=== PATIENT | male | born 1975 | race Caucasian/White ===

== ENCOUNTER 2024-08-28 09:33 | Emergency (ER) | payer MEDICAID, SELFPAY ==
[2024-08-28 09:34] VITALS: PULSE 92; O2SAT 96; BMI 28.7
--- NOTE | 2024-08-28 10:12 | PC.NURSE ---
called pt back, no answer at this time
--- NOTE | 2024-08-28 10:30 | PC.NURSE ---
PT HAS BEEN IN THE BATHROOM SINCE CHECKING IN AND SAYS OCCUPIED WHEN ANY ONE KNOCKS ON DOOR. CHECK NOW AND TOLD PT NURSE WAS COMING IN TO SEE IF HE NEEDED HELP AND PT OPENED THE DOOR AND SAID IM CLEANING UP AND CHANGING MY CLOTHES. INFORMED PT THAT NURSE HAVE BEEN CALLING HIM SINCE HE CHECKED IN.
[2024-08-28 10:47] VITALS: BP 129/69; PULSE 83; RESP 18; TEMP 36.9; O2SAT 98
--- NOTE | 2024-08-28 11:15 | EDNOTE_ITS ---
<Statement entered by Rosibel Parr MD - 09/08/24 19:24> As co-signing physician, I was present and available for consult prn. I concur with the plan and care as documented by the midlevel provider. ED Extremity Problem RME/HPI General Chief complaint: Extremity Problem,Nontraumatic Stated complaint: RIGHT HAND AND BILATERAL LEG PAIN x 2 DAYS Time Seen by Provider: 08/28/24 09:45 Arrival date/time: 08/28/24 09:33 This is a 49-year-old male that comes in with complaints of second digit erythema and mild swelling. Patient states it started yesterday. Patient also complains of pain. Patient denies any trauma. Patient also complains of bilateral leg pain for the last 2 days. Patient has some cellulitis to right lower extremity as well. Patient has not sore to the medial right ankle and abrasion to right dorsal lower leg. Related Data Home Medications ?Medication ?Instructions ?Recorded ?Confirmed albuterol sulfate 90 mcg/actuation 2 puff inhalation Q ID PRN 08/29/19 08/30/19 aerosol inhaler Shortness Of Breath Or Wheez ing buprenorphine 8 mg-naloxone 2 mg 2 film buccal BID 05/0808/30/19 sublingual film (Suboxone) carvedilol 3.125 mg tablet 3.125 mg PO BID 08/29/19 cetirizine 10 mg tablet 10 mg PO QDAY 08/29/1908/30 cholecalciferol (vitamin D3) 50 2,000 unit PO QDAY 05/0808/30/19 mcg (2,000 unit) tablet (Vitamin D3) famotidine 20 mg tablet 20 mg PO QDAY 08/29/1908/30 ferrous sulfate 325 mg (65 mg 325 mg PO TID 08/29/19 0 08/30/19 iron) tablet finasteride 5 mg tablet 5 mg PO QDAY 08/29/19 fluticasone furoate 200 1 puff inhalation QDAY 08/2908/30/19 mcg-vilanterol 25 mcg/dose inhalation powder (Breo Ellipta) fluvoxamine 50 mg tablet 50 mg PO BID 08/29/19 furosemide 80 mg tablet 80 mg PO QDAY 08/29/1908/30 gabapentin 600 mg tablet 600 mg PO TID 08/29/1908/30 hydroxychloroquine 200 mg tablet 200 mg PO BID 0 08/30/19 ibuprofen 800 mg tablet 800 mg PO TID 08/29/1908/30 levetiracetam 500 mg tablet 500 mg PO BID 08/29/1906/08 ondansetron 4 mg disintegrating 4 mg PO Q8H PRN Nausea And Vomiting 08/29/19 08/30/19 tablet pantoprazole 40 mg tablet,delayed 40 mg PO QDAY 08/30/19 release spironolactone 100 mg tablet 100 mg PO BID 08/29/19 tamsulosin 0.4 mg capsule 0.4 mg PO BID 08/29/1908/30 tiotropium bromide 18 mcg capsule 1 cap inhalation QDA Y 08/29/19 08/30/19 with inhalation device (Spiriva with HandiHaler) trazodone 100 mg tablet 100 mg PO BID PRN depression 08/29/19 08/30/19 Previous Rx's ?Medication ?Instructions ?Recorded ibuprofen 800 mg tablet 800 mg PO Q6H PRN pain #20 t abs 08/28/24 Allergies Allergy/AdvReac Type Severity Reaction Status Date / Time Cephalexin Monohydrate Allergy Severe Swelling Verified 08/28/24 09:37 of Lip/Tongue/Throat Review of Systems Review of Systems Systems Reviewed: All systems reviewed, normal except as documented Past Medical History Past Medical History NEUROLOGIC: Positive Neurological Disorders and Seizures (last 2 weeks ago) CARDIAC: Positive Cardiac Disorders, Edema (lymphedema bilateral lower extremities from hips down) and Hypertension; Negative Congestive Heart Failure or Deep Vein Thrombosis RESPIRATORY: Positive Chronic Obstructive Pulmonary Disease (COPD) and Sleep Apnea GASTROINTESTINAL: Positive Gastrointestinal Disorders, Hepatitis (hep C, treated), Cirrhosis, Gastrointestinal Bleed, Ulcer, Gastroesophageal Reflux Disease and Obesity GENITOURINARY: Positive Genitourinary Disorders and Renal Disease MUSCULOSKELETAL: Positive Musculoskeletal Disorders, Arthritis and Fractures (right hip x2, nasal, right wrist) ENDOCRINE: Positive Endocrine Disorders and Systemic Lupus Erythematosus; Negative Diabetes Mellitus Type 1 or Diabetes Mellitus Type 2 HEMATOLOGIC: Negative Blood Disorders PSYCHO/SOCIAL: Positive Depression and Anxiety OTHER HISTORY: Positive Falls, Blood Transfusions and Anesthesia Reactions (slow to wake); Negative Blood Transfusion Reaction or Cancer Family History FAMILY HISTORY: Positive Family Cardiac Disorders (father-CHF, CABG), Family Gastrointestinal Problems (father-ulcer) and Family Surgery (father, mother); Negative Family Respiratory Disorders (mother-asthma, father-copd and asthma) or Family Anesthesia Reaction Surgical History SURGICAL: Positive Tonsillectomy and Abdominal Surgery Social History SMOKING STATUS: Current every day smoker Travel History EBOLA RISK: No ED Exam General General appearance: Present alert and in no apparent distress Head Head exam: Present atraumatic Eye Eye exam: Present normal appearance, PERRL and EOMI ENT ENT exam: Present normal exam, normal oropharynx and mucous membranes moist Neck Neck exam: Present normal inspection, full ROM and trachea midline Chest Chest inspection: Present normal inspection and symmetric chest wall rise Respiratory Respiratory exam: Present normal lung sounds bilaterally Cardiovascular Cardiovascular exam: Present regular rate, normal rhythm and normal heart sounds Abdominal Exam Abdominal exam: Present soft Extremities Exam Extremities exam: Present normal inspection and full ROM Back Exam Back exam: Present normal inspection and full ROM Neurological Exam Neurological exam: Present alert, oriented X3 and CN II-XII intact Psychiatric Psychiatric exam: Present normal affect and normal mood Skin Skin exam: Present other (right second digit erythema and mild swelling, lower extremity edema mild bilateral. right lower extremity erythema. around dorsal ankle ) Course Quality Measures none Orders Category Date Time Status Consult Building Construction Supervisor NOW Care 08/28/24 11:37 Completed Acetaminophen Tab [Tylenol ES Tab] Med 08/28/24 11:15 Discontinued 1,000 mg PO X1 ONE Clindamycin Vial [Cleocin vial] Med 08/28/24 11:15 Discontinued 600 mg IM X1 ONE Ibuprofen Tab [Motrin Tab] Med 08/28/24 11:15 Discontinued 800 mg PO X1 ONE Vital Signs Vital signs: Vital Signs Temperature 98.4 F 08/28/24 10:47 Pulse Rate 83 08/28/24 10:47 Respiratory Rate 18 08/28/24 10:47 Blood Pressure 129/69 08/28/24 10:47 Pulse Oximetry (%) 98 08/28/24 10:47 Oxygen Delivery Method Room Air 08/28/24 10:47 Extremity Problem MDM Narrative MDM Narrative:: I spoke to patient at length. I spoke to him about the importance of keeping wound clean and dry. I spoke to patient about doing labs and x-rays. Patient does not want further testing at this time. Patient just wants antibiotics. He wants to see if the antibiotics help. Patient just requesting antibiotics. I explained to him at length that if he is not better with antibiotics to come back to the emergency room immediately. Patient verbalizes understanding. Patient told that he may need x-rays CT scans if not better and possibly be admitted if he fails antibiotic treatment outpatient. Patient verbalizes understanding. Patient told to follow-up with primary provider in 1 to 2 days. Come back to the emergency room if symptoms change or worsen. fiber worker came and brought patient clean pants, thermal, shirt. Patient given food. Patient data External records reviewed:: [facility] previous records Clinical information provided by:: patient Social determinants that could affect healthcare access:: none Patient has the following chronic illnesses:: see hpi How is presenting disease/condition affected by chronic disease/condition?: no chronic disease Evaluation data The following diagnostics were reviewed and interpreted by me:: other (specify) (none ) Lab and/or radiology exams considered but not ordered:: venous doppler of lower extremities, cbc, cmp, blood cultures Interpretation Summary: none Medications / Prescriptions Medications or Prescriptions considered but not ordered:: none Medication administrations:: Medication Administration History Discontinued Medications Acetaminophen (Acetaminophen 500 Mg Tablet) 1,000 mg PO X1 ONE Stop: 08/28/24 11:16 Last Admin: 08/28/24 11:25 Dose: 1,000 mg Documented By: Clindamycin Phosphate (Clindamycin Phos Inj 150 Mg/Ml Vial 6 Ml) 600 mg IM X1 ONE Stop: 08/28/24 11:16 Last Admin: 08/28/24 11:25 Dose: 600 mg Documented By: Ibuprofen (Ibuprofen Tab 400 Mg Tablet) 800 mg PO X1 ONE Stop: 08/28/24 11:16 Last Admin: 08/28/24 11:25 Dose: 800 mg Documented By: GM see hpi Consultations Consultation(s) initiated? (list below): No Diagnosis Most likely diagnosis given after review of the tests above:: cellulitis Admission Indicated Admission indicated?: not indicated Admission Request Was there a request for admission?: No Disposition Plan Disposition Plan: Discharge Discharge Attestation Discharge Attestation: The patient and all family members were given an opportunity to ask questions and understood the discharge instructions. Discharge instructions specifically effects, indications for sooner follow up or return to the emergency department, and the expected course of current diagnosis. Patient condition: Stable Discharge Plan Plan Patient Disposition: HOME (Self Care) Patient condition on transfer: Stable Prescriptions/Referrals Prescriptions/Med Rec: New ibuprofen 800 mg tablet 800 mg PO Q6H PRN (Reason: pain) Qty: 20 0RF No Action gabapentin 600 mg Tablet 600 mg PO TID cetirizine 10 mg Tablet 10 mg PO QDAY ibuprofen 800 mg Tablet 800 mg PO TID levetiracetam 500 mg Tablet 500 mg PO BID spironolactone 100 mg Tablet 100 mg PO BID carvedilol 3.125 mg Tablet 3.125 mg PO BID famotidine 20 mg Tablet 20 mg PO QDAY tamsulosin 0.4 mg Capsule 0.4 mg PO BID furosemide 80 mg Tablet 80 mg PO QDAY trazodone 100 mg Tablet 100 mg PO BID PRN (Reason: depression) pantoprazole 40 mg Tablet,Delayed Release (Dr/Ec) 40 mg PO QDAY ferrous sulfate 325 mg (65 mg iron) Tablet 325 mg PO TID fluvoxamine 50 mg Tablet 50 mg PO BID hydroxychloroquine 200 mg Tablet 200 mg PO BID albuterol sulfate 90 mcg/actuation Hfa Aerosol Inhaler 2 puff INHALATION QID PRN (Reason: Shortness Of Breath Or Wheezing) ondansetron 4 mg Tablet,Disintegrating 4 mg PO Q8H PRN (Reason: Nausea And Vomiting) finasteride 5 mg Tablet 5 mg PO QDAY Spiriva with HandiHaler 18 mcg Capsule, W/Inhalation Device 1 cap INHALATION QDAY cholecalciferol (vitamin D3) [Vitamin D3] 2,000 unit Tablet 2,000 unit PO QDAY buprenorphine-naloxone [Suboxone] 8-2 mg Film 2 film BUCCAL BID Breo Ellipta 200-25 mcg/dose Blister With Device 1 puff inhalation QDAY Problem List Clinical Impression: Cellulitis Patient/Caregiver Discharge Instructions Discharge Activity: activity as tolerated Education Materials: ED Cellulitis Additional Instructions: Please keep wounds clean and dry. Take antibiotics and pain medication as directed. Come back to the emergency room if symptoms change or worsen. Follow-up with primary provider in 1 to 2 days. Print Language: German Stand Alone Forms: Anjali Award Info., Patient Portal Info Letter PA/ECONOMIC DEVELOPER Supervising Physician PA/ECONOMIC DEVELOPER Supervising Physician: cal
[2024-08-28] MEDS: ACETAMINOPHEN 500 MG TABLET 1000 MG PO (11:25)
[2024-08-28] MEDS: IBUPROFEN TAB 400 MG TABLET 800 MG PO (11:25)
[2024-08-28] MEDS: CLINDAMYCIN PHOS INJ 150 MG/ML VIAL 6 ML 600 MG IM (11:25)
--- NOTE | 2024-08-28 12:03 | PC.CC ---
ASW was consulted regarding clothing for patient. ASW provided under clothing, sweats, and thermal shirt to the patient.
== END 2024-08-28 12:43 | disposition home or self-care (01) ==
LOC: SERX 11:34
PROVIDERS: Emergency Provider Emergency Medicine
DX: L03.115 Cellulitis of right lower limb (principal); M79.605 Pain in left leg
CPT/HCPCS: 99283; J0736; A9270

== ENCOUNTER 2024-12-05 18:34 | Inpatient (IN) | payer MEDICAID, SELFPAY ==
[2024-12-05] VITALS (8 sets, daily range): BP systolic 116–142; BP diastolic 49–77; PULSE 87–120; RESP 17–100; TEMP 37.1–39.3; O2SAT 97–99; BMI 28.7
--- NOTE | 2024-12-05 19:02 | EKG_ITS ---
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
--- NOTE | 2024-12-05 19:02 | PD.EDADULT ---
ED General RME/HPI General Chief complaint: Wound/Laceration Stated complaint: BILATERAL LEG SWOLLEN LEG PAIN Time Seen by Provider: 12/05/24 18:43 Arrival date/time: 12/05/24 18:34 CC: Bilateral lower leg pain and swelling, abdominal pain HPI lower leg pain ongoing for several years increasing chronicity, now painful. Abdominal pain for a couple of weeks . Patient is homeless EMS report tachycardia hypertensive admitted to smoking fentanyl the today. Patient is is ill kempt disheveled but does not appear in any acute distress. Related Data Home Medications ?Medication ?Instructions ?Recorded ?Confirmed albuterol sulfate 90 mcg/actuation 2 puff inhalation QID PRN 08/29/19 08/30/19 aerosol inhaler Shortness Of Breath Or Wheezing buprenorphine 8 mg-naloxone 2 mg 2 film buccal BID 08/29/19 08/30/19 sublingual film (Suboxone) carvedilol 3.125 mg tablet 3.125 mg PO BID 08/29/19 08/30/19 cetirizine 10 mg tablet 10 mg PO QDAY 08/29/19 08/30/19 cholecalciferol (vitamin D3) 50 2,000 unit PO QDAY 08/29/19 08/30/19 mcg (2,000 unit) tablet (Vitamin D3) famotidine 20 mg tablet 20 mg PO QDAY 08/29/19 08/30/19 ferrous sulfate 325 mg (65 mg 325 mg PO TID 08/29/19 08/30/19 iron) tablet finasteride 5 mg tablet 5 mg PO QDAY 08/29/19 08/30/19 fluticasone furoate 200 1 puff inhalation QDAY 08/29/19 08/30/19 mcg-vilanterol 25 mcg/dose inhalation powder (Breo Ellipta) fluvoxamine 50 mg tablet 50 mg PO BID 08/29/19 08/30/19 furosemide 80 mg tablet 80 mg PO QDAY 08/29/19 08/30/19 gabapentin 600 mg tablet 600 mg PO TID 08/29/19 08/30/19 hydroxychloroquine 200 mg tablet 200 mg PO BID 08/29/19 08/30/19 ibuprofen 800 mg tablet 800 mg PO TID 08/29/19 08/30/19 levetiracetam 500 mg tablet 500 mg PO BID 08/29/19 08/30/19 ondansetron 4 mg disintegrating 4 mg PO Q8H PRN Nausea And Vomiting 08/29/19 08/30/19 tablet pantoprazole 40 mg tablet,delayed 40 mg PO QDAY 08/29/19 08/30/19 release spironolactone 100 mg tablet 100 mg PO BID 08/29/19 08/30/19 tamsulosin 0.4 mg capsule 0.4 mg PO BID 08/29/19 08/30/19 tiotropium bromide 18 mcg capsule 1 cap inhalation QDAY 08/29/19 08/30/19 with inhalation device (Spiriva with HandiHaler) trazodone 100 mg tablet 100 mg PO BID PRN depression 08/29/19 08/30/19 Previous Rx's ?Medication ?Instructions ?Recorded ibuprofen 800 mg tablet 800 mg PO Q6H PRN pain #20 tabs 08/28/24 Allergies Allergy/AdvReac Type Severity Reaction Status Date / Time Cephalexin Monohydrate Allergy Severe Swelling Verified 12/05/24 19:01 of Lip/Tongue/Throat cephalexin (From Keflex) Allergy Verified 12/05/24 19:01 Review of Systems Review of Systems Narrative Review of Systems: GEN: No fever, no chills, no weight loss EYES: No discharge, no visual changes, no pain HEENT: No ear pain, no congestion, no sore throat PULM: No shortness of breath, no cough, no congestion CV: No chest pain, no dyspnea on exertion, no palpitations GI: No nausea, no vomiting, no diarrhea, no pain, no constipation : No frequency, no urgency, no dysuria MUSC/SKEL: No joint pain, no back pain SKIN: No rash PSYCH: No hallucinations, no depression HEME/LYMPH: No easy bleeding or bruising tendencies NEURO: No weakness, no headache Past Medical History Past Medical History NEUROLOGIC: Positive Neurological Disorders and Seizures (last 2 weeks ago) CARDIAC: Positive Cardiac Disorders, Edema (lymphedema bilateral lower extremities from hips down) and Hypertension; Negative Congestive Heart Failure or Deep Vein Thrombosis RESPIRATORY: Positive Chronic Obstructive Pulmonary Disease (COPD) and Sleep Apnea GASTROINTESTINAL: Positive Gastrointestinal Disorders, Hepatitis (hep C, treated), Cirrhosis, Gastrointestinal Bleed, Ulcer, Gastroesophageal Reflux Disease and Obesity GENITOURINARY: Positive Genitourinary Disorders and Renal Disease MUSCULOSKELETAL: Positive Musculoskeletal Disorders, Arthritis and Fractures (right hip x2, nasal, right wrist) ENDOCRINE: Positive Endocrine Disorders and Systemic Lupus Erythematosus; Negative Diabetes Mellitus Type 1 or Diabetes Mellitus Type 2 HEMATOLOGIC: Negative Blood Disorders PSYCHO/SOCIAL: Positive Depression and Anxiety OTHER HISTORY: Positive Falls, Blood Transfusions and Anesthesia Reactions (slow to wake); Negative Blood Transfusion Reaction or Cancer Family History FAMILY HISTORY: Positive Family Cardiac Disorders (father-CHF, CABG), Family Gastrointestinal Problems (father-ulcer) and Family Surgery (father, mother); Negative Family Respiratory Disorders (mother-asthma, father-copd and asthma) or Family Anesthesia Reaction Surgical History SURGICAL: Positive Tonsillectomy and Abdominal Surgery Social History SMOKING STATUS: Current every day smoker ED Exam Narrative Physical exam: [General: Ill kempt, disheveled, moaning. Appears not in any acute distress Head normocephalic HEENT: Within acceptable limits Neck is supple nontender Chest equal chest rise nontender to palpation Respiratory: Clear to auscultation no wheezes crackles or rubs CV: Rate rhythm is regular no murmurs rubs or clicks Abdomen is distended secondary to body habitus soft nontender no masses positive bowel sounds all 4 quadrants GI: The patient has good rectal tone stool in the vault is faintly guaiac positive. Back: No CVA tenderness no spinous process tenderness from cervical spine thoracic and lumbar spine Skin: Heavy crusting with black eschar to the both lower extremities from the knee below including the feet, edema, not warm to touch. No circumferential crusting above the knee. Otherwise skin is intact no petechiae rash induration ulceration or crepitus Extremities: Decreased range of motion of the lower extremity secondary to pain however moving all extremities against resistance cap refill less than 2 seconds neurosensory intact Neuro: Awake alert oriented x2, person and place, Glascow coma 15 no focal deficits] Course Course Course Narrative: Reviewed the labs clinical presentation of the chronic stasis ulcers are not an issue here the patient is febrile, with an early pneumonia I do not feel that this necessarily contributes to his condition. The patient is hyponatremic and guaiac positive with anemia of a crit of 7.9. Emigdio Marinelli who agrees to consult on the anemia portion, will need to address the hyponatremia as well as the fever and the pneumonia . Patient's case discussed with Dr. Monzon who agrees accept the patient for admission. Quality Measures none Orders Category Date Time Status Admit to Inpatient Status Routine Admission 12/05/24 22:24 Active Patient Condition Routine Admission 12/05/24 22:25 Ordered Bedside COVID-19 Antigen Test NOW Care 12/05/24 19:32 Active Bedside Influenza A&B Antigen Test NOW Care 12/05/24 19:[address] Screening NOW Care 12/05/24 22:21 Active Rubber Tile Floor Layer STAT Care 12/05/24 19:32 Active Continuous Pulse Oximetry STAT Care 12/05/24 19:32 Completed EKG (ED ONLY) *Do not use* NOW Care 12/05/24 19:02 Completed Arshad [Urinary Catheter] QS Care 12/05/24 22:24 Active In and Out Catheter X1PRN Care 12/05/24 19:32 Active Insert IV NOW Care 12/05/24 19:32 Active Intake and Output QSHIFT Care 12/05/24 22:30 Ordered Miscellaneous Nursing Order NOW Care 12/05/24 22:25 Active NPO STAT Care 12/05/24 19:32 Active NPO after Midnight ONCE Care 12/05/24 21:38 Active Notify provider NEEDED Care 12/05/24 22:25 Active Obtain weight NOW Care 12/05/24 22:25 Completed Strict Intake and Output Routine Care 12/05/24 19:32 Ordered Consult to Gastroenterology Stat Cons 12/05/24 21:38 Ordered Diet NPO after Midnight Diet 12/06/24 00:01 Active CA echo doppler complete Urgent Exams 12/05/24 22:[address] abdomen pelvis w con Stat Exams 12/05/24 22:[address] lower extremity BI w Stat Exams 12/05/24 22:21 Ordered EKG (ED Only) Stat Exams 12/05/24 19:02 Draft XR chest 1V Stat Exams 12/05/24 19:34 Completed B-Type Natriuretic Peptide Stat Lab 12/05/24 20:03 Completed Basic Metabolic Panel AM DRAW Lab 12/06/24 05:00 Ordered Basic Metabolic Panel AM DRAW Lab 12/07/24 05:00 Ordered Basic Metabolic Panel AM DRAW Lab 12/08/24 05:00 Ordered Blood Culture (Lab) Stat Lab 12/05/24 20:03 Received CBC AM DRAW Lab 12/06/24 05:00 Ordered CBC AM DRAW Lab 12/07/24 05:00 Ordered CBC AM DRAW Lab 12/08/24 05:00 Ordered CBC Stat Lab 12/05/24 20:03 Completed Comprehensive Metabolic Panel Stat Lab 12/05/24 20:03 Completed Drug Screen,Urine Stat Lab 12/05/24 21:14 Completed Folate, RBC* Routine Lab 12/05/24 Ordered Iron Panel Routine Lab 12/05/24 22:22 Ordered LDH (Lactate Dehydrogenase) Stat Lab 12/05/24 20:03 Completed Lactate (Lactic Acid) Stat Lab 12/05/24 20:03 Completed Lipase Stat Lab 12/05/24 20:03 Completed Lipid Panel AM DRAW Lab 12/06/24 05:00 Ordered Liver Panel AM DRAW Lab 12/06/24 05:00 Ordered MRSA Nasal Screen Routine Lab 12/05/24 22:25 Ordered Magnesium AM DRAW Lab 12/06/24 05:00 Ordered Magnesium Stat Lab 12/05/24 20:03 Completed Partial Thromboplastin Time Stat Lab 12/05/24 20:03 Completed Phosphorous AM DRAW Lab 12/06/24 05:00 Ordered Phosphorous Stat Lab 12/05/24 20:03 Completed Procalcitonin Stat Lab 12/05/24 20:03 Completed Prothrombin Time with INR AM DRAW Lab 12/06/24 05:00 Ordered Prothrombin Time with INR Stat Lab 12/05/24 20:03 Completed Thyroid Stimulating Hormone AM DRAW Lab 12/06/24 05:00 Ordered Troponin I Stat Lab 12/05/24 20:03 Completed Urinalysis Stat Lab 12/05/24 19:32 Ordered Urinalysis Stat Lab 12/05/24 21:14 Completed Urine Culture Stat Lab 12/05/24 21:14 Received Vitamin B12 Routine Lab 12/05/24 22:27 Ordered Acetaminophen Ivpb [Ofirmev Inj] Med 12/05/24 19:35 Active 1,000 mg in 100 ml IV Q6HR Acetaminophen Tab [Tylenol Tab] Med 12/05/24 22:24 Active 650 mg PO Q6H PRN CIPROFLOXACIN/D5w 400 MG IVPB [Cipro Ivpb] Med 12/05/24 22:31 Ordered 400 mg in 200 ml IV Q12HR Famotidine [Pepcid] Med 12/05/24 19:10 Discontinued 40 mg PO X1 ONE Furosemide Inj [Lasix Inj] Med 12/05/24 22:30 Active 40 mg IVP BIDD Ondansetron Inj [Zofran Inj] Med 12/05/24 22:24 Ordered 4 mg IV Q6H PRN Pantoprazole Inj [Protonix Inj] Med 12/05/24 21:38 Discontinued 40 mg IVP X1 ONE Pantoprazole/Ns 80Mg IV Premix [Protonix/NS 80mg IV Med 12/05/24 21:38 Active Premix] 80 mg in 100 ml IV Q10H Ringers Lactated 1000 ml [Lactated Ringers] 1,000 ml Med 12/05/24 19:32 Discontinued IV 999 mls/hr Ringers Lactated 1000 ml [Lactated Ringers] 1,000 ml Med 12/05/24 19:33 Discontinued IV 999 mls/hr Senna [Senokot] Med 12/05/24 22:24 Ordered 2 tab PO BID PRN Vancomycin Pharmacy to Dose Med 12/06/24 09:00 Ordered 1 each IV QDAY cefTRIAXone/D5w 1gm IV premix [Rocephin/D5w 1gm IV Med 12/05/24 21:34 Discontinued premix] 1 gm in 50 ml IV X1 metroNIDAZOLE/NS 500 MG IVPB [Flagyl 500 mg IV] Med 12/05/24 22:30 Ordered 500 mg in 100 ml IV Q8HR Code Status Routine Oth 12/05/24 22:24 Ordered EKG (RT) DAILY RT 12/06/24 09:00 Ordered Oxygen Delivery DAILY RT 12/05/24 22:25 Completed Oxygen Delivery NOW RT 12/05/24 19:32 Active Vital Signs Vital signs: Vital Signs Temperature 98.7 F 12/05/24 18:52 Pulse Rate 103 H 12/05/24 18:52 Respiratory Rate 17 12/05/24 18:52 Blood Pressure 142/63 H 12/05/24 18:52 Pulse Oximetry (%) 98 12/05/24 18:52 Oxygen Delivery Method Room Air 12/05/24 18:52 Discharge Plan Plan Patient Disposition: Other Care w/in Hosp ([facility]) Patient condition on transfer: Stable Prescriptions/Referrals Prescriptions/Med Rec: No Action gabapentin 600 mg Tablet 600 mg PO TID cetirizine 10 mg Tablet 10 mg PO QDAY ibuprofen 800 mg Tablet 800 mg PO TID levetiracetam 500 mg Tablet 500 mg PO BID spironolactone 100 mg Tablet 100 mg PO BID carvedilol 3.125 mg Tablet 3.125 mg PO BID famotidine 20 mg Tablet 20 mg PO QDAY tamsulosin 0.4 mg Capsule 0.4 mg PO BID furosemide 80 mg Tablet 80 mg PO QDAY trazodone 100 mg Tablet 100 mg PO BID PRN (Reason: depression) pantoprazole 40 mg Tablet,Delayed Release (Dr/Ec) 40 mg PO QDAY ferrous sulfate 325 mg (65 mg iron) Tablet 325 mg PO TID fluvoxamine 50 mg Tablet 50 mg PO BID hydroxychloroquine 200 mg Tablet 200 mg PO BID albuterol sulfate 90 mcg/actuation Hfa Aerosol Inhaler 2 puff INHALATION QID PRN (Reason: Shortness Of Breath Or Wheezing) ondansetron 4 mg Tablet,Disintegrating 4 mg PO Q8H PRN (Reason: Nausea And Vomiting) finasteride 5 mg Tablet 5 mg PO QDAY Spiriva with HandiHaler 18 mcg Capsule, W/Inhalation Device 1 cap INHALATION QDAY cholecalciferol (vitamin D3) [Vitamin D3] 2,000 unit Tablet 2,000 unit PO QDAY buprenorphine-naloxone [Suboxone] 8-2 mg Film 2 film BUCCAL BID Breo Ellipta 200-25 mcg/dose Blister With Device 1 puff inhalation QDAY ibuprofen 800 mg tablet 800 mg PO Q6H PRN (Reason: pain) Qty: 20 0RF Problem List Clinical Impression: Fever, Anemia, Pneumonia, Hyponatremia, Venous stasis ulcer of ankle limited to breakdown of skin, Homelessness Patient/Caregiver Discharge Instructions Print Language: Argentine Stand Alone Forms: Anjali Award Info., Patient Portal Info Letter PA/AERIAL LINEMAN Supervising Physician PA/AERIAL LINEMAN Supervising Physician: Ahmet Stephen ENP [facility] EKG Interpretation EKG #1: EKG Interpretation: EKG performed at 1934 shows a heart rate of 70 DC interval of approximately 125 QRS of approximately 100, DC interval approximately 300. This is atypical EKG. Labs Lab(s) Interpretation(s): CBC shows no leukocytosis there is an anemia hemoglobin of 7.9 hematocrit of 24, note last blood draw was 4 years ago which was normal. Platelets at 89. Coags show PT 15 INR of 1.4 PTT of 31.0 CMP shows sodium 129 no other electrolyte imbalances no renal impairment no transaminitis or T. bili elevation. Magnesium 1.4 Phosphorus of 2.0 Troponin is negative BNP is negative Pro-Gurmeet is 0.50. Lipase is 24 Lactic acid is 1.7. COVID influenza are negative Medication Administration(s) Medication Administration History Acetaminophen (Acetaminophen 325 Mg Tablet) 650 mg PO Q6H PRN PRN Reason: PAIN OR FEVER > 101 Stop: 01/04/25 22:23 Furosemide (Furosemide Inj 10 Mg/Ml 4ml Vial) 40 mg IVP BIDD ELIGIO Stop: 01/04/25 22:29 Acetaminophen (Ofirmev Inj) 1,000 mg in 100 mls @ 250 mls/hr IV Q6HR ELIGIO Stop: 12/06/24 12:23 Last Infusion: 12/05/24 20:20 Dose: Infused Documented By: Admin: 12/05/24 19:56 Dose: 250 mls/hr Documented By: EF Pantoprazole Sodium (Protonix/Ns 80mg Iv Premix) 80 mg in 100 mls @ 10 mls/hr IV Q10H ELIGIO Stop: 12/08/24 19:37 Last Admin: 12/05/24 22:18 Dose: 10 mls/hr Documented By: EF Metronidazole (Flagyl 500 Mg Iv) 500 mg in 100 mls @ 200 mls/hr IV Q8HR ELIGIO Stop: 12/12/24 22:29 Ciprofloxacin/Dextrose (Cipro Ivpb) 400 mg in 200 mls @ 200 mls/hr IV Q12HR ELIGIO Stop: 12/12/24 22:30 Ondansetron HCl (Ondansetron Inj 2 Mg/Ml Inj 2 Ml) 4 mg IV Q6H PRN; Protocol PRN Reason: NAUSEA OR VOMITING Stop: 01/04/25 22:23 Pharmacy Consult (Vancomycin Pharmacy To Dose 1 Each Each) 1 each IV QDAY ELIGIO Stop: 01/05/25 08:59 Sennosides (Senna Tablet) 2 tab PO BID PRN; Protocol PRN Reason: CONSTIPATION Stop: 01/04/25 22:23 Discontinued Medications Famotidine (Famotidine 20 Mg Tablet) 40 mg PO X1 ONE Stop: 12/05/24 19:11 Last Admin: 12/05/24 19:56 Dose: 40 mg Documented By: EF Lactated Ringer's (Lactated Ringers) 1,000 mls @ 999 mls/hr IV .Q1H1M ONE Stop: 12/05/24 20:32 Last Infusion: 12/05/24 20:58 Dose: Infused Documented By: Admin: 12/05/24 19:57 Dose: 999 mls/hr Documented By: EF Lactated Ringer's (Lactated Ringers) 1,000 mls @ 999 mls/hr IV .Q1H1M ONE Stop: 12/05/24 20:33 Last Admin: 12/05/24 19:57 Dose: 999 mls/hr Documented By: EF Ceftriaxone Sodium/Dextrose (Rocephin/D5w 1gm Iv Premix) 1 gm in 50 mls @ 100 mls/hr IV X1 ONE Stop: 12/05/24 22:03 Last Admin: 12/05/24 22:03 Dose: 100 mls/hr Documented By: GEORGE Pantoprazole Sodium (Pantoprazole Inj 40 Mg Vial) 40 mg IVP X1 ONE Stop: 12/05/24 21:39 Last Admin: 12/05/24 22:18 Dose: 40 mg Documented By: EF
--- NOTE | 2024-12-05 19:34 | XR_ITS ---
Examination: AP chest single view TECHNIQUE: AP portable semiupright chest single view Date and time: December 05, 2024 2008 hours Comparison August 30, 2019 INDICATIONS: Sepsis today with chest pain and shortness of breath FINDINGS: Suspicious for early left infrahilar pneumonia Normal heart size No pulmonary edema Prominent osteopenia IMPRESSION: Suspicious for early left basilar pneumonia
[2024-12-05] MEDS: ACETAMINOPHEN IVPB 1,000 MG/100 ML VIAL 250 MG IV (19:56)
[2024-12-05] MEDS: FAMOTIDINE 20 MG TABLET 40 MG PO (19:56)
[2024-12-05] MEDS: RINGERS LACTATED 1000 ML 1,000 ML 999 ML IV ×2 (19:57)
[2024-12-05 20:21] LABS: Lactate (Lactic Acid) 1.7 mMol/L (0.4-2.0)
[2024-12-05 20:23] LABS: Basophils % (Auto) 0 % (0-2.5); Eosinophils % (Auto) 1 % (0-10); Immature Granulocytes % (Auto) 1 % (0-0); Immature Granulocytes Auto 0.05 Thou/mm3 (0.00-0.00); Lymphocytes # (Auto) 0.4 Thou/mm3 (1.0-4.8); Lymphocytes % (Auto) 7 % (10-50); Mean Corpuscular HGB Conc 32.9 g/dl (31.0-37.0); Mean Corpuscular Hemoglobin 26.1 pg (25.0-35.0); Mean Corpuscular Volume 79 fL (80-100); Monocytes # (Auto) 0.2 Thou/mm3 (0.0-0.8); Monocytes % (Auto) 4 % (0-12); Neutrophils # (Auto) 4.9 Thou/mm3 (1.8-7.7); Neutrophils % (Auto) 87 % (37-80); Nucleated Red Blood Cell % 0 /100 WBC (0); Platelet Count 89 Thou/mm3 (140-440); RDW Standard Deviation 47.8 fL (35.1-43.9); Red Blood Count 3.03 Miln/mm3 (4.50-5.90); White Blood Count 5.7 Thou/mm3 (3.8-10.6)
[2024-12-05 20:31] LABS: Hemoglobin 7.9 g/dL (13.5-16.0)
[2024-12-05 20:36] LABS: INR 1.4 (0.9-1.3)
[2024-12-05 20:44] LABS: B-Type Natriuretic Peptide 33 pg/mL (0-100)
[2024-12-05 20:53] LABS: Alanine Aminotransferase < 7 U/L (10-49); Albumin, Serum 2.5 gm/dL (3.5-5.0); Albumin/Globulin Ratio 0.4 (1.2-2.2); Alkaline Phosphatase 64 U/L (46-116); Anion Gap 7 (7-16); Aspartate Amino Transferase 17 U/L (0-34); BUN/Creatinine Ratio 10 Ratio (12-20); Bilirubin,Total 0.9 mg/dL (0.3-1.2); Blood Urea Nitrogen 10 mg/dL (9-23); Calcium 7.7 mg/dL (8.3-10.6); Calcium (Corrected) 8.9 mg/dL (8.5-10.1); Carbon Dioxide 24.3 mMol/L (20.0-31.0); Chloride 98 mMol/L (98-107); Globulin 6.1 gm/dL (2.3-3.5); Glucose 99 mg/dL (74-106); LDH (Lactate Dehydrogenase) 172 U/L (120-246); Lipase 24 U/L (12-53); Magnesium 1.4 mg/dL (1.6-2.6); Osmolality,Calculated 257 (275-295); Potassium 3.7 mMol/L (3.4-5.1); Sodium 129 mMol/L (136-145); Total Protein 8.6 gm/dL (5.7-8.2); Troponin I < 0.020 ng/mL (0.0-0.045); eGFR > 60 See Note
[2024-12-05 21:40] LABS: Collection Type, Urine Clean Catch
[2024-12-05] MEDS: cefTRIAXone/D5w 1gm IV premix 1 GM/50 ML BAG IV (22:03)
[2024-12-05 22:17] LABS: Amphetamine/Methamp Scrn,U Positive (Negative); Barbiturate Screen,Urine Negative (Negative); Benzodiazepines Screen,Urine Negative (Negative); Benzoylecgonine Screen, Ur Negative (Negative); Fentanyl Screen,Urine Positive (Negative); Opiate Screen,Urine Negative (Negative); THC Screen,Urine Negative (Negative)
[2024-12-05] MEDS: PANTOPRAZOLE/NS 80MG IV PREMIX 80 MG/100 ML BAG 10 MG IV (22:18)
[2024-12-05] MEDS: PANTOPRAZOLE INJ 40 MG VIAL IVP (22:18)
--- NOTE | 2024-12-05 22:21 | ECHO_ITS ---
Transthoracic Echo Report Ht (in): 70 Wt (lb): 200 Exam Location: Echo Lab Status: Preadmit Complaint Coordinator: Adrienne Valencia Indications: Procedure Performed: BP: 101 / 58 HR: 66 Technical Quality: Technically difficult study MEASUREMENTS (Male / Female) Normal Values 2D ECHO LV Diastolic Diameter PLAX 5.0 cm 4.2 - 5.9 / 3.9 - 5.3 cm LV Systolic Diameter PLAX 3.3 cm IVS Diastolic Thickness 0.7 cm 0.6 - 1.0 / 0.6 - 0.9 cm LVPW Diastolic Thickness 1.2 cm 0.6 - 1.0 / 0.6 - 0.9 cm LV Relative Wall Thickness 0.4 LVOT Diameter 2.2 cm Aortic Root Diameter 3.1 cm LA Systolic Diameter LX 3.8 cm 3.0 - 4.0 / 2.7 - 3.8 cm LA Volume Index 26.4 cm?/m? 16 - 28 cm?/m? DOPPLER AV Peak Velocity 148.0 cm/s AV Peak Gradient 8.8 mmHg AV Mean Gradient 4.0 mmHg AV Velocity Time Integral 33.0 cm LVOT Peak Velocity 135.0 cm/s LVOT Peak Gradient 7.3 mmHg LVOT Velocity Time Integral 28.5 cm LVOT Cardiac Index 3346.8 cm?/min?m? AV Area Cont Eq vti 3.3 cm? AV Area Cont Eq pk 3.5 cm? MV Area PHT 2.6 cm? MR Peak Velocity 284.0 cm/s MR Peak Gradient 32.3 mmHg Mitral E Point Velocity 113.0 cm/s Mitral A Point Velocity 93.1 cm/s Mitral E to A Ratio 1.2 LV E' Lateral Velocity 12.3 cm/s Mitral E to LV E' Lateral Ratio 9.2 LV E' Septal Velocity 9.3 cm/s Mitral E to LV E' Septal Ratio 12.2 TR Peak Velocity 256.8 cm/s TR Peak Gradient 26.4 mmHg PV Peak Velocity 109.0 cm/s PV Peak Gradient 4.8 mmHg FINDINGS Left Ventricle Normal left ventricular size, wall thickness, systolic function with no obvious regional wall motion abnormalities. Normal left ventricular diastolic filling pattern for age. The ejection fraction is visually estimated at 55-60 %. Right Ventricle The right ventricle is mildly enlarge in size with normal systolic function. The estimated right ventricular systolic pressure, 45 mmHg. RAP 15. Left Atrium The left atrium is normal by two-dimensional, color flow and Doppler imaging with no structural abnormalities, no thrombus formation present. Right Atrium The right atrium is normal by two-dimensional imaging, color flow and Doppler imaging with no structural abnormalities, no thrombus formation present. Atrial Septum The interatrial septum appears normal with no evidence of a shunt. Aorta The aorta is normal by two-dimensional, color flow and Doppler interrogation. Mitral Valve The mitral valve is normal by two-dimensional, color flow and Doppler interrogation. Trace mitral regurgitation. Aortic Valve The aortic valve is trileaflet and normal by two-dimensional, color flow and Doppler interrogation. There is no significant aortic valve regurgitation. Tricuspid Valve The tricuspid valve is normal by two-dimensional, color flow and Doppler interrogation. There is mild tricuspid valve regurgitation. Pulmonic Valve The pulmonic valve is not well visualized. There is no significant pulmonic valve regurgitation. Vessels The pulmonary artery appears normal. The inferior vena cava pulmonary and hepatic veins appear normal. Pericardium The pericardium is normal by two-dimensional imaging. There is no significant pericardial effusion. CONCLUSIONS Indication: CHF Normal LV size and function. Estimated EF 55-60%. Normal left ventricular diastolic function. The RV is mildly enlarge in size with normal systolic function. The estimated RVSP, 45 mmHg. RAP 15. Trace MR. Mild TR. Dilated IVC. Justyn Coughlin (Electronically Signed) Final Date: 07 Dec 2024 07:05
--- NOTE | 2024-12-05 22:21 | XR_ITS ---
Examination: CT abdomen with intravenous contrast CT pelvis with intravenous contrast 2-D coronal reconstructions 2-D sagittal reconstructions Date and time of exam:December 06, 2024 0200 hours INDICATIONS: Abdominal pain and swelling this week. CTDI: vol (mGy) 15.8 DLP: (mGycm) 965 Technique: Multiple axial sections of the abdomen and pelvis have been obtained. 64 slice high-resolution scanner used. 3 mm axial sections have been obtained, post intravenous injection 60 cc Isovue-370 2-D sagittal, coronal reconstructions obtained. Low dose protocols were performed. One or more of the following dose reduction techniques were used; automated exposure control, adjustment of the mA and/or KV according to patient size, use of iterative reconstruction technique. Findings: Diffuse fatty infiltration throughout the liver, cirrhosis, liver nodular in contour Massive splenomegaly Distended gallbladder No definite pancreatic mass Portosystemic collateral vessels medial to the spleen Esophageal and perigastric varices No hydronephrosis Mild ascites No bowel obstruction No CT findings of appendicitis Marked thickening of the urinary bladder wall Extensive pericaval periaortic and common iliac lymphadenopathy Fusion T12-L1 IMPRESSION: Cirrhosis Massive splenomegaly Esophageal and perigastric varices Mild ascites Extensive abdominal and pelvic lymphadenopathy Marked thickening of the urinary bladder wall, consider cystitis
--- NOTE | 2024-12-05 22:21 | XR_ITS ---
Examination: CT bilateral lower extremities with intravenous contrast, 2-D sagittal reconstructions. 2-D coronal reconstructions. 3-D reconstructions. Date and time of exam:December 06, 2024 and 0200 hours INDICATIONS: Lower leg redness swelling and pain this week CTDI: vol (mGy):13.8 DLP: (mGycm):1487 Technique: Multiple 1.25 mm axial sections of the bilateral lower extremities post intravenous administration 60 cc Isovue 370 have been obtained. 2-D sagittal and coronal reconstructions have been obtained. 3-D reconstructions have been obtained. Low dose protocols were performed. One or more of the following dose reduction techniques were used; automated exposure control, adjustment of the mA and/or KV according to patient size, use of iterative reconstruction technique. Findings: Partial visualization prominent spleen No bowel obstruction Advanced right hip osteoarthritis Urinary bladder wall thickening bladder contracted around a Arshad catheter Edema in the subcutaneous tissues surrounding the thigh region, greater right leg These images do not include portions of the knees Similar edema surrounding the lower legs greater on the right side with bilateral skin thickening No dana cortical bone destruction IMPRESSION: Marked urinary bladder wall thickening, consider cystitis Recommend abdominal sonography to confirm significant splenomegaly Cellulitis pattern in the lower extremities more prominent on the right Negative for osteomyelitis
[2024-12-05 22:23] LABS: Bilirubin,Urine Negative (Negative); Blood,Urine Negative (Negative); Clarity,Urine Clear (Clear/Hazy); Color,Urine Yellow (Lt Yel-Yel); Glucose, Urine Negative (Negative); Ketones,Urine Negative (Negative); Leukocyte Esterase,Urine Negative (Negative); Nitrite,Urine Negative (Negative); Protein,Urine 1+ (Neg - Trace); RBC,Urine 6 /hpf (0-3); Specific Gravity,Urine 1.025 (1.001-1.035); Squamous Epithelial Cell,Urine 4 /hpf (0-5); WBC,Urine 6 /hpf (0-5)
--- NOTE | 2024-12-05 22:34 | ESHP_ITS ---
<Statement entered by Joe Butler MD - 12/06/24 13:30> I have discussed and was present for the essential components of the history, physical examination, diagnosis, and treatment plan with the resident. I agree with the patient's care as documented by the resident and amended herein by me. Joe Butler MD FACP. Documentation for date of: 12/05/24 HPI History of Present Illness History of present illness: Limited HPI due to mental status. Patient is a 49-year-old male with a past medical history of CHF, homelessness, drug abuse including methamphetamine and fentanyl, was brought into the ER due to bilateral leg pain, altered mental status following fentanyl and alcohol intake. The patient was somnolent, but arousable at the time of encounter, limited HPI was provided. Patient reported that he has friends called EMS after he had taken fentanyl for pain. Patient reported that he has a history of CHF, but has been noncompliant with medical appointments and medications for many years. Endorsed taking fentanyl and methamphetamine as well as alcohol. The patient has bilateral lower extremity swelling and edema, with chronic venous stasis changes, now has foul-smelling discharge from bilateral lower extremities. Patient was found to have fever, tachycardia and tachypnea on arrival, met sepsis criteria. Patient denied having chest pain or shortness of breath. He was found to be saturating well on room air, pupils 5 mm, respiratory rate 24/min. Blood pressure 124/80. Noted hyponatremia, normal potassium, normal renal function, lactic acid 1.7, CBC showed anemia, hemoglobin 7.9, stool occult was positive, ER spoke to window shade cutter Dr. Marinelli who agreed to consult, plan to keep the patient n.p.o. for possible EGD. Patient will be admitted to medical floor for management of sepsis secondary to cellulitis, and pneumonia, acute toxic encephalopathy secondary to sepsis and drugs, acute on chronic CHF and GI bleed. Past medical history: CHF, drug abuse including methamphetamine and fentanyl, alcohol abuse, history of seizure disorder. Past surgical history: Appendectomy Social history: Positive drug abuse and alcohol abuse. Allergies: Reported allergic to cephalexin including tongue swelling. Review of Systems Review of Systems Systems Reviewed: All systems reviewed, normal except as documented Past Medical History Past Medical History NEUROLOGIC: Positive Neurological Disorders and Seizures CARDIAC: Positive Cardiac Disorders, Edema and Hypertension; Negative Congestive Heart Failure or Deep Vein Thrombosis RESPIRATORY: Positive Chronic Obstructive Pulmonary Disease (COPD) and Sleep Apnea; Negative Asthma GASTROINTESTINAL: Positive Gastrointestinal Disorders, Hepatitis, Cirrhosis, Gastrointestinal Bleed, Ulcer, Gastroesophageal Reflux Disease and Obesity GENITOURINARY: Positive Genitourinary Disorders; Negative Renal Disease MUSCULOSKELETAL: Positive Musculoskeletal Disorders, Arthritis and Fractures ENDOCRINE: Positive Endocrine Disorders and Systemic Lupus Erythematosus; Negative Diabetes Mellitus Type 1 or Diabetes Mellitus Type 2 HEMATOLOGIC: Negative Blood Disorders or Sickle Cell Disease PSYCHO/SOCIAL: Positive Depression and Anxiety OTHER HISTORY: Positive Falls, Blood Transfusions and Anesthesia Reactions; Negative Down Syndrome, Developmental Delay, Blood Transfusion Reaction or Cancer Family History FAMILY HISTORY: Positive Family Cardiac Disorders, Family Gastrointestinal Problems and Family Surgery; Negative Family Respiratory Disorders or Family Anesthesia Reaction Surgical History SURGICAL: Positive Tonsillectomy and Abdominal Surgery Social History SMOKING STATUS: Current every day smoker Exam Vital Signs Temp Pulse Resp BP Pulse Ox O2 Del Method 98.9 F 98 18 137/69 H 97 Room Air 12/05/24 21:20 12/05/24 21:20 12/05/24 21:20 12/05/24 21:20 12/05/24 21:20 12/05/24 21:20 Narrative Exam General: AOx2, somnolent but arousable on verbal stimuli, disheveled appearance, foul-smelling discharge, Skin: Intact, no cyanosis or edema noted. Chronic venous stasis changes with edema and foul-smelling discharge from bilateral lower extremities., Noted erythema and cellulitis right lower extremity. Multiple tattoos all over the body, including swastika tattoo left knee. HEENT: Atraumatic/normocephalic, WAN, neck supple Heart: RRR, S1 and S2 without clicks or murmurs Lungs: Clear on auscultation bilaterally, no difficulty breathing Abdomen: Abdomen is soft, but tender and distended. Vascular: Peripheral pulses palpable Neuro: No focal neurological deficits noted. Drowsy secondary to sepsis and medications. Results: Labs 12/05/24 20:03 12/05/24 20:03 Labs: Short CBC 12/05/24 Range/Units 20:03 WBC 5.7 (3.8-10.6) Thou/mm3 Hgb 7.9 L (13.5-16.0) g/dL Hct 24.0 L (41.0-53.0) % Plt Count 89 L (140-440) Thou/mm3 BMP 12/05/24 20:03 Sodium 129 L Potassium 3.7 Chloride 98 Carbon Dioxide 24.3 BUN 10 Creatinine 1.0 Glucose 99 Calcium 7.7 L Cardiac Enzymes 12/05/24 Range/Units 20:03 Troponin I < 0.020 (0.0-0.045) ng/mL Liver Function 12/05/24 Range/Units 20:03 Total Bilirubin 0.9 (0.3-1.2) mg/dL AST 17 (0-34) U/L ALT < 7 L (10-49) U/L Alkaline Phosphatase 64 (46-116) U/L Albumin 2.5 L (3.5-5.0) gm/dL Urine 12/05/24 Range/Units 21:14 Urine Color Yellow (Lt Yel-Yel) Urine Clarity Clear (Clear/Hazy) Urine pH 7.0 (5.0-7.0) Ur Specific [place] 1.025 (1.001-1.035) Urine Protein 1+ A (Neg - Trace) Urine Glucose (UA) Negative (Negative) Quality Measures Quality Measures VTE prophylaxis Medications Home Medications and Allergies Home Medications ?Medication ?Instructions ?Recorded ?Confirmed ?Type albuterol sulfate 90 mcg/actuation 2 puff inhalation Q ID PRN 08/29/19 08/30/19 History aerosol inhaler Shortness Of Breath Or Wheez ing buprenorphine 8 mg-naloxone 2 mg 2 film buccal BID 05/0808/30/19 History sublingual film (Suboxone) carvedilol 3.125 mg tablet 3.125 mg PO BID 08/29/19 History cetirizine 10 mg tablet 10 mg PO QDAY 08/29/1908/30 History cholecalciferol (vitamin D3) 50 2,000 unit PO QDAY 05/0808/30/19 History mcg (2,000 unit) tablet (Vitamin D3) famotidine 20 mg tablet 20 mg PO QDAY 08/29/1908/30 History ferrous sulfate 325 mg (65 mg 325 mg PO TID 08/29/19 0 08/30/19 History iron) tablet finasteride 5 mg tablet 5 mg PO QDAY 08/29/19 History fluticasone furoate 200 1 puff inhalation QDAY 08/2908/30/19 History mcg-vilanterol 25 mcg/dose inhalation powder (Breo Ellipta) fluvoxamine 50 mg tablet 50 mg PO BID 08/29/19 History furosemide 80 mg tablet 80 mg PO QDAY 08/29/1908/30 History gabapentin 600 mg tablet 600 mg PO TID 08/29/1908/30 History hydroxychloroquine 200 mg tablet 200 mg PO BID 0 08/30/19 History ibuprofen 800 mg tablet 800 mg PO TID 08/29/1908/30 History levetiracetam 500 mg tablet 500 mg PO BID 08/29/1906/08 History ondansetron 4 mg disintegrating 4 mg PO Q8H PRN Nausea And Vomiting 08/29/19 08/30/19 History tablet pantoprazole 40 mg tablet,delayed 40 mg PO QDAY 08/30/19 History release spironolactone 100 mg tablet 100 mg PO BID 08/29/19 History tamsulosin 0.4 mg capsule 0.4 mg PO BID 08/29/1908/30 History tiotropium bromide 18 mcg capsule 1 cap inhalation QDA Y 08/29/19 08/30/19 History with inhalation device (Spiriva with HandiHaler) trazodone 100 mg tablet 100 mg PO BID PRN depression 08/29/19 08/30/19 History Allergies Allergy/AdvReac Type Severity Reaction Status Date / Time Cephalexin Monohydrate Allergy Severe Swelling Verified 12/05/24 19:01 of Lip/Tongue/Throat cephalexin (From Keflex) Allergy Verified 12/05/24 19:01 Visit Medications Acetaminophen (Acetaminophen 325 Mg Tablet) 650 mg PO Q6H PRN PRN Reason: PAIN OR FEVER > 101 Stop: 01/04/25 22:23 Furosemide (Furosemide Inj 10 Mg/Ml 4ml Vial) 40 mg IVP BIDD ELIGIO Stop: 01/04/25 22:29 Acetaminophen (Ofirmev Inj) 1,000 mg in 100 mls @ 250 mls/hr IV Q6HR ELIGIO Stop: 12/06/24 12:23 Last Infusion: 12/05/24 20:20 Dose: Infused Pantoprazole Sodium (Protonix/Ns 80mg Iv Premix) 80 mg in 100 mls @ 10 mls/hr IV Q10H ELIGIO Stop: 12/08/24 19:37 Last Admin: 12/05/24 22:18 Dose: 10 mls/hr Metronidazole (Flagyl 500 Mg Iv) 500 mg in 100 mls @ 200 mls/hr IV Q8HR ELIGIO Stop: 12/12/24 22:29 Ciprofloxacin/Dextrose (Cipro Ivpb) 400 mg in 200 mls @ 200 mls/hr IV Q12HR ELIGIO Stop: 12/12/24 22:30 Ondansetron HCl (Ondansetron Inj 2 Mg/Ml Inj 2 Ml) 4 mg IV Q6H PRN; Protocol PRN Reason: NAUSEA OR VOMITING Stop: 01/04/25 22:23 Pharmacy Consult (Vancomycin Pharmacy To Dose 1 Each Each) 1 each IV QDAY [facility] Stop: 01/05/25 08:59 Sennosides (Senna Tablet) 2 tab PO BID PRN; Protocol PRN Reason: CONSTIPATION Stop: 01/04/25 22:23 Discontinued Medications Famotidine (Famotidine 20 Mg Tablet) 40 mg PO X1 ONE Stop: 12/05/24 19:11 Last Admin: 12/05/24 19:56 Dose: 40 mg Lactated Ringer's (Lactated Ringers) 1,000 mls @ 999 mls/hr IV .Q1H1M ONE Stop: 12/05/24 20:32 Last Infusion: 12/05/24 20:58 Dose: Infused Lactated Ringer's (Lactated Ringers) 1,000 mls @ 999 mls/hr IV .Q1H1M ONE Stop: 12/05/24 20:33 Last Admin: 12/05/24 19:57 Dose: 999 mls/hr Ceftriaxone Sodium/Dextrose (Rocephin/D5w 1gm Iv Premix) 1 gm in 50 mls @ 100 mls/hr IV X1 ONE Stop: 12/05/24 22:03 Last Admin: 12/05/24 22:03 Dose: 100 mls/hr Pantoprazole Sodium (Pantoprazole Inj 40 Mg Vial) 40 mg IVP X1 ONE Stop: 12/05/24 21:39 Last Admin: 12/05/24 22:18 Dose: 40 mg Assessment & Plan Plan Limited HPI due to mental status. Patient is a 49-year-old male with a past medical history of CHF, homelessness, drug abuse including methamphetamine and fentanyl, was brought into the ER due to bilateral leg pain, altered mental status following fentanyl and alcohol intake. The patient was somnolent, but arousable at the time of encounter, limited HPI was provided. Patient reported that he has friends called EMS after he had taken fentanyl for pain. Patient reported that he has a history of CHF, but has been noncompliant with medical appointments and medications for many years. Endorsed taking fentanyl and methamphetamine as well as alcohol. The patient has bilateral lower extremity swelling and edema, with chronic venous stasis changes, now has foul-smelling discharge from bilateral lower extremities. Patient was found to have fever, tachycardia and tachypnea on arrival, met sepsis criteria. Patient denied having chest pain or shortness of breath. He was found to be saturating well on room air, pupils 5 mm, respiratory rate 24/min. Blood pressure 124/80. Noted hyponatremia, normal potassium, normal renal function, lactic acid 1.7, CBC showed anemia, hemoglobin 7.9, stool occult was positive, ER spoke to window shade cutter Dr. Marinelli who agreed to consult, plan to keep the patient n.p.o. for possible EGD. Patient will be admitted to medical floor for management of sepsis secondary to cellulitis, and pneumonia, acute toxic encephalopathy secondary to sepsis and drugs, acute on chronic CHF and GI bleed. #Sepsis #Cellulitis #Rule out osteomyelitis #Pneumonia Patient has possible anaphylaxis/allergy including tongue swelling. Cephalexin, will hold off on beta-lactam antibiotics, risk for Pseudomonas include dirty wound, homelessness status, drug use. Start patient on vancomycin, ciprofloxacin and metronidazole to include anaerobic coverage acute given extremely foul-smelling discharge, likely polymicrobial infection, will get CT lower extremities to rule out osteomyelitis and CT abdomen pelvis to rule out intra-abdominal infection, as patient has extremely tender abdomen on physical exam. ? Follow blood and urine cultures ? IV vancomycin, pharmacy to dose ? IV ciprofloxacin 400 mg twice daily ? IV metronidazole 500 mg every 8 hours ? Follow CT abdomen pelvis ? Follow CT bilateral lower extremities ? Consider ID consult #Acute toxic encephalopathy Multifactorial in the setting of sepsis as well as drug abuse, U tox positive for fentanyl and methamphetamine, patient was drowsy and somnolent but arousable, Narcan was considered, but as soon as patient had of Narcan he started pleading not to get Narcan as he has severe pain all over his body, patient's respiratory rate was in the 20s, maintaining O2 sats 95% on room air, pupils 5 mm, will continue to observe for worsening mental status or respiratory depression. ? Continue antibiotics for sepsis ? Consider Narcan if respiratory depression or hypoxia #Anemia #Occult GI bleed Stool occult positive, noted anemia hemoglobin 7.9, no recent CBC to compare, past hemoglobin 5 years ago was 14. ? GI consult to Yves Cifuentes appreciate recommendations ? Continue Protonix drip ? Patient n.p.o. pending GI recs ? Follow iron panel, vitamin B12 and folic acid ? Consider transfusion if hemoglobin less than 7 #Acute on chronic CHF Reported history of CHF, med rec shows the patient was prescribed medications for CHF, but patient reported noncompliance with medications and medical appointments for the past few years. Lost to follow-up. No cardiomegaly or pulmonary edema noted on chest x-ray. Unknown EF, pending echocardiogram. ? IV Lasix 40 mg twice daily ? Echocardiogram ordered ? Consider cardiac consult, restarting GDMT once echocardiogram report available. Plan of care discussed with attending Dr. Carrie Wadsworth Pgy2
[2024-12-05] MEDS: FUROSEMIDE INJ 10 MG/ML 4ML VIAL 40 MG IVP (22:53)
[2024-12-05] MEDS: metroNIDAZOLE/NS 500 MG IVPB 500 MG/100 ML BAG 200 MG IV (22:54)
[2024-12-05] MEDS: CIPROFLOXACIN/D5w 400 MG IVPB 400 MG/200 ML BAG 200 MG IV (23:18)
[2024-12-06] VITALS (18 sets, daily range): BP systolic 85–120; BP diastolic 50–65; PULSE 66–85; RESP 14–93; TEMP 36–37.2; O2SAT 92–99; BMI 33.6; BMI 33.5
[2024-12-06] MEDS: ACETAMINOPHEN IVPB 1,000 MG/100 ML VIAL 250 MG IV ×3 (01:03→12:49)
[2024-12-06 04:15] LABS: Collection Type, Urine Clean Catch; Squamous Epithelial Cell,Urine 0 /hpf (0-5)
[2024-12-06 04:20] LABS: Bilirubin,Urine Negative (Negative); Blood,Urine Negative (Negative); Clarity,Urine Clear (Clear/Hazy); Color,Urine Colorless (Lt Yel-Yel); Glucose, Urine Negative (Negative); Ketones,Urine Negative (Negative); Leukocyte Esterase,Urine Negative (Negative); Nitrite,Urine Negative (Negative); Protein,Urine Negative (Neg - Trace); RBC,Urine < 1 /hpf (0-3); Specific Gravity,Urine 1.011 (1.001-1.035); Urobilinogen,Urine Negative mg/dL (0.0-1.0); WBC,Urine < 1 /hpf (0-5)
--- NOTE | 2024-12-06 04:58 | PRELIM_ITS ---
CT scan of both lower extremities with intravenous contrast (axial sections with sagittal and coronal reformats) December 06, 2024 at 0200 hours Clinical History: Rule out osteomyelitis. Comparison: No prior study is available for comparison. Findings: The visualized bones are unremarkable. No fracture or dislocation is noted. No joint effusion is noted. The visualized muscles are unremarkable with maintained intermuscular fat planes. Bilateral skin thickening, worse to the right, associated with bilateral subcutaneous fat edema. No collections. No CT evidence of osteomyelitis. Impression: No CT evidence of osteomyelitis; if the clinical suspicion for osteomyelitis is still high, consider correlation with nuclear medicine radiolabeled white blood cell study. Findings are compatible with cellulitis. Report Electronically Signed By: Delvis Bah 12/06/2024 4:57:27 AM [EST]
--- NOTE | 2024-12-06 05:11 | PRELIM_ITS ---
CT scan of the abdomen and pelvis with intravenous contrast (axial sections with sagittal and coronal reformats) December 06, 2024 at 0200 hours Clinical History: Tense tender abdomen. Comparison: No prior study is available for comparison. Findings: The lung bases are clear. The gallbladder, pancreas, kidneys and adrenals are unremarkable. Splenomegaly with anteroposterior diameter of 25.2 cm. Irregular liver margins. No evidence of bowel obstruction. No evidence of appendicitis. Prominent mesenteric lymph nodes and enlarged retroperitoneal lymph nodes. Arshad catheter in place, the urinary bladder is not distended, limited evaluation, air within the urinary bladder. Urinary bladder wall thickening. There is no free air. Trace of ascites. The osseous structures are unremarkable. Lymphadenopathy at the bilateral groins, the largest lymph node to the right measures 5.5 x 3.1 cm. Impression: Possible cystitis. Please, correlate clinically. Splenomegaly of uncertain etiology, consider lymphoma in the differential diagnosis. Lymphadenopathy suspicious for lymphoma. Cirrhosis associated with splenomegaly and trace of ascites. Report Electronically Signed By: Delvis Bah 12/06/2024 5:10:58 AM [EST]
[2024-12-06 05:33] LABS: Alcohol, Urine Negative (Negative)
[2024-12-06] MEDS: metroNIDAZOLE/NS 500 MG IVPB 500 MG/100 ML BAG 200 MG IV ×3 (05:50→21:09)
[2024-12-06] MEDS: PANTOPRAZOLE/NS 80MG IV PREMIX 80 MG/100 ML BAG 10 MG IV ×2 (06:03→18:15)
[2024-12-06] MEDS: Magnesium Sulfate 4 GM Ivpb 4 GM/50 ML BAG IV (09:00)
[2024-12-06] MEDS: NAPH,KPH MBDB 1 PACKET (1.5 GM) PO (09:00)
--- NOTE | 2024-12-06 09:00 | EKG_ITS ---
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
[2024-12-06] MEDS: ALBUMIN HUMAN 25% IVPB 12.5 GM/50 ML BTL IV (09:22)
[2024-12-06] MEDS: Vancomycin Inj 2,000 MG in SODIUM CHLORIDE 0.9% 500 ML 500 ML 150 MG IV (09:23)
[2024-12-06] MEDS: MIDODRINE 5 MG TABLET 10 MG PO ×3 (09:52→21:09)
[2024-12-06] MEDS: LEVOFLOXACIN/D5W 750MG IVPB 750 MG/150 ML BAG 100 MG IV (11:06)
[2024-12-06 11:57] LABS: Lactate (Lactic Acid) 1.2 mMol/L (0.4-2.0)
[2024-12-06 12:03] LABS: Basophils % (Auto) 1 % (0-2.5); Eosinophils # (Auto) 0.2 Thou/mm3 (0.0-0.5); Eosinophils % (Auto) 5 % (0-10); Hematocrit 23.5 % (41.0-53.0); Immature Granulocytes % (Auto) 0 % (0-0); Immature Granulocytes Auto 0.01 Thou/mm3 (0.00-0.00); Lymphocytes # (Auto) 0.4 Thou/mm3 (1.0-4.8); Lymphocytes % (Auto) 12 % (10-50); Mean Corpuscular HGB Conc 32.8 g/dl (31.0-37.0); Mean Corpuscular Volume 79 fL (80-100); Monocytes # (Auto) 0.2 Thou/mm3 (0.0-0.8); Monocytes % (Auto) 7 % (0-12); Neutrophils # (Auto) 2.6 Thou/mm3 (1.8-7.7); Neutrophils % (Auto) 75 % (37-80); Nucleated Red Blood Cell % 0 /100 WBC (0); Platelet Count 80 Thou/mm3 (140-440); RDW Standard Deviation 48.6 fL (35.1-43.9); Red Blood Count 2.96 Miln/mm3 (4.50-5.90); White Blood Count 3.4 Thou/mm3 (3.8-10.6)
[2024-12-06 12:11] LABS: Hemoglobin 7.7 g/dL (13.5-16.0)
[2024-12-06 12:13] LABS: INR 1.6 (0.9-1.3); Prothrombin Time 16.9 Seconds (9.0-12.2)
[2024-12-06 12:21] LABS: Vitamin B12 635 pg/mL (211-911)
[2024-12-06 12:31] LABS: Iron 21 mcg/dL (65-175); Percent Iron Saturation 12 % (20-55); Total Iron Binding Capacity 175 mcg/dL (250-425); Unsaturated Iron Binding 154 (225-295)
[2024-12-06 12:49] LABS: Alanine Aminotransferase < 7 U/L (10-49); Albumin, Serum 2.2 gm/dL (3.5-5.0); Alkaline Phosphatase 57 U/L (46-116); Anion Gap 6 (7-16); Aspartate Amino Transferase 14 U/L (0-34); BUN/Creatinine Ratio 13 Ratio (12-20); Bilirubin,Direct 0.5 mg/dL (0.0-0.3); Blood Urea Nitrogen 12 mg/dL (9-23); Calcium 7.2 mg/dL (8.3-10.6); Carbon Dioxide 28.5 mMol/L (20.0-31.0); Cardiac Risk Estimate 3.1 RATIO (4.0-6.7); Chloride 101 mMol/L (98-107); Cholesterol 66 mg/dL (132-200); Creatinine (Component) 0.9 mg/dL (0.6-1.3); Estimated Creatinine Clearance 118.6 mL/min (>60); Glucose 99 mg/dL (74-106); HDL Cholesterol 21 mg/dL (40-60); LDL Cholesterol,Calculated 35 mg/dL (0-130); Magnesium 1.7 mg/dL (1.6-2.6); Osmolality,Calculated 269 (275-295); Phosphorous 3.4 mg/dL (2.4-5.1); Potassium 3.2 mMol/L (3.4-5.1); Sodium 135 mMol/L (136-145); Thyroid Stimulating Hormone 4.01 uIU/mL (0.55-4.78); Total Protein 7.6 gm/dL (5.7-8.2); Triglycerides 51 mg/dL (30-150); eGFR > 60 See Note
--- NOTE | 2024-12-06 13:14 | ESPR_ITS ---
Documentation for date of: 12/06/24 Subjective Subjective Interval history: 12/06/2024: Overnight admission for 49-year-old male presenting with sepsis secondary to cellulitis along with likely upper GI bleed from esophageal varices secondary to cirrhosis. Patient is not actively bleeding at this time; however, hemoglobin continues to downtrend will transfuse 1 unit PRBC and continue monitoring hemoglobin. Patient does awaken but is somnolent and blood pressures have been on the lower side MAP of 65. IV fluid resuscitation with 2 L of LR has been completed; moreover, additionally added IV albumin and midodrine 10 mg 3 times daily for blood pressure support. Will continue IV antibiotics for cellulitis and GI recommends continuing IV Protonix and also starting IV octreotide for the patient's esophageal varices seen on CT. Exam Vital Signs Temp Pulse Resp BP Pulse Ox O2 Del Method 96.8 F 73 18 98/60 99 Room Air 12/06/24 12:00 12/06/24 12:00 12/06/24 12:00 12/06/24 12:00 12/06/24 12:00 12/06/24 12:00 Narrative Exam Physical Exam: GENERAL: Somnolent but awakens and opens eyes to verbal command, appears disheveled and malodorous HEENT: NC/AT. Dry mucosa. PERRLA/EOMI. CARDIO: Heart RRR, no obvious murmurs, no JVD. PULM: No coughing or visible SOB. Lungs CTA B/L. GI: Abdomen soft, obese, no fluid wave noted, hepatosplenomegaly noted, no guarding/rebound tenderness. Borborygmi apparent SKIN/MSK/EXT: Bilateral lower extremities with chronic venous changes. Hyperkeratotic lesions noted with malodorous oozing. Lower extremities wrapped. No amputations noted. NEURO: Oriented x3, Moves extremities x4, no focal neurologic deficits noted Objective Labs 12/08/24 04:34 12/08/24 04:34 Labs: Laboratory Results - last 24 hr 12/05/24 12/05/24 12/06/24 20:03 21:14 03:50 WBC 5.7 RBC 3.03 L Hgb 7.9 L Hct 24.0 L MCV 79 L MCH 26.1 MCHC 32.9 RDW Std Deviation 47.8 H Plt Count 89 L Neut % (Auto) 87 H Lymph % (Auto) 7 L [place] % (Auto) 4 Eos % (Auto) 1 Baso % (Auto) 0 Neut # (Auto) 4.9 Lymph # (Auto) 0.4 L [place] # (Auto) 0.2 Eos # (Auto) 0.0 Baso # (Auto) 0.0 Immature Gran # (Auto) 0.05 H Absolute Nucleated RBC 0.00 Immature Gran % 1 H Nucleated RBC % 0 PT 15.0 H INR 1.4 H APTT 31.0 Sodium 129 L Potassium 3.7 Chloride 98 Carbon Dioxide 24.3 Anion Gap 7 BUN 10 Creatinine 1.0 Estim Creat Clear Calc 99.0 eGFR > 60 BUN/Creatinine Ratio 10 L Glucose 99 Calculated Osmolality 257 L Lactic Acid 1.7 Calcium 7.7 L Corrected Calcium 8.9 Phosphorus 2.0 L Magnesium 1.4 L Iron TIBC Iron Saturation Unsat Iron Binding Total Bilirubin 0.9 Direct Bilirubin AST 17 ALT < 7 L Alkaline Phosphatase 64 Lactate Dehydrogenase 172 Troponin I < 0.020 B-Natriuretic Peptide 33 Total Protein 8.6 H Albumin 2.5 L Globulin 6.1 H Albumin/Globulin Ratio 0.4 L Triglycerides Cholesterol LDL Cholesterol, Calc HDL Cholesterol Cholesterol/HDL Ratio Lipase 24 Vitamin B12 Procalcitonin 0.50 H TSH Ur Collection Type Clean Catch Clean Catch Urine Color Yellow Colorless A Urine Clarity Clear Clear Urine pH 7.0 7.0 Ur Specific [place] 1.025 1.011 Urine Protein 1+ A Negative Urine Glucose (UA) Negative Negative Urine Ketones Negative Negative Urine Blood Negative Negative Urine Nitrite Negative Negative Urine Bilirubin Negative Negative Urine Urobilinogen (Auto) 2.0 Negative Ur Leukocyte Esterase Negative Negative Urine RBC 6 H < 1 Urine WBC 6 H < 1 Ur Squamous Epith Cells 4 0 Urine Bacteria None None Urine Opiates Screen Negative Urine Fentanyl Screen Positive A Ur Barbiturates Screen Negative U Amphetamin/Meth Scrn Positive A U Benzodiazepines Scrn Negative U Cocaine Metab Screen Negative U Marijuana (THC) Screen Negative Urine Alcohol Negative Blood Type Antibody Screen Crossmatch Blood Bank Wristband ID 12/06/24 11:35 WBC 3.4 L D RBC 2.96 L Hgb 7.7 L Hct 23.5 L MCV 79 L MCH 26.0 MCHC 32.8 RDW Std Deviation 48.6 H Plt Count 80 L Neut % (Auto) 75 Lymph % (Auto) 12 [place] % (Auto) 7 Eos % (Auto) 5 Baso % (Auto) 1 Neut # (Auto) 2.6 Lymph # (Auto) 0.4 L [place] # (Auto) 0.2 Eos # (Auto) 0.2 Baso # (Auto) 0.0 Immature Gran # (Auto) 0.01 H Absolute Nucleated RBC 0.00 Immature Gran % 0 Nucleated RBC % 0 PT 16.9 H INR 1.6 H APTT Sodium 135 L Potassium 3.2 L D Chloride 101 Carbon Dioxide 28.5 Anion Gap 6 L BUN 12 Creatinine 0.9 Estim Creat Clear Calc 118.6 eGFR > 60 BUN/Creatinine Ratio 13 Glucose 99 Calculated Osmolality 269 L Lactic Acid 1.2 Calcium 7.2 L Corrected Calcium Phosphorus 3.4 Magnesium 1.7 Iron 21 L TIBC 175 L Iron Saturation 12 L Unsat Iron Binding 154 L Total Bilirubin 1.0 Direct Bilirubin 0.5 H AST 14 ALT < 7 L Alkaline Phosphatase 57 Lactate Dehydrogenase Troponin I B-Natriuretic Peptide Total Protein 7.6 Albumin 2.2 L Globulin Albumin/Globulin Ratio Triglycerides 51 Cholesterol 66 L LDL Cholesterol, Calc 35 HDL Cholesterol 21 L Cholesterol/HDL Ratio 3.1 L Lipase Vitamin B12 635 Procalcitonin TSH 4.01 Ur Collection Type Urine Color Urine Clarity Urine pH Ur Specific [place] Urine Protein Urine Glucose (UA) Urine Ketones Urine Blood Urine Nitrite Urine Bilirubin Urine Urobilinogen (Auto) Ur Leukocyte Esterase Urine RBC Urine WBC Ur Squamous Epith Cells Urine Bacteria Urine Opiates Screen Urine Fentanyl Screen Ur Barbiturates Screen U Amphetamin/Meth Scrn U Benzodiazepines Scrn U Cocaine Metab Screen U Marijuana (THC) Screen Urine Alcohol Blood Type B Positive Antibody Screen NEGATIVE Crossmatch See Detail Blood Bank Wristband ID Yes Quality Measures Quality Measures VTE prophylaxis Assessment & Plan Assessment Current Active Medications: Generic Name Dose Route Start Last Admin Trade Name Freq PRN Reason Stop Dose Admin Acetaminophen 1,000 mg 12/06/24 12:00 Acetaminophen 325 Mg Tablet PO 01/04/25 11:59 Q6H PRN Pain Or Fever > 99 Furosemide 40 mg 12/05/24 22:30 12/06/24 05:48 Furosemide Inj 10 Mg/Ml 4ml Vial IVP 01/04/25 22:29 Not Given BIDD ELIGIO Pantoprazole Sodium 80 mg in 100 mls @ 10 mls/hr 12/05/24 21:38 12/06/24 06:03 Protonix/Ns 80mg Iv Premix IV 12/08/24 19:37 10 mls/hr Q10H ELIGIO Administration Metronidazole 500 mg in 100 mls @ 200 mls/hr 12/06/24 06:00 12/06/24 05:50 Flagyl 500 Mg Iv IV 12/13/24 05:59 200 mls/hr Q8HR ELIGIO Administration Vancomycin/Sodium Chloride 200 mls @ 120 mls/hr 12/06/24 22:00 Vancomycin/Ns 1 Gm Ivpb IV 12/13/24 21:59 Q12H ELIGIO Protocol Levofloxacin/Dextrose 750 mg in 150 mls @ 100 mls/hr 12/06/24 09:00 12/06/24 11:06 Levaquin Ivpb IV 12/13/24 08:59 100 mls/hr QDAY ELIGIO Administration Midodrine 10 mg 12/06/24 09:00 12/06/24 09:52 Midodrine 5 Mg Tablet PO 01/05/25 08:59 10 mg TID ELIGIO Administration Ondansetron HCl 4 mg 12/05/24 22:24 Ondansetron Inj 2 Mg/Ml Inj 2 Ml IV 01/04/25 22:23 Q6H PRN NAUSEA OR VOMITING Protocol Pharmacy Consult 1 each 12/06/24 09:00 12/06/24 10:25 Vancomycin Pharmacy To Dose 1 Each Each IV 01/05/25 08:59 Not Given QDAY ELIGIO Sennosides 2 tab 12/05/24 22:24 Senna Tablet PO 01/04/25 22:23 BID PRN CONSTIPATION Protocol Plan 49-year-old male with a past medical history of CHF, homelessness, substance-use disorder methamphetamine and fentanyl was brought into the ER due to bilateral leg pain, altered mental status following fentanyl and alcohol intake; admitted to the hospital for management of sepsis secondary to cellulitis and pneumonia, acute toxic encephalopathy secondary to sepsis and toxic metabolite ingestion, acute on chronic CHF and GI bleed. #Sepsis 2/2 to Cellulitis #Pneumonia #Leukopenia #Thrombocytopenia Sepsis as patient has MAP of 65 with extensive IVF resusitation, patient also presented tachycardic with a temperature of 102.7 ?F and thrombocytopenia As per HPI, patient is homeless presented with lower extremity lesions outlined in the physical exam Risk for Pseudomonas include dirty wound, homelessness status, drug use Patient has possible anaphylaxis/allergy including tongue swelling to beta- lactam antibiotics CXR is positive for early left basilar pneumonia Lower extremity CT shows urinary bladder wall thickening, splenomegaly, cellulitis pattern lower extremities more prominent on the right but negative for osteomyelitis Plan: Follow blood and urine cultures Midodrine 10 mg 3 times daily added IV vancomycin, pharmacy to dose IV metronidazole 500 mg every 8 hours Discontinued IV Cipro instead we will start IV Levaquin 750 mg daily Will Consider ID consult #Microcytic anemia #Occult GI bleed #Esophageal varices in the setting of cirrhosis #Splenomegaly #Iron deficiency anemia 9?points Child Class B Indication for transplant evaluation Abdominal surgery dionicio-operative mortality: 30% Stool occult positive, noted anemia hemoglobin 7.9, no recent CBC to compare, past hemoglobin 5 years ago was 14. Hbg trending down from 7.9 => 7.7 No overt signs of active bleeding; no melena/hematochezia/hematemesis CT abdomen pelvis confirms massive splenomegaly, esophageal and perigastric varices, mild ascites, extensive abdominal and pelvic lymphadenopathy and marked thickening of urinary bladder Iron panel shows: iron of 21, TIBC 175, iron saturation 12% Plan: Transfusing 1u pRBC; post transfusion H-h ordered Q6H H-h Started IV octreotide gtt GI consult to Dr. Marinelli appreciate recommendations Continue Protonix drip IV albumin 12.5g Patient n.p.o. after midnight pending EGD on 12/07 Transfusion if hemoglobin less than 7 #Acute toxic encephalopathy Multifactorial in the setting of sepsis as well as drug abuse U tox positive for fentanyl and methamphetamine Patient continues to be drowsy and somnolent but arousable Patient able to protect airway and saturating well on room air Plan: Continue antibiotics for sepsis as above Consider Narcan if respiratory depression or hypoxia #Acute on chronic CHF Reported history of CHF, med rec shows the patient was prescribed medications for CHF, but patient reported noncompliance with medications and medical appointments for the past few years. No cardiomegaly or pulmonary edema noted on chest x-ray. Plan: Holding IV Lasix 40 mg twice daily as patient has soft BPs Echocardiogram ordered Will consider cardiology consult, restarting GDMT once echocardiogram report available. Hospital Management: Lines: PIV Diet: N.p.o. after midnight Bowel: Not needed GI prophylaxis: On Protonix drip DVT prophylaxis: Not indicated as patient has cellulitis and potential GI bleed Dispo: IV antibiotics and IV fluid resuscitation for sepsis secondary to cellulitis, pending EGD on 12/07 and IV octreotide gtt for 5 days Code: Full Patient seen and examined with attending Dr. Mcgregor and senior resident Dr. Bo Amador, PGY-1 LPatient examined and case discussed with the team including attending physician. Note reviewed, I agree with the care plan as documented. Admitted for sepsis secondary to cellulitis, sepsis now resolved. Continue IV antibiotics. Wound care ordered, will give referral to for OP wound care for continuation of care. donor services technician on board. Please refer to the note above for further details. - Jens Soriano MD, PGY 2 Disclaimer: The document may contain phonetic/typographic errors due to voice recognition software. These errors are purely due to imperfections in the software program and should not be misconstrued in any way to compromise the substance of the patient's medical care during this visit. L Attending Provider Attestation/Addendum 49-year-old male with multiple comorbidities including end-stage liver disease, polysubstance abuse (methamphetamine and fentanyl) who presented to the ER with altered mental status following fentanyl and alcohol use. On initial presentation, patient states that he was using fentanyl, methamphetamine and alcohol and in the ER noted to be alert and oriented. However, patient noted to have significant bilateral lower extremity cellulitis with sepsis and acute anemia with positive occult blood testing concerning for upper GI bleed secondary to esophageal varices and thus started on Protonix and octreotide. Plan to continue monitoring the patient closely and n.p.o. past midnight for EGD.I reviewed above note and agree with findings and plans. I have also personally examined the patient with medicine team and went over assessment and plan with medical team including internet specialist and resident physician.
--- NOTE | 2024-12-06 14:38 | PC.SS ---
SS attempted to meet with pt to complete initial assessment, t is currently altered. SS therefore attempted to contact contacts via abel Pappas -pt Mother [phone] phone out of service. Rylee Garcia - pt life partner [phone] phone also out of service.
--- NOTE | 2024-12-06 15:30 | PC.NURSE ---
Dr. Amador at bedside, received patient consent for blood transfusion. Witnesses by Jean Paul DOOLEY
--- NOTE | 2024-12-06 17:13 | PD.IMCONS ---
HPI Data of Consult Requesting Physician: Carolyn Mcgregor MD Primary Care Provider: Physician No Primary/Family Consult Narrative Reason for consult: H/H 7.3/23.5 History of present illness: 49 years old male evaluated the request of the internal medicine team for drop in hemoglobin hematocrit to 7.7 and 23.5 and Hemoccult positive stool with a low platelet count of 80,000 Patient has been found in the ER to be Hemoccult positive He presented to the emergency room with bilateral lower extremity pain discomfort foul-smelling discharge and altered mental status Patient does have a history of congestive heart failure using methamphetamine fentanyl as well as alcohol cc:: cc: Carolyn Mcgregor MD Review of Systems Review of Systems Systems Reviewed: All systems reviewed, normal except as documented Past Medical History Surgical History OTHER SURGICAL HX: As in the history of present illness Meds Home Medications and Allergies Home Medications ?Medication ?Instructions ?Recorded ?Confirmed ?Type ibuprofen 800 mg tablet 800 mg PO TID 08/29/19 12/06/24 History Allergies Allergy/AdvReac Type Severity Reaction Status Date / Time Cephalexin Monohydrate Allergy Severe Swelling Verified 12/05/24 19:01 of Lip/Tongue/Throat cephalexin (From Keflex) Allergy Verified 12/05/24 19:01 Exam Vital Signs Temp Pulse Resp BP Pulse Ox O2 Del Method 97.1 F 68 18 110/65 94 L Room Air 12/06/24 16:37 12/06/24 16:37 12/06/24 16:37 12/06/24 16:37 12/06/24 16:37 12/06/24 15:56 Constitutional Comments: Chronically ill-appearing Routine Respiratory Exam Comments: Normal to auscultation Routine Abdominal Exam Comments: Soft nontender Results Labs 12/06/24 11:35 12/06/24 11:35 Labs: Short CBC 12/05/24 12/06/24 Range/Units 20:03 11:35 WBC 5.7 3.4 L D (3.8-10.6) Thou/mm3 Hgb 7.9 L 7.7 L (13.5-16.0) g/dL Hct 24.0 L 23.5 L (41.0-53.0) % Plt Count 89 L 80 L (140-440) Thou/mm3 BMP 12/05/24 12/06/24 20:03 11:35 Sodium 129 L 135 L Potassium 3.7 3.2 L D Chloride 98 101 Carbon Dioxide 24.3 28.5 BUN 10 12 Creatinine 1.0 0.9 Glucose 99 99 Calcium 7.7 L 7.2 L Cardiac Enzymes 12/05/24 Range/Units 20:03 Troponin I < 0.020 (0.0-0.045) ng/mL Liver Function 12/05/24 12/06/24 Range/Units 20:03 11:35 Total Bilirubin 0.9 1.0 (0.3-1.2) mg/dL Direct Bilirubin 0.5 H (0.0-0.3) mg/dL AST 17 14 (0-34) U/L ALT < 7 L < 7 L (10-49) U/L Alkaline Phosphatase 64 57 (46-116) U/L Albumin 2.5 L 2.2 L (3.5-5.0) gm/dL Urine 12/05/24 12/06/24 Range/Units 21:14 03:50 Urine Color Yellow Colorless A (Lt Yel-Yel) Urine Clarity Clear Clear (Clear/Hazy) Urine pH 7.0 7.0 (5.0-7.0) Ur Specific [place] 1.025 1.011 (1.001-1.035) Urine Protein 1+ A Negative (Neg - Trace) Urine Glucose (UA) Negative Negative (Negative) Assessment and Plan Additional Assessment & Plan Additional Plan: # Anemia blood loss # Occult GI bleeding with FOBT positive Plan Clear liquid diet n.p.o. tomorrow at 10 AM for a procedure in the afternoon Consent obtained for fiberoptic esophagogastroduodenoscopy with possible biopsy possible therapeutic intervention under intravenous moderate sedation IV Protonix Advised complete abstinence from alcohol and drugs # Extensive abdominal and pelvic lymphadenopathy on CT scan imaging Tumor markers ordered once patient is more stable recommend CT-guided biopsy of one of the lymph nodes Other medical problems include Thrombocytopenia secondary to underlying liver disease secondary to alcohol Bilateral lower extremity cellulitis with foul smell Cirrhosis with portal hypertension and splenomegaly thrombocytopenia Congestive heart failure Actively using drugs methamphetamine fentanyl and alcohol Thank you very much for the opportunity to participate in the care of this patient
[2024-12-06] MEDS: OCTREOTIDE ACET INJ 1,000 MCG in SODIUM CHLORIDE 0.9% 100 ML 5.1 MCG IV (18:14)
--- NOTE | 2024-12-06 20:00 | PD.RESEVENT ---
Documentation for date of: 12/06/24 Event Note Event Note: Pt complaining of severe agitation and anxiety, states he has been using fentanyl in the past, concern for opiate withdrawal, unfortunately we are unable to prescribe Suboxone or initiate methadone prescription in the hospital. Spoke to pharmacy, recommended starting patient on partial u receptor agonist, Nalbuphine 10mg, starting dose based on response can administer frequent doses. #Opiate withdrawal - Nalbuphine 10mg iv q 4hr - monitor vitals Quresh pgy 2
[2024-12-06] MEDS: NALBUPHINE 20 MG/ML 10 MG IVP (21:40)
[2024-12-06] MEDS: ONDANSETRON INJ 2 MG/ML INJ 2 ML 4 MG IV (21:55)
[2024-12-06] MEDS: VANCOMYCIN/NS 1 GM IVPB 200 ML IV (21:56)
[2024-12-06] MEDS: METOCLOPRAMIDE INJ 5 MG/ML VIAL 2 ML 10 MG IVP (22:20)
[2024-12-06 23:05] LABS: Hematocrit 28.5 % (41.0-53.0); Hemoglobin 9.3 g/dL (13.5-16.0)
[2024-12-07] VITALS (22 sets, daily range): BP systolic 101–153; BP diastolic 59–91; PULSE 70–86; RESP 13–97; TEMP 36.1–36.7; O2SAT 90–100
[2024-12-07] MEDS: PANTOPRAZOLE/NS 80MG IV PREMIX 80 MG/100 ML BAG 10 MG IV ×2 (04:53→13:37)
[2024-12-07 05:54] LABS: Basophils % (Auto) 1 % (0-2.5); Eosinophils # (Auto) 0.2 Thou/mm3 (0.0-0.5); Eosinophils % (Auto) 4 % (0-10); Hematocrit 30.2 % (41.0-53.0); Hemoglobin 9.5 g/dL (13.5-16.0); Immature Granulocytes % (Auto) 0 % (0-0); Immature Granulocytes Auto 0.01 Thou/mm3 (0.00-0.00); Lymphocytes # (Auto) 0.7 Thou/mm3 (1.0-4.8); Lymphocytes % (Auto) 13 % (10-50); Mean Corpuscular HGB Conc 31.5 g/dl (31.0-37.0); Mean Corpuscular Hemoglobin 25.9 pg (25.0-35.0); Mean Corpuscular Volume 82 fL (80-100); Monocytes # (Auto) 0.3 Thou/mm3 (0.0-0.8); Monocytes % (Auto) 6 % (0-12); Neutrophils # (Auto) 3.9 Thou/mm3 (1.8-7.7); Neutrophils % (Auto) 77 % (37-80); Nucleated Red Blood Cell % 0 /100 WBC (0); Platelet Count 109 Thou/mm3 (140-440); RDW Standard Deviation 49.4 fL (35.1-43.9); Red Blood Count 3.67 Miln/mm3 (4.50-5.90); White Blood Count 5.1 Thou/mm3 (3.8-10.6)
[2024-12-07] MEDS: metroNIDAZOLE/NS 500 MG IVPB 500 MG/100 ML BAG 200 MG IV ×3 (05:56→21:05)
[2024-12-07] MEDS: MIDODRINE 5 MG TABLET 10 MG PO (05:57)
[2024-12-07 06:12] LABS: Anion Gap 7 (7-16); BUN/Creatinine Ratio 16 Ratio (12-20); Blood Urea Nitrogen 16 mg/dL (9-23); Calcium 7.2 mg/dL (8.3-10.6); Carbon Dioxide 27.2 mMol/L (20.0-31.0); Chloride 104 mMol/L (98-107); Estimated Creatinine Clearance 106.7 mL/min (>60); Glucose 94 mg/dL (74-106); Osmolality,Calculated 276 (275-295); Potassium 3.8 mMol/L (3.4-5.1); Sodium 138 mMol/L (136-145); eGFR > 60 See Note
[2024-12-07] MEDS: LEVOFLOXACIN/D5W 750MG IVPB 750 MG/150 ML BAG 100 MG IV (08:34)
[2024-12-07 08:41] LABS: Ammonia < 10 uMol/L (11-32)
[2024-12-07] MEDS: VANCOMYCIN/NS 1 GM IVPB 200 ML IV ×2 (10:30→23:54)
[2024-12-07 10:55] LABS: AFP Non-Pregnant < 1.30 ng/mL (<8.10); Carcinoembryonic Antigen 2.5 ng/mL (0.0-5.0)
--- NOTE | 2024-12-07 11:00 | CHAP ---
Patient was sleeping. Prayed silently in room for upcoming procedure.
--- NOTE | 2024-12-07 11:19 | PC.SS ---
Update: Patient is alert/oriented. Patient is homeless and states he was living on the streets. He was not at a [facility]. Patient has swollen legs and was admitted for sepsis. Patient states he has no family/friends. He hasn't spoken to his mother in a few years. His other contact Rylee, is . Patient states he was not ambulatory and uses a wheelchair. However, when patient was picked up he states they did not take his wheelchair. Patient has a history of drug use. He states prior to hospitalization he was using fentanyl. Patient verbalized he has a hx: depression. No PCP. SS will need to follow up on further d/c planning needs. SS will need to look at a [facility]. Patient not receiving any income. No PCP No Alt medical decision maker [facility]: [facility]: [facility]
[2024-12-07] MEDS: OCTREOTIDE ACET INJ 1,000 MCG in SODIUM CHLORIDE 0.9% 100 ML 5.1 MCG IV (12:05)
--- NOTE | 2024-12-07 13:29 | ESPR_ITS ---
Documentation for date of: 12/07/24 Subjective Subjective Interval history: 12/07/2024 overnight the patient had opioid withdrawal noted by the night team. Nalbuphine was initiated at the recommendation of pharmacy for the withdrawal symptoms which did improve the patient's presentation. Patient also had an EKG completed after medications were given which showed sinus rhythm. Patient seen and assessed in hospital bed still somnolent but does answer questions when woken up. Patient's urine cultures are positive for GPC, pending speciation but blood cultures show no growth within 24 hours. Patient has a EGD scheduled tentatively on 12/07 for esophageal varices. Will continue to monitor for any acute changes. Exam Vital Signs Temp Pulse Resp BP Pulse Ox O2 Del Method 97.4 F 74 16 117/77 92 L Room Air 12/07/24 12:00 12/07/24 12:00 12/07/24 12:00 12/07/24 12:00 12/07/24 12:00 12/07/24 12:00 Narrative Exam Physical Exam: GENERAL: Somnolent but awakens and opens eyes to verbal command, appears disheveled and malodorous HEENT: NC/AT. Dry mucosa. PERRLA/EOMI. CARDIO: Heart RRR, no obvious murmurs, no JVD. PULM: No coughing or visible SOB. Lungs CTA B/L. GI: Abdomen soft, obese, no fluid wave noted, hepatosplenomegaly noted, no guarding/rebound tenderness. Borborygmi apparent SKIN/MSK/EXT: Bilateral lower extremities with chronic venous changes. Hyperkeratotic lesions noted with malodorous oozing. Lower extremities wrapped. No amputations noted. NEURO: Oriented x3, Moves extremities x4, no focal neurologic deficits noted Objective Labs 12/08/24 04:34 12/08/24 04:34 Labs: Laboratory Results - last 24 hr 12/06/24 12/06/24 12/07/24 11:35 22:44 05:30 WBC 5.1 D RBC 3.67 L Hgb 9.3 L D 9.5 L Hct 28.5 L 30.2 L MCV 82 MCH 25.9 MCHC 31.5 RDW Std Deviation 49.4 H Plt Count 109 L D Neut % (Auto) 77 Lymph % (Auto) 13 [place] % (Auto) 6 Eos % (Auto) 4 Baso % (Auto) 1 Neut # (Auto) 3.9 Lymph # (Auto) 0.7 L [place] # (Auto) 0.3 Eos # (Auto) 0.2 Baso # (Auto) 0.0 Immature Gran # (Auto) 0.01 H Absolute Nucleated RBC 0.00 Immature Gran % 0 Nucleated RBC % 0 Sodium 138 Potassium 3.8 D Chloride 104 Carbon Dioxide 27.2 Anion Gap 7 BUN 16 Creatinine 1.0 Estim Creat Clear Calc 106.7 eGFR > 60 BUN/Creatinine Ratio 16 Glucose 94 Calculated Osmolality 276 Calcium 7.2 L Ammonia Tumor Marker AFP Carcinoembryonic Ag Blood Type B Positive Antibody Screen NEGATIVE Crossmatch See Detail Blood Bank Wristband ID Yes 12/07/24 07:55 WBC RBC Hgb Hct MCV MCH MCHC RDW Std Deviation Plt Count Neut % (Auto) Lymph % (Auto) [place] % (Auto) Eos % (Auto) Baso % (Auto) Neut # (Auto) Lymph # (Auto) [place] # (Auto) Eos # (Auto) Baso # (Auto) Immature Gran # (Auto) Absolute Nucleated RBC Immature Gran % Nucleated RBC % Sodium Potassium Chloride Carbon Dioxide Anion Gap BUN Creatinine Estim Creat Clear Calc eGFR BUN/Creatinine Ratio Glucose Calculated Osmolality Calcium Ammonia < 10 L Tumor Marker AFP < 1.30 Carcinoembryonic Ag 2.5 Blood Type Antibody Screen Crossmatch Blood Bank Wristband ID Quality Measures Quality Measures VTE prophylaxis Assessment & Plan Assessment Current Active Medications: Generic Name Dose Route Start Last Admin Trade Name Freq PRN Reason Stop Dose Admin Acetaminophen 1,000 mg 12/06/24 12:00 Acetaminophen 325 Mg Tablet PO 01/04/25 11:59 Q6H PRN Pain Or Fever > 99 Furosemide 40 mg 12/05/24 22:30 12/06/24 05:48 Furosemide Inj 10 Mg/Ml 4ml Vial IVP 01/04/25 22:29 Not Given BIDD ELIGIO Pantoprazole Sodium 80 mg in 100 mls @ 10 mls/hr 12/05/24 21:38 12/07/24 04:53 Protonix/Ns 80mg Iv Premix IV 12/08/24 19:37 10 mls/hr Q10H ELIGIO Administration Metronidazole 500 mg in 100 mls @ 200 mls/hr 12/06/24 06:00 12/07/24 05:56 Flagyl 500 Mg Iv IV 12/13/24 05:59 200 mls/hr Q8HR ELIGIO Administration Vancomycin/Sodium Chloride 200 mls @ 120 mls/hr 12/06/24 22:00 12/07/24 10:30 Vancomycin/Ns 1 Gm Ivpb IV 12/13/24 21:59 120 mls/hr Q12H ELIGIO Administration Protocol Levofloxacin/Dextrose 750 mg in 150 mls @ 100 mls/hr 12/06/24 09:00 12/07/24 08:34 Levaquin Ivpb IV 12/13/24 08:59 100 mls/hr QDAY ELIGIO Administration Octreotide Acetate 1,000 mcg/ 102 mls @ 5.1 mls/hr 12/06/24 14:57 12/07/24 12:05 Sodium Chloride IV 12/11/24 14:57 50 mcg/hr .Q20H ELIGIO 5.1 mls/hr Administration Protocol 50 MCG/HR Midodrine 10 mg 12/06/24 09:00 12/07/24 05:57 Midodrine 5 Mg Tablet PO 01/05/25 08:59 10 mg TID ELIGIO Administration Nalbuphine HCl 10 mg 12/06/24 22:38 Nalbuphine Inj 20 Mg/Ml 10 Ml Vial IVP 12/11/24 19:56 Q3HR PRN OPIATE WITHDRAWAL Ondansetron HCl 4 mg 12/05/24 22:24 12/06/24 21:55 Ondansetron Inj 2 Mg/Ml Inj 2 Ml IV 01/04/25 22:23 4 mg Q6H PRN Administration NAUSEA OR VOMITING Protocol Pharmacy Consult 1 each 12/06/24 09:00 12/07/24 09:00 Vancomycin Pharmacy To Dose 1 Each Each IV 01/05/25 08:59 Not Given QDAY ELIGIO Sennosides 2 tab 12/05/24 22:24 Senna Tablet PO 01/04/25 22:23 BID PRN CONSTIPATION Protocol Plan 49-year-old male with a past medical history of CHF, homelessness, substance-use disorder methamphetamine and fentanyl was brought into the ER due to bilateral leg pain, altered mental status following fentanyl and alcohol intake; admitted to the hospital for management of sepsis secondary to cellulitis and pneumonia, acute toxic encephalopathy secondary to sepsis and toxic metabolite ingestion, acute on chronic CHF and GI bleed. #Acute decompensated liver cirrhosis #Esophageal varices in the setting of cirrhosis #Splenomegaly #Iron deficiency anemia 9?points Child Class B Indication for transplant evaluation Abdominal surgery dionicio-operative mortality: 30% Stool occult positive, noted anemia hemoglobin 7.9, no recent CBC to compare, past hemoglobin 5 years ago was 14. Hbg trending down from 7.9 => 7.7 No overt signs of active bleeding; no melena/hematochezia/hematemesis CT abdomen pelvis confirms massive splenomegaly, esophageal and perigastric varices, mild ascites, extensive abdominal and pelvic lymphadenopathy and marked thickening of urinary bladder Iron panel shows: iron of 21, TIBC 175, iron saturation 12% Patient received 1 unit of PRBC and hemoglobin have been stable since and IV albumin 12.5g Plan: EGD today with Dr. Mrainelli Continue IV octreotide gtt GI consult to Dr. Marinelli appreciate recommendations Continue Protonix drip Transfusion if hemoglobin less than 7 #Sepsis 2/2 to Cellulitis #Pneumonia #Leukopenia #Thrombocytopenia Sepsis as patient has MAP of 65 with extensive IVF resusitation, patient also presented tachycardic with a temperature of 102.7 ?F and thrombocytopenia As per HPI, patient is homeless presented with lower extremity lesions outlined in the physical exam Risk for Pseudomonas include dirty wound, homelessness status, drug use Patient has possible anaphylaxis/allergy including tongue swelling to beta- lactam antibiotics CXR is positive for early left basilar pneumonia Lower extremity CT shows urinary bladder wall thickening, splenomegaly, cellulitis pattern lower extremities more prominent on the right but negative for osteomyelitis Blood cultures show no growth within 24 hours Urine cultures show GPC, pending speciation Plan: Follow-up on urine culture speciation Midodrine 10 mg 3 times daily added Continue IV vancomycin, pharmacy to dose Continue IV metronidazole 500 mg every 8 hours Continue IV Levaquin 750 mg daily Will Consider ID consult #Acute toxic encephalopathy #Opioid withdrawal Multifactorial in the setting of sepsis as well as drug abuse U tox positive for fentanyl and methamphetamine Patient continues to be drowsy and somnolent but arousable Patient able to protect airway and saturating well on room air Patient has opioid withdrawal noted and given nalbuphine x 2 by the night team Plan: Continue antibiotics for sepsis as above Nalbuphine 10 mg every 3 hours as needed for opioid withdrawal Consider Narcan if respiratory depression or hypoxia #Acute on chronic CHF Reported history of CHF, med rec shows the patient was prescribed medications for CHF, but patient reported noncompliance with medications and medical appointments for the past few years. No cardiomegaly or pulmonary edema noted on chest x-ray. Echo shows Normal LV size and function. Estimated EF 55-60%. Normal left ventricular diastolic function. The RV is mildly enlarge in size with normal systolic function. The estimated RVSP, 45 mmHg. RAP 15. Trace MR. Mild TR. Dilated IVC. Plan: Holding IV Lasix 40 mg twice daily as patient has soft BPs Will consider cardiology consult, restarting GDMT once echocardiogram report available. Hospital Management: Lines: PIV Diet: Will restart diet after EGD Bowel: Not needed GI prophylaxis: On Protonix drip DVT prophylaxis: Not indicated as patient has cellulitis and potential GI bleed Dispo: IV antibiotics and IV fluid resuscitation for sepsis secondary to cellulitis, pending EGD on 12/07 and IV octreotide gtt for 5 days Code: Full Patient seen and examined with attending Dr. Meche Amador, PGY-1 Attending Provider Attestation/Addendum 49-year-old male with multiple comorbidities including end-stage liver disease, polysubstance abuse (methamphetamine and fentanyl) who presented to the ER with altered mental status following fentanyl and alcohol use. On initial presentation, patient states that he was using fentanyl, methamphetamine and alcohol and in the ER noted to be alert and oriented. However, patient noted to have significant bilateral lower extremity cellulitis with sepsis and acute anemia with positive occult blood testing concerning for upper GI bleed secondary to esophageal varices and thus started on Protonix and octreotide pending EGD. Overnight, patient was noted to be in opiate withdrawal given nalbuphine improvement in symptoms. Continue IV antibiotic therapy for bilateral lower extremity cellulitis..I reviewed above note and agree with findings and plans. I have also personally examined the patient with medicine team and went over assessment and plan with medical team including international logistics coordinator and resident physician.
--- NOTE | 2024-12-07 14:46 | PC.DIETICIAN ---
Nutrition recommendations: When indicated, consider: 1. Clear Liquids. Advance as tolerated to: Low Sodium, PUD/GERD/[place]af[place], 1500 ml/day FR. 2. ProStat 30ml TID with meals. 3. Vitamin C 500 mg BID, zinc sulfate 220 mg once daily for 14 days, multivit/minerals.
--- NOTE | 2024-12-07 19:55 | SUR.PHASEI ---
1956 patient arrived to recovery, drowsy and able to arouse with verbal prompting, breathing unlabored, vital signs stable, denies pain and nausea, report received from Eufemia RN
--- NOTE | 2024-12-07 20:29 | SUR.PHASEI ---
2022 Report given to Lizabeth DOOLEY, patient meets discharge criteria from recovery, resting comfortably in [facility], on oxygen 4L via oxy mask, breathing unlabored, vital sign stable, denies pain and nausea 2028 Patient transported via rney to room 262 without incident
[2024-12-07] MEDS: NALBUPHINE 20 MG/ML 10 MG IVP (21:32)
[2024-12-07] MEDS: ONDANSETRON INJ 2 MG/ML INJ 2 ML 4 MG IV (21:32)
[2024-12-07 22:57] LABS: Vancomycin,Trough 14.5 mcg/mL (5.0-10.0)
[2024-12-07] MEDS: HYDROmorphone INJ 2 MG/ML VIAL 1 MG IVP (23:53)
[2024-12-08] VITALS (8 sets, daily range): BP systolic 117–148; BP diastolic 70–93; PULSE 69–90; RESP 14–24; TEMP 36.1–37.1; O2SAT 91–95
--- NOTE | 2024-12-08 00:42 | PC.NURSE ---
notified of patient screaming out in pain of withdrawals, crying and begging for relief, one time order for dilaudid given and patient is resting comfortably. I ddi dressing change on right leg, it was saturated and a smell, when i removed dressing, there was copious amounts of maggots in dressing and on leg. I rinsed off what i could see and redressed leg with telfa and kerlix. I notifed Dr. Crawford.
[2024-12-08] MEDS: PANTOPRAZOLE/NS 80MG IV PREMIX 80 MG/100 ML BAG 10 MG IV (01:47)
[2024-12-08] MEDS: NALBUPHINE 20 MG/ML 10 MG IVP ×2 (05:06→08:35)
[2024-12-08] MEDS: metroNIDAZOLE/NS 500 MG IVPB 500 MG/100 ML BAG 200 MG IV ×3 (05:07→21:14)
[2024-12-08] MEDS: ONDANSETRON INJ 2 MG/ML INJ 2 ML 4 MG IV (05:07)
[2024-12-08 05:48] LABS: Basophils % (Auto) 1 % (0-2.5); Eosinophils # (Auto) 0.1 Thou/mm3 (0.0-0.5); Eosinophils % (Auto) 3 % (0-10); Hematocrit 28.4 % (41.0-53.0); Hemoglobin 9.1 g/dL (13.5-16.0); Immature Granulocytes % (Auto) 0 % (0-0); Immature Granulocytes Auto 0.01 Thou/mm3 (0.00-0.00); Lymphocytes # (Auto) 0.7 Thou/mm3 (1.0-4.8); Lymphocytes % (Auto) 18 % (10-50); Mean Corpuscular Hemoglobin 25.9 pg (25.0-35.0); Mean Corpuscular Volume 81 fL (80-100); Monocytes # (Auto) 0.2 Thou/mm3 (0.0-0.8); Monocytes % (Auto) 6 % (0-12); Neutrophils # (Auto) 2.8 Thou/mm3 (1.8-7.7); Neutrophils % (Auto) 73 % (37-80); Nucleated Red Blood Cell % 0 /100 WBC (0); Platelet Count 92 Thou/mm3 (140-440); RDW Standard Deviation 49.4 fL (35.1-43.9); Red Blood Count 3.51 Miln/mm3 (4.50-5.90); White Blood Count 3.8 Thou/mm3 (3.8-10.6)
[2024-12-08] MEDS: HYDROmorphone INJ 2 MG/ML VIAL 1 MG IVP (06:00)
[2024-12-08] MEDS: NA SU/NAHCO3/KC/PEG (Golytely) 4,000 ML BTL 4000 ML PO (06:00)
[2024-12-08 06:10] LABS: Anion Gap 9 (7-16); BUN/Creatinine Ratio 16 Ratio (12-20); Blood Urea Nitrogen 18 mg/dL (9-23); Calcium 7.7 mg/dL (8.3-10.6); Carbon Dioxide 24.9 mMol/L (20.0-31.0); Chloride 102 mMol/L (98-107); Creatinine (Component) 1.1 mg/dL (0.6-1.3); Glucose 104 mg/dL (74-106); Osmolality,Calculated 273 (275-295); Sodium 136 mMol/L (136-145); eGFR > 60 See Note
--- NOTE | 2024-12-08 06:33 | PC.NURSE ---
Dr. Mario came to bedside to assess patient, he is screaming out and shaking stating his withdrawals are killing him. I gave him nubain and dilaudid. he is resting now.
[2024-12-08] MEDS: PANTOPRAZOLE INJ 40 MG VIAL IVP ×2 (08:36→21:14)
[2024-12-08] MEDS: LEVOFLOXACIN/D5W 750MG IVPB 750 MG/150 ML BAG 100 MG IV (08:36)
[2024-12-08] MEDS: LORazepam 2 MG/ML VIAL IVP ×3 (10:49→20:04)
[2024-12-08] MEDS: VANCOMYCIN/NS 1 GM IVPB 200 ML IV ×2 (10:55→22:58)
--- NOTE | 2024-12-08 11:25 | ESPR_ITS ---
<Statement entered by Carolyn Mcgregor MD - 12/16/24 15:00> I reviewed above note and agree with findings and plans. I have also personally examined the patient with medicine team and went over assessment and plan with medical team including international marketing coordinator and resident physician. Documentation for date of: 12/08/24 Subjective Subjective Interval history: 12/08/2024: Overnight patient experiencing opioid withdrawal symptoms which were not resolved with the use of IV nalbuphine, as such night team initiated IV Dilaudid which was helpful initially. Rapid response was called earlier this morning for acute agitation and patient wanting to leave AMA for fentanyl. Patient was able to be reasoned with and was given IV Ativan 2 mg with IV Dilaudid added to multimodal pain management. Patient completed endoscopy which showed grade 3 esophageal varices which were banded but gastroenterology states that they did not have any stigmata of recent bleeding. As such, gastroenterology was planning on doing colonoscopy; however, patient is not willing and does not want it done even after explanation of the following. Will continue to monitor the patient for withdrawal symptoms and expect discharge within the next 24 to 48 hours with chronic medications for liver cirrhosis. Exam Vital Signs Temp Pulse Resp BP Pulse Ox O2 Del Method O2 Flow Rate 98.1 F 71 20 147/90 H 91 L Room Air 4 12/08/24 07:56 12/08/24 07:56 12/08/24 07:56 12/08/24 07:56 12/08/24 07:56 12/08/24 07:56 12/07/24 20:25 Narrative Exam Physical Exam: GENERAL: Somnolent but awakens and opens eyes to verbal command, appears disheveled and malodorous HEENT: NC/AT. Dry mucosa. PERRLA/EOMI. CARDIO: Heart RRR, no obvious murmurs, no JVD. PULM: No coughing or visible SOB. Lungs CTA B/L. GI: Abdomen soft, obese, no fluid wave noted, hepatosplenomegaly noted, no guarding/rebound tenderness. Borborygmi apparent SKIN/MSK/EXT: Bilateral lower extremities with chronic venous changes. Hyperkeratotic lesions noted with malodorous oozing. Lower extremities wrapped. No amputations noted. NEURO: Oriented x3, Moves extremities x4, no focal neurologic deficits noted Objective Labs 12/08/24 04:34 12/08/24 04:34 Labs: Laboratory Results - last 24 hr 12/07/24 12/08/24 20:57 04:34 WBC 3.8 RBC 3.51 L Hgb 9.1 L Hct 28.4 L MCV 81 MCH 25.9 MCHC 32.0 RDW Std Deviation 49.4 H Plt Count 92 L Neut % (Auto) 73 Lymph % (Auto) 18 [place] % (Auto) 6 Eos % (Auto) 3 Baso % (Auto) 1 Neut # (Auto) 2.8 Lymph # (Auto) 0.7 L [place] # (Auto) 0.2 Eos # (Auto) 0.1 Baso # (Auto) 0.0 Immature Gran # (Auto) 0.01 H Absolute Nucleated RBC 0.00 Immature Gran % 0 Nucleated RBC % 0 Sodium 136 Potassium 4.0 Chloride 102 Carbon Dioxide 24.9 Anion Gap 9 BUN 18 Creatinine 1.1 Estim Creat Clear Calc 97.0 eGFR > 60 BUN/Creatinine Ratio 16 Glucose 104 Calculated Osmolality 273 L Calcium 7.7 L Vancomycin Trough 14.5 H Quality Measures Quality Measures VTE prophylaxis Assessment & Plan Assessment Current Active Medications: Generic Name Dose Route Start Last Admin Trade Name Freq PRN Reason Stop Dose Admin Acetaminophen 1,000 mg 12/06/24 12:00 Acetaminophen 325 Mg Tablet PO 01/04/25 11:59 Q6H PRN Pain Or Fever > 99 Furosemide 40 mg 12/08/24 09:00 Furosemide Inj 10 Mg/Ml 4ml Vial IVP 01/07/25 08:59 QDAY ELIGIO Hydromorphone HCl 0.5 mg 12/08/24 10:55 Hydromorphone Inj 2 Mg/Ml Vial IVP 12/13/24 10:54 Q4HR PRN SEVERE PAIN 7-10 Metronidazole 500 mg in 100 mls @ 200 mls/hr 12/06/24 06:00 12/08/24 06:26 Flagyl 500 Mg Iv IV 12/13/24 05:59 Infused Q8HR ELIGIO Infusion Vancomycin/Sodium Chloride 200 mls @ 120 mls/hr 12/06/24 22:00 12/08/24 10:55 Vancomycin/Ns 1 Gm Ivpb IV 12/13/24 21:59 120 mls/hr Q12H ELIGIO Administration Protocol Levofloxacin/Dextrose 750 mg in 150 mls @ 100 mls/hr 12/06/24 09:00 12/08/24 10:06 Levaquin Ivpb IV 12/13/24 08:59 Infused QDAY ELIGIO Infusion Octreotide Acetate 1,000 mcg/ 102 mls @ 5.1 mls/hr 12/06/24 14:57 12/07/24 12:05 Sodium Chloride IV 12/11/24 14:57 50 mcg/hr .Q20H ELIGIO 5.1 mls/hr Administration Protocol 50 MCG/HR Lorazepam 2 mg 12/08/24 11:24 Lorazepam 2 Mg/Ml Vial IVP 12/13/24 11:23 Q4HR PRN AGITATION Nalbuphine HCl 10 mg 12/06/24 22:38 12/08/24 08:35 Nalbuphine Inj 20 Mg/Ml 10 Ml Vial IVP 12/11/24 19:56 10 mg Q3HR PRN Administration OPIATE WITHDRAWAL Ondansetron HCl 4 mg 12/05/24 22:24 12/08/24 05:07 Ondansetron Inj 2 Mg/Ml Inj 2 Ml IV 01/04/25 22:23 4 mg Q6H PRN Administration NAUSEA OR VOMITING Protocol Pantoprazole Sodium 40 mg 12/08/24 09:00 12/08/24 08:36 Pantoprazole Inj 40 Mg Vial IVP 01/07/25 08:59 40 mg BID ELIGIO Administration Pharmacy Consult 1 each 12/06/24 09:00 12/08/24 10:33 Vancomycin Pharmacy To Dose 1 Each Each IV 01/05/25 08:59 Not Given QDAY ELIGIO Sennosides 2 tab 12/05/24 22:24 Senna Tablet PO 01/04/25 22:23 BID PRN CONSTIPATION Protocol Plan 49-year-old male with a past medical history of CHF, homelessness, substance-use disorder methamphetamine and fentanyl was brought into the ER due to bilateral leg pain, altered mental status following fentanyl and alcohol intake; admitted to the hospital for management of sepsis secondary to cellulitis and pneumonia, acute toxic encephalopathy secondary to sepsis and toxic metabolite ingestion, acute on chronic CHF and GI bleed. #Acute decompensated liver cirrhosis #Esophageal varices in the setting of cirrhosis #Splenomegaly #Iron deficiency anemia 9?points Child Class B Indication for transplant evaluation Abdominal surgery dionicio-operative mortality: 30% Stool occult positive, noted anemia hemoglobin 7.9, no recent CBC to compare, past hemoglobin 5 years ago was 14. Hbg trending down from 7.9 => 7.7 No overt signs of active bleeding; no melena/hematochezia/hematemesis CT abdomen pelvis confirms massive splenomegaly, esophageal and perigastric varices, mild ascites, extensive abdominal and pelvic lymphadenopathy and marked thickening of urinary bladder Iron panel shows: iron of 21, TIBC 175, iron saturation 12% Patient received 1 unit of PRBC and hemoglobin have been stable since and IV albumin 12.5g EGD showed grade 3 varices in the lower third of the esophagus which were banded with 2 bands but did not show recent stigmata of bleeding, patient also has gastritis noted Due to the above findings, GI planning on doing colonoscopy; however, as stated above patient does not want the procedure even after thorough explanation. Plan: Will initiate propranolol and diuretics prior to discharging patient for cirrhosis Patient will need close follow-up with PCP for monitoring of liver cirrhosis Continue IV octreotide gtt GI consult to Dr. Marinelli appreciate recommendations Continue Protonix IV 40 mg twice daily Clear liquid diet Transfusion if hemoglobin less than 7 #Sepsis 2/2 to Cellulitis #Pneumonia #Leukopenia #Thrombocytopenia Sepsis as patient has MAP of 65 with extensive IVF resusitation, patient also presented tachycardic with a temperature of 102.7 ?F and thrombocytopenia As per HPI, patient is homeless presented with lower extremity lesions outlined in the physical exam Risk for Pseudomonas include dirty wound, homelessness status, drug use Patient has possible anaphylaxis/allergy including tongue swelling to beta- lactam antibiotics CXR is positive for early left basilar pneumonia Lower extremity CT shows urinary bladder wall thickening, splenomegaly, cellulitis pattern lower extremities more prominent on the right but negative for osteomyelitis Blood cultures show no growth within 24 hours Urine cultures show GPC, pending speciation Plan: Follow-up on urine culture speciation Midodrine 10 mg 3 times daily added Continue IV vancomycin, pharmacy to dose Continue IV metronidazole 500 mg every 8 hours Continue IV Levaquin 750 mg daily Will Consider ID consult #Acute toxic encephalopathy #Opioid withdrawal Multifactorial in the setting of sepsis as well as drug abuse U tox positive for fentanyl and methamphetamine Patient continues to be drowsy and somnolent but arousable Patient able to protect airway and saturating well on room air Patient has opioid withdrawal noted and given nalbuphine x 2 by the night team Plan: Continue antibiotics for sepsis as above Nalbuphine 10 mg every 3 hours as needed for opioid withdrawal Consider Narcan if respiratory depression or hypoxia #CHF ruled out #Mild Pulmonary Hypertension Reported history of CHF, med rec shows the patient was prescribed medications for CHF, but patient reported noncompliance with medications and medical appointments for the past few years. No cardiomegaly or pulmonary edema noted on chest x-ray. Echo shows Normal LV size and function. Estimated EF 55-60%. Normal left ventricular diastolic function. The RV is mildly enlarge in size with normal systolic function. The estimated RVSP, 45 mmHg. RAP 15. Trace MR. Mild TR. Dilated IVC. Plan: Will restart IV Lasix 40mg q day for PAH and elevated BP Hospital Management: Lines: PIV Diet: Will restart diet after EGD Bowel: Not needed GI prophylaxis: On Protonix drip DVT prophylaxis: Not indicated as patient has cellulitis and potential GI bleed Dispo: IV antibiotics and IV fluid resuscitation for sepsis secondary to cellulitis, pending EGD on 12/07 and IV octreotide gtt for 5 days Code: Full Patient seen and examined with attending Dr. Meche Amador, PGY-1 Attending Provider Attestation/Addendum 49-year-old male with multiple comorbidities including end-stage liver disease, polysubstance abuse (methamphetamine and fentanyl) who presented to the ER with altered mental status following fentanyl and alcohol use. On initial presentation, patient states that he was using fentanyl, methamphetamine and alcohol and in the ER noted to be alert and oriented. However, patient noted to have significant bilateral lower extremity cellulitis with sepsis and acute anemia with positive occult blood testing concerning for upper GI bleed secondary to esophageal varices and thus started on Protonix and octreotide and underwent EGD with findings of esophageal varices status post banding. This morning, patient had a rapid response for severe agitation requesting for IV fentanyl for which counseled the patient regarding need to discontinue and not prescribe fentanyl which can contribute to his opiate addiction. I have also prescribed benzodiazepine for his severe agitation. Continue IV antibiotic therapy for bilateral lower extremity cellulitis continue to monitor hemoglobin. Anticipate discharge in the next 24-48 hours. I reviewed above note and agree with findings and plans. I have also personally examined the patient with medicine team and went over assessment and plan with medical team including international marketing coordinator and resident physician.
--- NOTE | 2024-12-08 11:25 | PD.RESEVENT ---
Documentation for date of: 12/08/24 Event Note Event Note: 12/08/2024: Rapid response called sometime around 10:30 AM for 49-year-old male in room 262 for acute agitation and requesting to leave AGAINST MEDICAL ADVICE. Patient seen and assessed with my attending; airway, breathing and circulation intact and vitals within normal limits. Patient continuously stated that he would like to leave as he is in pain and is requesting fentanyl. Patient likely undergoing opioid withdrawal and repeatedly stating the same things; however, was able to calm him down and explained that medication can be given to treat his pain and make him more comfortable. Patient given 2 mg of IV Ativan and starting the patient on multimodal pain management with IV Dilaudid as needed for severe pain. Will continue to monitor patient for any acute changes. Dusty Amador, PGY-1
[2024-12-08] MEDS: OCTREOTIDE ACET INJ 1,000 MCG in SODIUM CHLORIDE 0.9% 100 ML 5.1 MCG IV (15:36)
--- NOTE | 2024-12-08 21:25 | ESPR_ITS ---
Documentation for date of: 12/08/24 Subjective Subjective Interval history: Patient evaluated He is uncooperative He does not want to drink GoLytely Canceled the procedure DC GoLytely Advance diet Exam Vital Signs Temp Pulse Resp BP Pulse Ox O2 Del Method O2 Flow Rate 98.8 F 90 24 H 147/91 H 93 L Room Air 4 12/08/24 20:00 12/08/24 20:00 12/08/24 20:00 12/08/24 20:00 12/08/24 20:00 12/08/24 20:00 12/07/24 20:25 Objective Labs 12/08/24 04:34 12/08/24 04:34 Labs: Laboratory Results - last 24 hr 12/07/24 12/08/24 20:57 04:34 WBC 3.8 RBC 3.51 L Hgb 9.1 L Hct 28.4 L MCV 81 MCH 25.9 MCHC 32.0 RDW Std Deviation 49.4 H Plt Count 92 L Neut % (Auto) 73 Lymph % (Auto) 18 [place] % (Auto) 6 Eos % (Auto) 3 Baso % (Auto) 1 Neut # (Auto) 2.8 Lymph # (Auto) 0.7 L [place] # (Auto) 0.2 Eos # (Auto) 0.1 Baso # (Auto) 0.0 Immature Gran # (Auto) 0.01 H Absolute Nucleated RBC 0.00 Immature Gran % 0 Nucleated RBC % 0 Sodium 136 Potassium 4.0 Chloride 102 Carbon Dioxide 24.9 Anion Gap 9 BUN 18 Creatinine 1.1 Estim Creat Clear Calc 97.0 eGFR > 60 BUN/Creatinine Ratio 16 Glucose 104 Calculated Osmolality 273 L Calcium 7.7 L Vancomycin Trough 14.5 H Impressions Impression: Esophageal variceal banding Hypertensive portal gastropathy Cancel colonoscopy Advance diet Assessment & Plan A&P Narrative # Anemia blood loss # Occult GI bleeding with FOBT positive Plan Clear liquid diet n.p.o. 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
[2024-12-09] VITALS: BP 146/78; PULSE 86; RESP 12; TEMP 37.3; O2SAT 95
[2024-12-09] MEDS: LORazepam 2 MG/ML VIAL IVP ×2 (01:13→05:21)
[2024-12-09 04:00] VITALS: BP 154/87; PULSE 79; RESP 17; TEMP 36.8; O2SAT 95
[2024-12-09] MEDS: metroNIDAZOLE/NS 500 MG IVPB 500 MG/100 ML BAG 200 MG IV (05:18)
[2024-12-09 06:19] LABS: Basophils % (Auto) 0 % (0-2.5); Eosinophils # (Auto) 0.1 Thou/mm3 (0.0-0.5); Eosinophils % (Auto) 6 % (0-10); Hematocrit 27.2 % (41.0-53.0); Immature Granulocytes % (Auto) 1 % (0-0); Immature Granulocytes Auto 0.02 Thou/mm3 (0.00-0.00); Lymphocytes # (Auto) 0.7 Thou/mm3 (1.0-4.8); Lymphocytes % (Auto) 30 % (10-50); Mean Corpuscular HGB Conc 31.3 g/dl (31.0-37.0); Mean Corpuscular Hemoglobin 25.9 pg (25.0-35.0); Mean Corpuscular Volume 83 fL (80-100); Monocytes # (Auto) 0.2 Thou/mm3 (0.0-0.8); Monocytes % (Auto) 7 % (0-12); Neutrophils # (Auto) 1.3 Thou/mm3 (1.8-7.7); Neutrophils % (Auto) 56 % (37-80); Nucleated Red Blood Cell % 0 /100 WBC (0); RDW Standard Deviation 50.6 fL (35.1-43.9); Red Blood Count 3.28 Miln/mm3 (4.50-5.90)
[2024-12-09 06:30] LABS: Hemoglobin 8.5 g/dL (13.5-16.0); Platelet Count 79 Thou/mm3 (140-440); White Blood Count 2.3 Thou/mm3 (3.8-10.6)
[2024-12-09 06:46] LABS: Slide Review Platelets confirmed
[2024-12-09 06:55] LABS: Alanine Aminotransferase < 7 U/L (10-49); Albumin, Serum 2.5 gm/dL (3.5-5.0); Albumin/Globulin Ratio 0.4 (1.2-2.2); Alkaline Phosphatase 54 U/L (46-116); Anion Gap 6 (7-16); Aspartate Amino Transferase 17 U/L (0-34); BUN/Creatinine Ratio 14 Ratio (12-20); Bilirubin,Total 0.5 mg/dL (0.3-1.2); Blood Urea Nitrogen 17 mg/dL (9-23); Calcium 7.3 mg/dL (8.3-10.6); Calcium (Corrected) 8.5 mg/dL (8.5-10.1); Carbon Dioxide 25.8 mMol/L (20.0-31.0); Chloride 108 mMol/L (98-107); Creatinine (Component) 1.2 mg/dL (0.6-1.3); Estimated Creatinine Clearance 88.9 mL/min (>60); Globulin 5.9 gm/dL (2.3-3.5); Glucose 102 mg/dL (74-106); Magnesium 1.6 mg/dL (1.6-2.6); Osmolality,Calculated 280 (275-295); Potassium 3.5 mMol/L (3.4-5.1); Sodium 140 mMol/L (136-145); Total Protein 8.4 gm/dL (5.7-8.2); eGFR > 60 See Note
[2024-12-09 07:46] VITALS: BP 159/98; PULSE 75; RESP 18; TEMP 36.5; O2SAT 90
--- NOTE | 2024-12-09 09:22 | PC.NURSE ---
called md soni regarding pt stating wanting to go home and leave ama. md at bedside addsessing pt. pt a/o x3 and lethargic. pt refusing medication and wanting to go home. repeats that he wants his wheel chair to go home. Soccial services consulted and pedning recommendations.
--- NOTE | 2024-12-09 09:35 | PD.RESEVENT ---
Documentation for date of: 12/09/24 Event Note Event Note: Nurse for patient Rickie Caruso in room 262 called regarding patient wanting to leave AMA. Patient's competency assessed; patient is awake, alert and oriented x3 to person, place and purpose. Patient was able to verbalize his diagnosis by stating he came in with fever, leg infection and knows he has liver cirrhosis with bleeding internally. Patient encouraged to stay for monitoring of his GI bleeding and management of his acutely decompensated liver cirrhosis but patient keeps saying he needs to leave to take care of his dog. AMA paperwork signed with nurse. Dusty Amador, PGY-1
--- NOTE | 2024-12-09 10:43 | PC.SS ---
Patient needs a manual standard wheelchair for home. The patient and her family are requesting a wheel chair. Patients diagnosis creates mobility limitations that significantly impairs ability to participate in the patient?s activities of daily living either in their entirety or in a reasonable timeframe in the home and the patient?s mobility limitations cannot be sufficiently resolved with an appropriately fitted cane or walker. Also, the use of a manual wheelchair will sufficiently improve patients ability to participate in the activities of daily living in the home and the patient is willing to use the wheelchair that is provided in the home. The patient has some one in the home that is available, willing and able to provide assistance with the wheelchair.
--- NOTE | 2024-12-09 11:46 | PD.RESPRO ---
Documentation for date of: 12/09/24 Exam Vital Signs Temp Pulse Resp BP Pulse Ox O2 Del Method O2 Flow Rate 97.7 F 75 18 159/98 H 90 L Room Air 4 12/09/24 07:46 12/09/24 07:46 12/09/24 07:46 12/09/24 07:46 12/09/24 07:46 12/09/24 07:46 12/07/24 20:25 Objective Labs 12/09/24 05:33 12/09/24 05:33 Labs: Laboratory Results - last 24 hr 12/09/24 05:33 WBC 2.3 L RBC 3.28 L Hgb 8.5 L Hct 27.2 L MCV 83 MCH 25.9 MCHC 31.3 RDW Std Deviation 50.6 H Plt Count 79 L Neut % (Auto) 56 Lymph % (Auto) 30 [place] % (Auto) 7 Eos % (Auto) 6 Baso % (Auto) 0 Neut # (Auto) 1.3 L Lymph # (Auto) 0.7 L [place] # (Auto) 0.2 Eos # (Auto) 0.1 Baso # (Auto) 0.0 Immature Gran # (Auto) 0.02 H Absolute Nucleated RBC 0.00 Immature Gran % 1 H Nucleated RBC % 0 Sodium 140 Potassium 3.5 D Chloride 108 H Carbon Dioxide 25.8 Anion Gap 6 L BUN 17 Creatinine 1.2 Estim Creat Clear Calc 88.9 eGFR > 60 BUN/Creatinine Ratio 14 Glucose 102 Calculated Osmolality 280 Calcium 7.3 L Corrected Calcium 8.5 Phosphorus 3.0 Magnesium 1.6 Total Bilirubin 0.5 D AST 17 ALT < 7 L Alkaline Phosphatase 54 Total Protein 8.4 H Albumin 2.5 L Globulin 5.9 H Albumin/Globulin Ratio 0.4 L Misc Test Result Platelets confirmed Quality Measures Quality Measures VTE prophylaxis Assessment & Plan Assessment Current Active Medications: Generic Name Dose Route Start Last Admin Trade Name Freq PRN Reason Stop Dose Admin Acetaminophen 1,000 mg 12/09/24 09:27 Acetaminophen 325 Mg Tablet PO 01/04/25 11:59 Q6H PRN Pain 1-3 Or Fever > 99 Furosemide 40 mg 12/08/24 09:00 Furosemide Inj 10 Mg/Ml 4ml Vial IVP 01/07/25 08:59 QDAY ELIGIO Hydromorphone HCl 0.5 mg 12/08/24 10:55 Hydromorphone Inj 2 Mg/Ml Vial IVP 12/13/24 10:54 Q4HR PRN SEVERE PAIN 7-10 Metronidazole 500 mg in 100 mls @ 200 mls/hr 12/06/24 06:00 12/09/24 05:59 Flagyl 500 Mg Iv IV 12/13/24 05:59 Infused Q8HR ELIGIO Infusion Vancomycin/Sodium Chloride 200 mls @ 120 mls/hr 12/06/24 22:00 12/09/24 00:48 Vancomycin/Ns 1 Gm Ivpb IV 12/13/24 21:59 Infused Q12H ELIGIO Infusion Protocol Levofloxacin/Dextrose 750 mg in 150 mls @ 100 mls/hr 12/06/24 09:00 12/08/24 10:06 Levaquin Ivpb IV 12/13/24 08:59 Infused QDAY ELIGIO Infusion Octreotide Acetate 1,000 mcg/ 102 mls @ 5.1 mls/hr 12/08/24 15:00 12/08/24 15:36 Sodium Chloride IV 12/11/24 14:57 50 mcg/hr .Q20H ELIGIO 5.1 mls/hr Administration Protocol 50 MCG/HR Magnesium Sulfate 4 gm in 50 mls @ 12.5 mls/hr 12/09/24 07:51 Magnesium Sulfate Ivpb IV 12/09/24 11:50 X1 ONE Lorazepam 2 mg 12/08/24 11:24 12/09/24 05:21 Lorazepam 2 Mg/Ml Vial IVP 12/13/24 11:23 2 mg Q4HR PRN Administration AGITATION Ondansetron HCl 4 mg 12/05/24 22:24 12/08/24 05:07 Ondansetron Inj 2 Mg/Ml Inj 2 Ml IV 01/04/25 22:23 4 mg Q6H PRN Administration NAUSEA OR VOMITING Protocol Pantoprazole Sodium 40 mg 12/08/24 09:00 12/08/24 21:14 Pantoprazole Inj 40 Mg Vial IVP 01/07/25 08:59 40 mg BID ELIGIO Administration Pharmacy Consult 1 each 12/06/24 09:00 12/08/24 10:33 Vancomycin Pharmacy To Dose 1 Each Each IV 01/05/25 08:59 Not Given QDAY ELIGIO Sennosides 2 tab 12/05/24 22:24 Senna Tablet PO 01/04/25 22:23 BID PRN CONSTIPATION Protocol
--- NOTE | 2024-12-09 12:12 | PC.SS ---
Addendum entered by Niki Palmer 12/09/24 12:21: An extra bus ramirez provided with patient resource list. Original Note: Follow up note: SS received update that patient is wanting to leave AMA. He is refusing colonscopy. He is more alert today. SS spoke to patient and he states he receives Social Security income and receives about 1200$ and 39$ in food stamps. Patient is wheelchair bound. He states he was staying around [facility] in [facility] [place]. He left his dog and his personal belongings including his wheelchair. He does not have any family or friends. Patient states his mother has no contact wth him. SS attempted to contact number but no response. SS had already requested order for a wheelchair prior to patient wanting to leave [place]. Wheelchair delivered from [facility]. SS provided clothing and shoes for patient. SS provided local community resources to patient showing local homeless shelters. SS asked patient if he was going to stay at a nursing home. Patient states he wants to return to [facility] to get his belongings then go to the [facility] nursing home where he has been previously. Patient is aware we cannot provide transportation since he is leaving [place].
--- NOTE | 2024-12-09 12:20 | PC.NURSE ---
PT GETTING OUT OF BED AND WANTING TO LEAVE AMA. WHEELCHAIR AT BEDSIDE AND PT HELPED TO WHEELCHAIR. MD DYE ASSESSED PATIENT AND ASSESSED PT COMPETENCY AND EXPLAINED RISKS AND CONSEQUENCES OF LEAVING AMA. UNABLE TO REACH FAMILY OR FRIENDS. RESOURCES GIVEN AND INFORMED PT TO COME TO ED IF SYMPTOMS WORSEN.
--- NOTE | 2024-12-09 20:37 | ESPR_ITS ---
Documentation for date of: 12/09/24 Subjective Subjective Interval history: Hemoglobin hematocrit 8.5 and 27.2 patient wants to leave AMA Exam Vital Signs Temp Pulse Resp BP Pulse Ox O2 Del Method O2 Flow Rate 97.7 F 75 18 159/98 H 90 L Room Air 4 12/09/24 07:46 12/09/24 07:46 12/09/24 07:46 12/09/24 07:46 12/09/24 07:46 12/09/24 07:46 12/07/24 20:25 Objective Labs 12/09/24 05:33 12/09/24 05:33 Labs: Laboratory Results - last 24 hr 12/09/24 05:33 WBC 2.3 L RBC 3.28 L Hgb 8.5 L Hct 27.2 L MCV 83 MCH 25.9 MCHC 31.3 RDW Std Deviation 50.6 H Plt Count 79 L Neut % (Auto) 56 Lymph % (Auto) 30 [place] % (Auto) 7 Eos % (Auto) 6 Baso % (Auto) 0 Neut # (Auto) 1.3 L Lymph # (Auto) 0.7 L [place] # (Auto) 0.2 Eos # (Auto) 0.1 Baso # (Auto) 0.0 Immature Gran # (Auto) 0.02 H Absolute Nucleated RBC 0.00 Immature Gran % 1 H Nucleated RBC % 0 Sodium 140 Potassium 3.5 D Chloride 108 H Carbon Dioxide 25.8 Anion Gap 6 L BUN 17 Creatinine 1.2 Estim Creat Clear Calc 88.9 eGFR > 60 BUN/Creatinine Ratio 14 Glucose 102 Calculated Osmolality 280 Calcium 7.3 L Corrected Calcium 8.5 Phosphorus 3.0 Magnesium 1.6 Total Bilirubin 0.5 D AST 17 ALT < 7 L Alkaline Phosphatase 54 Total Protein 8.4 H Albumin 2.5 L Globulin 5.9 H Albumin/Globulin Ratio 0.4 L Misc Test Result Platelets confirmed Impressions Impression: Gastritis Anemia blood loss Uncooperative patient refused colonoscopy Continue supportive care Assessment & Plan A&P Narrative # Anemia blood loss # Occult GI bleeding with FOBT positive Plan Clear liquid diet n.p.o. 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
[2024-12-13 06:58] LABS: Folate, RBC* 845 ng/mL RBC (>280)
[2024-12-13 07:07] LABS: CA 19-9 Antigen* 5 U/mL (<34)
== END 2024-12-09 12:20 | disposition left against medical advice (07) | DRG 720 ==
LOC: SERX 23:20 → SERHOLD 23:22 → S3NX 12-06 00:40 → S2NX 12-06 21:35
PROVIDERS: Registered Nurse General Practice; Specialist; Student in an Organized Health Care Education/Training Program; Admitting Provider Internal Medicine; Emergency Provider Emergency Medicine; Visit Provider Internal Medicine
PROC: 06L38CZ Occlusion of Esophageal Vein with Extraluminal Device, Via Natural or Artificial Opening Endoscopic (ICD-10-PCS; CPT 43239; principal; 2024-12-07 21:00)
DX: A41.9 Sepsis, unspecified organism (principal); F15.10 Other stimulant abuse, uncomplicated; G92.8 Other toxic encephalopathy; Z59.00 Homelessness unspecified; I50.9 Heart failure, unspecified; M79.89 Other specified soft tissue disorders; E87.1 Hypo-osmolality and hyponatremia; F10.10 Alcohol abuse, uncomplicated; Z88.1 Allergy status to other antibiotic agents; F17.200 Nicotine dependence, unspecified, uncomplicated; L03.115 Cellulitis of right lower limb; F11.23 Opioid dependence with withdrawal; F41.9 Anxiety disorder, unspecified; I27.20 Pulmonary hypertension, unspecified; I85.11 Secondary esophageal varices with bleeding; J18.9 Pneumonia, unspecified organism; K70.9 Alcoholic liver disease, unspecified; K72.10 Chronic hepatic failure without coma; K76.6 Portal hypertension; D50.0 Iron deficiency anemia secondary to blood loss (chronic); L03.116 Cellulitis of left lower limb; R65.20 Severe sepsis without septic shock; Z53.20 Procedure and treatment not carried out because of patient's decision for unspecified reasons; Z79.899 Other long term (current) drug therapy; D69.59 Other secondary thrombocytopenia
CPT/HCPCS: 36415; 71045; 73701; 74177; 80048; 80053; 80061; 80076; 80202; 80307; 80320; 81001; 82105; 82140; 82270; 82378; 82607; 82747; 83540; 83550; 83605; 83615; 83690; 83735; 83880; 84100; 84145; 84443; 84484; 85014; 85018; 85025; 85610; 85730; 86301; 86850; 86900; 86901; 86923; 87040; 87077; 87081; 87086; 87186; 87400; 87811; 93005; 93306; 94762; 96361; 96365; 96366; 96375; 99285; A4649; J0131; J0696; J0744; J1171; J1200; J1938; J1956; J2060; J2250; J2300; J2354; J2405; J2470; J2765; J3010; J3370; J3475; J3490; J7040; J7050; J7120; P9016; P9047; Q9967; A9270; G0480; J1836

== ENCOUNTER 2025-01-03 15:27 | Emergency (ER) | payer MEDICAID, SELFPAY ==
--- NOTE | 2025-01-03 15:37 | XR_ITS ---
Examination: AP chest single view Technique one AP portable upright chest single view Date and time: January 03, 2025 1638 hours Comparison December 05, 2024 INDICATIONS: Coughing this week FINDINGS: Mild bibasilar pneumonia Normal heart size No pulmonary edema Intact osseous structures IMPRESSION: Mild bibasilar pneumonia
--- NOTE | 2025-01-03 15:37 | EKG_ITS ---
[facility] Test Date: 2025-01-03 Pat Name: JUVENAL LOMELI Department: Room: - Gender: Male Entry Level Sales Representative: : 1975 Requested By: Joseph Birch Order Number: [id number] Reading MD: Joseph Birch Measurements Intervals [place] Rate: 76 P: 54 ME: 140 QRS: 20 QRSD: 110 T: 32 QT: 429 QTc: 483 Interpretive Statements SINUS RHYTHM POSSIBLE LATERAL MYOCARDIAL INFARCTION , PROBABLY OLD [30 ms Q WAVE IN I/aVL/V5/V6] Compared to ECG 12/06/2024 22:34:22 No significant changes /store/S0/[id number]/[id number].pdf
--- NOTE | 2025-01-03 15:41 | PD.EDMEDCL ---
ED Medical Clearance RME/HPI General Chief complaint: Medical Clearance Stated complaint: MEDICAL CLEARANCE Time Seen by Provider: 01/03/25 15:31 Arrival date/time: 01/03/25 15:27 Limitations: no limitations RME / HPI RME / HPI Narrative: 49 year old male with history of homelessness, CHF, polysubstance abuse presents to the ED brought in by [employer] for medical clearance for incarceration today. Per officer, patient had wounds on leg that need to be evaluated prior to booking. While in the ED patient has no complaints. States he is wheelchair bound from a young age after my bones got infected from spinal surgery. Related Information Previous Rx's ?Medication ?Instructions ?Recorded furosemide 40 mg tablet 40 mg PO Q OTHER DAY 1 month #15 12/08/24 tabs propranolol 10 mg tablet 10 mg PO BID 1 month #60 tabs 12/08/24 lactulose 10 gram/15 mL oral 10 g (15 mL) PO TID 1 month #1,500 12/09/24 solution mL Allergies Allergy/AdvReac Type Severity Reaction Status Date / Time Cephalexin Monohydrate Allergy Severe Swelling Verified 12/05/24 19:01 of Lip/Tongue/Throat cephalexin (From Keflex) Allergy Verified 12/05/24 19:01 Review of Systems Review of Systems Systems Reviewed: All systems reviewed, normal except as documented Past Medical History Past Medical History NEUROLOGIC: Positive Neurological Disorders and Seizures (LAST SEIZURE 7-8 MONTHS) CARDIAC: Positive Cardiac Disorders, Congestive Heart Failure, Edema and Hypertension RESPIRATORY: Positive Chronic Obstructive Pulmonary Disease (COPD) (smoker) and Sleep Apnea GASTROINTESTINAL: Positive Gastrointestinal Disorders, Hepatitis (hep c treated), Cirrhosis, Gastrointestinal Bleed, Esophageal Varices, Ulcer, Gastroesophageal Reflux Disease and Obesity GENITOURINARY: Positive Genitourinary Disorders (uti's) and Benign Prostatic Hyperplasia MUSCULOSKELETAL: Positive Musculoskeletal Disorders, Arthritis and Fractures ENDOCRINE: Positive Endocrine Disorders and Systemic Lupus Erythematosus PSYCHO/SOCIAL: Positive Recreational Drug Use (fentanyl, meth), Depression and Anxiety OTHER HISTORY: Positive Falls, Blood Transfusions and Anesthesia Reactions (hard to wake) Family History FAMILY HISTORY: Positive Family Cardiac Disorders, Family Gastrointestinal Problems and Family Surgery Surgical History SURGICAL: Positive Tonsillectomy and Abdominal Surgery Social History SMOKING STATUS: Current every day smoker ED Exam General Limitations: Present no limitations General appearance: Present alert and other (disheveled ) Head Head exam: Present atraumatic and normocephalic Eye Eye exam: Present normal appearance, PERRL and EOMI ENT ENT exam: Present normal exam, normal oropharynx and mucous membranes moist Neck Neck exam: Present normal inspection, full ROM and trachea midline Chest Chest inspection: Present normal inspection and symmetric chest wall rise Respiratory Respiratory exam: Present normal lung sounds bilaterally Cardiovascular Cardiovascular exam: Present regular rate, normal rhythm and normal heart sounds Abdominal Exam Abdominal exam: Present soft and normal bowel sounds Extremities Exam Extremities exam: Present other (Thickened skin on lower extremities, there is a crack on the left side that is bleeding, no infected wound or ulcer, patient has chronic edema of feet ) Back Exam Back exam: Present normal inspection and full ROM Neurological Exam Neurological exam: Present alert, oriented X3 and CN II-XII intact Psychiatric Psychiatric exam: Present normal affect and normal mood Skin Skin exam: Present warm, dry, intact and normal color Course Quality Measures none Orders Category Date Time Status Data Warehousing Architect NOW Care 01/03/25 15:37 Active Continuous Pulse Oximetry NOW Care 01/03/25 15:37 Completed EKG (ED ONLY) *Do not use* NOW Care 01/03/25 15:37 Completed Wound Care NOW Care 01/03/25 15:37 Active EKG (ED Only) Stat Exams 01/03/25 15:37 Draft XR chest 1V portable Stat Exams 01/03/25 15:37 Completed CBC Stat Lab 01/03/25 16:24 Results Comprehensive Metabolic Panel Stat Lab 01/03/25 16:24 Completed Path Review Blood Smear Stat Lab 01/03/25 16:24 Results Prothrombin Time with INR Stat Lab 01/03/25 16:24 Completed Vital Signs Vital signs: Vital Signs Temperature 98.9 F 01/03/25 16:11 Pulse Rate 70 01/03/25 16:11 Respiratory Rate 18 01/03/25 16:11 Blood Pressure 131/75 H 01/03/25 16:11 Pulse Oximetry (%) 97 01/03/25 16:11 Oxygen Delivery Method Room Air 01/03/25 16:11 Pulse ox is 97% on room air which is adequate. Medical Clearance MDM Narrative MDM Narrative:: China Anguiano, kayode scribing for and in the presence of Dr. Stark. The patient WBC is 1.6 but he is not neutropenic. Therefore, stable for discharge and is medically cleared for incarceration. Patient data External records reviewed:: [facility] previous records (I reviewed admission from 12/05/2024 through 12/09/2024) Clinical information provided by:: patient and law enforcement Social determinants that could affect healthcare access:: substance use Patient has the following chronic illnesses:: homelessness, CHF, polysubstance abuse How is presenting disease/condition affected by chronic disease/condition?: exacerbated by Evaluation data The following diagnostics were reviewed and interpreted by me:: lab results, radiology exam(s) and EKG tracing(s) (01/03/2025 @ 16:14. Sinus rhythm, rate 76, no STEMI, SC 140ms, QRS 110ms, QT/QTc 429/459 ms. ) Lab and/or radiology exams considered but not ordered:: None Interpretation Summary: Chest xray my evaluation is atelectasis in the right upper lobe. Medications / Prescriptions Medications or Prescriptions considered but not ordered:: None Medication administrations:: None Consultations Consultation(s) initiated? (list below): No Diagnosis Medical Clearance Differential Diagnosis: other (chronic venous stasis changes, cellulitis, leg edema) Most likely diagnosis given after review of the tests above:: Medical clearance for incarceration Admission Indicated Admission indicated?: not indicated Admission Request Was there a request for admission?: No Disposition Plan Disposition Plan: Discharge Discharge Attestation Discharge Attestation: The patient and all family members were given an opportunity to ask questions and understood the discharge instructions. Discharge instructions specifically effects, indications for sooner follow up or return to the emergency department, and the expected course of current diagnosis. Patient condition: Stable Discharge Plan Plan Patient Disposition: [facility]/Court/Law Prescriptions/Referrals Prescriptions/Med Rec: No Action propranolol 10 mg tablet 10 mg PO BID 30 Days Qty: 60 0RF furosemide 40 mg tablet 40 mg PO Q OTHER DAY 30 Days Qty: 15 0RF lactulose 10 gram/15 mL solution 10 g PO TID 30 Days Qty: 1500 0RF Referrals: No Primary/Family,Physician [Primary Care Provider] - In 1 week Problem List Clinical Impression: Medical clearance for incarceration Patient/Caregiver Discharge Instructions Print Language: Indonesian
[2025-01-03 16:02] VITALS: BMI 29.5
[2025-01-03 16:11] VITALS: BP 131/75; PULSE 70; RESP 18; TEMP 37.2; O2SAT 97
[2025-01-03 16:16] VITALS: PULSE 70
--- NOTE | 2025-01-03 16:23 | PC.NURSE ---
Patient brought into ED by [place] [employer] for medical clearance. Patient vitals stable. Patient is homeless.
[2025-01-03 16:41] LABS: Basophils % (Auto) 1 % (0-2.5); Eosinophils # (Auto) 0.1 Thou/mm3 (0.0-0.5); Eosinophils % (Auto) 8 % (0-10); Hematocrit 27.8 % (41.0-53.0); Hemoglobin 8.9 g/dL (13.5-16.0); Immature Granulocytes % (Auto) 1 % (0-0); Immature Granulocytes Auto 0.01 Thou/mm3 (0.00-0.00); Lymphocytes # (Auto) 0.6 Thou/mm3 (1.0-4.8); Lymphocytes % (Auto) 35 % (10-50); Mean Corpuscular Hemoglobin 26.1 pg (25.0-35.0); Mean Corpuscular Volume 82 fL (80-100); Monocytes # (Auto) 0.2 Thou/mm3 (0.0-0.8); Monocytes % (Auto) 11 % (0-12); Neutrophils # (Auto) 0.7 Thou/mm3 (1.8-7.7); Neutrophils % (Auto) 45 % (37-80); Nucleated Red Blood Cell % 0 /100 WBC (0); RDW Standard Deviation 51.2 fL (35.1-43.9); Red Blood Count 3.41 Miln/mm3 (4.50-5.90)
[2025-01-03 16:53] LABS: INR 1.4 (0.9-1.3); Prothrombin Time 14.7 Seconds (9.0-12.2)
[2025-01-03 16:57] LABS: Platelet Count 47 Thou/mm3 (140-440); White Blood Count 1.6 Thou/mm3 (3.8-10.6)
[2025-01-03 17:02] LABS: Alanine Aminotransferase 10 U/L (10-49); Albumin, Serum 3.1 gm/dL (3.5-5.0); Albumin/Globulin Ratio 0.6 (1.2-2.2); Alkaline Phosphatase 78 U/L (46-116); Anion Gap 2 (7-16); Aspartate Amino Transferase 30 U/L (0-34); BUN/Creatinine Ratio 16 Ratio (12-20); Bilirubin,Total 0.5 mg/dL (0.3-1.2); Blood Urea Nitrogen 14 mg/dL (9-23); Calcium 8.3 mg/dL (8.3-10.6); Carbon Dioxide 29.2 mMol/L (20.0-31.0); Chloride 106 mMol/L (98-107); Creatinine (Component) 0.9 mg/dL (0.6-1.3); Estimated Creatinine Clearance 108.1 mL/min (>60); Globulin 5.5 gm/dL (2.3-3.5); Glucose 120 mg/dL (74-106); Osmolality,Calculated 275 (275-295); Potassium 4.1 mMol/L (3.4-5.1); Sodium 137 mMol/L (136-145); Total Protein 8.6 gm/dL (5.7-8.2); eGFR > 60 See Note
[2025-01-03 17:07] LABS: Slide Review Platelets confirmed
[2025-01-03 17:56] LABS: Path Review Blood Smear Sent to Pathologist
[2025-01-03 18:07] VITALS: BP 131/90; PULSE 66; RESP 16; O2SAT 100
== END 2025-01-03 18:17 ==
PROVIDERS: Emergency Provider Family Medicine
DX: Z02.89 Encounter for other administrative examinations (principal); I50.9 Heart failure, unspecified; Z99.3 Dependence on wheelchair; J18.9 Pneumonia, unspecified organism
CPT/HCPCS: 36415; 71045; 80053; 85025; 85610; 93005; 99283

== ENCOUNTER 2025-02-08 15:04 | Inpatient (IN) | payer MEDICAID, SELFPAY ==
[2025-02-08] VITALS (30 sets, daily range): BP systolic 54–144; BP diastolic 34–91; PULSE 94–120; RESP 5–26; TEMP 37.7–39.1; O2SAT 96–100; BMI 40.6
--- NOTE | 2025-02-08 15:13 | XR_ITS ---
Examination: AP chest single view One AP portable semiupright chest single view Date and time: February 08, 2025 1615 hours INDICATIONS: Post central line placement. FINDINGS: Left internal jugular central line tip SVC satisfactory position, no pneumothorax. Normal heart size The osseous structures are intact IMPRESSION: Left internal jugular central line tip satisfactory position
--- NOTE | 2025-02-08 15:20 | PD.EDGIBLD ---
ED GI Bleed RME/HPI General Chief complaint: GI Bleed Stated complaint: VOMITING BLOOD Time Seen by Provider: 02/08/25 15:13 Source: patient and EMS Arrival date/time: 02/08/25 15:04 Mode of arrival: EMS Limitations: no limitations and other (He is unkempt, there is a smell of urine. There is dried blood on his herron.) RME / HPI RME / HPI Narrative: 50-year-old male with a history of methamphetamine and fentanyl abuse in addition to hepatitis C, cirrhosis, esophageal varices, peptic ulcer disease, CHF and homelessness who is brought in by EMS. EMS reports when they arrived on scene, patient had active hematemesis with blood in addition to clots. Patient was tachycardic with heart rate running between 120-140. Upon arrival patient was found to be febrile with a temp of 100.6, this in addition to his tachycardia triggered our sepsis alert. Related Data Allergies Allergy/AdvReac Type Severity Reaction Status Date / Time Cephalexin Monohydrate Allergy Severe Swelling Verified 12/05/24 19:01 of Lip/Tongue/Throat cephalexin (From Keflex) Allergy Verified 12/05/24 19:01 Review of Systems Review of Systems Systems Reviewed: All systems reviewed, normal except as documented ED Exam General Limitations: Present no limitations and other (He is unkempt, there is a smell of urine. There is dried blood on his herron.) General appearance: Present alert, anxious and in distress Head Head exam: Present atraumatic Eye Eye exam: Present normal appearance, PERRL and EOMI ENT ENT exam: Present other (Numerous dental cavities present, poor dentition) Neck Neck exam: Present normal inspection and trachea midline Chest Chest inspection: Present normal inspection and symmetric chest wall rise Respiratory Respiratory exam: Present normal lung sounds bilaterally Cardiovascular Cardiovascular exam: Present regular rate, normal rhythm and normal heart sounds Abdominal Exam Abdominal exam: Present soft and normal bowel sounds Extremities Exam Extremities exam: Present full ROM and pedal edema Back Exam Back exam: Present normal inspection and full ROM Neurological Exam Neurological exam: Present alert and oriented X3 Psychiatric Psychiatric exam: Present agitated and anxious Skin Skin exam: Present warm, dry, intact and normal color (There is bilateral leg edema that is +5, right leg is erythematous. There is a wood, bark-like, texture to the bilateral lower legs.) Course Quality Measures Current suspected stage: sepsis (Patient arrived with tachycardia and fever) Possible source: pulmonary, GI tract/intra-abdominal, unknown and skin/soft tissue Blood cultures ordered: yes Antibiotic ordered: Yes Pertinent labs: 02/08/25 02/08/25 15:26 19:22 Lactic Acid 3.0 H mMol/L 2.8 H mMol/L (0.4-2.0) (0.4-2.0) Procalcitonin 1.15 H ng/ml (0.0-0.49) sepsis Orders Category Date Time Status Bedside Blood Glucose NOW Care 02/08/25 15:13 Active COVID-19 Screening Questionnaire NOW Care 02/08/25 23:[address] Screening NOW Care 02/08/25 15:[address] Screening NOW Care 02/08/25 18:26 Completed Brake Shoe Rebuilder Q4H START 00 Care 02/08/25 15:13 Active Central Line Insertion PRN Care 02/08/25 15:57 Active Central Line Insertion Set Up NOW Care 02/08/25 15:57 Active Decision to Admit X1 Care 02/08/25 23:31 Active Insert IV NOW Care 02/08/25 15:13 Active Strict Intake and Output Routine Care 02/08/25 15:13 Ordered Urinary Catheter NOW Care 02/08/25 15:14 Active Consult to Gastroenterology Stat Cons 02/08/25 23:31 Ordered Consult to General Surgery Stat Cons 02/08/25 23:[address] chest abdomen pelvis w con SEPSIS PROTOCOL Stat Exams 02/08/25 16:[address] lower extremity BI w Stat Exams 02/08/25 18:25 Completed US abdomen limited Stat Exams 02/08/25 21:28 Completed XR chest 1V post procedure Stat Exams 02/08/25 15:13 Completed BNP [B-Type Natriuretic Peptide] Stat Lab 02/08/25 15:26 Completed Blood Culture (Lab) Stat Lab 02/08/25 16:54 Received CBC Stat Lab 02/08/25 15:26 Completed Comprehensive Metabolic Panel Stat Lab 02/08/25 15:26 Completed Drug Screen,Urine Stat Lab 02/08/25 18:49 Completed Lactate (Lactic Acid) Stat Lab 02/08/25 15:26 Completed Lactic Acid, 3 HR Stat Lab 02/08/25 19:22 Completed Lipase Stat Lab 02/08/25 15:26 Completed Partial Thromboplastin Time Stat Lab 02/08/25 15:26 Completed Procalcitonin Stat Lab 02/08/25 15:26 Completed Prothrombin Time with INR Stat Lab 02/08/25 15:26 Completed Type and Screen Stat Lab 02/08/25 15:26 Completed Urinalysis Stat Lab 02/08/25 18:49 Completed Urine Culture Stat Lab 02/08/25 18:49 Received Acetaminophen Ivpb [Ofirmev Inj] Med 02/08/25 16:40 Active 1,000 mg in 100 ml IV Q6H Meropenem Inj [Merrem Inj] 1,000 mg Med 02/08/25 15:57 Discontinued SODIUM CHLORIDE 0.9% (Popper) [Ns 0.9% (P)] 50 ml IV X1 Morphine Inj Med 02/08/25 16:07 Discontinued 4 mg IVP X1 ONE Octreotide Acet Inj [SandoSTATIN Inj] Med 02/08/25 15:15 Discontinued 50 mcg IV X1 ONE Ondansetron Inj [Zofran Inj] Med 02/08/25 15:13 Discontinued 4 mg IVP X1 ONE Ondansetron Odt [Zofran Odt] Med 02/08/25 15:54 Discontinued 4 mg PO X1 ONE Pantoprazole Inj [Protonix Inj] Med 02/08/25 15:15 Discontinued 80 mg IVP X1 ONE Sodium Chloride 0.9% 1000 ml [Ns] 2,328 ml Med 02/08/25 16:04 Discontinued IV 2,328 mls/hr Sodium Chloride 0.9% [Ns] 100 ml Med 02/08/25 15:30 Active Octreotide Acet Inj [SandoSTATIN Inj] 1,000 mcg IV 50 mcg/hr Sodium Chloride 0.9% [Ns] 100 ml Med 02/09/25 11:30 Pending Octreotide Acet Inj [SandoSTATIN Inj] 1,000 mcg IV 50 mcg/hr Vancomycin Inj 2,000 mg Med 02/08/25 15:58 Discontinued Sodium Chloride 0.9% 500 ml [Ns] 500 ml IV X1 Vital Signs Vital signs: Vital Signs Temperature 100.6 F H 02/08/25 15:13 Pulse Rate 114 H 02/08/25 15:13 Respiratory Rate 15 02/08/25 15:13 Blood Pressure 143/76 H 02/08/25 15:13 Pulse Oximetry (%) 97 02/08/25 15:13 GI Bleed MDM Narrative MDM Narrative:: 50-year-old male with a history of methamphetamine and fentanyl abuse in addition to hepatitis C, cirrhosis, esophageal varices, peptic ulcer disease, CHF and homelessness who is brought in by EMS. EMS reports when they arrived on scene, patient had active hematemesis with blood in addition to clots. Patient was tachycardic with heart rate running between 120-140. Upon arrival patient was found to be febrile with a temp of 100.6, this in addition to his tachycardia triggered our sepsis alert. Upon arrival, patient was ill-appearing, he was unkempt, and had urinated on the exam bed. He was hypertensive with a blood pressure 143/76, heart rate is 114, respirations 15, his temp was 100.6. Oxygen is 97% on nasal cannula. He states he smoked fentanyl this morning, last smoked methamphetamine yesterday. Denies any recent alcohol abuse. Patient had white and dried blood on his herron. Nursing staff were unable to obtain IV access after multiple attempts so Dr. Live placed a central line. Patient has no leukocytosis, he has anemia with a hemoglobin of 10.3 and hematocrit of 31.6. His platelet count is 93. INR is 1.4. Sodium is 134, potassium 3.3 glucose is 108, T. bili is 3.4. AST and ALT are unremarkable. BNP is 23. Lactic acid is 2.8. Procalcitonin is 1.15. UA is unremarkable. Urine drug screen confirms fentanyl and methamphetamine abuse. Patient received IV acetaminophen, octreotide, and Protonix. He received 2.3 L of NS in addition to vancomycin and meropenem. He received morphine and Zofran for his symptoms. Patient had no emesis throughout the ER course. His tachycardia did improve. CT of the chest, abdomen, pelvis was obtained. CT reveals cirrhosis with hepatosplenomegaly. There is possible gallbladder wall thickening and a question of tiny gallstones. There is ascites and anasarca. There is abdominal and pelvic lymphadenopathy. An ultrasound was ordered to better assess the gallbladder. Case was discussed with Dr. Sotelo as he was in the emergency room. He was informed of the CT findings and patient's presentation. He is informed that a ultrasound-ordered to better assess the gallbladder. It was my understanding that the patient would not be a surgical candidate secondary to his liver disease and that he should be managed medically. Ultrasound of the right upper quadrant was obtained and the official reads as follows. Negative for cholelithiasis Gallbladder wall borderline thickened Common bile duct 0.6 cm mildly prominent, clinical correlation advised Dr. Sotelo with general surgery was again contacted and the ultrasound read was discussed in detail. Confirms that no surgical intervention or transfer is warranted regarding his gallbladder findings at this time. Case discussed with [email or web address] hospitalist, admission was requested, they will evaluate the patient further. Patient data External records reviewed:: None Clinical information provided by:: patient and EMS Social determinants that could affect healthcare access:: none (Homelessness, substance abuse) Patient has the following chronic illnesses:: Hepatitis C, cirrhosis, CHF, peptic ulcer disease, esophageal varices How is presenting disease/condition affected by chronic disease/condition?: exacerbated by Evaluation data The following diagnostics were reviewed and interpreted by me:: lab results (CBC reveals no leukocytosis. There is anemia hemoglobin 10.3 and hematocrit 31.6. Platelet count is 93. Patient's INR is 1.4 potassium is 3.3, sodium is 134. Creatinine 1.0 glucose 108. Lactic acid was 2.8. T. bili was 3.4. AST 21, ALT 9, alk phos 103, lipase 24. BNP is 23. Urinalysis is un) and radiology exam(s) (Cirrhosis with hepatosplenomegaly. There is possible gallbladder wall thickening and a question of tiny gallstones. There is ascites and anasarca. There is abdominal and pelvic lymphadenopathy. An ultrasound was ordered to better assess the gallbladder.) Lab and/or radiology exams considered but not ordered:: n/a Interpretation Summary: Cirrhosis, polysubstance abuse, anemia Medications / Prescriptions Medications or Prescriptions considered but not ordered:: n/a Medication administrations:: Medication Administration History Octreotide Acetate 1,000 mcg/ (Sodium Chloride) 102 mls @ 5.1 mls/hr IV .Q20H ELIGIO; Protocol Stop: 02/13/25 11:29 Octreotide Acetate 1,000 mcg/ (Sodium Chloride) 102 mls @ 5.1 mls/hr IV .Q20H ONE; Protocol Stop: 02/09/25 11:29 Last Admin: 02/08/25 17:33 Dose: 50 mcg/hr, 5.1 mls/hr Documented By: EF Acetaminophen (Ofirmev Inj) 1,000 mg in 100 mls @ 250 mls/hr IV Q6H ELIGIO Stop: 02/09/25 11:03 Last Infusion: 02/08/25 17:23 Dose: Infused Documented By: Admin: 02/08/25 16:59 Dose: 250 mls/hr Documented By: EF Discontinued Medications Vancomycin HCl 2,000 mg/ (Sodium Chloride) 500 mls @ 150 mls/hr IV X1 ONE Stop: 02/08/25 19:17 Last Infusion: 02/08/25 21:18 Dose: Infused Documented By: Admin: 02/08/25 17:18 Dose: 150 mls/hr Documented By: EF Meropenem 1,000 mg/ Sodium (Chloride) 50 mls @ 100 mls/hr IV X1 ONE Stop: 02/08/25 15:58 Last Infusion: 02/08/25 17:30 Dose: Infused Documented By: Admin: 02/08/25 17:00 Dose: 100 mls/hr Documented By: EF Sodium Chloride (Ns) 2,328 mls @ 2,328 mls/hr 30 ml/kg infuse over 60 min (2328 ml) IV .Q1H ONE Stop: 02/08/25 17:03 Last Infusion: 02/08/25 18:07 Dose: Infused Documented By: Admin: 02/08/25 17:07 Dose: 2,328 mls/hr Documented By: EF Morphine Sulfate (Morphine Sulf Inj 10 Mg/Ml Vial) 4 mg IVP X1 ONE Stop: 02/08/25 16:08 Last Admin: 02/08/25 17:50 Dose: Not Given Documented By: EF Non-Admin Reason: Change of Condition Octreotide Acetate (Octreotide Acet Inj 50 Mcg/Ml Vial) 50 mcg IV X1 ONE Stop: 02/08/25 15:16 Last Admin: 02/08/25 17:33 Dose: 50 mcg Documented By: EF Ondansetron HCl (Ondansetron Inj 2 Mg/Ml Inj 2 Ml) 4 mg IVP X1 ONE; Protocol Stop: 02/08/25 15:14 Last Admin: 02/08/25 17:25 Dose: 4 mg Documented By: EF Ondansetron HCl (Ondansetron Odt 4 Mg Tabrap) 4 mg PO X1 ONE; Protocol Stop: 02/08/25 15:55 Last Admin: 02/08/25 17:07 Dose: Not Given Documented By: EF Non-Admin Reason: Cancelled by Provider Pantoprazole Sodium (Pantoprazole Inj 40 Mg Vial) 80 mg IVP X1 ONE Stop: 02/08/25 15:16 Last Admin: 02/08/25 16:59 Dose: 80 mg Documented By: EF See above Consultations Consultation(s) initiated? (list below): Yes Diagnosis GI bleed differential diagnosis: esophageal varices, gastritis, Susan-Marks syndrome, Upper gastrointestinal hemorrhage, Lower gastrointestinal hemorrhage and hematochezia Most likely diagnosis given after review of the tests above:: Hematemesis, anemia, lactic acidosis, sepsis, cellulitis lower legs Admission Indicated Admission indicated?: indicated Admission Request Was there a request for admission?: Yes Admission Attestation Admission request attestation: Discussed case with [] from Hospitalist service regarding admission. Discussed patients ED course, exam findings, labs, and radiology results. The Hospitalist [agrees,declines] to accept the patient for admission. Disposition Plan Disposition Plan: Admit Critical Care Time Critical Care Time Total Critical Care Time (min.): 50 Attestation: The high probability of sudden, clinically significant deterioration in the patient's condition required the highest level of my preparedness to intervene urgently. The services I provided to this patient were to treat and/or prevent clinically significant deterioration. Services included the following: chart data review, reviewing nursing notes and/or old charts, documentation time, mental hygiene consultant collaboration regarding findings and treatment options, medication orders and management, direct patient care, vital sign assessments and ordering, interpreting and reviewing diagnostic studies and lab tests. Aggregate critical care time includes only time during which I was engaged in work directly related to the patient's care, as described above, whether at bedside or elsewhere in the Emergency Department. It did not include time spent performing other reported procedures or the services of residents, students, nurses or physician assistants. Discharge Plan Plan Patient Disposition: Admit Acute Care w/in Hospital Patient condition on transfer: Stable Prescriptions/Referrals Referrals: No Primary/Family,Physician [Primary Care Provider] - In 1 week Problem List Clinical Impression: Homelessness, Cirrhosis of liver, Fever, Sepsis, Cellulitis of lower extremity, Polysubstance abuse Patient/Caregiver Discharge Instructions Print Language: [place] Stand Alone Forms: Anjali Award Info., Patient Portal Info Letter
[2025-02-08 15:46] LABS: Lactate (Lactic Acid) 3.0 mMol/L (0.4-2.0)
[2025-02-08 15:56] LABS: Basophils # (Auto) 0.0 Thou/mm3 (0.0-0.2); Basophils % (Auto) 1 % (0-2.5); Eosinophils # (Auto) 0.0 Thou/mm3 (0.0-0.5); Eosinophils % (Auto) 1 % (0-10); Hematocrit 31.6 % (41.0-53.0); Hemoglobin 10.3 g/dL (13.5-16.0); Immature Granulocytes Auto 0.07 Thou/mm3 (0.00-0.00); Lymphocytes # (Auto) 0.3 Thou/mm3 (1.0-4.8); Lymphocytes % (Auto) 7 % (10-50); Mean Corpuscular HGB Conc 32.6 g/dl (31.0-37.0); Mean Corpuscular Hemoglobin 26.8 pg (25.0-35.0); Mean Corpuscular Volume 82 fL (80-100); Monocytes # (Auto) 0.2 Thou/mm3 (0.0-0.8); Monocytes % (Auto) 5 % (0-12); Neutrophils # (Auto) 3.9 Thou/mm3 (1.8-7.7); Neutrophils % (Auto) 86 % (37-80); Nucleated Red Blood Cell # 0.00 Thou/mm3 (0.00-0.00); Nucleated Red Blood Cell % 0 /100 WBC (0); Platelet Count 93 Thou/mm3 (140-440); RDW Standard Deviation 49.9 fL (35.1-43.9); Red Blood Count 3.85 Miln/mm3 (4.50-5.90); White Blood Count 4.6 Thou/mm3 (3.8-10.6)
[2025-02-08 16:03] LABS: INR 1.4 (0.9-1.3); Partial Thromboplastin Time 25.4 Seconds (22.0-36.0); Prothrombin Time 14.5 Seconds (9.0-12.2)
--- NOTE | 2025-02-08 16:05 | XR_ITS ---
Examination: CT chest with intravenous contrast CT abdomen with intravenous contrast CT pelvis with intravenous contrast 2-D coronal and sagittal reconstructions Time of exam: February 08, 20252052 hours INDICATIONS: Sepsis alert, hematemesis and shortness of breath vomiting blood today CTDI: vol (mGy) : 11.4 DLP: (mGycm): 881 Technique: Multiple axial images of the chest, abdomen and pelvis with intravenous contrast, 3.0 mm slice thickness. Images obtained post intravenous injection Isovue 370 60 cc. 2-D sagittal and coronal reconstructions. Low dose protocols were performed. One or more of the following dose reduction techniques were used; automated exposure control, adjustment of the mA and/or KV according to patient size, use of iterative reconstruction technique. Findings: No thoracic aortic aneurysm dilatation Pulmonary artery segments are not enlarged No paratracheal tracheobronchial or bronchopulmonary adenopathy No pneumonia or pulmonary edema or pleural disease Cirrhosis, liver irregular contour with prominent hepatosplenomegaly Gallbladder wall appears thickened with possible tiny gallstones No pancreatic mass No hydronephrosis Trace ascites Anasarca. No bowel obstruction Normal appendix Diffuse thickening of the colonic wall No diverticulitis Urinary Arshad catheter in contracted urinary bladder Abdominal and pelvic lymphadenopathy, significant Prominent osteopenia with fusion T12-L1 IMPRESSION: No pneumonia or pulmonary edema or pleural disease Cirrhosis Significant hepatosplenomegaly Recommend hepatobiliary sonography to exclude calculus cholecystitis Trace ascites Anasarca. Normal appendix Hepatic colopathy. Significant abdominal pelvic lymphadenopathy, clinical correlation advised, consider PET CT scan follow-up
[2025-02-08 16:19] LABS: Alanine Aminotransferase 9 U/L (10-49); Albumin, Serum 3.2 gm/dL (3.5-5.0); Albumin/Globulin Ratio 0.6 (1.2-2.2); Alkaline Phosphatase 103 U/L (46-116); Anion Gap 10 (7-16); Aspartate Amino Transferase 21 U/L (0-34); BUN/Creatinine Ratio 13 Ratio (12-20); Bilirubin,Total 3.4 mg/dL (0.3-1.2); Blood Urea Nitrogen 13 mg/dL (9-23); Calcium 8.3 mg/dL (8.3-10.6); Calcium (Corrected) 8.9 mg/dL (8.5-10.1); Carbon Dioxide 24.1 mMol/L (20.0-31.0); Chloride 100 mMol/L (98-107); Creatinine (Component) 1.0 mg/dL (0.6-1.3); Estimated Creatinine Clearance 123.4 mL/min (>60); Globulin 5.1 gm/dL (2.3-3.5); Glucose 108 mg/dL (74-106); Lipase 24 U/L (12-53); Osmolality,Calculated 269 (275-295); Potassium 3.3 mMol/L (3.4-5.1); Procalcitonin 1.15 ng/ml (0.0-0.49); Sodium 134 mMol/L (136-145); Total Protein 8.3 gm/dL (5.7-8.2); eGFR > 60 See Note
[2025-02-08] MEDS: ACETAMINOPHEN IVPB 1,000 MG/100 ML VIAL 250 MG IV (16:59)
[2025-02-08] MEDS: MEROPENEM INJ 1,000 MG in SODIUM CHLORIDE 0.9% (Popper) 50 ML 100 MG IV (17:00)
--- NOTE | 2025-02-08 17:00 | EDNOTE_ITS ---
Emergency Room Addendum <Chinabarbie Luna - Last Filed: 02/08/25 17:02> Addendum Narrative: I was asked by CARON Long to perform a central line for poor vascular access. ED Procedures <Chinabarbie Luna - Last Filed: 02/08/25 17:02> Central Line Placement Left IJ: Time Out Performed: Yes Patient Placed on Monitor/Pulse Ox: Yes Prep: mask, gown and gloves Central Line Prep: Chlorhexidine scrub and sterile drapes applied Local Anesthetic: lidocaine 1% Amount of anesthesia used (mL): 3 Ultrasound Used for Placement: Yes Central Line Lumen Inserted: triple Post Procedure: sutured in place, good blood return, all ports aspirated, flushed, capped and sterile dressing applied Patient Tolerated Procedure: well and no complications Complications: none <Elaina Henry MD - Last Filed: 02/09/25 09:13> Central Line Placement Left IJ: Post Procedure X-Ray: tip of catheter in good position and no pneumothorax seen
[2025-02-08] MEDS: SODIUM CHLORIDE 0.9% 1000 ML 2,328 ML 2328 ML IV (17:07)
[2025-02-08] MEDS: Vancomycin Inj 2,000 MG in SODIUM CHLORIDE 0.9% 500 ML 500 ML 150 MG IV (17:18)
[2025-02-08] MEDS: ONDANSETRON INJ 2 MG/ML INJ 2 ML 4 MG IVP (17:25)
[2025-02-08] MEDS: OCTREOTIDE ACET INJ 50 mCg/ML VIAL IV (17:33)
[2025-02-08] MEDS: OCTREOTIDE ACET INJ 1,000 MCG in SODIUM CHLORIDE 0.9% 100 ML 5.1 MCG IV (17:33)
[2025-02-08 18:05] LABS: B-Type Natriuretic Peptide 23 pg/mL (0-100)
--- NOTE | 2025-02-08 18:25 | XR_ITS ---
Examination: CT bilateral lower extremity with intravenous contrast, without contrast. 2-D sagittal reconstructions. 2-D coronal reconstructions. 3-D reconstructions. Date and time of exam:February 08, 2025 0856 hours INDICATIONS: Sepsis bilateral leg pain today, sepsis today CTDI: vol (mGy):14.1 DLP: (mGycm):1611 Technique: Multiple 1.25 mm axial sections of the bilateral lower extremities postintravenous administration 60 cc Isovue 370 have been obtained. 2-D sagittal and coronal reconstructions have been obtained. 3-D reconstructions have been obtained. Low dose protocols were performed. One or more of the following dose reduction techniques were used; automated exposure control, adjustment of the mA and/or KV according to patient size, use of iterative reconstruction technique. Findings: Advanced right hip osteoarthritis Moderate left hip osteoarthritis Edema in the subcutaneous tissues surrounding both eyes This is not a CTA study to assess the arterial vasculature The edema in the subcutaneous tissue with skin thickening is more prominent in the lower legs No soft tissue abscess No dana cortical bone destruction No foreign bodies IMPRESSION: Advanced right hip osteoarthritis Moderate left hip osteoarthritis Severe cellulitis pattern in the lower legs No soft tissue abscess No cortical bone destruction Consider both venous and arterial Doppler lower extremities follow-up
[2025-02-08 18:45] LABS: Reflex Lactate? Y
[2025-02-08 18:54] LABS: Collection Type, Urine Voided
[2025-02-08 19:16] LABS: Amorphous Crystals,Urine Present (Absent); Bacteria,Urine Rare; Bilirubin,Urine 2+ (Negative); Blood,Urine Trace (Negative); Clarity,Urine Clear (Clear/Hazy); Color,Urine Drk-Yellow (Lt Yel-Yel); Glucose, Urine Negative (Negative); Ketones,Urine Negative (Negative); Leukocyte Esterase,Urine Negative (Negative); Nitrite,Urine Negative (Negative); PH,Urine 6.5 (5.0-7.0); Protein,Urine 1+ (Neg - Trace); RBC,Urine 3 /hpf (0-3); Specific Gravity,Urine 1.031 (1.001-1.035); Squamous Epithelial Cell,Urine 2 /hpf (0-5); Urobilinogen,Urine OVER mg/dL (0.0-1.0); WBC,Urine 3 /hpf (0-5)
[2025-02-08 19:28] LABS: Barbiturate Screen,Urine Negative (Negative); Benzodiazepines Screen,Urine Negative (Negative); Benzoylecgonine Screen, Ur Negative (Negative); Opiate Screen,Urine Negative (Negative); THC Screen,Urine Negative (Negative)
[2025-02-08 19:29] LABS: Amphetamine/Methamp Scrn,U Positive (Negative); Fentanyl Screen,Urine Positive (Negative)
[2025-02-08 19:31] LABS: Lactic Acid, 3 HR 2.8 mMol/L (0.4-2.0)
--- NOTE | 2025-02-08 21:28 | XR_ITS ---
Examination: Abdomen sonogram, Limited Date and time of exam: February 08, 2025 10:20 PM INDICATIONS: Nausea vomiting beginning today Technique: Real-time rojas scale transabdominal sonographic images of the upper abdomen obtained. Findings: Negative for gallstones Gallbladder wall 0.43 cm no edema Common bile duct 0.6 cm no stones Pancreatic head 3.5 cm Liver 16.2 cm fatty infiltration Normal hepatopedal portal venous flow Patent IVC IMPRESSION: Negative for cholelithiasis Gallbladder wall borderline thickened Common bile duct 0.6 cm mildly prominent, clinical correlation advised If biliary colic is a clinical consideration, recommend MRCP follow-up
--- NOTE | 2025-02-08 23:39 | ESCONSULT_ITS ---
HPI Data of Consult Primary Care Provider: Physician No Primary/Family Consult Narrative Reason for consult: GI Bleed History of present illness: Assessment was limited due to the patient?s altered mental status. Most historical information was obtained through chart review. 49-year-old male with past medical history of congestive heart failure, polysubstance use disorder (methamphetamine and fentanyl), hepatitis C, cirrhosis, esophageal varices, and peptic ulcer disease was brought to the ED by EMS on 02/08/2025 after experiencing active hematemesis with clots at the scene. The patient was tachycardic and febrile on arrival. The ED note documents that the patient reported smoking fentanyl the morning of 02/08 and using methamphetamine on 02/07. No emesis was observed during the ED course. ED Course: - Vital: BP 143/76, HR 114, RR 15, Temp 100.6?F, O2 Sat 97% on nasal cannula (O2 flow rate of 6) - Labs: Hematology: CBC: WBC 4.6, Hgb 10.3, Hct 31.6%, Plt 93 Coagulation: PT 14.5, INR 1.4, PTT 25.4, fibrinogen 486 Chemistries: Na 134, K 3.3, Glucose 108, Lactic acid 3.0, Total bilirubin 3.4, AST 21, ALT 9, ALP 103, BNP 23, Procalcitonin 1.15 UA: Unremarkable - Imaging: CT chest/abdomen/pelvis: cirrhosis, hepatosplenomegaly, trace ascites, anasarca, abdominal and pelvic lymphadenopathy. Possible gallbladder wall thickening with questionable gallstones. Lower extremities CT: severe cellulitis pattern in the lower legs RUQ ultrasound: No cholelithiasis, Gallbladder wall thickening, common bile duct 0.6 cm - Treatment: Octreotide 50 mcg x1 and then drip, Ondansetron 4 mg x1, Vancomycin, Meropenem, Pantoprazole 80 mg IVP x1, IV Tylenol 3 bags, IV fluids (NS) In the ED, a central line was placed due to poor peripheral venous access. Nurse also reported bright red rectal blood. General surgery was consulted regarding the CT scan of the chest, abdomen, and pelvis, which led to the recommendation to perform a right upper quadrant ultrasound to evaluate for cholelithiasis. The hospitalist team subsequently recommended an MRCP to further assess for possible biliary obstruction or ascending cholangitis. Gastroenterology was consulted, and Dr. Marinelli advised admission for further evaluation and management of an active gastrointestinal bleed. Prior EGD performed by Dr. Marinelli on 12/07/24 for a drop in hemoglobin/hematocrit, positive fecal occult blood test and thrombocytopenia. The EGD revealed grade III esophageal varices, which were banded. Given that these findings did not fully account for the degree of anemia and GI blood loss, a colonoscopy was recommended. However, the patient left the hospital against medical advice before the procedure could be completed. cc:: cc: Review of Systems Review of Systems ROS Unobtainable: unobtainable due to mental status Past Medical History Past Medical History Comments PMH COMMENT: All obtained per chart review Past Medical History: as above Family History: noncontributory Surgical History: appendectomy Social History: current smoker, history of alcohol use, urine toxicology positive for fentanyl and methamphetamine, homeless Allergies: cephalexin (lips, tongue, throat swelling) Meds Home Medications and Allergies Allergies Allergy/AdvReac Type Severity Reaction Status Date / Time Cephalexin Monohydrate Allergy Severe Swelling Verified 12/05/24 19:01 of Lip/Tongue/Throat cephalexin (From Keflex) Allergy Verified 12/05/24 19:01 Exam Vital Signs Temp Pulse Resp BP Pulse Ox O2 Del Method O2 Flow Rate 100.8 F H 95 20 119/59 L 100 Nasal Cannula 2 02/08/25 21:20 02/08/25 21:20 02/08/25 21:20 02/08/25 21:20 02/08/25 21:20 02/08/25 21:20 02/08/25 21:20 Narrative Exam Physical Exam General: somnolent, difficult to arouse, unable to provide history HEENT: normocephalic, atraumatic Heart: regular rate and rhythm, no murmurs Lungs: no accessory muscle use Abdomen: soft, minimal diffuse tenderness, no rebound or guarding Neurologic: no gross neurological deficit, can move all 4 extremities Extremities: bilateral lower extremities with marked skin thickening and erythema and pitting edema Skin: thickened skin in lower extremities, tattoos Results Labs 02/09/25 05:36 02/09/25 05:36 Labs: Short CBC 02/08/25 Range/Units 15:26 WBC 4.6 (3.8-10.6) Thou/mm3 Hgb 10.3 L (13.5-16.0) g/dL Hct 31.6 L (41.0-53.0) % Plt Count 93 L D (140-440) Thou/mm3 BMP 02/08/25 15:26 Sodium 134 L Potassium 3.3 L Chloride 100 Carbon Dioxide 24.1 BUN 13 Creatinine 1.0 Glucose 108 H Calcium 8.3 Liver Function 02/08/25 Range/Units 15:26 Total Bilirubin 3.4 H (0.3-1.2) mg/dL AST 21 (0-34) U/L ALT 9 L (10-49) U/L Alkaline Phosphatase 103 (46-116) U/L Albumin 3.2 L (3.5-5.0) gm/dL Urine 02/08/25 Range/Units 18:49 Urine Color Drk-Yellow A (Lt Yel-Yel) Urine Clarity Clear (Clear/Hazy) Urine pH 6.5 (5.0-7.0) Ur Specific [place] 1.031 (1.001-1.035) Urine Protein 1+ A (Neg - Trace) Urine Glucose (UA) Negative (Negative) Assessment and Plan Additional Assessment & Plan Additional Plan: 49-year-old male with past medical history of congestive heart failure, polysubstance use disorder (methamphetamine and fentanyl), hepatitis C, cirrhosis, esophageal varices, and peptic ulcer disease was brought to the ED on 02/08/2025 for active hematemesis with clots at the scene. Patient was admitted to ICU for active GI bleed and shock. #GI Bleed (upper vs lower GI bleed vs unknown source) #Grade 3 esophageal varices #Liver cirrhosis #Hepatitis C #Choledocholithiasis Per EMS, patient presented with hematemesis at the scene concerning for upper GI bleed. History and exam notable for EGD on 12/07/24 showing grade 3 esophageal varices, which were treated with banding, liver cirrhosis on CT, and positive hepatitis C antibody. Most likely due to active upper GI bleed. FOBT positive - Pertinent labs: Hgb 10.3 ? 8.7, Hct 31.6 ? 26.3, Plt 93 ? 84 PT 14.5, INR 1.4, PTT 25.4, Fibrinogen 486 BUN 13 ? 18, Cr 1.0 ? 0.9, BUN:Cr ratio 13 ? 20 Lactic acid: 3.0 ? 2.8 ? 4.5 ? 2.4 T.bilirubin 3.4 ? 3.9, Direct bilirubin 2.2, ALP 103 ? 71 Ammonia 75 Albumin 3.2 ? 2.5 Procalcitonin 1.15 ? 12.55 AST 9 ? <7, ALT 21 ? 17 - MRCP on 02/09/25 showed mild ascites, massive splenomegaly, suspicious for 2 mm stone in the distal common bile duct Plan: - Scheduled for EGD today (02/09) - Keep NPO - IVF resuscitation and Levophed to maintain MAP > 65 - IV Pantoprazole 40 mg twice daily - Continue Octreotide for esophageal varices - Continue Meropenem for SBP phrophlaxis - 2 units FFP, 2 units pRBC given - Monitor H&H Attending physician attestation Patient evaluated with the internal medicine team with my resident physician Laboratory data reviewed Imaging studies reviewed Decision made after discussion and examination for fiberoptic esophagogastroduodenoscopy with possible biopsy possible therapeutic intervention under intravenous moderate sedation Thank you very much for the opportunity to participate in care of this patient
[2025-02-09] VITALS (130 sets, daily range): BP systolic 69–157; BP diastolic 34–110; PULSE 69–112; RESP 6–33; TEMP 36.3–39.1; O2SAT 87–100
--- NOTE | 2025-02-09 | XR_ITS ---
MRI abdomen, without contrast. MRCP Date and time of exam: February 09, 2025, 1656 hours INDICATIONS: Mid abdominal pain beginning 2 days ago, borderline thickening gallbladder wall, common bile duct enlargement 0.6 cm on abdomen sonogram today Technique: Multiple axial and coronal images of the abdomen have been obtained with the Siemens 1.5T MRI scanner. Images obtained included T1 weighted transverse images, T2-weighted transverse images, T2-weighted transverse images fat-suppressed, T2 weighted haste fat suppressed transverse images, T1 weighted images, in and out of phase images, T2-weighted coronal images, breath hold, T2 weighted haze coronal images as well as T2 weighted coronal thick slab images, MRCP. Findings: Cirrhosis, liver lobular and nodular in contour, no focal liver lesions No gallstones The gallbladder wall is thickened but the patient has edema Massive splenomegaly, 22 cm Coronal image 22 suspicious for a 2 mm stone in distal common bile duct No hydronephrosis IMPRESSION: Cirrhosis Mild ascites. Massive splenomegaly. Gallbladder wall is thickened but again the patient has ascites Suspicious for 2 mm stone in the distal common bile duct
--- NOTE | 2025-02-09 | PD.EDADDENDU ---
Emergency Room Addendum Addendum Narrative: 2346: I was approached by the hospitalist, Dr. Bermudez, who is concerned about possible biliary obstruction versus ascending cholangitis. Requests MRCP in the morning. 0120: Patient's blood pressure began dropping from the 110s systolically to 85. Patient also complains of worsening abdominal pain. 1L NS IVF, Fentanyl 100mcg, and Zofran 4mg ordered. 0448: Patient is in the 90's systolically. 1L LR ordered. Potassium ordered due to the patient's level being 3.3. 0540: Patient's blood pressure has improved to 119/90. 0600: Care signed out to Dr. Henry (emergency physician). Past medical, surgical, social and family history reviewed. Vitals and home medications reviewed. Results and treatment plan discussed. They will assume the care of the patient at this time and will follow the patient, pending MRCP.
--- NOTE | 2025-02-09 00:01 | EVENTNT_ITS ---
Documentation for date of: 02/09/25 Event Note Event Note: 02/09/2025: Received a call from emergency department provider regarding patient in room 5, 50-year-old male with past medical history of CHF, polysubstance use disorder, cirrhosis secondary to hepatitis C infection, esophageal varices, PUD, homeless presented to the ED with hematemesis, fever with a Tmax of 102.4 ?F. Patient seen and examined in hospital bed is currently altered and unresponsive to questioning but groaning and pain secondary to tenderness in the right upper quadrant. Of note, patient also has extensive bilateral lower extremity hyperkeratosis with clear signs of cellulitis. Upon reviewing patient's la boratory findings of elevated total bilirubin along with imaging findings including CT chest/abdomen/pelvis, abdominal ultrasound; there is some concern for possible gallbladder dysfunction versus obstruction and some concern for developing cholangitis. Discussed case with ED provider; agreement is to obtain HIDA scan before considering a safe admission. Dusty Amador, PGY-2 Internal Medicine - [facility]
[2025-02-09] MEDS: SODIUM CHLORIDE 0.9% 1000 ML 1,000 ML 999 ML IV (01:24)
[2025-02-09] MEDS: ACETAMINOPHEN IVPB 1,000 MG/100 ML VIAL 400 MG IV ×2 (01:55)
[2025-02-09] MEDS: ONDANSETRON INJ 2 MG/ML INJ 2 ML 4 MG IVP (01:55)
[2025-02-09] MEDS: fentaNYL CIT INJ 50 mCg/ML AMP 2ML 100 MCG IVP (01:55)
[2025-02-09] MEDS: POTASSIUM CHL 20 mEq IVPB 20 MEQ/100 ML BAG 100 MEQ IV ×2 (05:06→06:16)
[2025-02-09] MEDS: RINGERS LACTATED 1000 ML 1,000 ML 999 ML IV (05:08)
[2025-02-09 05:44] LABS: Lactate (Lactic Acid) 4.5 mMol/L (0.4-2.0)
[2025-02-09 05:57] LABS: Basophils # (Auto) 0.0 Thou/mm3 (0.0-0.2); Basophils % (Auto) 1 % (0-2.5); Eosinophils # (Auto) 0.0 Thou/mm3 (0.0-0.5); Eosinophils % (Auto) 0 % (0-10); Mean Corpuscular Volume 83 fL (80-100); Monocytes % (Auto) 3 % (0-12); Nucleated Red Blood Cell # 0.00 Thou/mm3 (0.00-0.00); Nucleated Red Blood Cell % 0 /100 WBC (0)
[2025-02-09 05:58] LABS: Hematocrit 26.3 % (41.0-53.0); Immature Granulocytes Auto 0.05 Thou/mm3 (0.00-0.00); Lymphocytes # (Auto) 0.4 Thou/mm3 (1.0-4.8); Lymphocytes % (Auto) 6 % (10-50); Mean Corpuscular HGB Conc 33.1 g/dl (31.0-37.0); Mean Corpuscular Hemoglobin 27.4 pg (25.0-35.0); Monocytes # (Auto) 0.2 Thou/mm3 (0.0-0.8); Neutrophils # (Auto) 6.3 Thou/mm3 (1.8-7.7); Neutrophils % (Auto) 89 % (37-80); Platelet Count 84 Thou/mm3 (140-440); RDW Standard Deviation 49.5 fL (35.1-43.9); Red Blood Count 3.18 Miln/mm3 (4.50-5.90); White Blood Count 7.1 Thou/mm3 (3.8-10.6)
[2025-02-09 06:01] LABS: Hemoglobin 8.7 g/dL (13.5-16.0)
[2025-02-09 06:08] LABS: Alanine Aminotransferase < 7 U/L (10-49); Albumin, Serum 2.5 gm/dL (3.5-5.0); Albumin/Globulin Ratio 0.7 (1.2-2.2); Alkaline Phosphatase 71 U/L (46-116); Anion Gap 9 (7-16); Aspartate Amino Transferase 17 U/L (0-34); BUN/Creatinine Ratio 20 Ratio (12-20); Bilirubin,Total 3.9 mg/dL (0.3-1.2); Blood Urea Nitrogen 18 mg/dL (9-23); Calcium 7.8 mg/dL (8.3-10.6); Calcium (Corrected) 9.0 mg/dL (8.5-10.1); Carbon Dioxide 21.2 mMol/L (20.0-31.0); Chloride 108 mMol/L (98-107); Creatinine (Component) 0.9 mg/dL (0.6-1.3); Estimated Creatinine Clearance 137.1 mL/min (>60); Globulin 3.7 gm/dL (2.3-3.5); Glucose 86 mg/dL (74-106); Osmolality,Calculated 276 (275-295); Potassium 4.0 mMol/L (3.4-5.1); Sodium 138 mMol/L (136-145); Total Protein 6.2 gm/dL (5.7-8.2); eGFR > 60 See Note
--- NOTE | 2025-02-09 06:26 | PD.EDADDENDU ---
Emergency Room Addendum <Chiquis Núñez - Last Filed: 02/09/25 08:30> Addendum Narrative: 0600: Care assumed from Dr. Parr, the previous shift emergency physician. Past medical, surgical, social and family history reviewed. Vitals and home medications reviewed. I will assume the care of the patient at this time, pending MRCP and final disposition. Please refer to the emergency department record for history and examination from initial visit.? Physical exam by me at 0628 hours shows patient under no acute distress at this time. Sleeping at this time. 0743: Nurse reported bright red rectal blood noted. Also, blood pressure dropped. 7:[address] Marinelli discussed the case again, given patient's new bright red blood per rectum, and persistent episodes of hypotension, as well as worsening lactic acid despite 5 L of fluid resuscitate. Dr. Marinelli does not believe the patient has choledocholithiasis, cholangitis or cholecystitis. Believe that the patient's life-threatening issue at this time is his GI bleed. Believe that patient is safe to be admitted here and that he would like to scope the patient this morning. Patient is pending a unit of blood, Levophed ordered if patient becomes hypotensive again. 7:57a discussed case with resident in the ICU, will discuss with his attending. <Elaina Henry MD - Last Filed: 02/09/25 08:56> Addendum Narrative: 0600: Care assumed from Dr. Parr, the previous shift emergency physician. Past medical, surgical, social and family history reviewed. Vitals and home medications reviewed. I will assume the care of the patient at this time, pending MRCP and final disposition. Please refer to the emergency department record for history and examination from initial visit.? Physical exam by me at 0628 hours shows patient under no acute distress at this time. Sleeping at this time. 0743: Nurse reported bright red rectal blood noted. Also, blood pressure dropped. 7:[address] Marinelli discussed the case again, given patient's new bright red blood per rectum, and persistent episodes of hypotension, as well as worsening lactic acid despite 5 L of fluid resuscitate. Dr. Marinelli does not believe the patient has choledocholithiasis, cholangitis or cholecystitis. Believe that the patient's life-threatening issue at this time is his GI bleed. Believe that patient is safe to be admitted here and that he would like to scope the patient this morning. Patient is pending a unit of blood, Levophed ordered if patient becomes hypotensive again. 7:57a discussed case with resident in the ICU, will discuss with his attending....accepted for admission Critical Care Time <Chiquis Núñez - Last Filed: 02/09/25 08:30> Critical Care Time Critical Care Time: Yes Total Critical Care Time (min.): 120 Attestation: The high probability of sudden, clinically significant deterioration in the patient?s condition required the highest level of my preparedness to intervene urgently. The services I provided to this patient were to treat and/or prevent clinically significant deterioration. Services included the following: chart data review, reviewing nursing notes and/or old charts, documentation time, universal branch consultant collaboration regarding findings and treatment options, medication orders and management, direct patient care, vital sign assessments and ordering, interpreting and reviewing diagnostic studies and lab tests. Aggregate critical care time includes only time during which I was engaged in work directly related to the patient?s care, as described above, whether at bedside or elsewhere in the Emergency Department. It did not include time spent performing other reported procedures or the services of residents, students, nurses or physician assistants. Results <Chiquis Núñez - Last Filed: 02/09/25 08:30> Objective Laboratory: Laboratory Last Values WBC 7.1 Thou/mm3 (3.8-10.6) D 02/09/25 05:36 RBC 3.18 Miln/mm3 (4.50-5.90) L 02/09/25 05:36 Hgb 8.7 g/dL (13.5-16.0) L 02/09/25 05:36 Hct 26.3 % (41.0-53.0) L 02/09/25 05:36 MCV 83 fL (80-100) 02/09/25 05:36 MCH 27.4 pg (25.0-35.0) 02/09/25 05:36 MCHC 33.1 g/dl (31.0-37.0) 02/09/25 05:36 RDW Std Deviation 49.5 fL (35.1-43.9) H 02/09/25 05:36 Plt Count 84 Thou/mm3 (140-440) L 02/09/25 05:36 Neut % (Auto) 89 % (37-80) H 02/09/25 05:36 Lymph % (Auto) 6 % (10-50) L 02/09/25 05:36 [place] % (Auto) 3 % (0-12) 02/09/25 05:36 Eos % (Auto) 0 % (0-10) 02/09/25 05:36 Baso % (Auto) 1 % (0-2.5) 02/09/25 05:36 Neut # (Auto) 6.3 Thou/mm3 (1.8-7.7) 02/09/25 05:36 Lymph # (Auto) 0.4 Thou/mm3 (1.0-4.8) L 02/09/25 05:36 [place] # (Auto) 0.2 Thou/mm3 (0.0-0.8) 02/09/25 05:36 Eos # (Auto) 0.0 Thou/mm3 (0.0-0.5) 02/09/25 05:36 Baso # (Auto) 0.0 Thou/mm3 (0.0-0.2) 02/09/25 05:36 Immature Gran # (Auto) 0.05 Thou/mm3 (0.00-0.00) H 02/09/25 05:36 Absolute Nucleated RBC 0.00 Thou/mm3 (0.00-0.00) 02/09/25 05:36 Immature Gran % 1 % (0-0) H 02/09/25 05:36 Nucleated RBC % 0 /100 WBC (0) 02/09/25 05:36 PT 14.5 Seconds (9.0-12.2) H 02/08/25 15:26 INR 1.4 (0.9-1.3) H 02/08/25 15:26 APTT 25.4 Seconds (22.0-36.0) 02/08/25 15:26 Sodium 138 mMol/L (136-145) 02/09/25 05:36 Potassium 4.0 mMol/L (3.4-5.1) D 02/09/25 05:36 Chloride 108 mMol/L (98-107) H 02/09/25 05:36 Carbon Dioxide 21.2 mMol/L (20.0-31.0) 02/09/25 05:36 Anion Gap 9 (7-16) 02/09/25 05:36 BUN 18 mg/dL (9-23) 02/09/25 05:36 Creatinine 0.9 mg/dL (0.6-1.3) 02/09/25 05:36 Estim Creat Clear Calc 137.1 mL/min (>60) 02/09/25 05:36 eGFR > 60 See Note (60-) 02/09/25 05:36 BUN/Creatinine Ratio 20 Ratio (12-20) 02/09/25 05:36 Glucose 86 mg/dL (74-106) 02/09/25 05:36 Calculated Osmolality 276 (275-295) 02/09/25 05:36 Lactic Acid 4.5 mMol/L (0.4-2.0) H* 02/09/25 05:36 Calcium 7.8 mg/dL (8.3-10.6) L 02/09/25 05:36 Corrected Calcium 9.0 mg/dL (8.5-10.1) 02/09/25 05:36 Total Bilirubin 3.9 mg/dL (0.3-1.2) H D 02/09/25 05:36 AST 17 U/L (0-34) 02/09/25 05:36 ALT < 7 U/L (10-49) L 02/09/25 05:36 Alkaline Phosphatase 71 U/L (46-116) D 02/09/25 05:36 B-Natriuretic Peptide 23 pg/mL (0-100) 02/08/25 15:26 Total Protein 6.2 gm/dL (5.7-8.2) 02/09/25 05:36 Albumin 2.5 gm/dL (3.5-5.0) L D 02/09/25 05:36 Globulin 3.7 gm/dL (2.3-3.5) H 02/09/25 05:36 Albumin/Globulin Ratio 0.7 (1.2-2.2) L 02/09/25 05:36 Lipase 24 U/L (12-53) 02/08/25 15:26 Procalcitonin 1.15 ng/ml (0.0-0.49) H 02/08/25 15:26 Ur Collection Type Voided 02/08/25 18:49 Urine Color Drk-Yellow (Lt Yel-Yel) A 02/08/25 18:49 Urine Clarity Clear (Clear/Hazy) 02/08/25 18:49 Urine pH 6.5 (5.0-7.0) 02/08/25 18:49 Ur Specific [place] 1.031 (1.001-1.035) 02/08/25 18:49 Urine Protein 1+ (Neg - Trace) A 02/08/25 18:49 Urine Glucose (UA) Negative (Negative) 02/08/25 18:49 Urine Ketones Negative (Negative) 02/08/25 18:49 Urine Blood Trace (Negative) 02/08/25 18:49 Urine Nitrite Negative (Negative) 02/08/25 18:49 Urine Bilirubin 2+ (Negative) A 02/08/25 18:49 Urine Urobilinogen (Auto) OVER mg/dL (0.0-1.0) 02/08/25 18:49 Ur Leukocyte Esterase Negative (Negative) 02/08/25 18:49 Urine RBC 3 /hpf (0-3) 02/08/25 18:49 Urine WBC 3 /hpf (0-5) 02/08/25 18:49 Ur Squamous Epith Cells 2 /hpf (0-5) 02/08/25 18:49 Amorphous Crystals Present (Absent) A 02/08/25 18:49 Urine Bacteria Rare (None) 02/08/25 18:49 Ur Culture Indicated? Cancelled 02/08/25 18:49 Urine Opiates Screen Negative (Negative) 02/08/25 18:49 Urine Fentanyl Screen Positive (Negative) A 02/08/25 18:49 Ur Barbiturates Screen Negative (Negative) 02/08/25 18:49 U Amphetamin/Meth Scrn Positive (Negative) A 02/08/25 18:49 U Benzodiazepines Scrn Negative (Negative) 02/08/25 18:49 U Cocaine Metab Screen Negative (Negative) 02/08/25 18:49 U Marijuana (THC) Screen Negative (Negative) 02/08/25 18:49 Blood Type B Positive 02/08/25 15:26 Antibody Screen NEGATIVE 02/08/25 15:26 Blood Bank Wristband ID Yes 02/08/25 15:26 <Elaina Henry MD - Last Filed: 02/09/25 08:56> Objective Laboratory: Laboratory Last Values WBC 7.1 Thou/mm3 (3.8-10.6) D 02/09/25 05:36 RBC 3.18 Miln/mm3 (4.50-5.90) L 02/09/25 05:36 Hgb 8.7 g/dL (13.5-16.0) L 02/09/25 05:36 Hct 26.3 % (41.0-53.0) L 02/09/25 05:36 MCV 83 fL (80-100) 02/09/25 05:36 MCH 27.4 pg (25.0-35.0) 02/09/25 05:36 MCHC 33.1 g/dl (31.0-37.0) 02/09/25 05:36 RDW Std Deviation 49.5 fL (35.1-43.9) H 02/09/25 05:36 Plt Count 84 Thou/mm3 (140-440) L 02/09/25 05:36 Neut % (Auto) 89 % (37-80) H 02/09/25 05:36 Lymph % (Auto) 6 % (10-50) L 02/09/25 05:36 [place] % (Auto) 3 % (0-12) 02/09/25 05:36 Eos % (Auto) 0 % (0-10) 02/09/25 05:36 Baso % (Auto) 1 % (0-2.5) 02/09/25 05:36 Neut # (Auto) 6.3 Thou/mm3 (1.8-7.7) 02/09/25 05:36 Lymph # (Auto) 0.4 Thou/mm3 (1.0-4.8) L 02/09/25 05:36 [place] # (Auto) 0.2 Thou/mm3 (0.0-0.8) 02/09/25 05:36 Eos # (Auto) 0.0 Thou/mm3 (0.0-0.5) 02/09/25 05:36 Baso # (Auto) 0.0 Thou/mm3 (0.0-0.2) 02/09/25 05:36 Immature Gran # (Auto) 0.05 Thou/mm3 (0.00-0.00) H 02/09/25 05:36 Absolute Nucleated RBC 0.00 Thou/mm3 (0.00-0.00) 02/09/25 05:36 Immature Gran % 1 % (0-0) H 02/09/25 05:36 Nucleated RBC % 0 /100 WBC (0) 02/09/25 05:36 PT 14.5 Seconds (9.0-12.2) H 02/08/25 15:26 INR 1.4 (0.9-1.3) H 02/08/25 15:26 APTT 25.4 Seconds (22.0-36.0) 02/08/25 15:26 Sodium 138 mMol/L (136-145) 02/09/25 05:36 Potassium 4.0 mMol/L (3.4-5.1) D 02/09/25 05:36 Chloride 108 mMol/L (98-107) H 02/09/25 05:36 Carbon Dioxide 21.2 mMol/L (20.0-31.0) 02/09/25 05:36 Anion Gap 9 (7-16) 02/09/25 05:36 BUN 18 mg/dL (9-23) 02/09/25 05:36 Creatinine 0.9 mg/dL (0.6-1.3) 02/09/25 05:36 Estim Creat Clear Calc 137.1 mL/min (>60) 02/09/25 05:36 eGFR > 60 See Note (60-) 02/09/25 05:36 BUN/Creatinine Ratio 20 Ratio (12-20) 02/09/25 05:36 Glucose 86 mg/dL (74-106) 02/09/25 05:36 Calculated Osmolality 276 (275-295) 02/09/25 05:36 Lactic Acid 4.5 mMol/L (0.4-2.0) H* 02/09/25 05:36 Calcium 7.8 mg/dL (8.3-10.6) L 02/09/25 05:36 Corrected Calcium 9.0 mg/dL (8.5-10.1) 02/09/25 05:36 Total Bilirubin 3.9 mg/dL (0.3-1.2) H D 02/09/25 05:36 AST 17 U/L (0-34) 02/09/25 05:36 ALT < 7 U/L (10-49) L 02/09/25 05:36 Alkaline Phosphatase 71 U/L (46-116) D 02/09/25 05:36 B-Natriuretic Peptide 23 pg/mL (0-100) 02/08/25 15:26 Total Protein 6.2 gm/dL (5.7-8.2) 02/09/25 05:36 Albumin 2.5 gm/dL (3.5-5.0) L D 02/09/25 05:36 Globulin 3.7 gm/dL (2.3-3.5) H 02/09/25 05:36 Albumin/Globulin Ratio 0.7 (1.2-2.2) L 02/09/25 05:36 Lipase 24 U/L (12-53) 02/08/25 15:26 Procalcitonin 1.15 ng/ml (0.0-0.49) H 02/08/25 15:26 Ur Collection Type Voided 02/08/25 18:49 Urine Color Drk-Yellow (Lt Yel-Yel) A 02/08/25 18:49 Urine Clarity Clear (Clear/Hazy) 02/08/25 18:49 Urine pH 6.5 (5.0-7.0) 02/08/25 18:49 Ur Specific [place] 1.031 (1.001-1.035) 02/08/25 18:49 Urine Protein 1+ (Neg - Trace) A 02/08/25 18:49 Urine Glucose (UA) Negative (Negative) 02/08/25 18:49 Urine Ketones Negative (Negative) 02/08/25 18:49 Urine Blood Trace (Negative) 02/08/25 18:49 Urine Nitrite Negative (Negative) 02/08/25 18:49 Urine Bilirubin 2+ (Negative) A 02/08/25 18:49 Urine Urobilinogen (Auto) OVER mg/dL (0.0-1.0) 02/08/25 18:49 Ur Leukocyte Esterase Negative (Negative) 02/08/25 18:49 Urine RBC 3 /hpf (0-3) 02/08/25 18:49 Urine WBC 3 /hpf (0-5) 02/08/25 18:49 Ur Squamous Epith Cells 2 /hpf (0-5) 02/08/25 18:49 Amorphous Crystals Present (Absent) A 02/08/25 18:49 Urine Bacteria Rare (None) 02/08/25 18:49 Ur Culture Indicated? Cancelled 02/08/25 18:49 Urine Opiates Screen Negative (Negative) 02/08/25 18:49 Urine Fentanyl Screen Positive (Negative) A 02/08/25 18:49 Ur Barbiturates Screen Negative (Negative) 02/08/25 18:49 U Amphetamin/Meth Scrn Positive (Negative) A 02/08/25 18:49 U Benzodiazepines Scrn Negative (Negative) 02/08/25 18:49 U Cocaine Metab Screen Negative (Negative) 02/08/25 18:49 U Marijuana (THC) Screen Negative (Negative) 02/08/25 18:49 Blood Type B Positive 02/08/25 15:26 Antibody Screen NEGATIVE 02/08/25 15:26 Blood Bank Wristband ID Yes 02/08/25 15:26
[2025-02-09] MEDS: Norepinephrine/D5W 8mg/250ml 8 MG/250 ML BAG 12.757 MG IV ×3 (08:30→19:38)
[2025-02-09 08:42] LABS: Reflex Lactate? Y
--- NOTE | 2025-02-09 08:56 | XR_ITS ---
Examination: Venous duplex lower extremity sonogram, bilateral. Date and time of exam: February 09, 2025 1148 hours INDICATIONS: Bilateral leg swelling this week Technique: Multiple sonographic images of the deep venous system have been obtained. B-mode/2-D grayscale imaging of vascular structures and Doppler spectral analysis (waveforms) and color performed Both legs are examined. Findings: Patient uncooperative, no diagnostic visualization right superficial femoral popliteal perineal posterior tibial veins, no diagnostic visualization left superficial femoral popliteal perineal posterior tibial veins No DVT demonstrated IMPRESSION: This is essentially a nondiagnostic study
--- NOTE | 2025-02-09 09:17 | EKG_ITS ---
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
[2025-02-09 09:18] LABS: Eosinophils (Manual) 1 % (0-4); Lymphocytes (Manual) 8 % (20-44); Monocytes (Manual) 3 % (2-9); Neutrophils (Manual) 88 % (50-70)
[2025-02-09 09:21] LABS: OBS Card Lot # 0124; OBS Developer Lot # 0424; OBS Performed By BOTED; OBS QC OK? Yes; Occult Blood, Stool Positive (Negative)
[2025-02-09] MEDS: MEROPENEM INJ 1,000 MG in SODIUM CHLORIDE 0.9% (Popper) 50 ML 100 MG IV ×3 (09:40→21:24)
[2025-02-09 09:43] LABS: Lactic Acid, 3 HR 2.4 mMol/L (0.4-2.0)
[2025-02-09 10:01] LABS: Ammonia 75 uMol/L (11-32)
[2025-02-09 10:02] LABS: Fibrinogen 486 mg/dL (175-375)
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
[2025-02-09] MEDS: ALBUMIN HUMAN 25% IVPB 25 GM/100 ML BTL IV (10:20)
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
[2025-02-09 10:30] LABS: Bilirubin,Direct 2.2 mg/dL (0.0-0.3); Phosphorous 3.1 mg/dL (2.4-5.1); Procalcitonin 12.55 ng/ml (0.0-0.49)
[2025-02-09 10:36] LABS: Magnesium 0.8 mg/dL (1.6-2.6)
[2025-02-09 10:42] LABS: Hepatitis A Antibody IgM Non Reactive (Non React); Hepatitis B Core Antibody IgM Non Reactive (Non React); Hepatitis B Surface Antigen Non Reactive (Non React); Hepatitis C Antibody Reactive (Non React)
[2025-02-09 11:18] LABS: Path Review Blood Smear Sent to Pathologist
[2025-02-09] MEDS: VANCOMYCIN/WATER 1250 MG IVPB 250 ML 120 MG IV ×2 (11:42→21:24)
[2025-02-09] MEDS: OCTREOTIDE ACET INJ 1,000 MCG in SODIUM CHLORIDE 0.9% 100 ML 5.1 MCG IV (11:45)
[2025-02-09] MEDS: Magnesium Sulfate 4 GM Ivpb 4 GM/50 ML BAG IV (11:46)
[2025-02-09] MEDS: THIAMINE INJ 100 MG/ML VIAL 2 ML IVP ×2 (11:46→20:17)
[2025-02-09] MEDS: PHYTONADIONE INJ 10 MG/ML AMP SC (11:49)
[2025-02-09] MEDS: FOLIC ACID INJ 1 MG/0.2 ML IVP (13:07)
[2025-02-09 13:50] LABS: Base Excess, Venous -1 (-3-3); O2 Saturation, Venous 80 % (96-97); PCO2, Venous 41 mmHg (36-56); PO2, Venous 45 mmHg (15-58); pH, Venous 7.37 (7.33-7.66)
--- NOTE | 2025-02-09 15:31 | PD.RESCONSUL ---
HPI Data of Consult Requesting Physician: Kingston Mendoza MD Admitting Provider: Kingston Mendoza MD Attending Provider: Kingston Mendoza MD Primary Care Provider: Physician No Primary/Family Consult Narrative cc:: cc: Kingston Mendoza MD Exam Vital Signs Temp Pulse Resp BP Pulse Ox O2 Del Method O2 Flow Rate 97.8 F 92 24 H 102/43 L 100 Nasal Cannula 3 02/09/25 12:32 02/09/25 14:55 02/09/25 14:00 02/09/25 14:55 02/09/25 14:00 02/09/25 12:01 02/09/25 12:32 Results Labs 02/09/25 05:36 02/09/25 05:36 Labs: Short CBC 02/08/25 02/09/25 Range/Units 15:26 05:36 WBC 4.6 7.1 D (3.8-10.6) Thou/mm3 Hgb 10.3 L 8.7 L (13.5-16.0) g/dL Hct 31.6 L 26.3 L (41.0-53.0) % Plt Count 93 L D 84 L (140-440) Thou/mm3 BMP 02/08/25 02/09/25 15:26 05:36 Sodium 134 L 138 Potassium 3.3 L 4.0 D Chloride 100 108 H Carbon Dioxide 24.1 21.2 BUN 13 18 Creatinine 1.0 0.9 Glucose 108 H 86 Calcium 8.3 7.8 L Liver Function 02/08/25 02/09/25 02/09/25 Range/Units 15:26 05:36 09:30 Total Bilirubin 3.4 H 3.9 H D (0.3-1.2) mg/dL Direct Bilirubin 2.2 H (0.0-0.3) mg/dL AST 21 17 (0-34) U/L ALT 9 L < 7 L (10-49) U/L Alkaline Phosphatase 103 71 D (46-116) U/L Albumin 3.2 L 2.5 L D (3.5-5.0) gm/dL Urine 02/08/25 Range/Units 18:49 Urine Color Drk-Yellow A (Lt Yel-Yel) Urine Clarity Clear (Clear/Hazy) Urine pH 6.5 (5.0-7.0) Ur Specific [place] 1.031 (1.001-1.035) Urine Protein 1+ A (Neg - Trace) Urine Glucose (UA) Negative (Negative) ABG Interpretation ABG results: 02/09/25 13:47 VBG pH 7.37 VBG pCO2 41 VBG pO2 45 VBG Base Excess -1 Quality Measures Quality Measures sepsis Possible source: pulmonary, GI tract/intra-abdominal, unknown and skin/soft tissue Blood cultures ordered: yes Medications Home Medications and Allergies Allergies Allergy/AdvReac Type Severity Reaction Status Date / Time Cephalexin Monohydrate Allergy Severe Swelling Verified 12/05/24 19:01 of Lip/Tongue/Throat cephalexin (From Keflex) Allergy Verified 12/05/24 19:01 Visit Medications Acetaminophen (Acetaminophen 325 Mg Tablet) 650 mg PO Q6HR PRN PRN Reason: Fever >101 OR MILD PAIN 1-3 Stop: 03/11/25 10:06 Folic Acid (Folic Acid Inj 1 Mg/0.2 Ml) 1 mg IVP QDAY [facility] Stop: 03/11/25 10:14 Last Admin: 02/09/25 13:07 Dose: 1 mg Octreotide Acetate 1,000 mcg/ (Sodium Chloride) 102 mls @ 5.1 mls/hr IV .Q20H ELIGIO; Protocol Stop: 02/13/25 11:59 Last Admin: 02/09/25 11:45 Dose: 50 mcg/hr, 5.1 mls/hr Norepinephrine/Dextrose (Levophed In D5w 8mg/250ml) 8 mg in 250 mls @ 12.757 mls/hr IV .[id number] PRN; Protocol PRN Reason: PER PROTOCOL Stop: 03/11/25 06:25 Last Admin: 02/09/25 14:55 Dose: 0.05 mcg/kg/min, 12.757 mls/hr Meropenem 1,000 mg/ Sodium (Chloride) 50 mls @ 100 mls/hr IV Q8HR [facility] Stop: 02/16/25 09:14 Last Admin: 02/09/25 13:09 Dose: 100 mls/hr Vancomycin HCl (Vancomycin/Water 1250 Mg Ivpb) 250 mls @ 120 mls/hr IV BID@1000,2200 [facility] Stop: 02/16/25 09:59 Last Admin: 02/09/25 11:42 Dose: 120 mls/hr Albumin Human (Albuminar-25 Ivpb) 25 gm in 100 mls @ 100 mls/hr IV QDAY ELIGIO Stop: 02/11/25 09:58 Last Admin: 02/09/25 10:20 Dose: 100 mls/hr Pantoprazole Sodium (Pantoprazole Inj 40 Mg Vial) 40 mg IVP Q12HR ELIGIO Stop: 03/11/25 08:59 Last Admin: 02/09/25 09:03 Dose: 40 mg Pharmacy Consult (Vancomycin Pharmacy To Dose 1 Each Each) 1 each IV QDAY PRN PRN Reason: CONSULT Stop: 03/11/25 09:14 Pharmacy Consult (Pharmacy Renal Dose Adjustment 1 Ea) 1 each XX PRN PRN PRN Reason: CONSULT Stop: 03/11/25 09:04 Thiamine HCl (Thiamine Inj 100 Mg/Ml Vial 2 Ml) 100 mg IVP BID ELIGIO Stop: 03/11/25 10:14 Last Admin: 02/09/25 11:46 Dose: 100 mg Discontinued Medications Fentanyl Citrate (Fentanyl Cit Inj 50 Mcg/Ml Amp 2ml) 100 mcg IVP X1 ONE Stop: 02/09/25 01:22 Last Admin: 02/09/25 01:55 Dose: 100 mcg Octreotide Acetate 1,000 mcg/ (Sodium Chloride) 102 mls @ 5.1 mls/hr IV .Q20H ONE; Protocol Stop: 02/09/25 11:29 Last Admin: 02/08/25 17:33 Dose: 50 mcg/hr, 5.1 mls/hr Vancomycin HCl 2,000 mg/ (Sodium Chloride) 500 mls @ 150 mls/hr IV X1 ONE Stop: 02/08/25 19:17 Last Infusion: 02/08/25 21:18 Dose: Infused Meropenem 1,000 mg/ Sodium (Chloride) 50 mls @ 100 mls/hr IV X1 ONE Stop: 02/08/25 15:58 Last Infusion: 02/08/25 17:30 Dose: Infused Sodium Chloride (Ns) 2,328 mls @ 2,328 mls/hr 30 ml/kg infuse over 60 min (2328 ml) IV .Q1H ONE Stop: 02/08/25 17:03 Last Infusion: 02/08/25 18:07 Dose: Infused Acetaminophen (Ofirmev Inj) 1,000 mg in 100 mls @ 250 mls/hr IV Q6H ELIGIO Stop: 02/09/25 11:03 Last Infusion: 02/09/25 02:31 Dose: Infused Sodium Chloride (Ns) 1,000 mls @ 999 mls/hr IV .Q1H1M ONE Stop: 02/09/25 02:20 Last Infusion: 02/09/25 03:20 Dose: Infused Lactated Ringer's (Lactated Ringers) 1,000 mls @ 999 mls/hr IV .Q1H1M ONE Stop: 02/09/25 05:47 Last Infusion: 02/09/25 06:09 Dose: Infused Potassium Chloride (Kcl Ivpb) 20 meq in 100 mls @ 50 mls/hr IV Q2H ELIGIO Stop: 02/09/25 08:47 Last Infusion: 02/09/25 07:43 Dose: Infused Magnesium Sulfate (Magnesium Sulfate Ivpb) 4 gm in 50 mls @ 12.5 mls/hr IV X1 ONE Stop: 02/09/25 14:42 Last Admin: 02/09/25 11:46 Dose: 12.5 mls/hr Morphine Sulfate (Morphine Sulf Inj 10 Mg/Ml Vial) 4 mg IVP X1 ONE Stop: 02/08/25 16:08 Last Admin: 02/08/25 17:50 Dose: Not Given Octreotide Acetate (Octreotide Acet Inj 50 Mcg/Ml Vial) 50 mcg IV X1 ONE Stop: 02/08/25 15:16 Last Admin: 02/08/25 17:33 Dose: 50 mcg Ondansetron HCl (Ondansetron Inj 2 Mg/Ml Inj 2 Ml) 4 mg IVP X1 ONE; Protocol Stop: 02/08/25 15:14 Last Admin: 02/08/25 17:25 Dose: 4 mg Ondansetron HCl (Ondansetron Odt 4 Mg Tabrap) 4 mg PO X1 ONE; Protocol Stop: 02/08/25 15:55 Last Admin: 02/08/25 17:07 Dose: Not Given Ondansetron HCl (Ondansetron Inj 2 Mg/Ml Inj 2 Ml) 4 mg IVP X1 ONE; Protocol Stop: 02/09/25 01:22 Last Admin: 02/09/25 01:55 Dose: 4 mg Pantoprazole Sodium (Pantoprazole Inj 40 Mg Vial) 80 mg IVP X1 ONE Stop: 02/08/25 15:16 Last Admin: 02/08/25 16:59 Dose: 80 mg Phytonadione (Phytonadione Inj 10 Mg/Ml Amp) 10 mg SC X1 ONE Stop: 02/09/25 10:47 Last Admin: 02/09/25 11:49 Dose: 10 mg
--- NOTE | 2025-02-09 21:49 | PC.NURSE ---
Dr. nguyen notified of rectal temp at 101.8, tylenol 1 gram IV ordered
[2025-02-09] MEDS: ACETAMINOPHEN IVPB 1,000 MG/100 ML VIAL 250 MG IV (22:08)
--- NOTE | 2025-02-09 22:45 | PC.NURSE ---
at 1800, consent obtained for EGD with pt, pt aox4, Dr. Brown at bedside confirmed patient alert and oriented for consent
[2025-02-09] MEDS: LACTULOSE SYRUP 20 GM/30 ML UDC PO (23:32)
[2025-02-10] VITALS (57 sets, daily range): BP systolic 92–133; BP diastolic 53–87; PULSE 71–94; RESP 12–30; TEMP 36.2–37.9; O2SAT 92–98; BMI 34.9
[2025-02-10 00:45] LABS: Hematocrit 22.2 % (41.0-53.0)
[2025-02-10 00:48] LABS: Hemoglobin 7.4 g/dL (13.5-16.0)
[2025-02-10 01:37] LABS: Basophils # (Auto) 0.0 Thou/mm3 (0.0-0.2); Basophils % (Auto) 1 % (0-2.5); Eosinophils # (Auto) 0.1 Thou/mm3 (0.0-0.5); Eosinophils % (Auto) 1 % (0-10); Hematocrit 22.9 % (41.0-53.0); Immature Granulocytes Auto 0.04 Thou/mm3 (0.00-0.00); Lymphocytes # (Auto) 0.5 Thou/mm3 (1.0-4.8); Lymphocytes % (Auto) 10 % (10-50); Mean Corpuscular HGB Conc 32.8 g/dl (31.0-37.0); Mean Corpuscular Hemoglobin 27.4 pg (25.0-35.0); Mean Corpuscular Volume 84 fL (80-100); Monocytes # (Auto) 0.3 Thou/mm3 (0.0-0.8); Monocytes % (Auto) 5 % (0-12); Neutrophils # (Auto) 4.4 Thou/mm3 (1.8-7.7); Neutrophils % (Auto) 83 % (37-80); Nucleated Red Blood Cell # 0.00 Thou/mm3 (0.00-0.00); Nucleated Red Blood Cell % 0 /100 WBC (0); RDW Standard Deviation 50.6 fL (35.1-43.9); Red Blood Count 2.74 Miln/mm3 (4.50-5.90); White Blood Count 5.3 Thou/mm3 (3.8-10.6)
[2025-02-10 01:55] LABS: Hemoglobin 7.5 g/dL (13.5-16.0); Platelet Count 67 Thou/mm3 (140-440)
[2025-02-10 03:06] LABS: Slide Review Platelets confirmed
[2025-02-10] MEDS: MEROPENEM INJ 1,000 MG in SODIUM CHLORIDE 0.9% (Popper) 50 ML 100 MG IV (06:07)
[2025-02-10 09:21] LABS: Basophils # (Auto) 0.0 Thou/mm3 (0.0-0.2); Basophils % (Auto) 1 % (0-2.5); Eosinophils # (Auto) 0.1 Thou/mm3 (0.0-0.5); Eosinophils % (Auto) 1 % (0-10); Hematocrit 27.2 % (41.0-53.0); Hemoglobin 9.1 g/dL (13.5-16.0); Immature Granulocytes Auto 0.06 Thou/mm3 (0.00-0.00); Lymphocytes # (Auto) 0.5 Thou/mm3 (1.0-4.8); Lymphocytes % (Auto) 9 % (10-50); Mean Corpuscular HGB Conc 33.5 g/dl (31.0-37.0); Mean Corpuscular Hemoglobin 28.2 pg (25.0-35.0); Mean Corpuscular Volume 84 fL (80-100); Monocytes # (Auto) 0.3 Thou/mm3 (0.0-0.8); Monocytes % (Auto) 5 % (0-12); Neutrophils # (Auto) 4.4 Thou/mm3 (1.8-7.7); Neutrophils % (Auto) 83 % (37-80); Nucleated Red Blood Cell # 0.00 Thou/mm3 (0.00-0.00); Nucleated Red Blood Cell % 0 /100 WBC (0); RDW Standard Deviation 51.2 fL (35.1-43.9); Red Blood Count 3.23 Miln/mm3 (4.50-5.90); White Blood Count 5.4 Thou/mm3 (3.8-10.6)
[2025-02-10 09:23] LABS: Platelet Count 66 Thou/mm3 (140-440)
[2025-02-10 09:34] LABS: INR 1.5 (0.9-1.3); Partial Thromboplastin Time 34.0 Seconds (22.0-36.0); Prothrombin Time 15.6 Seconds (9.0-12.2)
[2025-02-10] MEDS: THIAMINE INJ 100 MG/ML VIAL 2 ML IVP (09:45)
[2025-02-10] MEDS: METHADONE HCL 10 MG TABLET PO (09:45)
[2025-02-10] MEDS: ALBUMIN HUMAN 25% IVPB 25 GM/100 ML BTL IV (09:45)
[2025-02-10] MEDS: FOLIC ACID INJ 1 MG/0.2 ML IVP (09:52)
[2025-02-10 09:54] LABS: Slide Review Platelets confirmed
[2025-02-10 10:09] LABS: Glucose Estimated Average 103 mg/dL (80-131); Hemoglobin A1C 5.2 % Hgb (4.8-6.0)
[2025-02-10 10:13] LABS: Alanine Aminotransferase < 7 U/L (10-49); Albumin, Serum 2.5 gm/dL (3.5-5.0); Albumin/Globulin Ratio 0.7 (1.2-2.2); Alkaline Phosphatase 65 U/L (46-116); Anion Gap 9 (7-16); Aspartate Amino Transferase 23 U/L (0-34); BUN/Creatinine Ratio 24 Ratio (12-20); Bilirubin,Total 1.8 mg/dL (0.3-1.2); Blood Urea Nitrogen 19 mg/dL (9-23); Calcium 7.7 mg/dL (8.3-10.6); Calcium (Corrected) 8.9 mg/dL (8.5-10.1); Carbon Dioxide 24.6 mMol/L (20.0-31.0); Chloride 109 mMol/L (98-107); Creatinine (Component) 0.8 mg/dL (0.6-1.3); Estimated Creatinine Clearance 128.0 mL/min (>60); Free T4 (Free Thyroxine) 0.61 ng/dL (0.89-1.76); Globulin 3.8 gm/dL (2.3-3.5); Glucose 103 mg/dL (74-106); Magnesium 1.3 mg/dL (1.6-2.6); Osmolality,Calculated 287 (275-295); Phosphorous 2.4 mg/dL (2.4-5.1); Potassium 3.6 mMol/L (3.4-5.1); Sodium 143 mMol/L (136-145); Thyroid Stimulating Hormone 0.33 uIU/mL (0.55-4.78); Total Protein 6.3 gm/dL (5.7-8.2); Vancomycin,Trough 12.6 mcg/mL (5.0-10.0); eGFR > 60 See Note
[2025-02-10] MEDS: OCTREOTIDE ACET INJ 1,000 MCG in SODIUM CHLORIDE 0.9% 100 ML 5.1 MCG IV (11:06)
[2025-02-10] MEDS: Magnesium Sulfate 4 GM Ivpb 4 GM/50 ML BAG IV ×2 (11:12→14:54)
[2025-02-10] MEDS: Vancomycin Inj 1,500 MG in SODIUM CHLORIDE 0.9% 500 ML 500 ML 200 MG IV (11:23)
--- NOTE | 2025-02-10 11:31 | PD.RESPRO ---
Documentation for date of: 02/10/25 Subjective Subjective Interval history: Mr. Caruso is a 50-year-old male with past medical history of fentanyl and methamphetamine use disorder, homelessness, decompensated liver cirrhosis with history of esophageal varices grade 3 secondary to hepatitis C, splenomegaly and chronic venous stasis bilateral lower extremity with skin thickening who presented to [facility] emergency department on February 08, 2025 with a chief complaint of active hematemesis with blood in addition to clots. Patient seen and examined at bedside today in the emergency department, patient is lethargic and tired, is alert and oriented x 3, is uncooperative, unable to provide most history complains of significant pain in his shoulder and neck. Most of the history obtained from patient's chart and ED physician. Per EMS patient was found to have active hematemesis with blood in addition to clots, was tachycardic with heart rate between 120-140 patient was also found to be febrile with a temp of 100.6 on presentation along with tachycardia. Patient had a triple-lumen central line placed in the ED by ED physician, CT scan of chest abdomen pelvis revealed cirrhosis with hepatosplenomegaly, gallbladder wall thickening with question of tiny gallstones, ascites and anasarca along with pelvic and abdominal lymphadenopathy, general surgeon was consulted in ED, general surgeon recommended ultrasound which showed no cholelithiasis, CBD 0.6 cm, general surgery recommended no surgical intervention for now. Overnight patient was presented to the hospitalist team, hospitalist team recommended to obtain MRCP to rule out biliary obstruction versus ascending cholangitis as advanced endoscopic intervention is only intermittently available at the facility, patient received significant fluid resuscitation, overall patient received 5.4 L of fluid total throughout the ED course, is net +3.7 L, patient was started on low-dose Levophed in the emergency department eventually, case was discussed with decontamination worker Dr. Marinelli. Per Dr. Marinelli patient's primary issue is underlying active GI bleed which is life-threatening and recommended admission for further management, patient is pending MRCP. No significant abdominal tenderness noted on physical exam in ED today, per review of labs patient does have elevated bilirubin however alk phos is normal, currently there is low clinical suspicion of ascending cholangitis, patient will be admitted to intensive care unit for further management. ED Course: ED Vitals: On presentation in ED-02/08/2025 blood pressure 143/76, heart rate 114, respiratory rate 15, temp 100.6, O2 sat 97 on 6 L nasal cannula ED Labs: On presentation in ED on 02/08 hemoglobin 10.3, RBC 3.85, hematocrit 31.6, platelet count 93, INR 1.4, PT 14.5., Sodium 134, potassium 3.3, close 108, osmolality 369, lactate 3.0, total bilirubin 3.4, ALT 9, total protein 8.3, albumin 3.2, globulin 5.8 Pro-Gurmeet 1.15. Urine analysis shows dark yellow urine, urine protein 1+, trace blood, bilirubin 2+, urobilinogen over, amorphous crystals present, rare bacteria. Urine drug screen in the ED showed positive ED for fentanyl and methamphetamine, labs this morning showed hemoglobin 8.7, platelet count 84, lactate 4.5 total bilirubin uptrending to 3.9. ED Imaging: Chest x-ray obtained in ED showed left IJ central line tip satisfactory position, CT chest abdomen pelvis showed cirrhosis, liver irregular contour with prominent hepatosplenomegaly, thickened gallbladder with suspected tiny gallstones, anasarca, trace ascites, significant abdominal/pelvic lymphadenopathy, hepatic colopathy, follow-up abdominal ultrasound showed no gallstones, gallbladder wall borderline thickened, CBD 0.[address] scan shows advanced right hip osteoarthritis, moderate left hip osteoarthritis, severe cellulitis in the lower legs ED Treatment: Patient in ED received pantoprazole 80 mg IVP x 1, IV Tylenol 3 bags, meropenem, Zofran 4 mg IV, NS 2.3 to 8 L, octreotide 50 mcg IV x 1 followed by octreotide drip, another liter bolus of NS, fentanyl 100 mcg x 1, Zofran 4 mg x 1, 40 mEq of potassium, 1 L LR bolus and was started on Levophed drip 02/10/2025: Patient seen examined at bedside, overnight patient received EGD, had 2 bands placed, grade 2 esophageal varices, patient was given lactulose post EGD, had 1 bloody bowel movement, the second bowel movement overnight was dark and bowel movement this morning was noted to be green, no dana blood noted this morning. MRCP did show 2 mm stone suspicion in distal CBD, low clinical suspicion bilirubin downtrending, alk phos within normal limits and lipase was normal yesterday. Patient is asymptomatic denies any right upper quadrant tenderness. Patient's hemoglobin this morning 9.1, patient received total 4 unit PRBC, will repeat H&H later today at 1700 and will consider transfusing as needed, will hold 1 unit platelet in case platelets are less than 50,000. Patient noted to be in active opiate withdrawal COWS around 14, was given methadone 10 mg x 1, repeat COWS later in the day 9 will be given 5 mg methadone. We will continue methadone and titrate for patient's opiate withdrawal symptoms, down titrate methadone daily to improve symptoms of opiate withdrawal. Patient's QTc yesterday was noted to be 477, patient's antibiotic therapy de-escalated to Levaquin and vancomycin was discontinued. 07/21 blood culture shows group C/group B strep high suspicion of contamination, meropenem was discontinued, ID on board. GI recommends continuing Sandostatin for 5 days, patient pressure has improved, did require low-dose Levophed overnight post EGD. Still to be downgraded to telemetry, signed out to hospitalist team. Exam Vital Signs Temp Pulse Resp BP Pulse Ox O2 Del Method O2 Flow Rate 98.5 F 87 27 H 113/58 L 93 L Nasal Cannula 1 02/10/25 08:00 02/10/25 11:00 02/10/25 11:00 02/10/25 11:02/10/25 11:00 02/10/25 08:00 02/10/25 08:00 Narrative Exam Physical Exam General: Tired, somnolent, irritable, engages in conversation?limited answers. HEENT: Normocephalic, atraumatic, mucous membranes moist. Heart: Regular rate and rhythm, no murmurs. Lungs: Clear to auscultation with no wheezing or crackles. Abdomen: Soft, obese, minimal generalized tenderness, positive bowel sounds. ?No guarding or rebound tenderness. Neurologic: Alert and oriented x3, no gross neurological deficit, and patient able to move all 4 extremities. Extremities: Bilateral lower extremity venous stasis dermatitis vs lymphadenopathy with significant skin thickening, redness and tenderness noted on right leg, right leg more swollen than left. Skin: Thickening of skin noted on lower extremities, multiple tattoos. Objective Labs 02/11/25 05:34 02/11/25 05:34 Labs: Laboratory Results - last 24 hr 02/09/25 02/09/25 02/10/25 09:30 13:47 00:30 WBC RBC Hgb 7.4 L Hct 22.2 L MCV MCH MCHC RDW Std Deviation Plt Count Neut % (Auto) Lymph % (Auto) Angelina % (Auto) Eos % (Auto) Baso % (Auto) Neut # (Auto) Lymph # (Auto) Angelina # (Auto) Eos # (Auto) Baso # (Auto) Immature Gran # (Auto) Absolute Nucleated RBC Immature Gran % Nucleated RBC % PT INR APTT VBG pH 7.37 VBG pCO2 41 VBG pO2 45 VBG O2 Sat (Wally) 80 L VBG Base Excess -1 Sodium Potassium Chloride Carbon Dioxide Anion Gap BUN Creatinine Estim Creat Clear Calc eGFR BUN/Creatinine Ratio Glucose Estimated Ave Glu mg/dL Hemoglobin A1c Calculated Osmolality Calcium Corrected Calcium Phosphorus Magnesium Total Bilirubin AST ALT Alkaline Phosphatase Total Protein Albumin Globulin Albumin/Globulin Ratio TSH Free T4 Vancomycin Trough Misc Test Result Blood Type B Positive Antibody Screen NEGATIVE Crossmatch See Detail Blood Bank Wristband ID Yes Blood Bank Comment FFP Ready 02/10/25 02/10/25 01:24 08:55 WBC 5.3 5.4 RBC 2.74 L 3.23 L Hgb 7.5 L 9.1 L D Hct 22.9 L 27.2 L MCV 84 84 MCH 27.4 28.2 MCHC 32.8 33.5 RDW Std Deviation 50.6 H 51.2 H Plt Count 67 L D 66 L Neut % (Auto) 83 H 83 H Lymph % (Auto) 10 9 L Angelina % (Auto) 5 5 Eos % (Auto) 1 1 Baso % (Auto) 1 1 Neut # (Auto) 4.4 4.4 Lymph # (Auto) 0.5 L 0.5 L Angelina # (Auto) 0.3 0.3 Eos # (Auto) 0.1 0.1 Baso # (Auto) 0.0 0.0 Immature Gran # (Auto) 0.04 H 0.06 H Absolute Nucleated RBC 0.00 0.00 Immature Gran % 1 H 1 H Nucleated RBC % 0 0 PT 15.6 H INR 1.5 H APTT 34.0 VBG pH VBG pCO2 VBG pO2 VBG O2 Sat (Wally) VBG Base Excess Sodium 143 Potassium 3.6 Chloride 109 H Carbon Dioxide 24.6 Anion Gap 9 BUN 19 Creatinine 0.8 Estim Creat Clear Calc 128.0 eGFR > 60 BUN/Creatinine Ratio [address] Gl[address] Glu mg/dL 103 Hemoglobin A1c 5.2 Calculated Osmolality 287 Calcium 7.7 L Corrected Calcium 8.9 Phosphorus 2.4 Magnesium 1.3 L Total Bilirubin 1.8 H D AST 23 ALT < 7 L Alkaline Phosphatase 65 Total Protein 6.3 Albumin 2.5 L Globulin 3.8 H Albumin/Globulin Ratio 0.7 L TSH 0.33 L Free T4 0.61 L Vancomycin Trough 12.6 H Misc Test Result Platelets confirmed Platelets confirmed Blood Type Antibody Screen Crossmatch Blood Bank Wristband ID Blood Bank Comment ABG Interpretation ABG results: 02/09/25 13:47 VBG pH 7.37 VBG pCO2 41 VBG pO2 45 VBG Base Excess -1 Quality Measures Quality Measures sepsis Current suspected stage: sepsis Possible source: pulmonary, GI tract/intra-abdominal, unknown and skin/soft tissue Blood cultures ordered: yes Antibiotic ordered: Yes Assessment & Plan Assessment Current Active Medications: Generic Name Dose Route Start Last Admin Trade Name Freq PRN Reason Stop Dose Admin Acetaminophen 650 mg 02/09/25 10:07 Acetaminophen 325 Mg Tablet PO 03/11/25 10:06 Q6HR PRN Fever >101 OR MILD PAIN 1-3 Folic Acid 1 mg 02/11/25 09:00 Folic Acid 1 Mg Tablet PO 03/13/25 08:59 QDAY ELIGIO Octreotide Acetate 1,000 mcg/ 102 mls @ 5.1 mls/hr 02/09/25 12:00 02/10/25 11:06 Sodium Chloride IV 02/13/25 11:59 50 mcg/hr .Q20H ELIGIO 5.1 mls/hr Administration Protocol 50 MCG/HR Norepinephrine/Dextrose 8 mg in 250 mls @ 12.757 mls/hr 02/09/25 06:26 02/10/25 07:45 Levophed In D5w 8mg/250ml IV 03/11/25 06:25 0 mcg/kg/min .[id number] PRN 0 mls/hr PER PROTOCOL Titration Protocol 0.05 MCG/KG/MIN Albumin Human 25 gm in 100 mls @ 100 mls/hr 02/09/25 09:59 02/10/25 09:45 Albuminar-25 Ivpb IV 02/11/25 09:58 100 mls/hr QDAY ELIGIO Administration Vancomycin HCl 1,500 mg/ 500 mls @ 200 mls/hr 02/10/25 11:00 02/10/25 11:23 Sodium Chloride IV 02/17/25 10:59 200 mls/hr BID@1000,2200 ELIGIO Administration Protocol Magnesium Sulfate 4 gm in 50 mls @ 12.5 mls/hr 02/10/25 11:04 02/10/25 11:12 Magnesium Sulfate Ivpb IV 02/10/25 15:03 12.5 mls/hr X1 ONE Administration Levofloxacin/Dextrose 750 mg in 150 mls @ 100 mls/hr 02/10/25 11:30 Levaquin Ivpb IV 02/17/25 11:29 QDAY ELIGIO Methadone HCl 5 mg 02/10/25 12:00 Methadone Hcl 10 Mg Tablet PO 02/10/25 12:01 X1 ONE Multivitamins 1 tab 02/11/25 09:00 Multivitamins Tablet PO 03/13/25 08:59 QDAY ELIGIO Pantoprazole Sodium 40 mg 02/09/25 09:00 02/10/25 09:45 Pantoprazole Inj 40 Mg Vial IVP 03/11/25 08:59 40 mg Q12HR ELIGIO Administration Pharmacy Consult 1 each 02/09/25 09:15 Vancomycin Pharmacy To Dose 1 Each Each IV 03/11/25 09:14 QDAY PRN CONSULT Pharmacy Consult 1 each 02/09/25 09:05 Pharmacy Renal Dose Adjustment 1 Ea XX 03/11/25 09:04 PRN PRN CONSULT Thiamine HCl 100 mg 02/10/25 21:00 Thiamine 100 Mg Tablet PO 02/13/25 20:59 BID [facility] Plan Assessment and plan: Summary: Mr. Caruso is a 50-year-old male with past medical history of fentanyl and methamphetamine use disorder, homelessness, decompensated liver cirrhosis with history of esophageal varices grade 3 secondary to hepatitis C, splenomegaly and chronic venous stasis bilateral lower extremity with skin thickening who presented to [facility] emergency department on February 08, 2025 with a chief complaint of active hematemesis with blood in addition to clots. Patient admitted to the intensive care unit due to active GI bleed and shock. Neurological #Acute Encephalopathy Multifactorial etiology: Hepatic encephalopathy, received IV fentanyl, in setting of shock, infection, withdrawal - Patient's ammonia elevated 75, patient is lethargic, alert and oriented x 3 otherwise. Decompensated cirrhosis. - Did receive IV fentanyl in the ED, currently has bilateral lower extremity cellulitis, low suspicion of cholangitis. - Urine drug screen was positive for fentanyl and methamphetamine, has history of opiate withdrawal during previous admission, was given nalbuphine Plan: - Patient was given lactulose 20 x 1, had 2 bowel movements today, will hold lactulose for today, consider starting patient on lactulose in a.m. - Opiate withdrawal management with methadone for today, received 15 mg of methadone today, consider low-dose methadone in a.m. - Continue Levaquin for underlying infection #Opiate dependence with withdrawal #Methamphetamine dependence #Nicotine dependence, active chronic smoker Urine drug screen in the ED showed positive ED for fentanyl and methamphetamine Patient is an active chronic smoker per history, unknown pack years will obtain history once patient is more awake. Plan: - Received methadone for opiate withdrawal, titrate per COWS assessment at bedside - Smoking cessation counseling - Referral to school social worker - Patient advised to refrain from fentanyl and methamphetamine use Cardiology #Shock, resolved Multifactorial: - Component of hemorrhagic/hypovolemic shock, patient has active acute GI bleed, was found down with hematemesis and black notes by EMS on 02/08 received around 4.4 L IV fluid resuscitation, now requiring pressor support. Hemoglobin did downtrend from 10.3-8.7 - Also suspected component of distributive shock in setting of liver cirrhosis versus competent of sepsis, patient has decompensated liver cirrhosis with acute GI bleed, lower extremity cellulitis. - Bedside echo done in the emergency department shows good contractility of the heart, no tamponade, chest x-ray ruled out any pneumothorax, low suspicion of pulmonary embolism. - Patient received 4 units PRBC and 2 unit FFP Plan: - Follow H&H later in afternoon today, transfuse 1 unit PRBC as needed, status post EGD as source of bleeding controlled. - Continue Levaquin (02/11- - Weaned off of Levophed, received IV albumin for 2 days #Personal history of congestive heart failure Patient has personal history of heart failure per chart review. SEVERINO Chronic venous stasis vs lymphadenopathy ECHO 11/2024: Normal LV size and function. Estimated EF 55-60%. Normal left ventricular diastolic function. The RV is mildly enlarge in size with normal systolic function. The estimated RVSP, 45 mmHg. RAP 15. Trace MR. Mild TR. Dilated IVC. - Currently seems euvolemic, no indication for diuresis for now - Strict intake and output - Daily weight Pulmonary #Acute hypoxic respiratory failure in setting of shock, improving Requiring supplemental oxygen, currently on 3 L nasal cannula, patient does have underlying septic shock. Chest x-ray 02/08 shows no evidence of any pneumonia. - Supplemental oxygen as needed Gastrointestinal #Active GI bleed, likely upper #Grade 2 esophageal varices status post banding 02/09 #Gastritis #Decompensated liver cirrhosis #Hepatitis C antibody positive, alcohol related liver disease #Significant hepatosplenomegaly #Hypoalbuminemia #Elevated INR, coagulopathy Presented with hematemesis, EMS found patient down with hematemesis and blood clots. Patient has documented history of decompensated liver cirrhosis, underwent EGD in December 11 and was found to have grade 3 esophageal varices. Hep C body reactive, does have documented history of alcohol use in the past. CT chest abdomen pelvis showed cirrhosis, liver irregular contour with prominent hepatosplenomegaly, thickened gallbladder with suspected tiny gallstones, anasarca, trace ascites, significant abdominal/pelvic lymphadenopathy, hepatic colopathy MELD Na 02/09- 17 points less than 2% estimated 90-day mortality, Child Khoury score 10 points, child class C life expectancy 1 to 3 years, abdominal surgery perioperative mortality 82% Fibrinogen elevated 486, ammonia 75, patient did receive vitamin K 10 x 1 Patient received 4 unit PRBC, 2 unit FFP Received IV meropenem and vancomycin (02/09-02/10) EGD 02/10: shows grade 2 esophageal varices, status post banding; Gastritis Plan: - Continue octreotide drip (02/08-for 5 days - Protonix 40 twice daily - Hold 1 unit PRBC, follow H&H at 1700 - Follow-up with infectious disease outpatient for underlying hep C infection - Patient should be referred to hepatology outpatient, refrain form drug use/alcohol use - Follow INR/liver panel daily - IV Levaquin, SBP prophylaxis (02/11- #Mild thickening of gallbladder wall #Hyperbilirubinemia, improving #Suspicion of 2 mm stone in distal CBD Elevated bilirubin 3.9, direct bilirubin 2.2 CT chest abdomen pelvis showed cirrhosis, liver irregular contour with prominent hepatosplenomegaly, thickened gallbladder with suspected tiny gallstones, anasarca, trace ascites, significant abdominal/pelvic lymphadenopathy, hepatic colopathy Abdominal ultrasound showed no gallstones, gallbladder wall borderline thickened, CBD 0.6 cm MRCP shows cirrhosis, mild ascites, massive splenomegaly, gallbladder wall is thickened, suspicion for 2 millimeter stone in distal CBD Plan: - Low clinical suspicion of choledocholithiasis, bilirubin is downtrending, alk phos was never elevated, lipase normal. - General Surgery consulted, appreciate recommendations - Continue IV Levaquin (02/11- Renal/Genitourinary #Hyperchloremia Elevated chloride levels, chloride 108 on presentation Patient received IV NS about 3.2 L. -Prefer LR if needed for IV fluid resuscitation #Lactic acidosis, resolved Lactic acidosis noted at 4.5 this morning, was given 1 L LR bolus #Hypomagnesemia - Correct and replace electrolytes as needed - Keep magnesium more than 2, QTc 447, patient on methadone and Levaquin Endocrine A1c 5.2 #Euthyroid sick syndrome TSH 0.33, free T4 0.61 - Repeat thyroid panel outpatient Hematology #Thrombocytopenia In the setting of cirrhosis, shock and underlying infection - Follow platelet count in a.m. #Normocytic normochromic anemia In setting of GI bleed, acute blood loss anemia - Will transfuse 2 unit PRBC - Transfuse as needed, hemoglobin goal greater than 7 - Control source of bleeding, GI consulted for EGD Infectious Disease #Cellulitis Bilateral lower extremity edema noted, patient does have chronic changes with chronic venous stasis dermatitis vs lymphadenopathy Lower extremity CT scan shows advanced right hip osteoarthritis, moderate left hip osteoarthritis, severe cellulitis in the lower legs - Received IV meropenem and vancomycin (02/09-02/10), started on IV Levaquin (02/11- - Wound care consulted - General Surgery consulted, appreciate recommendations - Obtain lower extremity venous Doppler - Follow Blood Cultures #1/2 GPC, group C/group D strep Preliminary blood cultures show 1/2 GPC, pending speciation - Continue Levaquin - Infectious disease consulted, appreciate recommendations Integumentary #Bilateral lower extremity edema Ddx: Chronic venous stasis with stasis dermatitis and skin thickening vs lymphadenopathy Patient has known venous stasis with stasis dermatitis and skin thickening -Referral to wound care DVT prophylaxis: Not indicated, recent GI bleed GI prophylaxis: Protonix IV twice daily Diet: Clear liquid diet Lines: Peripheral IV, left IJ triple-lumen central line Code status: Full code Disposition: Stable to be downgraded to telemetry. Case discussed with Attending Practice Office Associate Dr. Kingston Mendoza MD. Oscar Sosa MD Internal Medicine PGY-2 Attending Provider Attestation/Addendum Patient seen and examined with above resident, Oscar Sosa MD. I agree with the findings, assessment, and plan of care as document except for any differences below. Patient admitted undifferentiated shock potentially related to hemorrhagic/GI blood loss or septic with multiple lower extremity wounds versus possible cholangitis but this seems less likely. MRCP was done which excluded presence of significant dilation likely limiting etiology of presentation related to biliary obstruction/infection. Patient responded well to blood product and resuscitation. Will continue on octreotide and Protonix given EGD findings last night. Significant cirrhosis patient also placed on empiric antibiotics including for prevention of spontaneous bacterial peritonitis. Transition from meropenem/vancomycin to just Levaquin. Wound care consulted for management of lower extremity wounds and will exclude presence of DVT by ultrasound. Patient with blood cultures that show 1 of 2 with gram-positive cocci. Suspect skin is the most likely source. Hypoxia also significantly improved in the setting of resolution of shock. Patient is stable for transfer to medicine lott for ongoing management. Total critical care time: I personally spent 35 minutes for review of physiologic parameters, direct the plan of care throughout today, coordination of care with other subspecialists, and counseling patient at bedside. Patient remains at significant risk for further morbidity and mortality warranting close monitoring and care only available in the ICU. Patient required critical care services for hypovolemic/septic shock, gastrointestinal hemorrhage, gastritis, gram-positive bacteremia, and lower extremity cellulitis/wounds.
--- NOTE | 2025-02-10 11:40 | PC.NURSE ---
[facility]esterJessica Message taken on behalf of patient due to pt's current condition. Transition of care services available with [facility] Care Coordination Direct phone number for Jessica
[2025-02-10] MEDS: METHADONE HCL 10 MG TABLET 5 MG PO (12:23)
--- NOTE | 2025-02-10 13:02 | PD.IDPROG ---
Subjective Subjective Interval history: cirrhosis. hep c. allergy to keflex. bacteremia with strep species fever on admit Exam Vital Signs Temp Pulse Resp BP Pulse Ox O2 Del Method O2 Flow Rate 98.1 F 90 14 105/54 L 96 Humidified Nasal Cannula 1 02/10/25 12:00 02/10/25 12:00 02/10/25 12:00 02/10/25 12:00 02/10/25 12:00 02/10/25 12:00 02/10/25 12:00 Narrative Exam groggy, heavily tatooed Objective - Internal Medicine Labs 02/10/25 08:55 02/10/25 08:55 Labs: Laboratory Results - last 24 hr 02/09/25 02/09/25 02/10/25 09:30 13:47 00:30 WBC RBC Hgb 7.4 L Hct 22.2 L MCV MCH MCHC RDW Std Deviation Plt Count Neut % (Auto) Lymph % (Auto) [place] % (Auto) Eos % (Auto) Baso % (Auto) Neut # (Auto) Lymph # (Auto) [place] # (Auto) Eos # (Auto) Baso # (Auto) Immature Gran # (Auto) Absolute Nucleated RBC Immature Gran % Nucleated RBC % PT INR APTT VBG pH 7.37 VBG pCO2 41 VBG pO2 45 VBG O2 Sat (Wally) 80 L VBG Base Excess -1 Sodium Potassium Chloride Carbon Dioxide Anion Gap BUN Creatinine Estim Creat Clear Calc eGFR BUN/Creatinine Ratio Glucose Estimated Ave Glu mg/dL Hemoglobin A1c Calculated Osmolality Calcium Corrected Calcium Phosphorus Magnesium Total Bilirubin AST ALT Alkaline Phosphatase Total Protein Albumin Globulin Albumin/Globulin Ratio TSH Free T4 Vancomycin Trough Misc Test Result Blood Type B Positive Antibody Screen NEGATIVE Crossmatch See Detail Blood Bank Wristband ID Yes Blood Bank Comment PLATP Ready 02/10/25 02/10/25 01:24 08:55 WBC 5.3 5.4 RBC 2.74 L 3.23 L Hgb 7.5 L 9.1 L D Hct 22.9 L 27.2 L MCV 84 84 MCH 27.4 28.2 MCHC 32.8 33.5 RDW Std Deviation 50.6 H 51.2 H Plt Count 67 L D 66 L Neut % (Auto) 83 H 83 H Lymph % (Auto) 10 9 L [place] % (Auto) 5 5 Eos % (Auto) 1 1 Baso % (Auto) 1 1 Neut # (Auto) 4.4 4.4 Lymph # (Auto) 0.5 L 0.5 L [place] # (Auto) 0.3 0.3 Eos # (Auto) 0.1 0.1 Baso # (Auto) 0.0 0.0 Immature Gran # (Auto) 0.04 H 0.06 H Absolute Nucleated RBC 0.00 0.00 Immature Gran % 1 H 1 H Nucleated RBC % 0 0 PT 15.6 H INR 1.5 H APTT 34.0 VBG pH VBG pCO2 VBG pO2 VBG O2 Sat (Wally) VBG Base Excess Sodium 143 Potassium 3.6 Chloride 109 H Carbon Dioxide 24.6 Anion Gap 9 BUN 19 Creatinine 0.8 Estim Creat Clear Calc 128.0 eGFR > 60 BUN/Creatinine Ratio 24 H Glucose [address] Glu mg/dL 103 Hemoglobin A1c 5.2 Calculated Osmolality 287 Calcium 7.7 L Corrected Calcium 8.9 Phosphorus 2.4 Magnesium 1.3 L Total Bilirubin 1.8 H D AST 23 ALT < 7 L Alkaline Phosphatase 65 Total Protein 6.3 Albumin 2.5 L Globulin 3.8 H Albumin/Globulin Ratio 0.7 L TSH 0.33 L Free T4 0.61 L Vancomycin Trough 12.6 H Misc Test Result Platelets confirmed Platelets confirmed Blood Type Antibody Screen Crossmatch Blood Bank Wristband ID Blood Bank Comment ABG Interpretation ABG results: 02/09/25 13:47 VBG pH 7.37 VBG pCO2 41 VBG pO2 45 VBG Base Excess -1 Assessment & Plan A&P Narrative hep c, reportedly treated before per pt. will recheck here as a precaution cirhosis may be hep c related but ay be other issues too substance use hx but unverified etoh hx. await more tests and course. asked micro to do S to quinolones as streps not usually tested for s, but if he grew group c strp, that can be associated with colon CA colonoscopy can wait a short while if strep is a group g, then no association with colon CA noted. Time Spent With Patient Time: Total time spent is greater than 50% in coordination of care (as documented) at patient's floor/unit and/or counseling patient:
--- NOTE | 2025-02-10 13:23 | PC.SS ---
Shirt Hemmer attempted to connect with patient at bedside to discuss discharge plan. Patient mumbling words and unable to keep eyes open. SS informed patient SS to return at a later time.
--- NOTE | 2025-02-10 14:18 | ESPR_ITS ---
Documentation for date of: 02/10/25 Patient is a 50 year old male with past medical history of substance use disorder, including fentanyl and methamphetamine, Decompensated Cirrhosis w/ esophageal varices grade II s/p band ligation X 2 (12/07/2024 & 02/09/2025) secondary to Hepatitis C, Splenomegaly, venous statis, and currently unhoused who was admitted on 02/09/2025 directly into the ICU secondary to shock, multifactorial from hemorrhagic shock with concern for sepsis given risk of bacterial translocation from varices. IV meropenem and vancomycin (02/09--02/10) Concern for acute liver failure given coagulpathy and altered mental status. Patient was places on levophed drip and 2 units of PRBCs transfused. Gastroenterology consulted, Dr. Marinelli. Placed patient on octreotide drip (02/08/2025) and Protonix 40 mg IV BID. Patient is now esophageal s/p band ligation on 02/09/2025. ID consulted, Dr. Kathleen, appreciate recommendations. Patient will be downgraded on 02/10/2025 from ICU to IM floor teams and off pressors. Continue Octreotide drip to complete 5 day (02/08-02/13) and protonix BID. Continue to monitor for signs of active bleeding. Transition IV antibiotics to Levaquin on 02/10. Given chronic venous statis, concern for cellulitis. Concern for choledcocholithiais, currently not a surgical candidate and labs continue to improve. Dr. Nazario consulted. Katelyn Rodriguez PGY-2 Subjective Subjective Interval history: ICU downgrade to tele today. Patient seen and examined at bedside this AM. Weaned off levophed, blood pressure stable. Admitted for acute GI bleed, s/p 5 units RBCs, 2 units FFP, s/p variceal banding 02/[address] Marinelli. Will continue octreotide drip for 5 days, continue Protonix. Repeat 5PM CBC shows hemoglobin stable at 9.1. MRCP showed gallstone, non obstructive, no surgery per surgery consult. Patient is positive for hep C, consulted ID Dr. Kathleen, pending tests before starting treatment. He is showing signs of meth withdrawal, started on methadone 15 today, will give 10 tomorrow and taper accordingly. Plan to treat cellulitis of right leg with levoflaxacin tomorrow, will monitor QTc with EKG tomorrow. Review of systems otherwise negative except what is mentioned above. Exam Vital Signs Temp Pulse Resp BP Pulse Ox O2 Del Method O2 Flow Rate 98.1 F 89 25 H 114/63 95 Humidified Nasal Cannula 1 02/10/25 12:00 02/10/25 13:00 02/10/25 13:00 02/10/25 13:00 02/10/25 13:00 02/10/25 12:00 02/10/25 12:00 Narrative Exam Physical Exam General: Drowsy. Able to answer questions but mumbles. HEENT: Normocephalic, atraumatic, mucous membranes moist. Heart: Regular rate and rhythm, normal S1 and S2, no murmurs. Lungs: Clear to auscultation with no wheezing or crackles. Abdomen: Soft, nondistended, positive bowel sounds. Diffuse abdominal tenderness. No guarding or rebound tenderness. Neurologic: Alert and oriented x3, no gross neurological deficit, and patient able to move all 4 extremities. Extremities: Chronic lymphedema on lower extremities bilaterally. Erythema and tenderness on right leg, more swollen compared to left. Skin: Thickened skin on both calves, multiple tattoos on body. Objective Labs 02/11/25 05:34 02/11/25 05:34 Labs: Laboratory Results - last 24 hr 02/09/25 02/10/25 02/10/25 09:30 00:30 01:24 WBC 5.3 RBC 2.74 L Hgb 7.4 L 7.5 L Hct 22.2 L 22.9 L MCV 84 MCH 27.4 MCHC 32.8 RDW Std Deviation 50.6 H Plt Count 67 L D Neut % (Auto) 83 H Lymph % (Auto) 10 [place] % (Auto) 5 Eos % (Auto) 1 Baso % (Auto) 1 Neut # (Auto) 4.4 Lymph # (Auto) 0.5 L [place] # (Auto) 0.3 Eos # (Auto) 0.1 Baso # (Auto) 0.0 Immature Gran # (Auto) 0.04 H Absolute Nucleated RBC 0.00 Immature Gran % 1 H Nucleated RBC % 0 PT INR APTT Sodium Potassium Chloride Carbon Dioxide Anion Gap BUN Creatinine Estim Creat Clear Calc eGFR BUN/Creatinine Ratio Glucose Estimated Ave Glu mg/dL Hemoglobin A1c Calculated Osmolality Calcium Corrected Calcium Phosphorus Magnesium Total Bilirubin AST ALT Alkaline Phosphatase Total Protein Albumin Globulin Albumin/Globulin Ratio TSH Free T4 Vancomycin Trough Misc Test Result Platelets confirmed Blood Type B Positive Antibody Screen NEGATIVE Crossmatch See Detail Blood Bank Wristband ID Yes Blood Bank Comment PLATP Ready 02/10/25 08:55 WBC 5.4 RBC 3.23 L Hgb 9.1 L D Hct 27.2 L MCV 84 MCH 28.2 MCHC 33.5 RDW Std Deviation 51.2 H Plt Count 66 L Neut % (Auto) 83 H Lymph % (Auto) 9 L [place] % (Auto) 5 Eos % (Auto) 1 Baso % (Auto) 1 Neut # (Auto) 4.4 Lymph # (Auto) 0.5 L [place] # (Auto) 0.3 Eos # (Auto) 0.1 Baso # (Auto) 0.0 Immature Gran # (Auto) 0.06 H Absolute Nucleated RBC 0.00 Immature Gran % 1 H Nucleated RBC % 0 PT 15.6 H INR 1.5 H APTT 34.0 Sodium 143 Potassium 3.6 Chloride 109 H Carbon Dioxide 24.6 Anion Gap 9 BUN 19 Creatinine 0.8 Estim Creat Clear Calc 128.0 eGFR > 60 BUN/Creatinine Ratio 24 H Glucose [address] Glu mg/dL 103 Hemoglobin A1c 5.2 Calculated Osmolality 287 Calcium 7.7 L Corrected Calcium 8.9 Phosphorus 2.4 Magnesium 1.3 L Total Bilirubin 1.8 H D AST 23 ALT < 7 L Alkaline Phosphatase 65 Total Protein 6.3 Albumin 2.5 L Globulin 3.8 H Albumin/Globulin Ratio 0.7 L TSH 0.33 L Free T4 0.61 L Vancomycin Trough 12.6 H Misc Test Result Platelets confirmed Blood Type Antibody Screen Crossmatch Blood Bank Wristband ID Blood Bank Comment ABG Interpretation ABG results: 02/09/25 13:47 VBG pH 7.37 VBG pCO2 41 VBG pO2 45 VBG Base Excess -1 Quality Measures Quality Measures sepsis Current suspected stage: sepsis Possible source: pulmonary, GI tract/intra-abdominal, unknown and skin/soft tissue Blood cultures ordered: yes Antibiotic ordered: Yes Assessment & Plan Assessment Current Active Medications: Generic Name Dose Route Start Last Admin Trade Name Freq PRN Reason Stop Dose Admin Acetaminophen 650 mg 02/09/25 10:07 Acetaminophen 325 Mg Tablet PO 03/11/25 10:06 Q6HR PRN Fever >101 OR MILD PAIN 1-3 Folic Acid 1 mg 02/11/25 09:00 Folic Acid 1 Mg Tablet PO 03/13/25 08:59 QDAY ELIGIO Octreotide Acetate 1,000 mcg/ 102 mls @ 5.1 mls/hr 02/09/25 12:00 02/10/25 11:06 Sodium Chloride IV 02/13/25 11:59 50 mcg/hr .Q20H ELIGIO 5.1 mls/hr Administration Protocol 50 MCG/HR Norepinephrine/Dextrose 8 mg in 250 mls @ 12.757 mls/hr 02/09/25 06:26 02/10/25 07:45 Levophed In D5w 8mg/250ml IV 03/11/25 06:25 0 mcg/kg/min .[id number] PRN 0 mls/hr PER PROTOCOL Titration Protocol 0.05 MCG/KG/MIN Albumin Human 25 gm in 100 mls @ 100 mls/hr 02/09/25 09:59 02/10/25 09:45 Albuminar-25 Ivpb IV 02/11/25 09:58 100 mls/hr QDAY ELIGIO Administration Magnesium Sulfate 4 gm in 50 mls @ 12.5 mls/hr 02/10/25 11:04 02/10/25 11:12 Magnesium Sulfate Ivpb IV 02/10/25 15:03 12.5 mls/hr X1 ONE Administration Levofloxacin/Dextrose 750 mg in 150 mls @ 100 mls/hr 02/11/25 09:00 Levaquin Ivpb IV 02/18/25 08:59 QDAY ELIGIO Multivitamins 1 tab 02/11/25 09:00 Multivitamins Tablet PO 03/13/25 08:59 QDAY ELIGIO Pantoprazole Sodium 40 mg 02/09/25 09:00 02/10/25 09:45 Pantoprazole Inj 40 Mg Vial IVP 03/11/25 08:59 40 mg Q12HR ELIGIO Administration Pharmacy Consult 1 each 02/09/25 09:05 Pharmacy Renal Dose Adjustment 1 Ea XX 03/11/25 09:04 PRN PRN CONSULT Thiamine HCl 100 mg 02/10/25 21:00 Thiamine 100 Mg Tablet PO 02/13/25 20:59 BID ELIGIO Plan Patient is a 50-year-old male with past medical history of fentanyl and meth use, homelessness, decompensated liver cirrhosis with history of esophageal varices grade 3 secondary to hepatitis C, splenomegaly and chronic venous stasis who presented on 02/08/2025 with active hematemesis, admitted to ICU for acute bleed and shock requiring Levophed. Now weaned off Levophed, downgraded to telemetry. #Active upper GI bleed?resolved #Grade 2 esophageal varices status post banding 02/09 #Hx of previous banding (11/2024) #Normocytic normochromic anemia - improving #Gastritis #Decompensated liver cirrhosis, 2/2 alcohol hx #Hepatitis C antibody positive #Significant hepatosplenomegaly #Hypoalbuminemia #Elevated INR, coagulopathy #Thrombocytopenia Presented with hematemesis. S/p 4 unit PRBC, 2 unit FFP. Has history of decompensated liver cirrhosis likely due to alcohol abuse s/p 2 variceal bands for grade 3 esophageal varices on 12/07/2024. Hep C body reactive, reports has been previously treated, pending repeat tests. CT chest abdomen pelvis showed cirrhosis, liver irregular contour with prominent hepatosplenomegaly, thickened gallbladder with suspected tiny gallstones, anasarca, trace ascites, significant abdominal/pelvic lymphadenopathy, hepatic colopathy 02/09: EGD shows grade 2 esophageal varices, s/p another 2 variceal bands, also gastritis. MELD Na 02/09- 17 points less than 2% estimated 90-day mortality, Child Khoury score 10 points, child class C life expectancy 1 to 3 years, abdominal surgery perioperative mortality 82% Plan: - S/p IV meropenem and vancomycin (02/09-02/10). 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 Kathleen, appreciate recommendations #Opiate dependence with withdrawal #Methamphetamine dependence #Nicotine dependence, active chronic smoker Urine drug screen in the ED showed positive ED for fentanyl and methamphetamine Patient is an active chronic smoker per history, unknown pack years will obtain history once patient is more awake. Plan: - Received methadone for opiate withdrawal, titrate per COWS assessment at bedside - Smoking cessation counseling - Referral to social work msw - Patient advised to refrain from fentanyl and methamphetamine use #Cellulitis #Chronic Venous Statis Evidence of chronic lymphedema on bilateral lower extremities, with thick dry skin. Lower extremity CT 02/08 shows advanced right hip osteoarthritis, moderate left hip osteoarthritis, severe cellulitis in the lower legs. Attempted to obtain venous Doppler on 02/09, unsuccessful. - S/p IV meropenem and vancomycin (02/09-02/10) - Will start on IV Levaquin tomorrow - Attempt venous Doppler of lower extremities - Wound care consulted - General Surgery Dr. Nazario consulted, appreciate recommendations #GPC bacteremia? Prelim blood culture showed GPC growth in both bottles, final results showed Strep equ ssp equ(grp c)/grp g and anaerobic bottle, likely contamination. - Will repeat blood cultures to rule out GPC bacteremia #AHRF 2/ to shock -improving #Shock, multifactorial, hypovolemic and distributive?resolved #Lactic acidosis -resolved Shock multifactorial, likely hemorrhagic/hypovolemic from acute upper GI bleed (hemoglobin dropped as low as 7.5). Also suspected component of distributive shock in setting of liver cirrhosis. S/p 4.4 L IV fluid resuscitation and Levophed. Bedside echo 02/08 was unremarkable, no tamponade. CXR 02/08 negative for pneumothorax and PE. S/p 4 units PRBC and 2 unit FFP. - Supplemental oxygen via nasal cannula, wean as tolerated - Continue to monitor CBC #History of HFpEF Echo on 11/2024 showed EF 55-60%. Normal left ventricular diastolic function. The RV is mildly enlarge in size with normal systolic function. The estimated RVSP, 45 mmHg. RAP 15. Trace MR. Mild TR. Dilated IVC. - No diuresis, patient appears euvolemic - Strict intake and output - Daily weight #Mild thickening of gallbladder wall #Hyperbilirubinemia, improving #Suspicion of 2 mm stone in distal CBD On admission, elevated bilirubin 3.9, direct bilirubin 2.2. CT chest abdomen pelvis showed thickened gallbladder with suspected tiny gallstones. Abdominal ultrasound showed gallbladder wall borderline thickened, CBD 0.6 cm, no stones. MRCP 02/09 shows cirrhosis, mild ascites, massive splenomegaly, thickened gallbladder wall, suspicion for 2 mm nonobstructing stone in distal CBD. Plan: - Not candidate for surgery at this time as stone is nonobstructing - Continue to monitor bilirubin - General Surgery Dr. Nazario consulted, appreciate recommendations #Hypomagnesemia #Hyperchloremia - Replace electrolytes as needed - Mg >2 #Euthyroid sick syndrome TSH 0.33, free T4 0.61 - Repeat thyroid panel outpatient Health Maintenance Disposition: Management upper GI bleed s/p banding, meth withdrawal on methadone, ABX treatment for cellulitis DVT prophylaxis: none, given increased risk of bleeding GI prophylaxis: Protonix Diet: Clear liquid CODE STATUS: FULL Patient plan of care was discussed with the resident, Dr. Rodriguez, and attending physician, Dr. Salmeron. Daysi De Jesus, PGY-1 - The patient's plan was discussed with attending DR. Faviola Rodriguez MD PGY2 Internal Medicine Attending Provider Attestation/Addendum I have examined the patient, reviewed labs and imaging findings, discussed the case with the resident(s), and reviewed entered orders. I agree with the plan of care as outlined in this note. Dr. Faviola MD
--- NOTE | 2025-02-10 14:52 | ESCONSULT_ITS ---
RE: JUVENAL SIMPSON : 1975 DATE OF CONSULTATION: 02/10/2025 REFERRING PHYSICIAN: Dr. Mendoza. REASON FOR CONSULTATION: Strep germ and anaerobic bottle only of blood culture. HISTORY OF PRESENT ILLNESS: It might be a contaminant. It could be also group G or group C strep. It is too hard to tell. Finding an anaerobic bottle only raises concern for contamination. The patient did have blood sugars reportedly done at different times, but that would be unusual as he was not admitted primarily for infection. He has altered mentation, but that is well known and longstanding. Unfortunately, he is not a good historian PAST MEDICAL HISTORY: Include cirrhosis. He has hepatitis C, which he reports has been treated in the past. PAST SURGICAL HISTORY: Not noted. It is unchanged from that in the record. ALLERGIES: PER RECORD CEPHALOSPORIN ALLERGY NOTED. MEDICATIONS: He is on quinolone, which is fine on a short-term basis. I am going to stop his meropenem and his vancomycin because those are probably superfluous at this point. and ask lab to check the strep sensitivity on the quinolones. He is unclear if he has had those in the past. FAMILY HISTORY: Unremarkable. SOCIAL HISTORY: Unknown. He apparently is homeless according to his own history, but his history is unreliable at this time. PHYSICAL EXAMINATION: On exam, the patient is heavily tattooed. His substance use history and is positive on admission for methamphetamine and one other agent. He has a known history of alcohol use as well. His ongoing alcohol use is not confirmed. His liver disease may be a player. Ammonia levels are not done. I will get one tomorrow. test tomorrow to verify his hepatitis C status, but the strep is probably adequately treated with quinolone alone. His abdomen seems benign. His heavily tattooed nature is noted. He is mildly encephalopathic. A: encephalopathy bacteremia vs contamination hep c pos possibly treated before other problems as noted P as above DT: 13:31:42 TT: 13:58:00 Ref: [id number] - TID: [id number] [facility]
--- NOTE | 2025-02-10 14:54 | PC.SS ---
SS update: SS to follow up on d/c plan when stable. ID consulting. APS f/up required on disposition plan.
[2025-02-10 17:23] LABS: Hematocrit 27.3 % (41.0-53.0); Hemoglobin 9.1 g/dL (13.5-16.0)
--- NOTE | 2025-02-10 18:35 | PD.IMPROG ---
Documentation for date of: 02/10/25 Subjective Subjective Interval history: Hemoglobin hematocrit 9.1 and 27.3 green stools Patient status post band ligation of the esophageal varices Exam Vital Signs Temp Pulse Resp BP Pulse Ox O2 Del Method O2 Flow Rate 97.6 F 94 17 120/61 94 L Humidified Nasal Cannula 1 02/10/25 16:00 02/10/25 16:00 02/10/25 16:00 02/10/25 16:00 02/10/25 16:00 02/10/25 16:00 02/10/25 16:00 Objective Labs 02/10/25 17:09 02/10/25 08:55 Labs: Laboratory Results - last 24 hr 02/09/25 02/10/25 02/10/25 09:30 00:30 01:24 WBC 5.3 RBC 2.74 L Hgb 7.4 L 7.5 L Hct 22.2 L 22.9 L MCV 84 MCH 27.4 MCHC 32.8 RDW Std Deviation 50.6 H Plt Count 67 L D Neut % (Auto) 83 H Lymph % (Auto) 10 [place] % (Auto) 5 Eos % (Auto) 1 Baso % (Auto) 1 Neut # (Auto) 4.4 Lymph # (Auto) 0.5 L [place] # (Auto) 0.3 Eos # (Auto) 0.1 Baso # (Auto) 0.0 Immature Gran # (Auto) 0.04 H Absolute Nucleated RBC 0.00 Immature Gran % 1 H Nucleated RBC % 0 PT INR APTT Sodium Potassium Chloride Carbon Dioxide Anion Gap BUN Creatinine Estim Creat Clear Calc eGFR BUN/Creatinine Ratio Glucose Estimated Ave Glu mg/dL Hemoglobin A1c Calculated Osmolality Calcium Corrected Calcium Phosphorus Magnesium Total Bilirubin AST ALT Alkaline Phosphatase Total Protein Albumin Globulin Albumin/Globulin Ratio TSH Free T4 Vancomycin Trough Misc Test Result Platelets confirmed Blood Type B Positive Antibody Screen NEGATIVE Crossmatch See Detail Blood Bank Wristband ID Yes Blood Bank Comment PLATP Ready 02/10/25 02/10/25 08:55 17:09 WBC 5.4 RBC 3.23 L Hgb 9.1 L D 9.1 L Hct 27.2 L 27.3 L MCV 84 MCH 28.2 MCHC 33.5 RDW Std Deviation 51.2 H Plt Count 66 L Neut % (Auto) 83 H Lymph % (Auto) 9 L [place] % (Auto) 5 Eos % (Auto) 1 Baso % (Auto) 1 Neut # (Auto) 4.4 Lymph # (Auto) 0.5 L [place] # (Auto) 0.3 Eos # (Auto) 0.1 Baso # (Auto) 0.0 Immature Gran # (Auto) 0.06 H Absolute Nucleated RBC 0.00 Immature Gran % 1 H Nucleated RBC % 0 PT 15.6 H INR 1.5 H APTT 34.0 Sodium 143 Potassium 3.6 Chloride 109 H Carbon Dioxide 24.6 Anion Gap 9 BUN 19 Creatinine 0.8 Estim Creat Clear Calc 128.0 eGFR > 60 BUN/Creatinine Ratio 24 H Glucose [address] Glu mg/dL 103 Hemoglobin A1c 5.2 Calculated Osmolality 287 Calcium 7.7 L Corrected Calcium 8.9 Phosphorus 2.4 Magnesium 1.3 L Total Bilirubin 1.8 H D AST 23 ALT < 7 L Alkaline Phosphatase 65 Total Protein 6.3 Albumin 2.5 L Globulin 3.8 H Albumin/Globulin Ratio 0.7 L TSH 0.33 L Free T4 0.61 L Vancomycin Trough 12.6 H Misc Test Result Platelets confirmed Blood Type Antibody Screen Crossmatch Blood Bank Wristband ID Blood Bank Comment Impressions Impression: Upper GI bleed secondary to hypertensive portal gastropathy and esophageal variceal bleed requiring band ligation Continue current management ABG Interpretation ABG results: 02/09/25 13:47 VBG pH 7.37 VBG pCO2 41 VBG pO2 45 VBG Base Excess -1 Assessment & Plan A&P Narrative hep c, reportedly treated before per pt. will recheck here as a precaution cirhosis may be hep c related but ay be other issues too substance use hx but unverified etoh hx. await more tests and course. asked micro to do S to quinolones as streps not usually tested for s, but if he grew group c strp, that can be associated with colon CA colonoscopy can wait a short while if strep is a group g, then no association with colon CA noted. Time Spent With Patient Time: Total time spent is greater than 50% in coordination of care (as documented) at patient's floor/unit and/or counseling patient:
[2025-02-10] MEDS: THIAMINE 100 MG TABLET PO (20:24)
[2025-02-10] MEDS: HALOPERIDOL LACT INJ 5 MG/ML VIAL 2.5 MG IV (22:49)
[2025-02-10] MEDS: ONDANSETRON INJ 2 MG/ML INJ 2 ML 4 MG IVP (22:50)
[2025-02-11] VITALS: PULSE 85
[2025-02-11 04:00] VITALS: BP 132/64; PULSE 68; PULSE 85; RESP 19; TEMP 36.5; O2SAT 97
[2025-02-11 06:00] VITALS: BMI 34.7
[2025-02-11 06:03] LABS: Misc Send Out* See Sep Rpt
[2025-02-11 06:19] LABS: Basophils # (Auto) 0.0 Thou/mm3 (0.0-0.2); Basophils % (Auto) 0 % (0-2.5); Eosinophils # (Auto) 0.1 Thou/mm3 (0.0-0.5); Eosinophils % (Auto) 2 % (0-10); Hematocrit 26.7 % (41.0-53.0); Immature Granulocytes Auto 0.06 Thou/mm3 (0.00-0.00); Lymphocytes # (Auto) 0.7 Thou/mm3 (1.0-4.8); Lymphocytes % (Auto) 14 % (10-50); Mean Corpuscular HGB Conc 33.0 g/dl (31.0-37.0); Mean Corpuscular Hemoglobin 27.9 pg (25.0-35.0); Mean Corpuscular Volume 85 fL (80-100); Monocytes # (Auto) 0.3 Thou/mm3 (0.0-0.8); Monocytes % (Auto) 6 % (0-12); Neutrophils # (Auto) 3.5 Thou/mm3 (1.8-7.7); Neutrophils % (Auto) 77 % (37-80); Nucleated Red Blood Cell # 0.00 Thou/mm3 (0.00-0.00); Nucleated Red Blood Cell % 0 /100 WBC (0); RDW Standard Deviation 51.4 fL (35.1-43.9); Red Blood Count 3.15 Miln/mm3 (4.50-5.90); White Blood Count 4.5 Thou/mm3 (3.8-10.6)
[2025-02-11 06:23] LABS: Hemoglobin 8.8 g/dL (13.5-16.0); Platelet Count 65 Thou/mm3 (140-440)
[2025-02-11 06:25] LABS: INR 1.2 (0.9-1.3); Partial Thromboplastin Time 31.3 Seconds (22.0-36.0); Prothrombin Time 13.3 Seconds (9.0-12.2)
[2025-02-11 06:29] LABS: Ammonia 22 uMol/L (11-32)
[2025-02-11 06:47] LABS: Alanine Aminotransferase 8 U/L (10-49); Albumin, Serum 2.7 gm/dL (3.5-5.0); Albumin/Globulin Ratio 0.7 (1.2-2.2); Alkaline Phosphatase 66 U/L (46-116); Anion Gap 9 (7-16); Aspartate Amino Transferase 24 U/L (0-34); BUN/Creatinine Ratio 20 Ratio (12-20); Bilirubin,Total 1.4 mg/dL (0.3-1.2); Blood Urea Nitrogen 16 mg/dL (9-23); Calcium 7.9 mg/dL (8.3-10.6); Calcium (Corrected) 8.9 mg/dL (8.5-10.1); Carbon Dioxide 24.6 mMol/L (20.0-31.0); Chloride 108 mMol/L (98-107); Creatinine (Component) 0.8 mg/dL (0.6-1.3); Estimated Creatinine Clearance 129.9 mL/min (>60); Globulin 3.9 gm/dL (2.3-3.5); Glucose 98 mg/dL (74-106); Magnesium 1.9 mg/dL (1.6-2.6); Osmolality,Calculated 284 (275-295); Phosphorous 2.2 mg/dL (2.4-5.1); Potassium 3.4 mMol/L (3.4-5.1); Sodium 142 mMol/L (136-145); Total Protein 6.6 gm/dL (5.7-8.2); eGFR > 60 See Note
--- NOTE | 2025-02-11 07:00 | EKG_ITS ---
[facility] Test Date: 2025-02-11 Pat Name: JUVENAL [place] [facility] [place] Hand: ELVIS : 1975 Requested By: Oscar Sosa Order Number: [id number] Reading MD: Oscar Sosa Measurements Intervals [place] Rate: 85 P: 63 UT: 142 QRS: 27 QRSD: 113 T: 60 QT: 375 QTc: 447 Interpretive Statements SINUS RHYTHM POSSIBLE LATERAL MYOCARDIAL INFARCTION , PROBABLY OLD Compared to ECG 02/09/2025 14:08:58 No significant changes /store/S0/[id number]
[2025-02-11 07:33] VITALS: PULSE 68; RESP 20; O2SAT 97
[2025-02-11 08:00] VITALS: BP 127/73; PULSE 84; RESP 18; TEMP 36.6; O2SAT 95
[2025-02-11 08:29] LABS: Slide Review Platelets confirmed
--- NOTE | 2025-02-11 10:00 | PC.NURSE ---
Per Dr. Wadsworth, ok to remove central line and newsome d/t pt going AMA.
--- NOTE | 2025-02-11 10:09 | PC.SS ---
Assigned RN called at 9:50am stating the pt is leaving AMA and is needing clothes. ASW provided a t-shirt, underwear, shorts and shoes to the pt.
--- NOTE | 2025-02-11 10:17 | PD.RESEVENT ---
Documentation for date of: 02/11/25 Event Note Event Note: Patient was evaluated at bedside, comfortably laying in bed, bed sheets soiled as patient just had incontinent accident, patient was seen trying to get out of bed, reported he wants to leave AGAINST MEDICAL ADVICE, stating that he was done with staying in the hospital . Reported that he wants to go engage with his friends, I offered to call patient's family or friends to ask them to be with him in the hospital, patient declined the offer stated he absolutely has to go. The patient was asked orientation questions, he was alert and oriented x 4, patient demonstrated mental capacity, when asked why he was here in the hospital he reported I started bleeding out of my stomach , patient was told that he just had bands placed With EGD and would require IV medications to stop him from bleeding. Also reported he has bacteria growing in his blood and would require IV antibiotics for treatment. Patient was told about risk of sepsis, life-threatening bleed, organ failure and . The whole conversation was witnessed by patient's RN Tiera, despite repeated counseling the patient refused to continue treatment in the hospital and wanted to go. As patient was alert and oriented and manage close discharge including the hospital, he signed AMA papers. I asked the patient if he would like medications to be sent to pharmacy, he agreed, sent Levaquin to [facility] at [place] for treatment of bacteremia. The patient was urged to return to emergency room if he has any symptoms, fever or chills, weakness, bleeding, black stools. Patient had a central line in place, which was discontinued. Patient had a Arshad's catheter which was discontinued. The patient left AGAINST MEDICAL ADVICE. Despite our efforts, patient Bertrand hidalgo, has decided to leave AGAINST MEDICAL ADVICE. She has a normal mental status and full decisional capacity. The patient understands his/her condition of COPD exacerbation and the risks of leaving AMA, including but not limited to permanent disability, , etc. Patient has had the opportunity to ask questions about his medical condition. The patient has been informed that she can return for care at any time and has been advised to follow-up with her PCP or any medical physician immediately following leave. Patient was informed about their current medical condition and the reasons requiring hospitalization and administration of medication. The patient was also informed regarding the risks of leaving AGAINST MEDICAL ADVICE, which include deterioration of current condition which could result in worsening symptoms and ultimately could even result in . The patient was able to clearly communicate an understanding of their medical condition back to me. I asked the patient if they are able to explain to me what might happen if they leave the hospital right now and they were able to clearly communicate the risks attributed to their medical condition that could result in further deterioration / bodily harm. The patient was able to explain the reasons that led to their decision for them to leave AGAINST MEDICAL ADVICE in a clear logical manner. I did ask the patient if there is anything that I, or other staff members could do to help improve their experience in the hospital that would allow them to reconsider remaining in the hospital receiving medical care. I also asked the patient if there were any family or friends that we could contact to help the patient reconsider their decision to leave the hospital. The patient denied severe depression influencing their decision making capacity. The patient denied suicidal ideation. The patient denied any extreme extenuating circumstances outside of the hospital that we could help with, this did not change their mind about leaving the hospital. The patient reports having access to their home medications and was willing to allow us to prescribe additional medications to their pharmacy. The patient has been informed that they can return for care at any time and has been advised to follow-up with their PCP or any medical physician immediately following leave. Plan of care discussed with attending Dr. Faviola Wadsworth PGY3
--- NOTE | 2025-02-11 11:47 | PC.SS ---
Addendum entered by Summer Galvan 02/11/25 12:33: PT Poncho was contacted, he informed SS no extra wheelchairs are available to gift to patient. Original Note: SS contacted Engineering to inquire about wheelchairs, Engineering to check. Engineering stated they'd notify SS at [phone] if a wheelchair is found. SS informed by Rafael patient is needing a wheelchair and [facility] may cover cost if wheelchair is found. SS contacted [facility], she stated they do not have wheelchairs on hand. DME order will not be reviewed until 02/13/25 during business hours.
--- NOTE | 2025-02-11 11:47 | PC.SS ---
Addendum entered by Carmen Diaz 02/11/25 12:02: ASW contacted [place] [employer] and asked about a wheelchair which they reported they do not have any. Addendum entered by Carmen Diaz 02/11/25 11:54: ASW contacted [facility] and they are closed today.. Original Note: ASW spoke with Professor Of Environmental Studies Rafael who reported the pt is still in his room, upset and wanting to leave, as he is discharged and is leaving AMA. RN reported that the pt cannot walk and when he was BIB[place] they left his wheelchair on the side of the road. Pt has choosen to leave AMA and is now without a wheel chair. ASW submitted a DME request via [employer] and so far, no DME companies have responded. ASW called the [facility], [employer] [facility] and the [facility] asking for a wheel chair, but they all stated they did not have any on hand. [facility] will contact [facility] to ask if there is a lost and found wheelchair available. [facility] also suggested that if a DME company will allow the hospital to pay for one out of pocket or bill the hosptial (if approved) could SS make it happen. ASW stated SS can try. [facility] does not have a wheelchair available today.
[2025-02-11 12:00] VITALS: BP 149/88; PULSE 79; RESP 18; TEMP 36.7; O2SAT 92
--- NOTE | 2025-02-11 12:31 | PC.NURSE ---
Contacted social worker delinquency prevention, waiting for wheelchair/ transportation mode for patient. Patient is adament on leaving AMA. MD, Biology Department Chair, and Charge Nurse made aware.
--- NOTE | 2025-02-11 14:04 | PD.RESPRO ---
Documentation for date of: 02/11/25 Subjective Subjective Interval history: Patient was evaluated at bedside, comfortably laying in bed, bed sheets soiled as patient just had incontinent accident, patient was seen trying to get out of bed, reported he wants to leave AGAINST MEDICAL ADVICE, stating that he was done with staying in the hospital . Reported that he wants to go engage with his friends, I offered to call patient's family or friends to ask them to be with him in the hospital, patient declined the offer stated he absolutely has to go. The patient was asked orientation questions, he was alert and oriented x 4, patient demonstrated mental capacity, when asked why he was here in the hospital he reported I started bleeding out of my stomach , patient was told that he just had bands placed With EGD and would require IV medications to stop him from bleeding. Also reported he has bacteria growing in his blood and would require IV antibiotics for treatment. Patient was told about risk of sepsis, life-threatening bleed, organ failure and . The whole conversation was witnessed by patient's RN Tiera, despite repeated counseling the patient refused to continue treatment in the hospital and wanted to go. As patient was alert and oriented and manage close discharge including the hospital, he signed AMA papers. I asked the patient if he would like medications to be sent to pharmacy, he agreed, sent Levaquin to [facility] at [place] for treatment of bacteremia. The patient was urged to return to emergency room if he has any symptoms, fever or chills, weakness, bleeding, black stools. Patient had a central line in place, which was discontinued. Patient had a Arshad's catheter which was discontinued. The patient left AGAINST MEDICAL ADVICE. Exam Vital Signs Temp Pulse Resp BP Pulse Ox O2 Del Method O2 Flow Rate 98.1 F 79 18 149/88 H 92 L Room Air 3 02/11/25 12:02/11/25 12:00 02/11/25 12:00 02/11/25 12:02/11/25 12:02/11/25 12:02/11/25 08:00 Narrative Exam Physical Exam General: alert oriented x4. HEENT: Normocephalic, atraumatic, mucous membranes moist. Heart: Regular rate and rhythm, normal S1 and S2, no murmurs. Lungs: Clear to auscultation with no wheezing or crackles. Abdomen: Soft, nondistended, positive bowel sounds. Diffuse abdominal tenderness. No guarding or rebound tenderness. Neurologic: Alert and oriented x3, no gross neurological deficit, and patient able to move all 4 extremities. Extremities: Chronic lymphedema on lower extremities bilaterally. Erythema and tenderness on right leg, more swollen compared to left. Skin: Thickened skin on both calves, multiple tattoos on body. Objective Labs 02/11/25 05:34 02/11/25 05:34 Labs: Laboratory Results - last 24 hr 02/09/25 02/10/25 02/11/25 09:30 17:09 05:34 WBC 4.5 RBC 3.15 L Hgb 9.1 L 8.8 L Hct 27.3 L 26.7 L MCV 85 MCH 27.9 MCHC 33.0 RDW Std Deviation 51.4 H Plt Count 65 L Neut % (Auto) 77 Lymph % (Auto) 14 [place] % (Auto) 6 Eos % (Auto) 2 Baso % (Auto) 0 Neut # (Auto) 3.5 Lymph # (Auto) 0.7 L [place] # (Auto) 0.3 Eos # (Auto) 0.1 Baso # (Auto) 0.0 Immature Gran # (Auto) 0.06 H Absolute Nucleated RBC 0.00 Immature Gran % 1 H Nucleated RBC % 0 PT 13.3 H INR 1.2 APTT 31.3 Sodium 142 Potassium 3.4 Chloride 108 H Carbon Dioxide 24.6 Anion Gap 9 BUN 16 Creatinine 0.8 Estim Creat Clear Calc 129.9 eGFR > 60 BUN/Creatinine Ratio 20 Glucose 98 Calculated Osmolality 284 Calcium 7.9 L Corrected Calcium 8.9 Phosphorus 2.2 L Magnesium 1.9 Total Bilirubin 1.4 H AST 24 ALT 8 L Alkaline Phosphatase 66 Ammonia 22 Total Protein 6.6 Albumin 2.7 L Globulin 3.9 H Albumin/Globulin Ratio 0.7 L Misc Test Result Platelets confirmed Blood Type B Positive Antibody Screen NEGATIVE Crossmatch See Detail Blood Bank Wristband ID Yes Blood Bank Comment PLATP Ready ABG Interpretation ABG results: 02/09/25 13:47 VBG pH 7.37 VBG pCO2 41 VBG pO2 45 VBG Base Excess -1 Quality Measures Quality Measures sepsis Current suspected stage: sepsis Possible source: pulmonary, GI tract/intra-abdominal, unknown and skin/soft tissue Blood cultures ordered: yes Antibiotic ordered: Yes Assessment & Plan Assessment Current Active Medications: Generic Name Dose Route Start Last Admin Trade Name Freq PRN Reason Stop Dose Admin Acetaminophen 650 mg 02/09/25 10:07 Acetaminophen 325 Mg Tablet PO 03/11/25 10:06 Q6HR PRN Fever >101 OR MILD PAIN 1-3 Folic Acid 1 mg 02/11/25 09:00 Folic Acid 1 Mg Tablet PO 03/13/25 08:59 QDAY ELIGIO Levofloxacin/Dextrose 750 mg in 150 mls @ 100 mls/hr 02/11/25 09:00 Levaquin Ivpb IV 02/18/25 08:59 QDAY ELIGIO Potassium Phosphate 22.5 mmol/ 507.5 mls @ 82.778 mls/hr 02/11/25 08:00 Sodium Chloride IV 02/11/25 14:07 X1 ONE Octreotide Acetate 1,000 mcg/ 102 mls @ 5.1 mls/hr 02/11/25 09:15 Sodium Chloride IV 02/13/25 11:59 .Q20H ELIGIO Protocol 50 MCG/HR Multivitamins 1 tab 02/11/25 09:00 Multivitamins Tablet PO 03/13/25 08:59 QDAY ELIGIO Ondansetron HCl 4 mg 02/10/25 22:35 02/10/25 22:50 Ondansetron Inj 2 Mg/Ml Inj 2 Ml IVP 03/12/25 22:34 4 mg Q6HR PRN Administration NAUSEA OR VOMITING Protocol Pantoprazole Sodium 40 mg 02/11/25 09:00 Pantoprazole Inj 40 Mg Vial IVP 03/13/25 08:59 Q12HR [facility] Thiamine HCl 100 mg 02/10/25 21:00 02/10/25 20:24 Thiamine 100 Mg Tablet PO 02/13/25 20:59 100 mg BID ELIGIO Administration Plan Patient is a 50-year-old male with past medical history of fentanyl and meth use, homelessness, decompensated liver cirrhosis with history of esophageal varices grade 3 secondary to hepatitis C, splenomegaly and chronic venous stasis who presented on 02/08/2025 with active hematemesis, admitted to ICU for acute bleed and shock requiring Levophed. Now weaned off Levophed, downgraded to telemetry. #Active upper GI bleed?resolved #Grade 2 esophageal varices status post banding 02/09 #Hx of previous banding (11/2024) #Normocytic normochromic anemia - improving #Gastritis #Decompensated liver cirrhosis, 2/2 alcohol hx #Hepatitis C antibody positive #Significant hepatosplenomegaly #Hypoalbuminemia #Elevated INR, coagulopathy #Thrombocytopenia Presented with hematemesis. S/p 4 unit PRBC, 2 unit FFP. Has history of decompensated liver cirrhosis likely due to alcohol abuse s/p 2 variceal bands for grade 3 esophageal varices on 12/07/2024. Hep C body reactive, reports has been previously treated, pending repeat tests. CT chest abdomen pelvis showed cirrhosis, liver irregular contour with prominent hepatosplenomegaly, thickened gallbladder with suspected tiny gallstones, anasarca, trace ascites, significant abdominal/pelvic lymphadenopathy, hepatic colopathy 02/09: EGD shows grade 2 esophageal varices, s/p another 2 variceal bands, also gastritis. MELD Na 02/09- 17 points less than 2% estimated 90-day mortality, Child Khoury score 10 points, child class C life expectancy 1 to 3 years, abdominal surgery perioperative mortality 82% Plan: - S/p IV meropenem and vancomycin (02/09-02/10). - Continue octreotide drip for 5 days (02/08-02/13) - Continue Protonix 40 twice daily - Follow INR/liver panel daily - Consider outpatient hepatology outpatient - Process Design Engineer on alcohol and drug use, recommend cessation - Consulted ID Dr. Kathleen, appreciate recommendations #Opiate dependence with withdrawal #Methamphetamine dependence #Nicotine dependence, active chronic smoker Urine drug screen in the ED showed positive ED for fentanyl and methamphetamine Patient is an active chronic smoker per history, unknown pack years will obtain history once patient is more awake. Plan: - Received methadone for opiate withdrawal, titrate per COWS assessment at bedside - Smoking cessation counseling - Referral to manager social media - Patient advised to refrain from fentanyl and methamphetamine use #Cellulitis #Chronic Venous Statis Evidence of chronic lymphedema on bilateral lower extremities, with thick dry skin. Lower extremity CT 02/08 shows advanced right hip osteoarthritis, moderate left hip osteoarthritis, severe cellulitis in the lower legs. Attempted to obtain venous Doppler on 02/09, unsuccessful. - S/p IV meropenem and vancomycin (02/09-02/10) - on IV Levaquin 750mg qday - Attempt venous Doppler of lower extremities - Wound care consulted - General Surgery Dr. Nazario consulted, appreciate recommendations #GPC bacteremia? Prelim blood culture showed GPC growth in both bottles, final results showed Strep equ ssp equ(grp c)/grp g and anaerobic bottle, likely contamination. - Will repeat blood cultures to rule out GPC bacteremia #AHRF 2/ to shock -improving #Shock, multifactorial, hypovolemic and distributive?resolved #Lactic acidosis -resolved Shock multifactorial, likely hemorrhagic/hypovolemic from acute upper GI bleed (hemoglobin dropped as low as 7.5). Also suspected component of distributive shock in setting of liver cirrhosis. S/p 4.4 L IV fluid resuscitation and Levophed. Bedside echo 02/08 was unremarkable, no tamponade. CXR 02/08 negative for pneumothorax and PE. S/p 4 units PRBC and 2 unit FFP. - Supplemental oxygen via nasal cannula, wean as tolerated - Continue to monitor CBC #History of HFpEF Echo on 11/2024 showed EF 55-60%. Normal left ventricular diastolic function. The RV is mildly enlarge in size with normal systolic function. The estimated RVSP, 45 mmHg. RAP 15. Trace MR. Mild TR. Dilated IVC. - No diuresis, patient appears euvolemic - Strict intake and output - Daily weight #Mild thickening of gallbladder wall #Hyperbilirubinemia, improving #Suspicion of 2 mm stone in distal CBD On admission, elevated bilirubin 3.9, direct bilirubin 2.2. CT chest abdomen pelvis showed thickened gallbladder with suspected tiny gallstones. Abdominal ultrasound showed gallbladder wall borderline thickened, CBD 0.6 cm, no stones. MRCP 02/09 shows cirrhosis, mild ascites, massive splenomegaly, thickened gallbladder wall, suspicion for 2 mm nonobstructing stone in distal CBD. Plan: - Not candidate for surgery at this time as stone is nonobstructing - Continue to monitor bilirubin - General Surgery Dr. Nazario consulted, appreciate recommendations #Hypomagnesemia #Hyperchloremia - Replace electrolytes as needed - Mg >2 #Euthyroid sick syndrome TSH 0.33, free T4 0.61 - Repeat thyroid panel outpatient Health Maintenance Disposition: Management upper GI bleed s/p banding, meth withdrawal on methadone, ABX treatment for cellulitis DVT prophylaxis: none, given increased risk of bleeding GI prophylaxis: Protonix Diet: Clear liquid CODE STATUS: FULL The patient's plan was discussed with attending DR. Faviola Wadsworth pgy3 Attending Provider Attestation/Addendum I have examined the patient, reviewed labs and imaging findings, discussed the case with the resident(s), and reviewed entered orders. I agree with the plan of care as outlined in this note. The patient has decided to leave AGAINST MEDICAL ADVICE because he does not want to stay in the hospital anymore. He has normal mental status and adequate capacity to make medical decisions. The patient refuses to stay in the hospital. The risks have been explained to the patient including progression of infection, cirrhosis, worsening illness, chronic pain, permanent disability and . The benefits of staying in the hospital have also been explained including the availability and proximity of nurses, physicians, monitoring, diagnostic testing, treatment, and specialist evaluation. The patient was able to understand and state the risks and benefits of hospital admission. Patient had opportunity to ask questions about his medical conditions. The patient was treated to the extent that he would allow and knows that he may return for care at any time. We attempted to arrange follow-up for patient with his PCP and we have sent medications to his pharmacy for pickup. The patient is encouraged to continue his medications and close outpatient follow-up with PCP. The patient has decided to leave AGAINST MEDICAL ADVICE on 02/11/2025. Please see residents note for additional details and management. Dr. Faviola MD
--- NOTE | 2025-02-11 20:44 | ESPR_ITS ---
Documentation for date of: 02/11/25 Subjective Subjective Interval history: Hemoglobin hematocrit 8.8 and 28.7 Patient's status post medication of esophageal varices Exam Vital Signs Temp Pulse Resp BP Pulse Ox O2 Del Method O2 Flow Rate 98.1 F 79 18 149/88 H 92 L Room Air 3 02/11/25 12:00 02/11/25 12:00 02/11/25 12:00 02/11/25 12:00 02/11/25 12:00 02/11/25 12:00 02/11/25 08:00 Objective Labs 02/11/25 05:34 02/11/25 05:34 Labs: Laboratory Results - last 24 hr 02/09/25 02/11/25 09:30 05:34 WBC 4.5 RBC 3.15 L Hgb 8.8 L Hct 26.7 L MCV 85 MCH 27.9 MCHC 33.0 RDW Std Deviation 51.4 H Plt Count 65 L Neut % (Auto) 77 Lymph % (Auto) 14 [place] % (Auto) 6 Eos % (Auto) 2 Baso % (Auto) 0 Neut # (Auto) 3.5 Lymph # (Auto) 0.7 L [place] # (Auto) 0.3 Eos # (Auto) 0.1 Baso # (Auto) 0.0 Immature Gran # (Auto) 0.06 H Absolute Nucleated RBC 0.00 Immature Gran % 1 H Nucleated RBC % 0 PT 13.3 H INR 1.2 APTT 31.3 Sodium 142 Potassium 3.4 Chloride 108 H Carbon Dioxide 24.6 Anion Gap 9 BUN 16 Creatinine 0.8 Estim Creat Clear Calc 129.9 eGFR > 60 BUN/Creatinine Ratio 20 Glucose 98 Calculated Osmolality 284 Calcium 7.9 L Corrected Calcium 8.9 Phosphorus 2.2 L Magnesium 1.9 Total Bilirubin 1.4 H AST 24 ALT 8 L Alkaline Phosphatase 66 Ammonia 22 Total Protein 6.6 Albumin 2.7 L Globulin 3.9 H Albumin/Globulin Ratio 0.7 L Misc Test Result Platelets confirmed Crossmatch See Detail Impressions Impression: Upper GI bleed secondary to esophageal variceal bleeding requiring band ligation continue current management ABG Interpretation ABG results: 02/09/25 13:47 VBG pH 7.37 VBG pCO2 41 VBG pO2 45 VBG Base Excess -1 Assessment & Plan A&P Narrative hep c, reportedly treated before per pt. will recheck here as a precaution cirhosis may be hep c related but ay be other issues too substance use hx but unverified etoh hx. await more tests and course. asked micro to do S to quinolones as streps not usually tested for s, but if he grew group c strp, that can be associated with colon CA colonoscopy can wait a short while if strep is a group g, then no association with colon CA noted. Time Spent With Patient Time: Total time spent is greater than 50% in coordination of care (as documented) at patient's floor/unit and/or counseling patient:
[2025-02-15 22:06] LABS: HCV RNA, PCR <15 NOT DETECTED IU/mL
[2025-02-16 06:32] LABS: HCV RNA, PCR Log IU <1.18 NOT DETECTED Log IU/mL
[2025-02-17 06:20] LABS: HCV Genotype, LiPA(R)* NOT DETECTED
== END 2025-02-11 11:37 | disposition left against medical advice (07) | DRG 720 ==
LOC: SERX 02-09 06:41 → SERHOLD 02-09 08:50 → S2SX 02-09 10:45 → S2NX 02-11 10:10 → S2SX 02-13 09:03
PROVIDERS: Emergency Medicine; Internal Medicine Infectious Disease; Physician Assistant Medical; Specialist; Student in an Organized Health Care Education/Training Program; Admitting Provider Internal Medicine Critical Care Medicine; Emergency Provider Emergency Medicine; Visit Provider Internal Medicine Critical Care Medicine
PROC: 0D758ZZ Dilation of Esophagus, Via Natural or Artificial Opening Endoscopic (ICD-10-PCS; CPT 43239; principal; 2025-02-09 19:45)
DX: A41.9 Sepsis, unspecified organism (principal); F15.10 Other stimulant abuse, uncomplicated; D64.9 Anemia, unspecified; K74.60 Unspecified cirrhosis of liver; R16.2 Hepatomegaly with splenomegaly, not elsewhere classified; R59.0 Localized enlarged lymph nodes; I50.9 Heart failure, unspecified; Z87.11 Personal history of peptic ulcer disease; R18.8 Other ascites; I95.9 Hypotension, unspecified; L03.116 Cellulitis of left lower limb; L03.115 Cellulitis of right lower limb; Z59.00 Homelessness unspecified; I85.11 Secondary esophageal varices with bleeding; I50.32 Chronic diastolic (congestive) heart failure; B96.89 Other specified bacterial agents as the cause of diseases classified elsewhere; D69.6 Thrombocytopenia, unspecified; E83.42 Hypomagnesemia; E86.1 Hypovolemia; E87.20 Acidosis, unspecified; E87.8 Other disorders of electrolyte and fluid balance, not elsewhere classified; E88.09 Other disorders of plasma-protein metabolism, not elsewhere classified; F11.23 Opioid dependence with withdrawal; F15.20 Other stimulant dependence, uncomplicated; F17.200 Nicotine dependence, unspecified, uncomplicated; I87.8 Other specified disorders of veins; I89.0 Lymphedema, not elsewhere classified; J44.1 Chronic obstructive pulmonary disease with (acute) exacerbation; J96.01 Acute respiratory failure with hypoxia; B19.20 Unspecified viral hepatitis C without hepatic coma; D62 Acute posthemorrhagic anemia; D68.9 Coagulation defect, unspecified; K31.89 Other diseases of stomach and duodenum; K70.9 Alcoholic liver disease, unspecified; K76.6 Portal hypertension; K76.82 Hepatic encephalopathy; K80.21 Calculus of gallbladder without cholecystitis with obstruction; K29.71 Gastritis, unspecified, with bleeding; M16.0 Bilateral primary osteoarthritis of hip; R57.1 Hypovolemic shock; R65.21 Severe sepsis with septic shock; Z53.29 Procedure and treatment not carried out because of patient's decision for other reasons; Z88.1 Allergy status to other antibiotic agents; E07.81 Sick-euthyroid syndrome; Z88.8 Allergy status to other drugs, medicaments and biological substances
CPT/HCPCS: 36415; 36430; 71260; 73701; 74177; 74181; 76705; 80053; 80074; 80202; 80307; 81001; 81596; 82140; 82248; 82270; 82803; 83036; 83605; 83690; 83735; 83880; 84100; 84145; 84439; 84443; 85014; 85018; 85025; 85384; 85610; 85730; 86850; 86900; 86901; 86923; 86927; 86965; 87040; 87081; 87086; 87186; 87400; 87522; 87811; 87902; 93005; 93970; 96361; 96365; 96366; 96375; 96376; 99285; A4649; J0131; J0168; J1200; J1630; J1956; J2185; J2250; J2354; J2405; J2470; J3010; J3370; J3372; J3373; J3411; J3430; J3475; J3480; J3490; J7030; J7050; J7120; J7999; P9016; P9047; P9060; Q9967; A9270

== ENCOUNTER 2025-02-25 15:27 | Emergency (ER) | payer MEDICAID, SELFPAY ==
[2025-02-25 15:27] VITALS: BMI 29.5
[2025-02-25 16:00] VITALS: BP 152/72; PULSE 99; RESP 19; TEMP 37.2; O2SAT 99
--- NOTE | 2025-02-25 16:03 | PD.EDRME ---
Rapid Medical Screening Exam RME Arrival date/time: 02/25/25 15:27 50-year-old male presents to the emergency department of complaint of bilateral lower leg infection Chief Complaint: Wound/Laceration Vital signs: Vital Signs Temperature 99.0 F 02/25/25 16:00 Pulse Rate 99 02/25/25 16:00 Respiratory Rate 19 02/25/25 16:00 Blood Pressure 152/72 H 02/25/25 16:00 Pulse Oximetry (%) 99 02/25/25 16:00 Oxygen Delivery Method Room Air 02/25/25 16:00
[2025-02-25 16:58] LABS: Lactate (Lactic Acid) 1.7 mMol/L (0.4-2.0)
[2025-02-25 16:59] LABS: Basophils # (Auto) 0.1 Thou/mm3 (0.0-0.2); Basophils % (Auto) 2 % (0-2.5); Eosinophils # (Auto) 0.1 Thou/mm3 (0.0-0.5); Eosinophils % (Auto) 3 % (0-10); Hematocrit 30.4 % (41.0-53.0); Hemoglobin 9.8 g/dL (13.5-16.0); Immature Granulocytes Auto 0.02 Thou/mm3 (0.00-0.00); Lymphocytes # (Auto) 1.0 Thou/mm3 (1.0-4.8); Lymphocytes % (Auto) 31 % (10-50); Mean Corpuscular HGB Conc 32.2 g/dl (31.0-37.0); Mean Corpuscular Hemoglobin 27.5 pg (25.0-35.0); Mean Corpuscular Volume 85 fL (80-100); Monocytes # (Auto) 0.4 Thou/mm3 (0.0-0.8); Monocytes % (Auto) 13 % (0-12); Neutrophils # (Auto) 1.7 Thou/mm3 (1.8-7.7); Neutrophils % (Auto) 50 % (37-80); Nucleated Red Blood Cell # 0.00 Thou/mm3 (0.00-0.00); Nucleated Red Blood Cell % 0 /100 WBC (0); Platelet Count 107 Thou/mm3 (140-440); RDW Standard Deviation 49.6 fL (35.1-43.9); Red Blood Count 3.56 Miln/mm3 (4.50-5.90); White Blood Count 3.3 Thou/mm3 (3.8-10.6)
[2025-02-25 17:31] LABS: INR 1.3 (0.9-1.3); Prothrombin Time 13.5 Seconds (9.0-12.2); Sed Rate (ESR) 98 mm/hr (0-20)
[2025-02-25 17:41] LABS: Alanine Aminotransferase 16 U/L (10-49); Albumin, Serum 2.5 gm/dL (3.5-5.0); Albumin/Globulin Ratio 0.4 (1.2-2.2); Alkaline Phosphatase 98 U/L (46-116); Anion Gap 5 (7-16); Aspartate Amino Transferase 45 U/L (0-34); BUN/Creatinine Ratio 9 Ratio (12-20); Bilirubin,Total 0.5 mg/dL (0.3-1.2); Blood Urea Nitrogen 7 mg/dL (9-23); C-Reactive Protein 6.4 mg/dL (0.0-0.9); Calcium 7.8 mg/dL (8.3-10.6); Calcium (Corrected) 9.0 mg/dL (8.5-10.1); Carbon Dioxide 27.2 mMol/L (20.0-31.0); Chloride 103 mMol/L (98-107); Creatinine (Component) 0.8 mg/dL (0.6-1.3); Estimated Creatinine Clearance 120.2 mL/min (>60); Globulin 5.8 gm/dL (2.3-3.5); Glucose 88 mg/dL (74-106); Osmolality,Calculated 267 (275-295); Potassium 4.3 mMol/L (3.4-5.1); Procalcitonin 0.10 ng/ml (0.0-0.49); Sodium 135 mMol/L (136-145); Total Protein 8.3 gm/dL (5.7-8.2); eGFR > 60 See Note
[2025-02-25 18:59] LABS: Amphetamine/Methamp Scrn,U Positive (Negative); Barbiturate Screen,Urine Negative (Negative); Benzodiazepines Screen,Urine Negative (Negative); Benzoylecgonine Screen, Ur Negative (Negative); Fentanyl Screen,Urine Positive (Negative); Opiate Screen,Urine Negative (Negative); THC Screen,Urine Negative (Negative)
--- NOTE | 2025-02-25 19:33 | PC.NURSE ---
Pt is A/O x 3 with c/o bilateral leg pain 04/28 reported, pt noted to have swelling, open wx noted with bilateral legs with drainage noted, pt states he wishes to remain in wheelchair and not get into gurney and also states he would not stay in the hospital
--- NOTE | 2025-02-25 20:06 | PD.EDWOUND ---
ED Wound/Laceration-RME/HPI General Chief Complaint: Wound/Laceration Stated Complaint: BLE WOUND Arrival date/time: 02/25/25 15:27 Limitations: no limitations RME / HPI RME / HPI narrative: 02/25/25 15:27 50-year-old male presents to the emergency department of complaint of bilateral lower leg infection DR. 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 Patient denies fever, chills, nausea, vomiting, illicit drug use, or alcohol use at this time. Social history notable for fentanyl and methamphetamine use, and homelessness. Related Data Previous Rx's ?Medication ?Instructions ?Recorded acetaminophen 325 mg tablet 325 mg PO QID PRN fever or pain 02/11/25 (Tylenol) #14 tabs levofloxacin 750 mg tablet 750 mg PO QDAY #12 tabs 02/11/25 clindamycin HCl 300 mg capsule 300 mg PO TID #21 caps 02/25/25 Allergies Allergy/AdvReac Type Severity Reaction Status Date / Time Cephalexin Monohydrate Allergy Severe Swelling Verified 02/25/25 15:27 of Lip/Tongue/Throat cephalexin (From Keflex) Allergy Verified 02/25/25 15:27 Review of Systems Review of Systems Systems Reviewed: All systems reviewed, normal except as documented Narrative Review of Systems: GEN: No fever, no chills, no weight loss EYES: No discharge, no visual changes, no pain HEENT: No ear pain, no congestion, no sore throat PULM: No shortness of breath, no cough, no congestion CV: No chest pain, no dyspnea on exertion, no palpitations GI: No nausea, no vomiting, no diarrhea, no pain, no constipation : No frequency, no urgency and no dysuria MUSC/SKEL: No joint pain, no back pain SKIN: No rash; recurrent lower extremity edema, involving primarily the right lower extremity PSYCH: No hallucinations, no depression HEME/LYMPH: No easy bleeding or bruising tendencies NEURO: No weakness, no headache Past Medical History Past Medical History NEUROLOGIC: Positive Neurological Disorders and Seizures CARDIAC: Positive Cardiac Disorders, Congestive Heart Failure, Edema and Hypertension; Negative Deep Vein Thrombosis RESPIRATORY: Positive Chronic Obstructive Pulmonary Disease (COPD), Asthma and Sleep Apnea GASTROINTESTINAL: Positive Gastrointestinal Disorders, Hepatitis, Cirrhosis, Gastrointestinal Bleed, Esophageal Varices, Ulcer, Gastroesophageal Reflux Disease and Obesity GENITOURINARY: Positive Genitourinary Disorders and Benign Prostatic Hyperplasia; Negative Renal Disease MUSCULOSKELETAL: Positive Musculoskeletal Disorders, Arthritis and Fractures ENDOCRINE: Positive Endocrine Disorders and Systemic Lupus Erythematosus; Negative Diabetes Mellitus Type 1 or Diabetes Mellitus Type 2 HEMATOLOGIC: Negative Blood Disorders or Sickle Cell Disease PSYCHO/SOCIAL: Positive Recreational Drug Use, Depression and Anxiety OTHER HISTORY: Positive Falls, Blood Transfusions and Anesthesia Reactions; Negative Down Syndrome, Developmental Delay, Blood Transfusion Reaction or Cancer Family History FAMILY HISTORY: Positive Family Cardiac Disorders, Family Gastrointestinal Problems and Family Surgery; Negative Family Respiratory Disorders or Family Anesthesia Reaction Surgical History SURGICAL: Positive Tonsillectomy and Abdominal Surgery Social History SMOKING STATUS: Current every day smoker ED Exam General Limitations: Present no limitations General appearance: Present alert, in no apparent distress and other (debilitated, unkempt) Head Head exam: Present atraumatic Eye Eye exam: Present normal appearance, PERRL and EOMI ENT ENT exam: Present normal exam, normal oropharynx and mucous membranes moist Neck Neck exam: Present normal inspection, full ROM and trachea midline Chest Chest inspection: Present normal inspection and symmetric chest wall rise Respiratory Respiratory exam: Present normal lung sounds bilaterally Cardiovascular Cardiovascular exam: Present regular rate, normal rhythm and normal heart sounds Abdominal Exam Abdominal exam: Present soft and normal bowel sounds Extremities Exam Extremities exam: Present full ROM and pedal edema (bilateral edema, right greater than left; chronic ulceration from left ankle to knee circumferential with hyperpigmentation) Back Exam Back exam: Present normal inspection and full ROM Neurological Exam Neurological exam: Present alert, oriented X3 and CN II-XII intact Psychiatric Psychiatric exam: Present normal affect and normal mood Skin Skin exam: Present warm, dry, intact and normal color Course Quality Measures none Orders Category Date Time Status Blood Culture (Lab) Stat Lab 02/25/25 16:35 Received CBC Stat Lab 02/25/25 16:36 Completed CMP [Comprehensive Metabolic Panel] Stat Lab 02/25/25 16:36 Completed CRP [C-Reactive Protein] Stat Lab 02/25/25 16:36 Completed Drug Screen,Urine Stat Lab 02/25/25 18:34 Completed ESR [Sed Rate (ESR)] Stat Lab 02/25/25 16:36 Completed Lactic Acid [Lactate (Lactic Acid)] Stat Lab 02/25/25 16:36 Completed PT [Prothrombin Time with INR] Stat Lab 02/25/25 16:36 Completed Procalcitonin Stat Lab 02/25/25 16:36 Completed Wound Culture and Gram Stain Stat Lab 02/25/25 19:40 Results Clindamycin [Cleocin] Med 02/25/25 20:03 Discontinued 300 mg PO X1 ONE Diazepam [Valium] Med 02/25/25 20:03 Discontinued 5 mg PO X1 ONE Vital Signs Vital signs: Vital Signs Temperature 99.0 F 02/25/25 16:00 Pulse Rate 99 02/25/25 16:00 Respiratory Rate 19 02/25/25 16:00 Blood Pressure 152/72 H 02/25/25 16:00 Pulse Oximetry (%) 99 02/25/25 16:00 Oxygen Delivery Method Room Air 02/25/25 16:00 Wound / Laceration MDM Narrative MDM Narrative:: IChiquis am scribing for and in the presence of Dr. Santiago. 50-year-old male with decompensated liver cirrhosis from hepatitis C, complicated by esophageal varices, splenomegaly, recurrent cellulitis, and chronic venous stasis, presents with recurrent bilateral lower extremity edema, right greater than left. Exam consistent with chronic cellulitis. Please see PMD finding. Lab markers deferred. Clindamycin PO prescribed for cellulitis and Valium given for anxiety. Patient refused admission due to concern for his dog despite discussion of risks, including worsening infection and sepsis. He demonstrated decision-making capacity, verbalized understanding, and chose to leave at his own accord with return precautions provided. Disposition: Discharge at his own accord. Patient data External records reviewed:: [facility] previous records Clinical information provided by:: patient Social determinants that could affect healthcare access:: none Patient has the following chronic illnesses:: decompensated liver cirrhosis from hepatitis C, complicated by esophageal varices, splenomegaly, recurrent cellulitis, and chronic venous stasis How is presenting disease/condition affected by chronic disease/condition?: exacerbated by Evaluation data The following diagnostics were reviewed and interpreted by me:: lab results Lab and/or radiology exams considered but not ordered:: none Interpretation Summary: See narrative above. Medications / Prescriptions Medications or Prescriptions considered but not ordered:: none Medication administrations:: Medication Administration History Discontinued Medications Clindamycin HCl (Clindamycin 150 Mg Capsule) 300 mg PO X1 ONE Stop: 02/25/25 20:04 Last Admin: 02/25/25 21:10 Dose: 300 mg Documented By: OMARI Diazepam (Diazepam 5 Mg Tablet) 5 mg PO X1 ONE Stop: 02/25/25 20:04 Last Admin: 02/25/25 21:10 Dose: 5 mg Documented By: OMARI see above Consultations Consultation(s) initiated? (list below): No Diagnosis Wound Differential Diagnosis: other (cellulitis, decompensated liver failure, and DVT) Most likely diagnosis given after review of the tests above:: Chronic cellulitis Opioid addiction Alcohol dependence Admission Indicated Admission indicated?: not indicated Admission Request Was there a request for admission?: No Disposition Plan Disposition Plan: Discharge Discharge Attestation Discharge Attestation: The patient and all family members were given an opportunity to ask questions and understood the discharge instructions. Discharge instructions specifically effects, indications for sooner follow up or return to the emergency department, and the expected course of current diagnosis. Patient condition: Stable Discharge Plan Plan Patient Disposition: HOME (Self Care) Discharge Disposition comment: Stable Prescriptions/Referrals Prescriptions/Med Rec: New clindamycin HCl 300 mg capsule 300 mg PO TID Qty: 21 0RF No Action levofloxacin 750 mg tablet 750 mg PO QDAY Qty: 12 0RF acetaminophen [Tylenol] 325 mg tablet 325 mg PO QID PRN (Reason: fever or pain) Qty: 14 0RF Referrals: No Primary/Family,Physician [Primary Care Provider] - In 1 week Problem List Clinical Impression: Cellulitis of lower extremity, Homelessness, Cirrhosis of liver, Venous stasis ulcer of ankle limited to breakdown of skin Patient/Caregiver Discharge Instructions Education Materials: Understanding Cirrhosis, Discharge Instructions for Cellulitis Additional Instructions: Seek rehabilitative services for both alcohol and fentanyl. Medications as directed. You are welcome to return to the emergency department at any time. Seek care for fever increasing pain swelling drainage or worsening illness. Print Language: British Stand Alone Forms: Anjali Award Info., Patient Portal Info Letter
--- NOTE | 2025-02-25 21:00 | PC.NURSE ---
Pt allow medical technical writer to clean bilateral leg wx, wx cleaned with wx cleanser, Xeroform gauze applied to base of wx, cover with abd, and lightly wrapped with gauze and secured with tape, pt tolerated well. Pt continued to states that he would be leaving once treatment to bilateral leg were completed.
[2025-02-25] MEDS: CLINDAMYCIN 150 MG CAPSULE 300 MG PO (21:10)
[2025-02-25] MEDS: DIAZEPAM 5 MG TABLET PO (21:10)
[2025-02-25 22:05] VITALS: BP 120/76; PULSE 96; RESP 20; TEMP 36.9; O2SAT 96
== END 2025-02-25 22:39 | disposition home or self-care (01) ==
PROVIDERS: Nurse Practitioner Primary Care; Emergency Provider Emergency Medicine
DX: I83.023 Varicose veins of left lower extremity with ulcer of ankle (principal); L97.321 Non-pressure chronic ulcer of left ankle limited to breakdown of skin; L03.116 Cellulitis of left lower limb; L03.115 Cellulitis of right lower limb; K74.60 Unspecified cirrhosis of liver; Z59.00 Homelessness unspecified
CPT/HCPCS: 36415; 80053; 80307; 83605; 84145; 85025; 85610; 85652; 86140; 87040; 87070; 87077; 87186; 87205; 99283; A9270

== ENCOUNTER 2025-03-13 13:37 | Emergency (ER) | payer MEDICAID, SELFPAY ==
[2025-03-13 13:38] VITALS: BMI 28.7
--- NOTE | 2025-03-13 13:48 | PC.NURSE ---
no answer in lobby when called for vital signs
--- NOTE | 2025-03-13 13:58 | PC.NURSE ---
no answer in lobby when called for vital signs
--- NOTE | 2025-03-13 14:24 | XR_ITS ---
Examination: Venous duplex lower extremity sonogram, bilateral. Date and time of exam: March 13, 2025, 1447 hours INDICATIONS: Bilateral leg pain and swelling with nonhealing wounds in the legs 6 months Technique: Multiple sonographic images of the deep venous system have been obtained. B-mode/2-D grayscale imaging of vascular structures and Doppler spectral analysis (waveforms) and color performed Both legs are examined. Findings: Deep venous systems do not demonstrate abnormal echogenicity. No diagnostic visualization right posterior tibial, left posterior tibial veins All visualized deep veins exhibit compressibility. All visualized deep veins exhibit augmentation. Impression: No DVT demonstrated
--- NOTE | 2025-03-13 14:48 | PD.EDRME ---
Rapid Medical Screening Exam RME Arrival date/time: 03/13/25 13:37 50-year-old male with a history of liver cirrhosis presents to the emergency room with a chief complaint of bilateral lower extremity swelling. The patient also has bilateral lower extremity wounds. I have greeted and performed a focused initial assessment of this patient. A comprehensive ED assessment and evaluation of the patient, analysis of all test results, and completion of the medical decision making process will be conducted by additional ED providers. Chief Complaint: Extremity Injury, Lower Time Seen by Provider: 03/13/25 13:46 Vital signs reviewed by provider: Yes
[2025-03-13 15:55] LABS: Lactate (Lactic Acid) 1.4 mMol/L (0.4-2.0)
[2025-03-13 15:59] LABS: Basophils # (Auto) 0.0 Thou/mm3 (0.0-0.2); Basophils % (Auto) 1 % (0-2.5); Eosinophils # (Auto) 0.1 Thou/mm3 (0.0-0.5); Eosinophils % (Auto) 3 % (0-10); Hematocrit 29.5 % (41.0-53.0); Hemoglobin 9.3 g/dL (13.5-16.0); Immature Granulocytes Auto 0.02 Thou/mm3 (0.00-0.00); Lymphocytes # (Auto) 0.8 Thou/mm3 (1.0-4.8); Lymphocytes % (Auto) 24 % (10-50); Mean Corpuscular HGB Conc 31.5 g/dl (31.0-37.0); Mean Corpuscular Hemoglobin 27.1 pg (25.0-35.0); Mean Corpuscular Volume 86 fL (80-100); Monocytes # (Auto) 0.3 Thou/mm3 (0.0-0.8); Monocytes % (Auto) 11 % (0-12); Neutrophils # (Auto) 1.9 Thou/mm3 (1.8-7.7); Neutrophils % (Auto) 60 % (37-80); Nucleated Red Blood Cell # 0.00 Thou/mm3 (0.00-0.00); Nucleated Red Blood Cell % 0 /100 WBC (0); Platelet Count 100 Thou/mm3 (140-440); RDW Standard Deviation 50.4 fL (35.1-43.9); Red Blood Count 3.43 Miln/mm3 (4.50-5.90); White Blood Count 3.1 Thou/mm3 (3.8-10.6)
[2025-03-13 16:24] LABS: INR 1.3 (0.9-1.3); Partial Thromboplastin Time 27.2 Seconds (22.0-36.0); Prothrombin Time 13.5 Seconds (9.0-12.2)
[2025-03-13 16:30] LABS: Alanine Aminotransferase < 7 U/L (10-49); Albumin, Serum 2.5 gm/dL (3.5-5.0); Albumin/Globulin Ratio 0.4 (1.2-2.2); Alkaline Phosphatase 89 U/L (46-116); Anion Gap 6 (7-16); Aspartate Amino Transferase 22 U/L (0-34); BUN/Creatinine Ratio 9 Ratio (12-20); Bilirubin,Total 0.7 mg/dL (0.3-1.2); Blood Urea Nitrogen 8 mg/dL (9-23); Calcium 8.5 mg/dL (8.3-10.6); Calcium (Corrected) 9.7 mg/dL (8.5-10.1); Carbon Dioxide 27.4 mMol/L (20.0-31.0); Chloride 103 mMol/L (98-107); Creatinine (Component) 0.9 mg/dL (0.6-1.3); Estimated Creatinine Clearance 108.8 mL/min (>60); Globulin 6.4 gm/dL (2.3-3.5); Glucose 97 mg/dL (74-106); Osmolality,Calculated 270 (275-295); Potassium 4.1 mMol/L (3.4-5.1); Procalcitonin 0.09 ng/ml (0.0-0.49); Sodium 136 mMol/L (136-145); Total Protein 8.9 gm/dL (5.7-8.2); eGFR > 60 See Note
--- NOTE | 2025-03-13 21:00 | PC.NURSE ---
CALLED PT OUTSIDE OF ER AND IN ER LOBBY AND NO ANSWER.
--- NOTE | 2025-03-13 21:10 | PC.NURSE ---
CALLED PT IN ER LOBBY AND OUTSIDE OF ER FOR VITALS AND NO ANSWER.
--- NOTE | 2025-03-13 21:14 | PC.NURSE ---
CALLED PT IN ER LOBBY AND OUTSIDE AND NO ANSWER.
== END 2025-03-13 21:16 | disposition left against medical advice (07) ==
LOC: SERX 16:35
PROVIDERS: Emergency Provider Nurse Practitioner Family
DX: M79.89 Other specified soft tissue disorders (principal); K74.60 Unspecified cirrhosis of liver; Z53.29 Procedure and treatment not carried out because of patient's decision for other reasons
CPT/HCPCS: 36415; 80053; 81001; 83605; 84145; 85025; 85610; 85730; 93970; 99283

== ENCOUNTER 2025-03-24 14:34 | Emergency (ER) | payer MEDICAID, SELFPAY ==
[2025-03-24 14:43] VITALS: BP 119/72; PULSE 82; RESP 18; TEMP 36.8; O2SAT 98
--- NOTE | 2025-03-24 14:50 | EDRME_ITS ---
Rapid Medical Screening Exam [facility] Arrival date/time: 03/24/25 14:34 50-year-old male with a history of substance abuse, cirrhosis of the liver, presents to the emergency room with a chief complaint of bilateral lower extremity swelling. Patient states he would also like his wounds in his legs replaced as they are draining I have greeted and performed a focused initial assessment of this patient. A comprehensive ED assessment and evaluation of the patient, analysis of all test results, and completion of the medical decision making process will be conducted by additional ED providers. Chief Complaint: General Adult/Misc Complain Vital signs: Vital Signs Temperature 98.2 F 03/24/25 14:43 Pulse Rate 82 03/24/25 14:43 Respiratory Rate 18 03/24/25 14:43 Blood Pressure 119/72 03/24/25 14:43 Pulse Oximetry (%) 98 03/24/25 14:43 Oxygen Delivery Method Room Air 03/24/25 14:43 Vital signs reviewed by provider: Yes
--- NOTE | 2025-03-24 15:59 | PC.NURSE ---
Patient eloped ED, patient refused to sign AMA form, patient educated on risk vs benefit. Patient states I don't need any tests, I had them done 4 days ago . Patient bilateral leg wounds cleaned and dressings changed. Patient left ED in personal WC.
== END 2025-03-24 16:08 | disposition left against medical advice (07) ==
PROVIDERS: Emergency Provider Family Medicine
DX: K74.60 Unspecified cirrhosis of liver (principal); Z53.29 Procedure and treatment not carried out because of patient's decision for other reasons
CPT/HCPCS: 80053; 83605; 83690; 84145; 85025; 85652; 86140; 87040; 99284

== ENCOUNTER 2025-05-29 04:13 | Inpatient (IN) | payer MEDICAID, SELFPAY ==
[2025-05-29] VITALS (16 sets, daily range): BP systolic 91–141; BP diastolic 49–87; PULSE 76–97; RESP 14–98; TEMP 36–36.9; O2SAT 89–99
--- NOTE | 2025-05-29 06:04 | EKG_ITS ---
[facility] Test Date: 2025-05-29 Pat Name: JUVENAL LOMELI Department: Room: - Gender: Male Thread Laster: : 1975 Requested By: Rosibel Li Order Number: [id number] Reading MD: Rosibel Li Measurements Intervals [place] Rate: 92 P: 59 MD: 149 QRS: 32 QRSD: 107 T: 47 QT: 366 QTc: 453 Interpretive Statements SINUS RHYTHM Compared to ECG 02/11/2025 06:47:45 Myocardial infarct finding no longer present /store/S0/[id number]/[id number].pdf
[2025-05-29 06:18] LABS: Collection Type, Urine Clean Catch
--- NOTE | 2025-05-29 06:39 | XR_ITS ---
Examination: CT right lower leg with intravenous contrast, 2-D sagittal reconstructions. 2-D coronal reconstructions. 3-D reconstructions. Date and time of exam: May 29, 2025, 1305 hours, comparison February 08, 2025 INDICATIONS: Nonhealing wound right leg with pain swelling and drainage today CTDI: vol (mGy): 13.4 DLP: (mGycm): 1459 Technique: Multiple 1.25 mm axial sections of the right lower extremity post intravenous administration 60 cc Isovue-370 have been obtained. 2-D sagittal and coronal reconstructions have been obtained. 3-D reconstructions have been obtained. Low dose protocols were performed. One or more of the following dose reduction techniques were used; automated exposure control, adjustment of the mA and/or KV according to patient size, use of iterative reconstruction technique. Findings: Advanced right hip osteoarthritis Extensive edema in the subcutaneous fatty tissues surrounding the thigh and femur Atrophy of the flexor and extensor muscles Extensive edema in the subcutaneous fatty tissues surrounding the knee and severe around the lower leg with marked skin thickening Soft tissue mass lateral lower leg, coronal image 101, axial image 351, 3.7 x 1.6 x 3.0 cm No dana cortical bone destruction No endosteal scalloping IMPRESSION: Advanced right hip osteoarthritis Diffuse severe cellulitis in the subcutaneous fatty tissues surrounding the femur and tibia fibula Negative for osteomyelitis Soft tissue mass lateral lower leg at the skin surface, 3.7 x 1.6 x 3.0 cm, clinical correlation advised
--- NOTE | 2025-05-29 06:44 | XR_ITS ---
Examination: CT pelvis without intravenous contrast. 2-D sagittal and coronal reconstructions. Date and time of exam: May 29, 2025, 0809 hours INDICATIONS: Patient fell today with injury to the right hip, right hip pain CTDI: vol (mGy) : 14.1 DLP: (mGycm) : 533 Technique: Multiple 3 mm axial sections of the pelvis have been obtained with the 64 slice high resolution scanner. 2-D sagittal and coronal reconstructions. Low dose protocols were performed. One or more of the following dose reduction techniques were used; automated exposure control, adjustment of the mA and/or KV according to patient size, use of iterative reconstruction technique. Findings: Old deformity right hip with advanced right hip osteoarthritis Iliac bones acetabular region intact, right superior-inferior pubic rami intact Left hip intact Moderate to advanced left hip osteoarthritis Findings of prior reduction internal fixation hip fractures Partial visualization massive splenomegaly IMPRESSION: No acute hip or pelvic fracture Advanced right moderate to advanced left hip osteoarthritis Massive splenomegaly
[2025-05-29 06:51] LABS: INR 1.3 (0.9-1.3); Partial Thromboplastin Time 27.6 Seconds (22.0-36.0); Prothrombin Time 13.5 Seconds (9.0-12.2)
[2025-05-29] MEDS: DOXYCYCLINE INJ 100 MG in SODIUM CHLORIDE 0.9% (POP) 100 ML IV (06:52)
[2025-05-29 06:57] LABS: Bacteria,Urine Rare; Bilirubin,Urine 1+ (Negative); Blood,Urine 2+ (Negative); Color,Urine Drk-Yellow (Lt Yel-Yel); Culture Indicated,Urine Not Indicated; Glucose, Urine Negative (Negative); Ketones,Urine Negative (Negative); Leukocyte Esterase,Urine Negative (Negative); Nitrite,Urine Negative (Negative); PH,Urine 6.5 (5.0-7.0); Protein,Urine 1+ (Neg - Trace); RBC,Urine 42 /hpf (0-3); Specific Gravity,Urine 1.030 (1.001-1.035); Squamous Epithelial Cell,Urine 2 /hpf (0-5); Transitional Epi Cells,Urine < 1 /hpf (0-5); Urobilinogen,Urine 8.0 mg/dL (0.0-1.0); WBC,Urine 2 /hpf (0-5)
[2025-05-29 06:58] LABS: Clarity,Urine Hazy (Clear/Hazy)
[2025-05-29 07:05] LABS: Sed Rate (ESR) 53 mm/hr (0-20)
[2025-05-29 07:05] LABS: Amphetamine/Methamp Scrn,U Positive (Negative); Barbiturate Screen,Urine Negative (Negative); Benzodiazepines Screen,Urine Negative (Negative); Benzoylecgonine Screen, Ur Negative (Negative); Fentanyl Screen,Urine Positive (Negative); Opiate Screen,Urine Negative (Negative); THC Screen,Urine Negative (Negative)
[2025-05-29 07:07] LABS: Lactate (Lactic Acid) 1.3 mMol/L (0.4-2.0)
[2025-05-29 07:11] LABS: Basophils # (Auto) 0.1 Thou/mm3 (0.0-0.2); Basophils % (Auto) 1 % (0-2.5); Eosinophils # (Auto) 0.7 Thou/mm3 (0.0-0.5); Eosinophils % (Auto) 11 % (0-10); Hematocrit 28.8 % (41.0-53.0); Hemoglobin 9.6 g/dL (13.5-16.0); Immature Granulocytes Auto 0.03 Thou/mm3 (0.00-0.00); Lymphocytes # (Auto) 0.9 Thou/mm3 (1.0-4.8); Lymphocytes % (Auto) 15 % (10-50); Mean Corpuscular HGB Conc 33.3 g/dl (31.0-37.0); Mean Corpuscular Hemoglobin 27.7 pg (25.0-35.0); Mean Corpuscular Volume 83 fL (80-100); Monocytes # (Auto) 0.7 Thou/mm3 (0.0-0.8); Monocytes % (Auto) 11 % (0-12); Neutrophils # (Auto) 3.9 Thou/mm3 (1.8-7.7); Neutrophils % (Auto) 63 % (37-80); Nucleated Red Blood Cell # 0.00 Thou/mm3 (0.00-0.00); Nucleated Red Blood Cell % 0 /100 WBC (0); Platelet Count 168 Thou/mm3 (140-440); RDW Standard Deviation 45.8 fL (35.1-43.9); Red Blood Count 3.46 Miln/mm3 (4.50-5.90); White Blood Count 6.2 Thou/mm3 (3.8-10.6)
[2025-05-29 07:13] LABS: Alanine Aminotransferase 19 U/L (10-49); Albumin, Serum 2.7 gm/dL (3.5-5.0); Albumin/Globulin Ratio 0.5 (1.2-2.2); Alkaline Phosphatase 81 U/L (46-116); Anion Gap 1 (7-16); Aspartate Amino Transferase 81 U/L (0-34); BUN/Creatinine Ratio 11 Ratio (12-20); Bilirubin,Total 1.1 mg/dL (0.3-1.2); Blood Urea Nitrogen 10 mg/dL (9-23); Calcium 7.8 mg/dL (8.3-10.6); Calcium (Corrected) 8.8 mg/dL (8.5-10.1); Carbon Dioxide 27.8 mMol/L (20.0-31.0); Chloride 101 mMol/L (98-107); Creatinine (Component) 0.9 mg/dL (0.6-1.3); Globulin 5.5 gm/dL (2.3-3.5); Glucose 116 mg/dL (74-106); Lipase 25 U/L (12-53); Magnesium 1.7 mg/dL (1.6-2.6); Osmolality,Calculated 260 (275-295); Potassium 5.1 mMol/L (3.4-5.1); Procalcitonin 0.32 ng/ml (0.0-0.49); Sodium 130 mMol/L (136-145); Total Protein 8.2 gm/dL (5.7-8.2); Troponin I < 0.002 ng/mL (0.0-0.045); eGFR > 60 See Note
[2025-05-29 07:36] LABS: B-Type Natriuretic Peptide < 20 pg/mL (0-100)
[2025-05-29] MEDS: VANCOMYCIN/NS 1 GM IVPB 200 ML IV (08:44)
--- NOTE | 2025-05-29 12:30 | PD.EDEXREM ---
ED Extremity Problem RME/HPI General Chief complaint: General Adult/Misc Complain Stated complaint: LOWER EXTREMITY LEAKAGE Time Seen by Provider: 05/29/25 06:01 Arrival date/time: 05/29/25 04:13 RME / HPI RME / HPI Narrative: 50 year old male with history of liver cirrhosis, hepatitis C, chronic venous stasis bilateral lower extremities, esophageal varices, fentanyl and methamphetamine use presents to the ED BIB[facility] for evaluation of right lower extremity pain today. Patient states 4 days ago he fell from his wheelchair down to the floor and landing on his right side. States since the fall, the pain to the right leg and right hip has remained constant. Aggravated with movements with no known modifying factors. Denies any fevers. Related Data Previous Rx's ?Medication ?Instructions ?Recorded acetaminophen 325 mg tablet 325 mg PO QID PRN fever or pain 02/11/25 (Tylenol) #14 tabs levofloxacin 750 mg tablet 750 mg PO QDAY #12 tabs 02/11/25 clindamycin HCl 300 mg capsule 300 mg PO TID #21 caps 02/25/25 Allergies Allergy/AdvReac Type Severity Reaction Status Date / Time Cephalexin Monohydrate Allergy Severe Swelling Verified 03/24/25 14:37 of Lip/Tongue/Throat cephalexin (From Keflex) Allergy Verified 03/24/25 14:37 Review of Systems Review of Systems Systems Reviewed: All systems reviewed, normal except as documented Past Medical History Past Medical History NEUROLOGIC: Positive Neurological Disorders and Seizures CARDIAC: Positive Cardiac Disorders, Congestive Heart Failure, Edema and Hypertension RESPIRATORY: Positive Chronic Obstructive Pulmonary Disease (COPD) and Sleep Apnea GASTROINTESTINAL: Positive Gastrointestinal Disorders, Hepatitis, Cirrhosis, Gastrointestinal Bleed, Esophageal Varices, Ulcer, Gastroesophageal Reflux Disease and Obesity GENITOURINARY: Positive Genitourinary Disorders, Renal Disease and Benign Prostatic Hyperplasia MUSCULOSKELETAL: Positive Musculoskeletal Disorders and Fractures ENDOCRINE: Positive Endocrine Disorders and Systemic Lupus Erythematosus PSYCHO/SOCIAL: Positive Recreational Drug Use, Depression and Anxiety OTHER HISTORY: Positive Falls, Blood Transfusions and Anesthesia Reactions Family History FAMILY HISTORY: Positive Family Cardiac Disorders, Family Gastrointestinal Problems and Family Surgery Surgical History SURGICAL: Positive Tonsillectomy and Abdominal Surgery Social History SMOKING STATUS: Current every day smoker ED Exam Narrative Physical exam: GENERAL APPEARANCE: alert and oriented x 4, well-developed, obese HEENT: Normocephalic, atraumatic; pupils equal, round, reactive to light; EOMI; mucous membranes pink, moist; oropharynx clear NECK: Supple LUNGS: CTABL; no wheezes, no rales, no rhonchi HEART: Regular rate, regular rhythm; normal S1, S2; no murmurs ABDOMEN: non distended; normal BS; soft, no tenderness, no guarding, no rebound; no masses, no organomegaly, no hernia EXTREMITIES: right lower leg with an area that is indurated and erythematous with a soft polypoid appearing mass vs hemangioma measuring 2.5cm x 1cm; no edema NEUROLOGIC: awake; alert and oriented x4; cranial nerves II-XII grossly intact SKIN: warm, dry, normal color; no rashes Course Course Course Narrative: 1415: I spoke with hospitalist team B for admission. Quality Measures none Orders Category Date Time Status Admit to Inpatient Status Routine Admission 05/29/25 15:20 Active Patient Condition Routine Admission 05/29/25 15:20 Ordered Aspiration precautions NOW Care 05/29/25 15:[address] Screening NOW Care 05/29/25 06:41 Active Continuous Pulse Oximetry NOW Care 05/29/25 15:25 Active EKG (ED ONLY) *Do not use* NOW Care 05/29/25 06:04 Completed May take PO meds w/sips of H2O NEEDED Care 05/29/25 15:20 Active NPO NOW Care 05/29/25 15:24 Active Neuro Check Q4H Care 05/29/25 15:20 Active Notify provider NEEDED Care 05/29/25 15:20 Active Obtain weight daily Care 05/29/25 15:24 Active Strict Intake and Output Routine Care 05/29/25 15:23 Ordered Urinary Catheter QS Care 05/29/25 15:20 Active Referral Wound Care Stat Cons 05/29/25 15:34 Active Diet NPO (NOW) Diet 05/29/25 15:[address] lower leg RT w con Stat Exams 05/29/25 06:[address] pelvis wo con Stat Exams 05/29/25 06:44 Completed EKG (ED Only) Stat Exams 05/29/25 06:04 Draft B-Type Natriuretic Peptide Stat Lab 05/29/25 05:27 Completed Blood Culture (Lab) Stat Lab 05/29/25 06:12 Received CBC AM DRAW Lab 05/30/25 05:00 Ordered CBC AM DRAW Lab 05/31/25 05:00 Ordered CBC AM DRAW Lab 06/01/25 05:00 Ordered CBC Stat Lab 05/29/25 05:27 Completed Comprehensive Metabolic Panel AM DRAW Lab 05/30/25 05:00 Ordered Comprehensive Metabolic Panel AM DRAW Lab 05/31/25 05:00 Ordered Comprehensive Metabolic Panel AM DRAW Lab 06/01/25 05:00 Ordered Comprehensive Metabolic Panel Stat Lab 05/29/25 05:27 Completed Drug Screen,Urine Stat Lab 05/29/25 06:09 Completed ESR [Sed Rate (ESR)] Stat Lab 05/29/25 05:27 Completed Lactate (Lactic Acid) Stat Lab 05/29/25 06:41 Completed Lipase Stat Lab 05/29/25 05:27 Completed Lipid Panel AM DRAW Lab 05/30/25 05:00 Ordered Magnesium Stat Lab 05/29/25 05:27 Completed Partial Thromboplastin Time AM DRAW Lab 05/30/25 05:00 Ordered Partial Thromboplastin Time Stat Lab 05/29/25 05:27 Completed Procalcitonin Stat Lab 05/29/25 05:27 Completed Prothrombin Time with INR AM DRAW Lab 05/30/25 05:00 Ordered Prothrombin Time with INR Stat Lab 05/29/25 05:27 Completed Troponin I Stat Lab 05/29/25 05:27 Completed UA, C/S IF [Urinalysis, C/S if Indicated] Stat Lab 05/29/25 06:09 Completed Acetaminophen Tab [Tylenol Tab] Med 05/29/25 15:25 Active 325 mg PO Q6H PRN Albuterol/Ipratr Rt Rosamaria [Duoneb Rt Rosamaria] Med 05/29/25 15:25 Active 3 ml INH Q2HR PRN Cefepime Inj [Maxipime Inj] 2 gm Med 05/29/25 15:33 Ordered SODIUM CHLORIDE 0.9% (Popper) [Ns 0.9% (P)] 50 ml IV Q8HR Doxycycline Inj [Vibramycin Inj] 100 mg Med 05/29/25 06:28 Discontinued Sodium Chloride 0.9% (Pop) [NS 0.9% mini bag] 100 ml IV X1 HYDROmorphone INJ [Dilaudid Inj] Med 05/29/25 12:30 Discontinued 1 mg IVP X1 ONE Heparin Inj Med 05/29/25 15:30 Active 5,000 unit SC Q12H LORazepam [Ativan] Med 05/29/25 15:35 Ordered 0.5 mg PO Q4HR PRN LORazepam [Ativan] Med 05/29/25 15:35 Ordered 1 mg PO Q4HR PRN LORazepam [Ativan] Med 05/29/25 15:35 Ordered 2 mg PO Q4HR PRN Lidocaine 2% Viscous [Xylocaine 2% Viscous] Med 05/29/25 15:06 Discontinued 15 ml TOP X1 ONE Ondansetron Inj [Zofran Inj] Med 05/29/25 15:25 Active 4 mg IVP Q6H PRN Ondansetron Inj [Zofran Inj] Med 05/29/25 12:30 Discontinued 4 mg IVP X1 ONE Pantoprazole [Protonix] Med 05/30/25 09:00 Active 40 mg PO QDAY Piper/Tazo 3.375 gm Premix [Zosyn] Med 05/29/25 06:20 Discontinued 3.375 gm in 50 ml IV X1 Senna [Senokot] Med 05/29/25 15:25 Active 1 tab PO QDAY PRN Sodium Chloride 0.9% 1000 ml [Ns] 1,000 ml Med 05/29/25 12:29 Discontinued IV 999 mls/hr Vancomycin Pharmacy to Dose Med 05/30/25 09:00 Ordered 1 each IV QDAY Vancomycin/Ns 1 gm Ivpb 200 ml Med 05/29/25 06:20 Discontinued IV X1 Code Status Routine Oth 05/29/25 15:20 Ordered Oxygen Delivery PRN RT 05/29/25 15:20 Active Vital Signs Vital signs: Vital Signs Temperature 98.2 F 05/29/25 04:16 Pulse Rate 96 05/29/25 04:16 Respiratory Rate 16 05/29/25 04:16 Blood Pressure 141/87 H 05/29/25 04:16 Pulse Oximetry (%) 89 L 05/29/25 04:16 Oxygen Delivery Method Room Air 05/29/25 04:16 Extremity Problem MDM Narrative MDM Narrative:: [place] Anguiano am scribing for and in the presence of Dr. Parr. Patient data External records reviewed:: [facility] previous records Clinical information provided by:: patient Social determinants that could affect healthcare access:: substance use Patient has the following chronic illnesses:: liver cirrhosis, hepatitis C, chronic venous stasis bilateral lower extremities, esophageal varices, fentanyl and methamphetamine use How is presenting disease/condition affected by chronic disease/condition?: exacerbated by Evaluation data The following diagnostics were reviewed and interpreted by me:: lab results, radiology exam(s) and EKG tracing(s) (EKG @ 08:22 AM. Normal sinus rhythm, rate 92, no STEMI. ) Lab and/or radiology exams considered but not ordered:: None Interpretation Summary: Ordering Physician: Rosibel Parr MD Date of Service: 05/29/25 Procedure(s): CT lower leg RT w con Accession Number(s): [id number] cc: Jonny Mejia MD; NO PRIMARY/FAMILY,PHYSICIAN; Rosibel Parr MD~ Examination: CT right lower leg with intravenous contrast, 2-D sagittal reconstructions. 2-D coronal reconstructions. 3-D reconstructions. Date and time of exam: May 29, 2025, 1305 hours, comparison February 08, 2025 INDICATIONS: Nonhealing wound right leg with pain swelling and drainage today CTDI: vol (mGy): 13.4 DLP: (mGycm): 1459 Technique: Multiple 1.25 mm axial sections of the right lower extremity post intravenous administration 60 cc Isovue-[id number] have been obtained. 2-D sagittal and coronal reconstructions have been obtained. 3-D reconstructions have been obtained. Low dose protocols were performed. One or more of the following dose reduction techniques were used; automated exposure control, adjustment of the mA and/or KV according to patient size, use of iterative reconstruction technique. Findings: Advanced right hip osteoarthritis Extensive edema in the subcutaneous fatty tissues surrounding the thigh and femur Atrophy of the flexor and extensor muscles Extensive edema in the subcutaneous fatty tissues surrounding the knee and severe around the lower leg with marked skin thickening Soft tissue mass lateral lower leg, coronal image 101, axial image 351, 3.7 x 1.6 x 3.0 cm No dana cortical bone destruction No endosteal scalloping IMPRESSION: Advanced right hip osteoarthritis Diffuse severe cellulitis in the subcutaneous fatty tissues surrounding the femur and tibia fibula Negative for osteomyelitis Soft tissue mass lateral lower leg at the skin surface, 3.7 x 1.6 x 3.0 cm, clinical correlation advised Dictated By: Jonny Mejia MD Signed By: <Electronically signed by Jonny Mejia MD in OV> 05/29/25 1345 Ordering Physician: Rosibel Parr MD Date of Service: 05/29/25 Procedure(s): CT pelvis wo con Accession Number(s): [id number] cc: Jonny Mejia MD; NO PRIMARY/FAMILY,PHYSICIAN; Rosibel Parr MD~ Examination: CT pelvis without intravenous contrast. 2-D sagittal and coronal reconstructions. Date and time of exam: May 29, 2025, 0809 hours INDICATIONS: Patient fell today with injury to the right hip, right hip pain CTDI: vol (mGy) : 14.1 DLP: (mGycm) : 533 Technique: Multiple 3 mm axial sections of the pelvis have been obtained with the 64 slice high resolution scanner. 2-D sagittal and coronal reconstructions. Low dose protocols were performed. One or more of the following dose reduction techniques were used; automated exposure control, adjustment of the mA and/or KV according to patient size, use of iterative reconstruction technique. Findings: Old deformity right hip with advanced right hip osteoarthritis Iliac bones acetabular region intact, right superior-inferior pubic rami intact Left hip intact Moderate to advanced left hip osteoarthritis Findings of prior reduction internal fixation hip fractures Partial visualization massive splenomegaly IMPRESSION: No acute hip or pelvic fracture Advanced right moderate to advanced left hip osteoarthritis Massive splenomegaly Dictated By: Jonny Mejia MD Signed By: <Electronically signed by Jonny Mejia MD in OV> 05/29/25 0901 Medications / Prescriptions Medications or Prescriptions considered but not ordered:: None Medication administrations:: Medication Administration History Acetaminophen (Acetaminophen 325 Mg Tablet) 325 mg PO Q6H PRN PRN Reason: Fever >101.5 or pain 1-3 Stop: 06/28/25 15:24 Albuterol/Ipratropium (Albuterol/Ipratropium (Duoneb) Rt Rosamaria 3 Ml Nebu) 3 ml INH Q2HR PRN PRN Reason: SHORTNESS OF BREATH OR WHEEZE Stop: 06/28/25 15:24 Heparin Sodium (Porcine) (Heparin Sod Inj 5000 Unit/Ml Vial) 5,000 unit SC Q12H ELIGIO Stop: 06/12/25 15:29 Cefepime HCl 2 gm/ Sodium (Chloride) 50 mls @ 100 mls/hr IV Q8HR ELIGIO Stop: 06/05/25 15:32 Lorazepam (Lorazepam 0.5 Mg Tablet) 0.5 mg PO Q4HR PRN PRN Reason: CIWA Score 2-6 Stop: 06/03/25 15:34 Lorazepam (Lorazepam 0.5 Mg Tablet) 1 mg PO Q4HR PRN PRN Reason: CIWA SCORE 7-11 Stop: 06/03/25 15:34 Lorazepam (Lorazepam 0.5 Mg Tablet) 2 mg PO Q4HR PRN PRN Reason: CIWA SCORE 12-15 Stop: 06/03/25 15:34 Ondansetron HCl (Ondansetron Inj 2 Mg/Ml Inj 2 Ml) 4 mg IVP Q6H PRN; Protocol PRN Reason: NAUSEA OR VOMITING Stop: 06/28/25 15:24 Pantoprazole Sodium (Pantoprazole 40 Mg Tablet) 40 mg PO QDAY [facility] Stop: 06/29/25 08:59 Pharmacy Consult (Vancomycin Pharmacy To Dose 1 Each Each) 1 each IV QDAY ELIGIO Stop: 06/29/25 08:59 Sennosides (Senna Tablet) 1 tab PO QDAY PRN; Protocol PRN Reason: constipation Stop: 06/28/25 15:24 Discontinued Medications Hydromorphone HCl (Hydromorphone Inj 2 Mg/Ml Vial) 1 mg IVP X1 ONE Stop: 05/29/25 12:31 Last Admin: 05/29/25 12:40 Dose: 1 mg Documented By: VL Vancomycin/Sodium Chloride (Vancomycin/Ns 1 Gm Ivpb) 200 mls @ 120 mls/hr IV X1 ONE Stop: 05/29/25 07:59 Last Infusion: 05/29/25 10:25 Dose: Infused Documented By: Admin: 05/29/25 08:44 Dose: 120 mls/hr Documented By: EF Piperacillin/Tazobactam/Dextrose (Zosyn) 3.375 gm in 50 mls @ 100 mls/hr IV X1 ONE; Protocol Stop: 05/29/25 06:49 Last Admin: 05/29/25 06:33 Dose: Not Given Documented By: AAKASH Non-Admin Reason: Cancelled by Provider Doxycycline Hyclate 100 mg/ (Sodium Chloride) 100 mls @ 100 mls/hr IV X1 ONE Stop: 05/29/25 07:27 Last Infusion: 05/29/25 07:52 Dose: Infused Documented By: Admin: 05/29/25 06:52 Dose: 100 mls/hr Documented By: AAKASH Sodium Chloride (Ns) 1,000 mls @ 999 mls/hr IV .Q1H1M ONE Stop: 05/29/25 13:29 Last Infusion: 05/29/25 13:40 Dose: Infused Documented By: Admin: 05/29/25 12:39 Dose: 999 mls/hr Documented By: JANETTE Lidocaine HCl (Lidocaine Viscous 2% 15 Ml Udc) 15 ml TOP X1 ONE Stop: 05/29/25 15:07 Ondansetron HCl (Ondansetron Inj 2 Mg/Ml Inj 2 Ml) 4 mg IVP X1 ONE; Protocol Stop: 05/29/25 12:31 Last Admin: 05/29/25 12:40 Dose: 4 mg Documented By: JANETTE See above Consultations Consultation(s) initiated? (list below): Yes Consultation #1 (Physician, Specialty, Details): See course Diagnosis Extremity Problem Differential Diagnosis: gout, cellulitis and deep vein thrombosis of lower extremity Most likely diagnosis given after review of the tests above:: Celllulitis of lower extremity Admission Indicated Admission indicated?: indicated Admission Request Was there a request for admission?: Yes Admission Attestation Admission request attestation: Discussed case with [] from Hospitalist service regarding admission. Discussed patients ED course, exam findings, labs, and radiology results. The Hospitalist [agrees,declines] to accept the patient for admission. Disposition Plan Disposition Plan: Admit Discharge Plan Plan Patient Disposition: Admit Acute Care w/in Hospital Prescriptions/Referrals Prescriptions/Med Rec: No Action levofloxacin 750 mg tablet 750 mg PO QDAY Qty: 12 0RF acetaminophen [Tylenol] 325 mg tablet 325 mg PO QID PRN (Reason: fever or pain) Qty: 14 0RF clindamycin HCl 300 mg capsule 300 mg PO TID Qty: 21 0RF Referrals: No Primary/Family,Physician [Primary Care Provider] - In 1 week Problem List Clinical Impression: Cellulitis of lower extremity Patient/Caregiver Discharge Instructions Print Language: Vietnamese Stand Alone Forms: Anjali Award Info., Patient Portal Info Letter
[2025-05-29] MEDS: SODIUM CHLORIDE 0.9% 1000 ML 1,000 ML 999 ML IV (12:39)
[2025-05-29] MEDS: HYDROmorphone INJ 2 MG/ML VIAL 1 MG IVP (12:40)
[2025-05-29] MEDS: ONDANSETRON INJ 2 MG/ML INJ 2 ML 4 MG IVP (12:40)
--- NOTE | 2025-05-29 14:48 | ESHP_ITS ---
<Statement entered by Oscar Sosa MD - 05/30/25 05:17> Patient was seen and examined at bedside. I agree on the assessment and plan on this note as documented by resident Nyla Chan DO PGY1. 50-year-old male with past medical history of fentanyl and methamphetamine use, homelessness, compensated liver cirrhosis with history of esophageal varices grade 3 secondary to hepatitis C, splenomegaly, chronic venous stasis who presented to [facility] for right leg pain, patient assessed in ED has significant swelling of the right leg with desquamation excoriation and a 3 x 3 soft tissue mass on the lateral aspect of the right lower leg. Patient is unable to provide history, reports that he took 3 hits of fentanyl prior to coming to the ED. Does report alcohol use in the past, otherwise review of labs show platelet count 168, hemoglobin 9.6 INR 1.3 lactate was unremarkable, mild hypoalbuminemia of 2.7 noted on CMP. Denies any blood in stool or hematemesis. Patient will be started on broad-spectrum antibiotics Zosyn and vancomycin for cellulitis, will start on CIWA protocol, general surgery will be consulted for further recommendations. Patient will be admitted to telemetry due to concern of alcohol withdrawal and underlying acute encephalopathy, will continue to monitor patient. Case discussed with attending Dr. Davion Ramírez, DO Oscar Sosa MD PGY-2 Documentation for date of: 05/29/25 HPI History of Present Illness Chief complaint: GI Bleed History of present illness: Mr. Caruso is a 50-year-old male with past medical history of fentanyl and methamphetamine use disorder, homelessness, decompensated liver cirrhosis with history of esophageal varices grade 3 secondary to hepatitis C, splenomegaly and chronic venous stasis bilateral lower extremity with skin thickening who presented to [facility] emergency department on May 29, 2025 with a chief complaint worsening Rt leg erythema, pain, and swelling of the RLE which started 6y ago, and has been waxing and waning in intensity. Patient fell from his wheelchair down to the floor about 4 days ago. Patient states that since the fall, the pain to the right leg and right hip has remained constant, worse with movement. Patient is very lethargic and a poor historian, He is alert and oriented x 2, and states that he had three puffs of fentanyl before presentation. Apparently, denies fevers, chills, chest or abdominal pain, nausea, vomiting, or diarrhea, or blood in the urine, stool. ED course: VSS: BP 91/64, HR 76, RR 19, T97.5, O2 98% on RA. Notable labs Hgb 9.6, ESR 53H, Na 133, LA 1.3. Urinalysis positive for 2+ blood. UTOX positive for fentanyl and amphetamine. in the ED patient received doxycycline 100 mg, vancomycin, hydromorphone 1 mg, and Zofran [address] of the right leg showed diffuse severe cellulitis in the subcutaneous fatty tissues surrounding the femur and tibia fibula. Negative for osteomyelitis. Soft tissue mass at the lateral lower leg at the skin surface 3.7 x 1.[address] of the pelvis positive for massive splenomegaly EKG showed normal sinus rhythm Allergies: Keflex Meds: Patient does not take any PMH: CHF, edema, hypertension, COPD, sleep apnea, Hepatitis, cirrhosis, GI bleed, esophageal varices, ulcer, GERD, obesity, benign prostatic hyperplasia, SLE, anxiety, depression, PSH: History of tonsillectomy and abdominal surgery FHx: Father had heart failure SHx: Amphetamine and fentanyl use, admits to alcohol use 1 fireball whiskey bottle in 3 days. Review of Systems Review of Systems ROS Unobtainable: unobtainable due to mental status Past Medical History Past Medical History Comments PMH COMMENT: PMH: Positive for fentanyl and methamphetamine use disorder, homelessness, decompensated liver cirrhosis with history of esophageal varices grade 3 secondary to hepatitis C, splenomegaly and chronic venous stasis bilateral lower extremity with skin thickening PSHx: Unobtainable, appendectomy per chart review Allergies: Cephalexin-swelling of lips/tongue/throat Social history: -Smoking: Current active smoker -Alcohol Use: Has history of significant alcohol use -Illicit Drug Use: Urine tox screen positive for fentanyl and methamphetamine, was positive in the past as well -Occupation: Homeless Family History: No pertinent family history Exam Vital Signs Temp Pulse Resp BP Pulse Ox O2 Del Method O2 Flow Rate 97.5 F 76 19 91/64 98 Room Air 3 05/29/25 14:34 05/29/25 14:34 05/29/25 14:34 05/29/25 14:34 05/29/25 14:34 05/29/25 14:34 05/29/25 12:36 Narrative Exam Physical Exam General: Tired, somnolent, irritable, engages in conversation?limited answers. HEENT: Normocephalic, atraumatic, mucous membranes moist. Heart: Regular rate and rhythm, no murmurs. Lungs: Low pitched wheezing in bilateral lower lobes Abdomen: Soft, obese, minimal generalized tenderness, positive bowel sounds. ?No guarding or rebound tenderness. Neurologic: Alert and oriented x3, no gross neurological deficit, and patient able to move all 4 extremities. Extremities: Bilateral lower extremity venous stasis dermatitis vs lymphadenopathy with significant skin thickening, redness and tenderness noted on right leg, right leg more swollen than left. Right lower leg with an area that is indurated and erythematous with a soft polypoid appearing mass vs hemangioma measuring 2.5cm x 1cm; no edema Skin: Thickening of skin noted on lower extremities, multiple tattoos. Results: Labs 05/31/25 05:15 05/31/25 05:15 Labs: Short CBC 05/29/25 Range/Units 05:27 WBC 6.2 (3.8-10.6) Thou/mm3 Hgb 9.6 L (13.5-16.0) g/dL Hct 28.8 L (41.0-53.0) % Plt Count 168 (140-440) Thou/mm3 BMP 05/29/25 05:27 Sodium 130 L Potassium 5.1 Chloride 101 Carbon Dioxide 27.8 BUN 10 Creatinine 0.9 Glucose 116 H Calcium 7.8 L Cardiac Enzymes 05/29/25 Range/Units 05:27 Troponin I < 0.002 (0.0-0.045) ng/mL Liver Function 05/29/25 Range/Units 05:27 Total Bilirubin 1.1 (0.3-1.2) mg/dL AST 81 H (0-34) U/L ALT 19 (10-49) U/L Alkaline Phosphatase 81 (46-116) U/L Albumin 2.7 L (3.5-5.0) gm/dL Urine 05/29/25 Range/Units 06:09 Urine Color Drk-Yellow A (Lt Yel-Yel) Urine Clarity Hazy (Clear/Hazy) Urine pH 6.5 (5.0-7.0) Ur Specific [place] 1.030 (1.001-1.035) Urine Protein 1+ A (Neg - Trace) Urine Glucose (UA) Negative (Negative) Quality Measures Quality Measures none Medications Home Medications and Allergies Home Medications ?Medication ?Instructions ?Recorded ?Confirmed ?Type No Known Home Medications 05/30/2505/20 History Allergies Allergy/AdvReac Type Severity Reaction Status Date / Time Cephalexin Monohydrate Allergy Severe Swelling Verified 03/24/25 14:37 of Lip/Tongue/Throat cephalexin (From Keflex) Allergy Verified 03/24/25 14:37 Visit Medications Discontinued Medications Hydromorphone HCl (Hydromorphone Inj 2 Mg/Ml Vial) 1 mg IVP X1 ONE Stop: 05/29/25 12:31 Last Admin: 05/29/25 12:40 Dose: 1 mg Vancomycin/Sodium Chloride (Vancomycin/Ns 1 Gm Ivpb) 200 mls @ 120 mls/hr IV X1 ONE Stop: 05/29/25 07:59 Last Infusion: 05/29/25 10:25 Dose: Infused Piperacillin/Tazobactam/Dextrose (Zosyn) 3.375 gm in 50 mls @ 100 mls/hr IV X1 ONE; Protocol Stop: 05/29/25 06:49 Last Admin: 05/29/25 06:33 Dose: Not Given Doxycycline Hyclate 100 mg/ (Sodium Chloride) 100 mls @ 100 mls/hr IV X1 ONE Stop: 05/29/25 07:27 Last Infusion: 05/29/25 07:52 Dose: Infused Sodium Chloride (Ns) 1,000 mls @ 999 mls/hr IV .Q1H1M ONE Stop: 05/29/25 13:29 Last Admin: 05/29/25 12:39 Dose: 999 mls/hr Ondansetron HCl (Ondansetron Inj 2 Mg/Ml Inj 2 Ml) 4 mg IVP X1 ONE; Protocol Stop: 05/29/25 12:31 Last Admin: 05/29/25 12:40 Dose: 4 mg Assessment & Plan Plan Mr. Caruso is a 50-year-old male with past medical history of fentanyl and methamphetamine use disorder, homelessness, decompensated liver cirrhosis with history of esophageal varices grade 3 secondary to hepatitis C, splenomegaly and chronic venous stasis bilateral lower extremity who presented to [facility] emergency department on May 29, 2025 with worsening Rt leg erythema, pain, and swelling of the RLE. Pt admitted for in-hospital mgmt of cellulitis. #Cellulitis #Soft tissue mass Patient presented with worsening Rt leg swelling, desquamation, and excoriations. Present erythema, edema, and tenderness, and warmth. CT RLE showed diffuse severe cellulitis in the subcutaneous fatty tissues surrounding the femur, tibia and fibula. Negative for osteomyelitis. Also visualized soft tissue mass lateral lower leg at the skin surface measuring 3.7 x1.6 x3.0cm. Plan: -Zosyn 4.5g Q8h and vancomycin (05/29 - ) -referral to wound care -Surgery, Dr Gonzalez consulted, appreciate recs -strict ins and outs #Acute encephalopathy #Alcohol withdrawal, patient on CIWA protocol #Opiate dependence with withdrawal #Methamphetamine dependence Patient was lethargic at presentation, A&O x2, unable to answer questions appropriately. On PE, pinpoint pupils. Patient reported fentanyl use just before presentations and UDS was positive for both fentanyl and amphetamine. He also admits to chronic heavy drinking. Plan: - CIWA protocol in place - Ativan PO .5mg for CIWA 2-6 Q4h, 1mg for CIWA 7-11 Q4h, and 2mg CIWA 12-16 Q4h PRN - Patient advised to refrain from fentanyl and methamphetamine use #Grade 3 esophageal varices by history, status post banding November 2024 #Decompensated liver cirrhosis #Hepatitis C antibody positive, alcohol related liver disease Significant hepatosplenomegaly on physical exam, CT pelvis positive for massive splenomegaly CT chest abdomen pelvis (01/2025) showed cirrhosis, liver irregular contour with prominent hepatosplenomegaly, thickened gallbladder with suspected tiny gallstones, significant abdominal/pelvic lymphadenopathy, hepatic colopathy Plan: -IVP Protonix 40mg Qday Health Maintenance: Disposition: Telemetry Diet: NPO, in preparation for possible surgery PPx DVT: heparin 5000mg bid PPx GI: Protonix IV 40mg Qday Code Status: DNR, DNI This case was discussed with my attending physician, Dr. Ramírez, and senior resident, Dr Sosa. Nyla Chan, DO PGY I Attending Provider Attestation/Addendum I or my resident physicians have discussed care with the ED physician and I have made the decision to admit. I have discussed and was present for the essential components of the history, physical examination, diagnosis, and treatment plan with the resident. I agree with the patient's care as documented by the resident and amended herein by me. Orville Ramírez DO. Although this document has been carefully reviewed, there may still be some phonetic and other typographical errors. These errors are purely grammatical due to imperfections in the software program and should not be construed in any way to compromise the substance of the patient's medical care during this visit.
[2025-05-29] MEDS: HEPARIN SOD INJ 5000 UNIT/ML VIAL SC (17:53)
[2025-05-29 18:37] LABS: HIV (1&2) Antibody Rapid Non-Reactive
[2025-05-29] MEDS: PIPER/TAZO INJ 4.5 GM in SODIUM CHLORIDE 0.9% (POP) 100 ML IV (23:21)
[2025-05-30] VITALS (9 sets, daily range): BP systolic 93–121; BP diastolic 49–81; PULSE 84–90; RESP 10–25; TEMP 36.1–36.8; O2SAT 85–99
[2025-05-30] MEDS: KETOROLAC INJ 30 MG/ML VIAL 15 MG IVP (00:13)
[2025-05-30] MEDS: PIPER/TAZO INJ 4.5 GM in SODIUM CHLORIDE 0.9% (POP) 100 ML IV ×3 (05:53→21:17)
[2025-05-30 06:29] LABS: Basophils # (Auto) 0.1 Thou/mm3 (0.0-0.2); Basophils % (Auto) 2 % (0-2.5); Eosinophils # (Auto) 0.7 Thou/mm3 (0.0-0.5); Eosinophils % (Auto) 16 % (0-10); Hematocrit 25.8 % (41.0-53.0); Immature Granulocytes Auto 0.02 Thou/mm3 (0.00-0.00); Lymphocytes # (Auto) 0.9 Thou/mm3 (1.0-4.8); Lymphocytes % (Auto) 19 % (10-50); Mean Corpuscular HGB Conc 33.7 g/dl (31.0-37.0); Mean Corpuscular Hemoglobin 27.7 pg (25.0-35.0); Mean Corpuscular Volume 82 fL (80-100); Monocytes # (Auto) 0.4 Thou/mm3 (0.0-0.8); Monocytes % (Auto) 9 % (0-12); Neutrophils # (Auto) 2.5 Thou/mm3 (1.8-7.7); Neutrophils % (Auto) 54 % (37-80); Nucleated Red Blood Cell # 0.00 Thou/mm3 (0.00-0.00); Nucleated Red Blood Cell % 0 /100 WBC (0); Platelet Count 100 Thou/mm3 (140-440); RDW Standard Deviation 43.6 fL (35.1-43.9); Red Blood Count 3.14 Miln/mm3 (4.50-5.90); White Blood Count 4.6 Thou/mm3 (3.8-10.6)
[2025-05-30 06:34] LABS: Hemoglobin 8.7 g/dL (13.5-16.0)
[2025-05-30 06:42] LABS: INR 1.4 (0.9-1.3); Partial Thromboplastin Time 29.4 Seconds (22.0-36.0); Prothrombin Time 14.1 Seconds (9.0-12.2)
[2025-05-30 06:58] LABS: Alanine Aminotransferase 10 U/L (10-49); Albumin, Serum 2.2 gm/dL (3.5-5.0); Albumin/Globulin Ratio 0.5 (1.2-2.2); Alkaline Phosphatase 74 U/L (46-116); Anion Gap 6 (7-16); Aspartate Amino Transferase 28 U/L (0-34); BUN/Creatinine Ratio 13 Ratio (12-20); Bilirubin,Total 1.0 mg/dL (0.3-1.2); Blood Urea Nitrogen 10 mg/dL (9-23); Calcium 7.7 mg/dL (8.3-10.6); Calcium (Corrected) 9.1 mg/dL (8.5-10.1); Carbon Dioxide 26.4 mMol/L (20.0-31.0); Cardiac Risk Estimate 6.0 RATIO (4.0-6.7); Chloride 106 mMol/L (98-107); Cholesterol 66 mg/dL (132-200); Creatinine (Component) 0.8 mg/dL (0.6-1.3); Globulin 4.8 gm/dL (2.3-3.5); Glucose 67 mg/dL (74-106); HDL Cholesterol < 10 mg/dL (40-60); LDL Cholesterol,Calculated 39 mg/dL (0-130); Osmolality,Calculated 272 (275-295); Potassium 3.8 mMol/L (3.4-5.1); Sodium 138 mMol/L (136-145); Total Protein 7.0 gm/dL (5.7-8.2); Triglycerides 86 mg/dL (30-150); eGFR > 60 See Note
--- NOTE | 2025-05-30 08:43 | PD.RESCONSUL ---
HPI Data of Consult Requesting Physician: Davion Ramírez DO Admitting Provider: Davion Ramírez DO Attending Provider: Davion Ramírez DO Primary Care Provider: Physician No Primary/Family Consult Narrative History of present illness: Rickie Caruso is a 50 yo male with a PMH of multidrug use, liver cirrhosis, and chronis venous stasis in BLE presenting to the hospital with RLE pain after a fall from his wheelchair. He has been in a constant lethargic state unless stimulated with a loud voice or during examination of the RLE. He is in notable pain upon palpation of his right leg and requests to have it amputated because he is very uncomfortable. History is limited to current mental status. CT with contrast of the RLE was able to confirm severe cellulitis of the soft tissue around the tibia and fibula without signs of osteomyelitis. Soft tissue mass noted on superficial right lower leg. Pt noted to have many maggots covering his RLE cc:: cc: Davion Ramírez DO Review of Systems Review of Systems Systems Reviewed: All systems reviewed, normal except as documented Past Medical History Past Medical History GASTROINTESTINAL: Positive Cirrhosis PSYCHO/SOCIAL: Positive Recreational Drug Use OTHER HISTORY: Positive Hepatitis C Social History HOUSING: Homeless Exam Vital Signs Temp Pulse Resp BP Pulse Ox O2 Del Method O2 Flow Rate 97.3 F 84 21 H 113/81 98 Nasal Cannula 2 05/30/25 08:00 05/30/25 08:00 05/30/25 08:00 05/30/25 08:00 05/30/25 08:00 05/30/25 08:00 05/30/25 08:00 Constitutional Constitutional: disheveled and obtunded Routine Skin Exam Skin: Present dry, warm and wounds (Erythematous superficial anterolateral R leg wound distal to fibular head with live maggots. Severely malodorous with scaling. Lateral aspect has a necrotic mass containing coagulated blood, it is soft ) Results Labs 05/30/25 05:53 05/30/25 05:53 Labs: Short CBC 05/30/25 Range/Units 05:53 WBC 4.6 (3.8-10.6) Thou/mm3 Hgb 8.7 L (13.5-16.0) g/dL Hct 25.8 L (41.0-53.0) % Plt Count 100 L D (140-440) Thou/mm3 BMP 05/30/25 05:53 Sodium 138 Potassium 3.8 D Chloride 106 Carbon Dioxide 26.4 BUN 10 Creatinine 0.8 Glucose 67 L Calcium 7.7 L Liver Function 05/30/25 Range/Units 05:53 Total Bilirubin 1.0 (0.3-1.2) mg/dL AST 28 (0-34) U/L ALT 10 (10-49) U/L Alkaline Phosphatase 74 (46-116) U/L Albumin 2.2 L D (3.5-5.0) gm/dL Quality Measures Quality Measures none Medications Home Medications and Allergies Home Medications ?Medication ?Instructions ?Recorded ?Confirmed ?Type No Known Home Medications 05/30/25 05/30/25 History Allergies Allergy/AdvReac Type Severity Reaction Status Date / Time Cephalexin Monohydrate Allergy Severe Swelling Verified 03/24/25 14:37 of Lip/Tongue/Throat cephalexin (From Keflex) Allergy Verified 03/24/25 14:37 Visit Medications Acetaminophen (Acetaminophen 325 Mg Tablet) 325 mg PO Q6H PRN PRN Reason: Fever >101.5 or pain 1-3 Stop: 06/28/25 15:24 Albuterol/Ipratropium (Albuterol/Ipratropium (Duoneb) Rt Rosamaria 3 Ml Nebu) 3 ml INH Q2HR PRN PRN Reason: SHORTNESS OF BREATH OR WHEEZE Stop: 06/28/25 15:24 Heparin Sodium (Porcine) (Heparin Sod Inj 5000 Unit/Ml Vial) 5,000 unit SC Q12H ELIGIO Stop: 06/12/25 15:29 Last Admin: 05/30/25 04:00 Dose: Not Given Piperacillin Sod/Tazobactam (Sod 4.5 gm/ Sodium Chloride) 100 mls @ 200 mls/hr IV Q8HR ELIGIO; Protocol Stop: 06/05/25 21:59 Last Admin: 05/30/25 05:53 Dose: 200 mls/hr Vancomycin/Sodium Chloride (Vancomycin/Ns 1 Gm Ivpb) 200 mls @ 120 mls/hr IV Q8HR ELIGIO; Protocol Stop: 06/06/25 07:59 Lorazepam (Lorazepam 0.5 Mg Tablet) 0.5 mg PO Q4HR PRN PRN Reason: CIWA Score 2-6 Stop: 06/03/25 15:34 Lorazepam (Lorazepam 0.5 Mg Tablet) 1 mg PO Q4HR PRN PRN Reason: CIWA SCORE 7-11 Stop: 06/03/25 15:34 Lorazepam (Lorazepam 0.5 Mg Tablet) 2 mg PO Q4HR PRN PRN Reason: CIWA SCORE 12-15 Stop: 06/03/25 15:34 Ondansetron HCl (Ondansetron Inj 2 Mg/Ml Inj 2 Ml) 4 mg IVP Q6H PRN; Protocol PRN Reason: NAUSEA OR VOMITING Stop: 06/28/25 15:24 Pantoprazole Sodium (Pantoprazole 40 Mg Tablet) 40 mg PO QDAY ELIGIO Stop: 06/29/25 08:59 Pharmacy Consult (Vancomycin Pharmacy To Dose 1 Each Each) 1 each IV QDAY ELIGIO Stop: 06/29/25 08:59 Sennosides (Senna Tablet) 1 tab PO QDAY PRN; Protocol PRN Reason: constipation Stop: 06/28/25 15:24 Discontinued Medications Hydromorphone HCl (Hydromorphone Inj 2 Mg/Ml Vial) 1 mg IVP X1 ONE Stop: 05/29/25 12:31 Last Admin: 05/29/25 12:40 Dose: 1 mg Vancomycin/Sodium Chloride (Vancomycin/Ns 1 Gm Ivpb) 200 mls @ 120 mls/hr IV X1 ONE Stop: 05/29/25 07:59 Last Infusion: 05/29/25 10:25 Dose: Infused Piperacillin/Tazobactam/Dextrose (Zosyn) 3.375 gm in 50 mls @ 100 mls/hr IV X1 ONE; Protocol Stop: 05/29/25 06:49 Last Admin: 05/29/25 06:33 Dose: Not Given Doxycycline Hyclate 100 mg/ (Sodium Chloride) 100 mls @ 100 mls/hr IV X1 ONE Stop: 05/29/25 07:27 Last Infusion: 05/29/25 07:52 Dose: Infused Sodium Chloride (Ns) 1,000 mls @ 999 mls/hr IV .Q1H1M ONE Stop: 05/29/25 13:29 Last Infusion: 05/29/25 13:40 Dose: Infused Cefepime HCl 2 gm/ Sodium (Chloride) 50 mls @ 100 mls/hr IV Q8HR ELIGIO Stop: 06/05/25 15:32 Vancomycin HCl/Dextrose (Vancomycin/D5w 1500 Mg Ivpb) 300 mls @ 150 mls/hr IV Q12HR@1000,2200 [facility] Stop: 06/05/25 21:59 Last Admin: 05/29/25 23:19 Dose: Not Given Ketorolac Tromethamine (Ketorolac Inj 30 Mg/Ml Vial) 15 mg IVP X1 ONE Stop: 05/29/25 23:33 Last Admin: 05/30/25 00:13 Dose: 15 mg Lidocaine HCl (Lidocaine Viscous 2% 15 Ml Udc) 15 ml TOP X1 ONE Stop: 05/29/25 15:07 Metronidazole (Metronidazole 250 Mg Tablet) 500 mg PO Q8HR [facility] Stop: 06/05/25 21:59 Ondansetron HCl (Ondansetron Inj 2 Mg/Ml Inj 2 Ml) 4 mg IVP X1 ONE; Protocol Stop: 05/29/25 12:31 Last Admin: 05/29/25 12:40 Dose: 4 mg Assessment & Plan Assessment 50M with PMH of multidrug use, liver cirrhosis, and chronis venous stasis in BLE presenting to the hospital with RLE pain after a fall from his wheelchair. Since CT does not note any drainable masses, or osteomyelitis, surgery is not indicated. Will address state of RLE with cleaning and dressing while continuing IV antibiotics. Plan Clean wound with hydrogen peroxide and medical honey and dress to address live maggots Appreciate wound care recs tomorrow
[2025-05-30] MEDS: VANCOMYCIN/NS 1 GM IVPB 200 ML IV ×2 (09:20→14:10)
[2025-05-30] MEDS: PANTOPRAZOLE 40 MG TABLET PO (09:21)
--- NOTE | 2025-05-30 09:47 | ESPR_ITS ---
<Statement entered by Ryan Mccollum MD - 05/30/25 19:08> Patient seen and examined at bedside. I discussed and supervised with the international controller physician who took care of this patient. I personally saw and examined the patient. I agree with most of the assessment and plan. Plan of care discussed with attending Dr. Bermudez. Ryan Mccollum MD PGY-2 Documentation for date of: 05/30/25 Subjective Subjective Interval history: Patient was seen and examined at bedside. No acute events took place overnight. Patient somnolent, and does not follow commands well. Dr Gonzalez evaluated the leg, who said surgical mgmt is unnecessary. Will receive a wash out of his leg with solution provided by pharmacy. CIWA 3 by octaviano nurse. Exam Vital Signs Temp Pulse Resp BP Pulse Ox O2 Del Method O2 Flow Rate 97.3 F 84 21 H 113/81 98 Nasal Cannula 2 05/30/25 08:00 05/30/25 08:00 05/30/25 08:00 05/30/25 08:00 05/30/25 08:00 05/30/25 08:00 05/30/25 08:00 Narrative Exam General: Tired, somnolent, irritable, engages in conversation?limited answers. HEENT: Normocephalic, atraumatic, mucous membranes moist. Heart: Regular rate and rhythm, no murmurs. Lungs: Low pitched wheezing in bilateral lower lobes Abdomen: Soft, obese, minimal generalized tenderness, positive bowel sounds. ?No guarding or rebound tenderness. Neurologic: Somnolent, no gross neurological deficit, and patient able to move all 4 extremities. Extremities: Bilateral lower extremity venous stasis dermatitis vs lymphadenopathy with significant skin thickening, redness and tenderness noted on right leg, right leg more swollen than left. Right lower leg with an area that is indurated and erythematous with a soft polypoid appearing mass vs hemangioma measuring 2.5cm x 1cm; no edema Skin: Thickening of skin noted on lower extremities, multiple tattoos. Objective Labs 05/31/25 05:15 05/31/25 05:15 Labs: Laboratory Results - last 24 hr 05/29/25 05/30/25 05:27 05:53 WBC 4.6 RBC 3.14 L Hgb 8.7 L Hct 25.8 L MCV 82 MCH 27.7 MCHC 33.7 RDW Std Deviation 43.6 Plt Count 100 L D Neut % (Auto) 54 Lymph % (Auto) 19 [place] % (Auto) 9 Eos % (Auto) 16 H Baso % (Auto) 2 Neut # (Auto) 2.5 Lymph # (Auto) 0.9 L [place] # (Auto) 0.4 Eos # (Auto) 0.7 H Baso # (Auto) 0.1 Immature Gran # (Auto) 0.02 H Absolute Nucleated RBC 0.00 Immature Gran % 0 Nucleated RBC % 0 PT 14.1 H INR 1.4 H APTT 29.4 Sodium 138 Potassium 3.8 D Chloride 106 Carbon Dioxide 26.4 Anion Gap 6 L BUN 10 Creatinine 0.8 Estim Creat Clear Calc Not Performed. eGFR > 60 BUN/Creatinine Ratio 13 Glucose 67 L Calculated Osmolality 272 L Calcium 7.7 L Corrected Calcium 9.1 Total Bilirubin 1.0 AST 28 ALT 10 Alkaline Phosphatase 74 Total Protein 7.0 Albumin 2.2 L D Globulin 4.8 H Albumin/Globulin Ratio 0.5 L Triglycerides 86 Cholesterol 66 L LDL Cholesterol, Calc 39 HDL Cholesterol < 10 L Cholesterol/HDL Ratio 6.0 HIV 1&2 Antibody Rapid Non-Reactive Blood Type B Positive Antibody Screen NEGATIVE Blood Bank Wristband ID Yes Quality Measures Quality Measures none Assessment & Plan Assessment Current Active Medications: Generic Name Dose Route Start Last Admin Trade Name Freq PRN Reason Stop Dose Admin Acetaminophen 325 mg 05/29/25 15:25 Acetaminophen 325 Mg Tablet PO 06/28/25 15:24 Q6H PRN Fever >101.5 or pain 1-3 Albuterol/Ipratropium 3 ml 05/29/25 15:25 Albuterol/Ipratropium (Duoneb) Rt Rosamaria 3 Ml Nebu INH 06/28/25 15:24 Q2HR PRN SHORTNESS OF BREATH OR WHEEZE Heparin Sodium (Porcine) 5,000 unit 05/29/25 15:30 05/30/25 04:00 Heparin Sod Inj 5000 Unit/Ml Vial SC 06/12/25 15:29 Not Given Q12H ELIGIO Piperacillin Sod/Tazobactam 100 mls @ 200 mls/hr 05/29/25 22:00 05/30/25 05:53 Sod 4.5 gm/ Sodium Chloride IV 06/05/25 21:59 200 mls/hr Q8HR ELIGIO Administration Protocol Vancomycin/Sodium Chloride 200 mls @ 120 mls/hr 05/30/25 08:00 05/30/25 09:20 Vancomycin/Ns 1 Gm Ivpb IV 06/06/25 07:59 120 mls/hr Q8HR ELIGIO Administration Protocol Lorazepam 0.5 mg 05/29/25 15:35 Lorazepam 0.5 Mg Tablet PO 06/03/25 15:34 Q4HR PRN CIWA Score 2-6 Lorazepam 1 mg 05/29/25 15:35 Lorazepam 0.5 Mg Tablet PO 06/03/25 15:34 Q4HR PRN CIWA SCORE 7-11 Lorazepam 2 mg 05/29/25 15:35 Lorazepam 0.5 Mg Tablet PO 06/03/25 15:34 Q4HR PRN CIWA SCORE 12-15 Ondansetron HCl 4 mg 05/29/25 15:25 Ondansetron Inj 2 Mg/Ml Inj 2 Ml IVP 06/28/25 15:24 Q6H PRN NAUSEA OR VOMITING Protocol Pantoprazole Sodium 40 mg 05/30/25 09:00 05/30/25 09:21 Pantoprazole 40 Mg Tablet PO 06/29/25 08:59 40 mg QDAY ELIGIO Administration Pharmacy Consult 1 each 05/30/25 09:00 05/30/25 09:21 Vancomycin Pharmacy To Dose 1 Each Each IV 06/29/25 08:59 Not Given QDAY [facility] Sennosides 1 tab 05/29/25 15:25 Senna Tablet PO 06/28/25 15:24 QDAY PRN constipation Protocol Plan Mr. Caruso is a 50-year-old male with past medical history of fentanyl and methamphetamine use disorder, homelessness, decompensated liver cirrhosis with history of esophageal varices grade 3 secondary to hepatitis C, splenomegaly and chronic venous stasis bilateral lower extremity who presented to [facility] emergency department on May 29, 2025 with worsening Rt leg erythema, pain, and swelling of the RLE. Pt admitted for in-hospital mgmt of cellulitis. #Cellulitis #Soft tissue mass Patient presented with worsening Rt leg swelling, desquamation, and excoriations. Present erythema, edema, and tenderness, and warmth. CT RLE showed diffuse severe cellulitis in the subcutaneous fatty tissues surrounding the femur, tibia and fibula. Negative for osteomyelitis. Also visualized soft tissue mass lateral lower leg at the skin surface measuring 3.7 x1.6 x3.0cm. ?Preliminary B ctx negative after 24h ?Dr Gonzalez said nonsurgical mgmt would be sufficient. Plan: -Zosyn 4.5g Q8h and vancomycin (05/29 - ) -B ctx ordered -referral to wound care -Surgery, Dr Gonzalez consulted, appreciate recs -strict ins and outs #Acute encephalopathy #Alcohol withdrawal, patient on CIWA protocol #Opiate dependence with withdrawal #Methamphetamine dependence Patient was lethargic at presentation, A&O x2, unable to answer questions appropriately. On PE, pinpoint pupils. Patient reported fentanyl use just before presentations and UDS was positive for both fentanyl and amphetamine. He also admits to chronic heavy drinking. Plan: - CIWA protocol in place - Ativan PO .5mg for CIWA 2-6 Q4h, 1mg for CIWA 7-11 Q4h, and 2mg CIWA 12-16 Q4h PRN - Patient advised to refrain from fentanyl and methamphetamine use #Grade 3 esophageal varices by history, status post banding November 2024 #Decompensated liver cirrhosis #Hepatitis C antibody positive, alcohol related liver disease Significant hepatosplenomegaly on physical exam, CT pelvis positive for massive splenomegaly CT chest abdomen pelvis (01/2025) showed cirrhosis, liver irregular contour with prominent hepatosplenomegaly, thickened gallbladder with suspected tiny gallstones, significant abdominal/pelvic lymphadenopathy, hepatic colopathy Plan: -IVP Protonix 40mg Qday Health Maintenance: Disposition: Telemetry Diet: NPO, in preparation for possible surgery PPx DVT: heparin 5000mg bid PPx GI: Protonix IV 40mg Qday Code Status: DNR, DNI This case was discussed with my attending physician, Dr. Bermudez, and senior resident, Dr Mccollum. Nyla Chan, DO PGY I Attending Provider Attestation/Addendum I have seen and examined the patient. I was physically present for the reyes portions of the services provided including history, physical exam, diagnosis, treatment plans and orders. I agree with assessment and plan of care as documented by residents. Patient seen and examined at bedside this morning. Appears comfortable. Remains somnolent, wakes up on calling unable to answer all questions and unable to follow all commands. Patient received surgical washout and removal of necrotic tissue with general surgery, appreciate recommendations. We will continue with broad-spectrum IV antibiotics and await culture results. Patient continues to be on CIWA protocol, we will continue to monitor his mentation. Even though this this note was carefully revised there may still be minor errors in ob/gyn doctor due to voice recognition software. Elliot Bermudez MD
[2025-05-30] MEDS: MORPHINE SULF INJ 4 MG/ML VIAL IVP ×2 (11:17→17:16)
[2025-05-30] MEDS: [UNRECOGNIZED DRUG - OTHER] IRRIG (12:20)
--- NOTE | 2025-05-30 12:45 | PD.SURPROC ---
PROCEDURES: Procedure Comment Procedure Comment: Pt premedicated with morphine 4mg IV Right lower extremity below knee washed with saline, hydrogen peroxide, betadine and full strength Dakhalima Scores of maggots removed Portion of necrotic skin at the lateral aspect removed and sent to pathology Skin covered with manuka honey Covered with adaptic and wrapped in kerlix Pt tolerated procedure well
[2025-05-30] MEDS: HEPARIN SOD INJ 5000 UNIT/ML VIAL SC (15:20)
--- NOTE | 2025-05-30 15:45 | PC.SS ---
Update: Patient receiving IV antibiotics. Wound care in place. Dr. Gonzalez consulting.
[2025-05-30 17:58] LABS: Collection Type, Urine Clean Catch; Squamous Epithelial Cell,Urine 0 /hpf (0-5); WBC,Urine 0 /hpf (0-5)
[2025-05-30 18:44] LABS: Amorphous Crystals,Urine Present (Absent); Bilirubin,Urine 1+ (Negative); Blood,Urine 2+ (Negative); Color,Urine Yellow (Lt Yel-Yel); Glucose, Urine Negative (Negative); Ketones,Urine 2+ (Negative); Leukocyte Esterase,Urine Negative (Negative); Nitrite,Urine Negative (Negative); PH,Urine 6.0 (5.0-7.0); Protein,Urine 1+ (Neg - Trace); RBC,Urine 16 /hpf (0-3); Specific Gravity,Urine 1.043 (1.001-1.035); Urobilinogen,Urine 3.0 mg/dL (0.0-1.0)
[2025-05-30 18:54] LABS: Clarity,Urine Turbid (Clear/Hazy)
[2025-05-30 22:08] LABS: Vancomycin,Trough 15.7 mcg/mL (5.0-10.0)
[2025-05-31] VITALS (8 sets, daily range): BP systolic 89–126; BP diastolic 59–75; PULSE 80–93; RESP 14–21; TEMP 36.4–36.8; O2SAT 94–99; BMI 31.4
[2025-05-31] MEDS: PIPER/TAZO INJ 4.5 GM in SODIUM CHLORIDE 0.9% (POP) 100 ML IV ×3 (05:18→21:54)
[2025-05-31 05:46] LABS: Basophils # (Auto) 0.1 Thou/mm3 (0.0-0.2); Basophils % (Auto) 2 % (0-2.5); Eosinophils # (Auto) 0.7 Thou/mm3 (0.0-0.5); Eosinophils % (Auto) 17 % (0-10); Hematocrit 27.1 % (41.0-53.0); Hemoglobin 8.9 g/dL (13.5-16.0); Immature Granulocytes Auto 0.04 Thou/mm3 (0.00-0.00); Lymphocytes # (Auto) 0.9 Thou/mm3 (1.0-4.8); Lymphocytes % (Auto) 22 % (10-50); Mean Corpuscular HGB Conc 32.8 g/dl (31.0-37.0); Mean Corpuscular Hemoglobin 27.6 pg (25.0-35.0); Mean Corpuscular Volume 84 fL (80-100); Monocytes # (Auto) 0.3 Thou/mm3 (0.0-0.8); Monocytes % (Auto) 8 % (0-12); Neutrophils # (Auto) 2.1 Thou/mm3 (1.8-7.7); Neutrophils % (Auto) 51 % (37-80); Nucleated Red Blood Cell # 0.00 Thou/mm3 (0.00-0.00); Nucleated Red Blood Cell % 0 /100 WBC (0); Platelet Count 131 Thou/mm3 (140-440); RDW Standard Deviation 45.4 fL (35.1-43.9); Red Blood Count 3.22 Miln/mm3 (4.50-5.90); White Blood Count 4.1 Thou/mm3 (3.8-10.6)
[2025-05-31 05:57] LABS: Alanine Aminotransferase 10 U/L (10-49); Albumin, Serum 2.2 gm/dL (3.5-5.0); Albumin/Globulin Ratio 0.4 (1.2-2.2); Alkaline Phosphatase 66 U/L (46-116); Anion Gap 9 (7-16); Aspartate Amino Transferase 28 U/L (0-34); BUN/Creatinine Ratio 14 Ratio (12-20); Bilirubin,Total 0.6 mg/dL (0.3-1.2); Blood Urea Nitrogen 11 mg/dL (9-23); Calcium 7.6 mg/dL (8.3-10.6); Calcium (Corrected) 9.0 mg/dL (8.5-10.1); Carbon Dioxide 24.5 mMol/L (20.0-31.0); Chloride 107 mMol/L (98-107); Creatinine (Component) 0.8 mg/dL (0.6-1.3); Estimated Creatinine Clearance 127.6 mL/min (>60); Globulin 5.1 gm/dL (2.3-3.5); Glucose 66 mg/dL (74-106); Magnesium 1.6 mg/dL (1.6-2.6); Osmolality,Calculated 276 (275-295); Phosphorous 3.6 mg/dL (2.4-5.1); Potassium 3.7 mMol/L (3.4-5.1); Sodium 140 mMol/L (136-145); Total Protein 7.3 gm/dL (5.7-8.2); Vancomycin,Trough 10.1 mcg/mL (5.0-10.0); eGFR > 60 See Note
--- NOTE | 2025-05-31 08:47 | PC.SS ---
Follow up note: Pt is meth and fentanly positive on admission. Pt is on IV antibiotic.
[2025-05-31] MEDS: PANTOPRAZOLE 40 MG TABLET PO (09:02)
[2025-05-31] MEDS: ONDANSETRON INJ 2 MG/ML INJ 2 ML 4 MG IVP (09:03)
[2025-05-31] MEDS: VANCOMYCIN/D5W 1,250 MG IVPB 250 ML 120 MG IV ×2 (09:06→21:54)
--- NOTE | 2025-05-31 09:53 | XR_ITS ---
Examination: CT brain head without contrast. 2-D sagittal coronal reconstructions Date and time of exam: May 31, 2025, 1132 hours INDICATIONS: Acute encephalopathy with altered mental status today CTDI: vol (mGy): 52.7 DLP: (mGycm): 1025 Technique: Multiple CT axial sections of the brain have been obtained, 5 mm slice thickness. Contrast has not been administered. 2-D sagittal, coronal reconstructions have been obtained Low dose protocols were performed. One or more of the following dose reduction techniques were used; automated exposure control, adjustment of the mA and/or KV according to patient size, use of iterative reconstruction technique. Findings: No significant ventricular enlargement. Intra-axial or extra-axial hemorrhage density is not seen. No mass effect or midline shift Basal cisterns are not remarkable. Fourth ventricle is midline. Cranial vault intact. Impression: Negative for acute hemorrhage, mass effect or midline shift Advise clinical correlation and follow-up accordingly
[2025-05-31 10:19] LABS: Folate 9.67 ng/mL (>5.38); Vitamin B12 1054 pg/mL (211-911)
[2025-05-31 11:34] LABS: Syphilis Nonreactive (Nonreactive)
[2025-05-31] MEDS: FOLIC ACID 1 MG TABLET PO (12:37)
[2025-05-31] MEDS: THIAMINE 100 MG TABLET PO (12:37)
[2025-05-31] MEDS: HEPARIN SOD INJ 5000 UNIT/ML VIAL SC (15:29)
[2025-05-31] MEDS: SOD HYPOCHLORITE 1/4 STR 473 ML BTL IRRIG (16:45)
--- NOTE | 2025-05-31 17:52 | ESPR_ITS ---
<Statement entered by Oscar Sosa MD - 06/01/25 19:31> Patient was seen and examined at bedside. I agree on the assessment and plan on this note as documented by resident Dr Nyla Chan DO PGY1. 50-year-old male with past medical history as below admitted for cellulitis soft tissue mass is status post wash disinfection and biopsy by general surgery, considering patient's underlying significant cellulitis we will continue with Zosyn and vancomycin today. Pending biopsy results, acute encephalopathy has somewhat improved, we will continue for CIWA protocol as of now, physical therapy referral was ordered. Patient does have history of decompensated cirrhosis, grade 3 esophageal varices, no concern of any GI bleed currently, will continue to monitor patient. Case discussed with attending Dr. Elliot Sosa MD PGY-2 Documentation for date of: 05/31/25 Subjective Subjective Interval history: Patient was seen and examined at bedside. No acute events took place overnight. A&O x 2-3. Patient somnolent, and provides unintelligible mumbling words and answers to questions asked from him, and does not follow commands well. Admits to pain in RLE. Was nauseous and vomited overnight and was given Zofran. Exam Vital Signs Temp Pulse Resp BP Pulse Ox O2 Del Method O2 Flow Rate 98.2 F 88 16 89/67 L 97 Room Air 2 05/31/25 16:00 05/31/25 16:00 05/31/25 16:00 05/31/25 16:00 05/31/25 16:00 05/31/25 16:00 05/31/25 06:28 Narrative Exam General: Tired, somnolent, irritable, engages in conversation?limited answers. HEENT: Normocephalic, atraumatic, mucous membranes moist. Heart: Regular rate and rhythm, no murmurs. Lungs: Low pitched wheezing in bilateral lower lobes Abdomen: Soft, obese, minimal generalized tenderness, positive bowel sounds. ?No guarding or rebound tenderness. Neurologic: Somnolent, no gross neurological deficit, and patient able to move all 4 extremities. Extremities: Bilateral lower extremity venous stasis dermatitis vs lymphadenopathy with significant skin thickening, redness and tenderness noted on right leg, right leg more swollen than left. Right lower leg with an area that is indurated and erythematous with a soft polypoid appearing mass vs hemangioma measuring 2.5cm x 1cm; no edema. Strength +3/5 with dorsi/plantar- flexion b/l. Diminished DT pulses +1/3. No sensation along below knee. Skin: Thickening of skin noted on lower extremities, multiple tattoos. Objective Labs 06/01/25 04:52 06/01/25 04:52 Labs: Laboratory Results - last 24 hr 05/30/25 05/30/25 05/31/25 17:00 21:08 05:15 WBC 4.1 RBC 3.22 L Hgb 8.9 L Hct 27.1 L MCV 84 MCH 27.6 MCHC 32.8 RDW Std Deviation 45.4 H Plt Count 131 L D Neut % (Auto) 51 Lymph % (Auto) 22 [place] % (Auto) 8 Eos % (Auto) 17 H Baso % (Auto) 2 Neut # (Auto) 2.1 Lymph # (Auto) 0.9 L [place] # (Auto) 0.3 Eos # (Auto) 0.7 H Baso # (Auto) 0.1 Immature Gran # (Auto) 0.04 H Absolute Nucleated RBC 0.00 Immature Gran % 1 H Nucleated RBC % 0 Sodium 140 Potassium 3.7 Chloride 107 Carbon Dioxide 24.5 Anion Gap 9 BUN 11 Creatinine 0.8 Estim Creat Clear Calc 127.6 eGFR > 60 BUN/Creatinine Ratio 14 Glucose 66 L Calculated Osmolality 276 Calcium 7.6 L Corrected Calcium 9.0 Phosphorus 3.6 Magnesium 1.6 Total Bilirubin 0.6 AST 28 ALT 10 Alkaline Phosphatase 66 Total Protein 7.3 Albumin 2.2 L Globulin 5.1 H Albumin/Globulin Ratio 0.4 L Vitamin B12 1054 H Folate 9.67 Ur Collection Type Clean Catch Urine Color Yellow Urine Clarity Turbid A Urine pH 6.0 Ur Specific [place] 1.043 H Urine Protein 1+ A Urine Glucose (UA) Negative Urine Ketones 2+ A Urine Blood 2+ A Urine Nitrite Negative Urine Bilirubin 1+ A Urine Urobilinogen (Auto) 3.0 Ur Leukocyte Esterase Negative Urine RBC 16 H Urine WBC 0 Ur Squamous Epith Cells 0 Amorphous Crystals Present A Urine Bacteria None Vancomycin Trough 15.7 H 10.1 H Syphilis Serology Nonreactive Quality Measures Quality Measures none Assessment & Plan Assessment Current Active Medications: Generic Name Dose Route Start Last Admin Trade Name Freq PRN Reason Stop Dose Admin Acetaminophen 325 mg 05/29/25 15:25 Acetaminophen 325 Mg Tablet PO 06/28/25 15:24 Q6H PRN Fever >101.5 or pain 1-3 Hydrocodone Bitart/Acetaminophen 1 tab 05/30/25 17:03 Hydrocodone/Apap 10/325 Tab PO 06/04/25 17:02 Q6HR PRN PAIN SCALE 4-6 (Moderate Albuterol/Ipratropium 3 ml 05/29/25 15:25 Albuterol/Ipratropium (Duoneb) Rt Rosamaria 3 Ml Nebu INH 06/28/25 15:24 Q2HR PRN SHORTNESS OF BREATH OR WHEEZE Folic Acid 1 mg 05/31/25 10:00 05/31/25 12:37 Folic Acid 1 Mg Tablet PO 06/30/25 09:59 1 mg QDAY ELIGIO Administration Heparin Sodium (Porcine) 5,000 unit 05/29/25 15:30 05/31/25 15:29 Heparin Sod Inj 5000 Unit/Ml Vial SC 06/12/25 15:29 5,000 unit Q12H ELIGIO Administration Piperacillin Sod/Tazobactam 100 mls @ 200 mls/hr 05/29/25 22:00 05/31/25 13:37 Sod 4.5 gm/ Sodium Chloride IV 06/05/25 21:59 200 mls/hr Q8HR ELIGIO Administration Protocol Vancomycin HCl/Dextrose 250 mls @ 120 mls/hr 05/31/25 10:00 05/31/25 11:11 Vancomycin/D5w 1,250 Mg Ivpb IV 06/07/25 09:59 Infused Q12H ELIGIO Infusion Protocol Lorazepam 0.5 mg 05/31/25 12:54 Lorazepam 0.5 Mg Tablet PO 06/05/25 12:53 Q4HR PRN CIWA Score 2-6 Lorazepam 1 mg 05/31/25 12:54 05/31/25 13:00 Lorazepam 0.5 Mg Tablet PO 06/05/25 12:53 1 mg Q4HR PRN Administration CIWA SCORE 7-11 Lorazepam 2 mg 05/31/25 12:54 Lorazepam 0.5 Mg Tablet PO 06/05/25 12:53 Q4HR PRN CIWA SCORE 12-15 Morphine Sulfate 2 mg 05/31/25 09:49 Morphine Sulf Inj 4 Mg/Ml Vial IVP 06/04/25 16:59 Q6H PRN PAIN SCALE 7-10 (Severe Ondansetron HCl 4 mg 05/29/25 15:25 05/31/25 09:03 Ondansetron Inj 2 Mg/Ml Inj 2 Ml IVP 06/28/25 15:24 4 mg Q6H PRN Administration NAUSEA OR VOMITING Protocol Pantoprazole Sodium 40 mg 05/30/25 09:00 05/31/25 09:02 Pantoprazole 40 Mg Tablet PO 06/29/25 08:59 40 mg QDAY [facility] Administration Pharmacy Consult 1 each 05/30/25 09:00 05/31/25 09:06 Vancomycin Pharmacy To Dose 1 Each Each IV 06/29/25 08:59 Not Given QDAY [facility] Sennosides 1 tab 05/29/25 15:25 Senna Tablet PO 06/28/25 15:24 QDAY PRN constipation Protocol Sodium Hypochlorite 473 ml 05/31/25 16:30 05/31/25 16:45 Sod Hypochlorite 1/4 Str 473 Ml Btl IRRIG 06/30/25 16:29 1 applicatio BID ELIGIO Administration Thiamine HCl 100 mg 05/31/25 10:00 05/31/25 12:37 Thiamine 100 Mg Tablet PO 06/30/25 09:59 100 mg QDAY [facility] Administration Plan Mr. Caruso is a 50-year-old male with past medical history of fentanyl and methamphetamine use disorder, homelessness, decompensated liver cirrhosis with history of esophageal varices grade 3 secondary to hepatitis C, splenomegaly and chronic venous stasis bilateral lower extremity who presented to [facility] emergency department on May 29, 2025 with worsening Rt leg erythema, pain, and swelling of the RLE. Pt admitted for in-hospital mgmt of cellulitis. #Cellulitis #Soft tissue mass #s/p wash, disinfestation, and biopsy Patient presented with worsening Rt leg swelling, desquamation, and excoriations. Present erythema, edema, and tenderness, and warmth. CT RLE showed diffuse severe cellulitis in the subcutaneous fatty tissues surrounding the femur, tibia and fibula. Negative for osteomyelitis. Also visualized soft tissue mass lateral lower leg at the skin surface measuring 3.7 x1.6 x3.0cm. ?Preliminary B ctx negative after 24h ?Dr Gonzalez said nonsurgical mgmt would be sufficient. ?After wash with saline, and hydrogen peroxide, betadine, and Dakins, scores of maggots were removed. Portion of the necrotic skin at the lateral aspect removed and sent to pathology. Dressings applied. ?B ctx were negative after 48h Plan: -Zosyn 4.5g Q8h and vancomycin (05/29 - ) -referral to wound care -Surgery, Dr Gonzalez consulted, appreciate recs -strict ins and outs #Acute encephalopathy #Alcohol withdrawal, patient on CIWA protocol #Opiate dependence #Methamphetamine dependence Patient was lethargic at presentation, A&O x2, unable to answer questions appropriately. On PE, pinpoint pupils. Patient reported fentanyl use just before presentations and UDS was positive for both fentanyl and amphetamine. He also admits to chronic heavy drinking. COWS score 4, patient not in opiate withdrawal. Plan: - CIWA protocol in place - Ativan PO .5mg for CIWA 2-6 Q4h, 1mg for CIWA 7-11 Q4h, and 2mg CIWA 12-16 Q4h PRN - Patient advised to refrain from fentanyl and methamphetamine use #Grade 3 esophageal varices by history, status post banding November 2024 #Decompensated liver cirrhosis #Hepatitis C antibody positive, #Thrombocytopenia #Hypoglycemia Patient with steatohepatitis vs primary hepatocellular disease based on previous abdominal ultrasound. Significant hepatosplenomegaly on physical exam, CT pelvis positive for massive splenomegaly CT chest abdomen pelvis (01/2025) showed cirrhosis, liver irregular contour with prominent hepatosplenomegaly, thickened gallbladder with suspected tiny gallstones, significant abdominal/pelvic lymphadenopathy, hepatic colopathy Thrombocytopenia and hypoglycemia likely 2/2 hepatic insufficiency. Plan: -IVP Protonix 40mg Qday #Normocytic Anemia Hgb stable around 9.0 Health Maintenance: Disposition: Telemetry Diet: NPO, in preparation for possible surgery PPx DVT: heparin 5000mg bid PPx GI: Protonix IV 40mg Qday Code Status: DNR, DNI This case was discussed with my attending physician, Dr. Bermudez, and senior resident, Dr Ian Chan, DO PGY I Attending Provider Attestation/Addendum I have seen and examined the patient. I was physically present for the reyes portions of the services provided including history, physical exam, diagnosis, treatment plans and orders. I agree with assessment and plan of care as documented by residents. Even though this this note was carefully revised there may still be minor errors in respiratory therapy director due to voice recognition software. Elliot Bermudez MD
[2025-06-01] VITALS (10 sets, daily range): BP systolic 119–138; BP diastolic 68–88; PULSE 63–99; RESP 16–27; TEMP 36.5–36.7; O2SAT 97–100; BMI 30.9
[2025-06-01] MEDS: HEPARIN SOD INJ 5000 UNIT/ML VIAL SC ×2 (03:08→15:31)
[2025-06-01] MEDS: PIPER/TAZO INJ 4.5 GM in SODIUM CHLORIDE 0.9% (POP) 100 ML IV ×3 (05:23→21:07)
[2025-06-01 05:41] LABS: Basophils # (Auto) 0.1 Thou/mm3 (0.0-0.2); Basophils % (Auto) 1 % (0-2.5); Eosinophils # (Auto) 0.8 Thou/mm3 (0.0-0.5); Eosinophils % (Auto) 19 % (0-10); Hematocrit 27.9 % (41.0-53.0); Hemoglobin 8.9 g/dL (13.5-16.0); Immature Granulocytes Auto 0.02 Thou/mm3 (0.00-0.00); Lymphocytes # (Auto) 1.0 Thou/mm3 (1.0-4.8); Lymphocytes % (Auto) 26 % (10-50); Mean Corpuscular HGB Conc 31.9 g/dl (31.0-37.0); Mean Corpuscular Hemoglobin 27.0 pg (25.0-35.0); Mean Corpuscular Volume 85 fL (80-100); Monocytes # (Auto) 0.3 Thou/mm3 (0.0-0.8); Monocytes % (Auto) 8 % (0-12); Neutrophils # (Auto) 1.8 Thou/mm3 (1.8-7.7); Neutrophils % (Auto) 46 % (37-80); Nucleated Red Blood Cell # 0.00 Thou/mm3 (0.00-0.00); Nucleated Red Blood Cell % 0 /100 WBC (0); Platelet Count 129 Thou/mm3 (140-440); RDW Standard Deviation 45.2 fL (35.1-43.9); Red Blood Count 3.30 Miln/mm3 (4.50-5.90); White Blood Count 4.0 Thou/mm3 (3.8-10.6)
[2025-06-01 06:12] LABS: Alanine Aminotransferase 9 U/L (10-49); Albumin, Serum 2.3 gm/dL (3.5-5.0); Albumin/Globulin Ratio 0.4 (1.2-2.2); Alkaline Phosphatase 65 U/L (46-116); Anion Gap 4 (7-16); Aspartate Amino Transferase 26 U/L (0-34); BUN/Creatinine Ratio 15 Ratio (12-20); Bilirubin,Total 0.4 mg/dL (0.3-1.2); Blood Urea Nitrogen 12 mg/dL (9-23); Calcium 7.7 mg/dL (8.3-10.6); Calcium (Corrected) 9.1 mg/dL (8.5-10.1); Carbon Dioxide 27.6 mMol/L (20.0-31.0); Chloride 107 mMol/L (98-107); Creatinine (Component) 0.8 mg/dL (0.6-1.3); Estimated Creatinine Clearance 126.8 mL/min (>60); Globulin 5.8 gm/dL (2.3-3.5); Glucose 97 mg/dL (74-106); Magnesium 1.7 mg/dL (1.6-2.6); Osmolality,Calculated 277 (275-295); Phosphorous 2.8 mg/dL (2.4-5.1); Potassium 3.5 mMol/L (3.4-5.1); Sodium 139 mMol/L (136-145); Total Protein 8.1 gm/dL (5.7-8.2); eGFR > 60 See Note
[2025-06-01] MEDS: PANTOPRAZOLE 40 MG TABLET PO (08:49)
[2025-06-01] MEDS: THIAMINE 100 MG TABLET PO (08:49)
[2025-06-01] MEDS: FOLIC ACID 1 MG TABLET PO (08:49)
[2025-06-01] MEDS: SOD HYPOCHLORITE 1/4 STR 473 ML BTL IRRIG ×2 (08:52→21:09)
[2025-06-01] MEDS: VANCOMYCIN/D5W 1,250 MG IVPB 250 ML 120 MG IV (10:17)
--- NOTE | 2025-06-01 12:59 | PC.CC ---
PASRR Level 1 complete and downloaded; Level 2 not required.
--- NOTE | 2025-06-01 13:25 | PC.SS ---
SS met with patient regarding his d/c plan. Pt is alert/oriented. Pt was admitted for RT Leg Cellulitis. Pt was difficulty to speak with and kept falling asleep. Pt is homeless. Pt states he uses a wheelchair. Pt explained when ambulance picked him up wheelchair was left on the side of the road. Pt is agreeable to SNF and if SNF declines pt will return to the community. Pt named his mom, Jessica Caruso medical decision maker if he is unable. Pt states he does not have PCP. D/C plan: SNF vs homeless assisted Next of Kin: Jessica Caurso, mom, phone# [phone]
--- NOTE | 2025-06-01 13:36 | PC.SS ---
SS has sent inquiry to the local SNF using [facility].
--- NOTE | 2025-06-01 20:24 | ESPR_ITS ---
<Statement entered by Ryan Mccollum MD - 06/02/25 15:54> Patient seen and examined at bedside. I discussed and supervised with the sports management intern physician who took care of this patient. I personally saw and examined the patient. I agree with most of the assessment and plan. Plan of care discussed with attending Dr. Aidan Mccollum MD PGY-2 Documentation for date of: 06/01/25 Subjective Subjective Interval history: Patient was seen and examined at bedside. No acute events took place overnight. A&O x 3, somnolent and unable to follow through with his responses. Admits to pain in RLE and had received [place] overnight. His mentation deteriorated toward the late afternoon, patient became lethargic, and neurology Dr Carbajal was consulted. Will discharge to SNF. Exam Vital Signs Temp Pulse Resp BP Pulse Ox O2 Del Method O2 Flow Rate 98.1 F 88 18 136/88 H 98 Nasal Cannula 1 06/01/25 20:00 06/01/25 20:00 06/01/25 20:00 06/01/25 20:00 06/01/25 20:00 06/01/25 20:00 06/01/25 20:00 Narrative Exam General: Tired, somnolent, irritable, engages in conversation?limited answers. HEENT: Normocephalic, atraumatic, mucous membranes moist. Heart: Regular rate and rhythm, no murmurs. Lungs: Low pitched wheezing in bilateral lower lobes Abdomen: Soft, obese, minimal generalized tenderness, positive bowel sounds. ?No guarding or rebound tenderness. Neurologic: Somnolent, no gross neurological deficit, and patient able to move all 4 extremities. Extremities: Bilateral lower extremity venous stasis dermatitis vs lymphadenopathy with significant skin thickening, redness and tenderness noted on right leg, right leg more swollen than left. Right lower leg with an area that is indurated and erythematous with a soft polypoid appearing mass vs hemangioma measuring 2.5cm x 1cm; no edema. Strength +3/5 with dorsi/plantar- flexion b/l. Diminished DT pulses +1/3. No sensation along below knee. Skin: Thickening of skin noted on lower extremities, multiple tattoos. Objective Labs 06/03/25 05:13 06/03/25 05:13 Labs: Laboratory Results - last 24 hr 06/01/25 04:52 WBC 4.0 RBC 3.30 L Hgb 8.9 L Hct 27.9 L MCV 85 MCH 27.0 MCHC 31.9 RDW Std Deviation 45.2 H Plt Count 129 L Neut % (Auto) 46 Lymph % (Auto) 26 [place] % (Auto) 8 Eos % (Auto) 19 H Baso % (Auto) 1 Neut # (Auto) 1.8 Lymph # (Auto) 1.0 [place] # (Auto) 0.3 Eos # (Auto) 0.8 H Baso # (Auto) 0.1 Immature Gran # (Auto) 0.02 H Absolute Nucleated RBC 0.00 Immature Gran % 1 H Nucleated RBC % 0 Sodium 139 Potassium 3.5 Chloride 107 Carbon Dioxide 27.6 Anion Gap 4 L BUN 12 Creatinine 0.8 Estim Creat Clear Calc 126.8 eGFR > 60 BUN/Creatinine Ratio 15 Glucose 97 Calculated Osmolality 277 Calcium 7.7 L Corrected Calcium 9.1 Phosphorus 2.8 Magnesium 1.7 Total Bilirubin 0.4 AST 26 ALT 9 L Alkaline Phosphatase 65 Total Protein 8.1 Albumin 2.3 L Globulin 5.8 H Albumin/Globulin Ratio 0.4 L Quality Measures Quality Measures none Assessment & Plan Assessment Current Active Medications: Generic Name Dose Route Start Last Admin Trade Name Freq PRN Reason Stop Dose Admin Acetaminophen 325 mg 05/29/25 15:25 Acetaminophen 325 Mg Tablet PO 06/28/25 15:24 Q6H PRN Fever >101.5 or pain 1-3 Hydrocodone Bitart/Acetaminophen 1 tab 05/30/25 17:03 06/01/25 08:51 Hydrocodone/Apap 10/325 Tab PO 06/04/25 17:02 1 tab Q6HR PRN Administration PAIN SCALE 4-6 (Moderate Albuterol/Ipratropium 3 ml 05/29/25 15:25 Albuterol/Ipratropium (Duoneb) Rt Rosamaria 3 Ml Nebu INH 06/28/25 15:24 Q2HR PRN SHORTNESS OF BREATH OR WHEEZE Folic Acid 1 mg 05/31/25 10:00 06/01/25 08:49 Folic Acid 1 Mg Tablet PO 06/30/25 09:59 1 mg QDAY ELIGIO Administration Heparin Sodium (Porcine) 5,000 unit 05/29/25 15:30 06/01/25 15:31 Heparin Sod Inj 5000 Unit/Ml Vial SC 06/12/25 15:29 5,000 unit Q12H ELIGIO Administration Piperacillin Sod/Tazobactam 100 mls @ 200 mls/hr 05/29/25 22:00 06/01/25 14:06 Sod 4.5 gm/ Sodium Chloride IV 06/05/25 21:59 200 mls/hr Q8HR ELIGIO Administration Protocol Vancomycin HCl/Dextrose 250 mls @ 120 mls/hr 05/31/25 10:00 06/01/25 10:17 Vancomycin/D5w 1,250 Mg Ivpb IV 06/07/25 09:59 120 mls/hr Q12H ELIGIO Administration Protocol Lorazepam 0.5 mg 05/31/25 12:54 Lorazepam 0.5 Mg Tablet PO 06/05/25 12:53 Q4HR PRN CIWA Score 2-6 Lorazepam 1 mg 05/31/25 12:54 05/31/25 13:00 Lorazepam 0.5 Mg Tablet PO 06/05/25 12:53 1 mg Q4HR PRN Administration CIWA SCORE 7-11 Lorazepam 2 mg 05/31/25 12:54 06/01/25 15:39 Lorazepam 0.5 Mg Tablet PO 06/05/25 12:53 2 mg Q4HR PRN Administration CIWA SCORE 12-15 Morphine Sulfate 2 mg 05/31/25 09:49 Morphine Sulf Inj 4 Mg/Ml Vial IVP 06/04/25 16:59 Q6H PRN PAIN SCALE 7-10 (Severe Ondansetron HCl 4 mg 05/29/25 15:25 05/31/25 09:03 Ondansetron Inj 2 Mg/Ml Inj 2 Ml IVP 06/28/25 15:24 4 mg Q6H PRN Administration NAUSEA OR VOMITING Protocol Pantoprazole Sodium 40 mg 05/30/25 09:00 06/01/25 08:49 Pantoprazole 40 Mg Tablet PO 06/29/25 08:59 40 mg QDAY ELIGIO Administration Pharmacy Consult 1 each 05/30/25 09:00 06/01/25 09:00 Vancomycin Pharmacy To Dose 1 Each Each IV 06/29/25 08:59 Not Given QDAY ELIGIO Sennosides 1 tab 05/29/25 15:25 Senna Tablet PO 06/28/25 15:24 QDAY PRN constipation Protocol Sodium Hypochlorite 473 ml 05/31/25 16:30 06/01/25 08:52 Sod Hypochlorite 1/4 Str 473 Ml Btl IRRIG 06/30/25 16:29 1 applicatio BID ELIGIO Administration Thiamine HCl 100 mg 05/31/25 10:00 06/01/25 08:49 Thiamine 100 Mg Tablet PO 06/30/25 09:59 100 mg QDAY ELIGIO Administration Plan Mr. Caruso is a 50-year-old male with past medical history of fentanyl and methamphetamine use disorder, homelessness, decompensated liver cirrhosis with history of esophageal varices grade 3 secondary to hepatitis C, splenomegaly and chronic venous stasis bilateral lower extremity who presented to [facility] emergency department on May 29, 2025 with worsening Rt leg erythema, pain, and swelling of the RLE. Pt admitted for in-hospital mgmt of cellulitis. #Cellulitis #Soft tissue mass #s/p wash, disinfestation, and biopsy Patient presented with worsening Rt leg swelling, desquamation, and excoriations. Present erythema, edema, and tenderness, and warmth. CT RLE showed diffuse severe cellulitis in the subcutaneous fatty tissues surrounding the femur, tibia and fibula. Negative for osteomyelitis. Also visualized soft tissue mass lateral lower leg at the skin surface measuring 3.7 x1.6 x3.0cm. ?Preliminary B ctx negative after 24h ?Dr Gonzalez said nonsurgical mgmt would be sufficient. ?After wash with saline, and hydrogen peroxide, betadine, and Dakins, scores of maggots were removed. Portion of the necrotic skin at the lateral aspect removed and sent to pathology. Dressings applied. ?B ctx were negative after 48h Plan: -Zosyn 4.5g Q8h and vancomycin (05/29 - ) -referral to wound care -Surgery, Dr Gonzalez consulted, appreciate recs -strict ins and outs #Acute encephalopathy #Alcohol withdrawal, patient on CIWA protocol #Opiate dependence #Methamphetamine dependence #Lethargy Patient was lethargic at presentation, A&O x2, unable to answer questions appropriately. On PE, pinpoint pupils. Patient reported fentanyl use just before presentations and UDS was positive for both fentanyl and amphetamine. He also admits to chronic heavy drinking. COWS score 4, patient not in opiate withdrawal. CT head negative for acute hemorrhage, mass effect, or midline shift. Plan: - Neurology, Dr Carbajal, consulted, appreciate recs - CIWA protocol in place - Ativan PO .5mg for CIWA 2-6 Q4h, 1mg for CIWA 7-11 Q4h, and 2mg CIWA 12-16 Q4h PRN - Patient advised to refrain from fentanyl and methamphetamine use #Grade 3 esophageal varices by history, status post banding November 2024 #Decompensated liver cirrhosis #Hepatitis C antibody positive, #Thrombocytopenia #Hypoglycemia Patient with steatohepatitis vs primary hepatocellular disease based on previous abdominal ultrasound. Significant hepatosplenomegaly on physical exam, CT pelvis positive for massive splenomegaly CT chest abdomen pelvis (01/2025) showed cirrhosis, liver irregular contour with prominent hepatosplenomegaly, thickened gallbladder with suspected tiny gallstones, significant abdominal/pelvic lymphadenopathy, hepatic colopathy Thrombocytopenia and hypoglycemia likely 2/2 hepatic insufficiency. Plan: -IVP Protonix 40mg Qday #Normocytic Anemia Hgb stable around 9.0 Health Maintenance: Disposition: Telemetry Diet: NPO, in preparation for possible surgery PPx DVT: heparin 5000mg bid PPx GI: Protonix IV 40mg Qday Code Status: DNR, DNI This case was discussed with my attending physician, Dr. Bermudez, and senior resident, Dr Tai, DO PGY I Attending Provider Attestation/Addendum I have seen and examined the patient. I was physically present for the reyes portions of the services provided including history, physical exam, diagnosis, treatment plans and orders. I agree with assessment and plan of care as documented by residents. Even though this this note was carefully revised there may still be minor errors in operations support analyst due to voice recognition software. Elliot Bermudez MD
--- NOTE | 2025-06-01 22:31 | PD.VPROG1 ---
Telemedicine visit statement This visit was conducted with the use of phone was obtained on 06/01/25 at 2231. Documentation for date of: 06/01/25 Subjective Subjective Interval history: Patient is in telemetry. His mental status has been fluctuating significantly. Continues to have swelling in the right lower extremity from cellulitis. Virtual exam Vital Signs Temp Pulse Resp BP Pulse Ox O2 Del Method O2 Flow Rate 98.1 F 88 18 136/88 H 98 Nasal Cannula 1 06/01/25 20:00 06/01/25 20:00 06/01/25 20:00 06/01/25 20:00 06/01/25 20:00 06/01/25 20:00 06/01/25 20:00 Objective Labs 06/01/25 04:52 06/01/25 04:52 Labs: Laboratory Results - last 24 hr 06/01/25 04:52 WBC 4.0 RBC 3.30 L Hgb 8.9 L Hct 27.9 L MCV 85 MCH 27.0 MCHC 31.9 RDW Std Deviation 45.2 H Plt Count 129 L Neut % (Auto) 46 Lymph % (Auto) 26 [place] % (Auto) 8 Eos % (Auto) 19 H Baso % (Auto) 1 Neut # (Auto) 1.8 Lymph # (Auto) 1.0 [place] # (Auto) 0.3 Eos # (Auto) 0.8 H Baso # (Auto) 0.1 Immature Gran # (Auto) 0.02 H Absolute Nucleated RBC 0.00 Immature Gran % 1 H Nucleated RBC % 0 Sodium 139 Potassium 3.5 Chloride 107 Carbon Dioxide 27.6 Anion Gap 4 L BUN 12 Creatinine 0.8 Estim Creat Clear Calc 126.8 eGFR > 60 BUN/Creatinine Ratio 15 Glucose 97 Calculated Osmolality 277 Calcium 7.7 L Corrected Calcium 9.1 Phosphorus 2.8 Magnesium 1.7 Total Bilirubin 0.4 AST 26 ALT 9 L Alkaline Phosphatase 65 Total Protein 8.1 Albumin 2.3 L Globulin 5.8 H Albumin/Globulin Ratio 0.4 L Assessment & Plan Problem List (1) Altered mental status: Status: Acute Assessment and plan: Most likely secondary to metabolic encephalopathy Will get EEG and MRI brain to evaluate further. Agreed with current management including CIWA protocol. (2) Cellulitis of lower extremity: Status: Acute Assessment and plan: Continue with antibiotics wound care (3) Cirrhosis of liver: Status: Chronic Assessment and plan: Secondary to chronic alcohol abuse with hepatitis C Noted to have polysubstance abuse Continue to monitor his liver enzymes and mental status closely Continue with the lactulose
[2025-06-01 23:08] LABS: Vancomycin,Trough 19.4 mcg/mL (5.0-10.0)
[2025-06-02] VITALS (10 sets, daily range): BP systolic 112–130; BP diastolic 58–89; PULSE 81–91; RESP 12–20; TEMP 36.4–36.8; O2SAT 94–100; BMI 30.9; BMI 14.0
[2025-06-02] MEDS: MORPHINE SULF INJ 4 MG/ML VIAL 2 MG IVP ×3 (00:42→16:22)
[2025-06-02] MEDS: HEPARIN SOD INJ 5000 UNIT/ML VIAL SC ×2 (02:34→15:15)
--- NOTE | 2025-06-02 03:32 | RESP.EEG ---
EEG has been completed and is ready for MD interpretation
[2025-06-02] MEDS: PIPER/TAZO INJ 4.5 GM in SODIUM CHLORIDE 0.9% (POP) 100 ML IV ×3 (05:24→22:04)
[2025-06-02 06:32] LABS: Basophils # (Auto) 0.1 Thou/mm3 (0.0-0.2); Basophils % (Auto) 2 % (0-2.5); Eosinophils # (Auto) 0.6 Thou/mm3 (0.0-0.5); Eosinophils % (Auto) 19 % (0-10); Hematocrit 24.8 % (41.0-53.0); Immature Granulocytes Auto 0.02 Thou/mm3 (0.00-0.00); Lymphocytes # (Auto) 0.9 Thou/mm3 (1.0-4.8); Lymphocytes % (Auto) 31 % (10-50); Mean Corpuscular HGB Conc 32.3 g/dl (31.0-37.0); Mean Corpuscular Hemoglobin 27.5 pg (25.0-35.0); Mean Corpuscular Volume 85 fL (80-100); Monocytes # (Auto) 0.2 Thou/mm3 (0.0-0.8); Monocytes % (Auto) 7 % (0-12); Neutrophils # (Auto) 1.2 Thou/mm3 (1.8-7.7); Neutrophils % (Auto) 41 % (37-80); Nucleated Red Blood Cell # 0.00 Thou/mm3 (0.00-0.00); Nucleated Red Blood Cell % 0 /100 WBC (0); Platelet Count 99 Thou/mm3 (140-440); RDW Standard Deviation 45.3 fL (35.1-43.9); Red Blood Count 2.91 Miln/mm3 (4.50-5.90); White Blood Count 3.0 Thou/mm3 (3.8-10.6)
[2025-06-02 06:33] LABS: Hemoglobin 8.0 g/dL (13.5-16.0)
[2025-06-02 06:49] LABS: Alanine Aminotransferase 8 U/L (10-49); Albumin, Serum 2.2 gm/dL (3.5-5.0); Albumin/Globulin Ratio 0.4 (1.2-2.2); Alkaline Phosphatase 57 U/L (46-116); Anion Gap 6 (7-16); Aspartate Amino Transferase 22 U/L (0-34); BUN/Creatinine Ratio 13 Ratio (12-20); Bilirubin,Total 0.4 mg/dL (0.3-1.2); Blood Urea Nitrogen 10 mg/dL (9-23); Calcium 7.4 mg/dL (8.3-10.6); Calcium (Corrected) 8.8 mg/dL (8.5-10.1); Carbon Dioxide 27.8 mMol/L (20.0-31.0); Chloride 108 mMol/L (98-107); Creatinine (Component) 0.8 mg/dL (0.6-1.3); Estimated Creatinine Clearance 126.8 mL/min (>60); Globulin 5.6 gm/dL (2.3-3.5); Glucose 96 mg/dL (74-106); Magnesium 1.8 mg/dL (1.6-2.6); Osmolality,Calculated 282 (275-295); Phosphorous 2.8 mg/dL (2.4-5.1); Potassium 3.5 mMol/L (3.4-5.1); Sodium 142 mMol/L (136-145); Total Protein 7.8 gm/dL (5.7-8.2); eGFR > 60 See Note
[2025-06-02] MEDS: THIAMINE 100 MG TABLET PO (08:06)
[2025-06-02] MEDS: FOLIC ACID 1 MG TABLET PO (08:06)
[2025-06-02] MEDS: PANTOPRAZOLE 40 MG TABLET PO (08:06)
[2025-06-02] MEDS: SOD HYPOCHLORITE 1/4 STR 473 ML BTL IRRIG ×2 (08:06→22:03)
[2025-06-02 09:54] LABS: Ammonia < 10 uMol/L (11-32)
--- NOTE | 2025-06-02 10:38 | PC.SS ---
Addendum entered by Faiza Torres 06/02/25 10:41: Pt is currently on 4 liters of O2. Per Dionne at [facility], pt requires to be around 3 liters of O2 or below. Original Note: SS met with pt to provide him choices for SNF to [place], [facility], and [facility]. Patient's choice is [facility]. SS has sent PASRR to Dionne at [facility] for insurance authorization.
--- NOTE | 2025-06-02 11:13 | PC.SS ---
Addendum entered by Faiza Torres 06/02/25 11:54: SS spoke to Ernie F. a senior patient account representative from patient health insurance who explained standard insurance authorization can take up to 5 business days. SS explained [facility] is accepting and is starting insurance authorization. Ernie provided fax#s [phone] and [phone] for d/c information. SS received call from Nata who provided correct fax#. Original Note: SS attempted to contact: Nata from patient's health insurance, phone# [phone] and was only able to leave voicemail Lilibeth [phone] but was only able to leave voicemail with SS contact information SS contacted Linda from post utilization who transferred SS to provider services/community solutions. SS spoke to Ernie F. who is aware insurance authorization is being requested for [facility]
[2025-06-02] MEDS: VANCOMYCIN/NS 750 MG IVPB 750 MG/150 ML BAG 120 MG IV ×2 (11:40→22:46)
[2025-06-02 11:47] LABS: Cocci Serology, IgM Negative (Negative)
--- NOTE | 2025-06-02 16:18 | ESPR_ITS ---
<Statement entered by Ryan Mccollum MD - 06/02/25 18:53> Patient seen and examined at bedside. I discussed and supervised with the spring intern physician who took care of this patient. I personally saw and examined the patient. I agree with most of the assessment and plan. Patient significantly improved on exam. Leg improved but painful s/p debridement. Patient more awake and alert. Pending MRI. Plan of care discussed with attending Dr. Longoria. Ryan Mccollum MD PGY-2 Documentation for date of: 06/02/25 Subjective Subjective Interval history: Patient was seen and examined at bedside. No acute events took place overnight. A&O x 3, somnolent and unable to follow through with his responses. Admits to pain in RLE. Patient was more alert earlier in the morning before morphine 2mg x1 was given to control his leg pain while changing the wound dressing. Patient was reported to have had a good appetite when breakfast was served this AM. Will discharge to SNF. Exam Vital Signs Temp Pulse Resp BP Pulse Ox O2 Del Method O2 Flow Rate 97.9 F 81 16 126/89 H 100 Nasal Cannula 3 06/02/25 12:13 06/02/25 12:13 06/02/25 12:13 06/02/25 12:13 06/02/25 12:13 06/02/25 12:13 06/02/25 12:13 Narrative Exam General: Tired, somnolent, irritable, engages in conversation?limited answers. HEENT: Normocephalic, atraumatic, mucous membranes moist. Heart: Regular rate and rhythm, no murmurs. Lungs: Low pitched wheezing in bilateral lower lobes Abdomen: Soft, obese, minimal generalized tenderness, positive bowel sounds. ?No guarding or rebound tenderness. Neurologic: Somnolent, no gross neurological deficit, and patient able to move all 4 extremities. Extremities: Bilateral lower extremity venous stasis dermatitis vs lymphadenopathy with significant skin thickening, redness and tenderness noted on right leg, right leg more swollen than left. Right lower leg with an area that is indurated and erythematous with a soft polypoid appearing mass vs hemangioma measuring 2.5cm x 1cm; no edema. Strength +3/5 with dorsi/plantar- flexion b/l. Diminished DT pulses +1/3. No sensation along below knee. Skin: Thickening of skin noted on lower extremities, multiple tattoos. Objective Labs 06/03/25 05:13 06/03/25 05:13 Labs: Laboratory Results - last 24 hr 06/01/25 06/02/25 06/02/25 21:37 05:06 09:13 WBC 3.0 L RBC 2.91 L Hgb 8.0 L Hct 24.8 L MCV 85 MCH 27.5 MCHC 32.3 RDW Std Deviation 45.3 H Plt Count 99 L D Neut % (Auto) 41 Lymph % (Auto) 31 [place] % (Auto) 7 Eos % (Auto) 19 H Baso % (Auto) 2 Neut # (Auto) 1.2 L Lymph # (Auto) 0.9 L [place] # (Auto) 0.2 Eos # (Auto) 0.6 H Baso # (Auto) 0.1 Immature Gran # (Auto) 0.02 H Absolute Nucleated RBC 0.00 Immature Gran % 1 H Nucleated RBC % 0 Sodium 142 Potassium 3.5 Chloride 108 H Carbon Dioxide 27.8 Anion Gap 6 L BUN 10 Creatinine 0.8 Estim Creat Clear Calc 126.8 eGFR > 60 BUN/Creatinine Ratio 13 Glucose 96 Calculated Osmolality 282 Calcium 7.4 L Corrected Calcium 8.8 Phosphorus 2.8 Magnesium 1.8 Total Bilirubin 0.4 AST 22 ALT 8 L Alkaline Phosphatase 57 Ammonia < 10 L Total Protein 7.8 Albumin 2.2 L Globulin 5.6 H Albumin/Globulin Ratio 0.4 L Vancomycin Trough 19.4 H Coccidioides IgM Ab Negative Quality Measures Quality Measures none Assessment & Plan Assessment Current Active Medications: Generic Name Dose Route Start Last Admin Trade Name Freq PRN Reason Stop Dose Admin Acetaminophen 325 mg 05/29/25 15:25 Acetaminophen 325 Mg Tablet PO 06/28/25 15:24 Q6H PRN Fever >101.5 or pain 1-3 Hydrocodone Bitart/Acetaminophen 1 tab 05/30/25 17:03 06/02/25 12:31 Hydrocodone/Apap 10/325 Tab PO 06/04/25 17:02 1 tab Q6HR PRN Administration PAIN SCALE 4-6 (Moderate Albuterol/Ipratropium 3 ml 05/29/25 15:25 Albuterol/Ipratropium (Duoneb) Rt Rosamaria 3 Ml Nebu INH 06/28/25 15:24 Q2HR PRN SHORTNESS OF BREATH OR WHEEZE Folic Acid 1 mg 05/31/25 10:00 06/02/25 08:06 Folic Acid 1 Mg Tablet PO 06/30/25 09:59 1 mg QDAY ELIGIO Administration Heparin Sodium (Porcine) 5,000 unit 05/29/25 15:30 06/02/25 15:15 Heparin Sod Inj 5000 Unit/Ml Vial SC 06/12/25 15:29 5,000 unit Q12H ELIGIO Administration Piperacillin Sod/Tazobactam 100 mls @ 200 mls/hr 05/29/25 22:00 06/02/25 13:34 Sod 4.5 gm/ Sodium Chloride IV 06/05/25 21:59 200 mls/hr Q8HR ELIGIO Administration Protocol Vancomycin/Sodium Chloride 750 mg in 150 mls @ 120 mls/hr 06/02/25 10:00 06/02/25 11:40 Vancomycin/Ns 750 Mg Ivpb IV 06/09/25 09:59 120 mls/hr Q12H ELIGIO Administration Protocol Lorazepam 0.5 mg 05/31/25 12:54 Lorazepam 0.5 Mg Tablet PO 06/05/25 12:53 Q4HR PRN CIWA Score 2-6 Lorazepam 1 mg 05/31/25 12:54 05/31/25 13:00 Lorazepam 0.5 Mg Tablet PO 06/05/25 12:53 1 mg Q4HR PRN Administration CIWA SCORE 7-11 Lorazepam 2 mg 05/31/25 12:54 06/01/25 15:39 Lorazepam 0.5 Mg Tablet PO 06/05/25 12:53 2 mg Q4HR PRN Administration CIWA SCORE 12-15 Morphine Sulfate 2 mg 05/31/25 09:49 06/02/25 08:04 Morphine Sulf Inj 4 Mg/Ml Vial IVP 06/04/25 16:59 2 mg Q6H PRN Administration PAIN SCALE 7-10 (Severe Ondansetron HCl 4 mg 05/29/25 15:25 05/31/25 09:03 Ondansetron Inj 2 Mg/Ml Inj 2 Ml IVP 06/28/25 15:24 4 mg Q6H PRN Administration NAUSEA OR VOMITING Protocol Pantoprazole Sodium 40 mg 05/30/25 09:00 06/02/25 08:06 Pantoprazole 40 Mg Tablet PO 06/29/25 08:59 40 mg QDAY ELIGIO Administration Pharmacy Consult 1 each 05/30/25 09:00 06/02/25 12:43 Vancomycin Pharmacy To Dose 1 Each Each IV 06/29/25 08:59 Not Given QDAY [facility] Sennosides 1 tab 05/29/25 15:25 Senna Tablet PO 06/28/25 15:24 QDAY PRN constipation Protocol Sodium Hypochlorite 473 ml 05/31/25 16:30 06/02/25 08:06 Sod Hypochlorite 1/4 Str 473 Ml Btl IRRIG 06/30/25 16:29 1 applicatio BID ELIGIO Administration Thiamine HCl 100 mg 05/31/25 10:00 06/02/25 08:06 Thiamine 100 Mg Tablet PO 06/30/25 09:59 100 mg QDAY ELIGIO Administration Plan Mr. Caruso is a 50-year-old male with past medical history of fentanyl and methamphetamine use disorder, homelessness, decompensated liver cirrhosis with history of esophageal varices grade 3 secondary to hepatitis C, splenomegaly and chronic venous stasis bilateral lower extremity who presented to [facility] emergency department on May 29, 2025 with worsening Rt leg erythema, pain, and swelling of the RLE. Pt admitted for in-hospital mgmt of cellulitis. Started broad spectrum antibiotic coverage with Zosyn and vancomycin, in the light of extensive, severe cellulitis, and history of IV drug use, confirmed on UDS. Blood cultures ordered and were negative after 48h. Meanwhile, surgery consulted, who proposed that nonsurgical managment would be sufficient. The wound was washed with saline, hydrogen peroxide, betadine, and Dakins, and scores of maggots were removed. Portion of the necrotic skin at the lateral aspect removed and sent to pathology. 06/01: In the face of lethargy not improving, neurology was consulted. EEG and MRI ordered. Labs showed normo-ammonemia, and lactulose was discontinued. #Cellulitis #Soft tissue mass #s/p wash, disinfestation, and biopsy Patient presented with worsening Rt leg swelling, desquamation, and excoriations. Present erythema, edema, and tenderness, and warmth. CT RLE showed diffuse severe cellulitis in the subcutaneous fatty tissues surrounding the femur, tibia and fibula. Negative for osteomyelitis. Also visualized soft tissue mass lateral lower leg at the skin surface measuring 3.7 x1.6 x3.0cm. ?Preliminary B ctx negative after 24h ?Dr Gonzalez said nonsurgical mgmt would be sufficient. ?After wash with saline, and hydrogen peroxide, betadine, and Dakins, scores of maggots were removed. Portion of the necrotic skin at the lateral aspect removed and sent to pathology. Dressings applied. ?B ctx were negative after 48h Plan: -Zosyn 4.5g Q8h and vancomycin (05/29 - ) -referral to wound care -Surgery, Dr Gonzalez consulted, appreciate recs -strict ins and outs #Acute encephalopathy #Alcohol withdrawal, patient on CIWA protocol #Opiate dependence #Methamphetamine dependence #Lethargy Patient was lethargic at presentation, A&O x2, unable to answer questions appropriately. On PE, pinpoint pupils. Patient reported fentanyl use just before presentations and UDS was positive for both fentanyl and amphetamine. He also admits to chronic heavy drinking. COWS score 4, patient not in opiate withdrawal. CT head negative for acute hemorrhage, mass effect, or midline shift. Dr Carbajal posits that AMS is likely 2/2 metabolic encephalopathy. ? Fluctuating mental status Plan: - Neurology, Dr Carbajal, consulted, appreciate recs - EEG and MRI ordered. - CIWA protocol in place (neurology in agreement) - Ativan PO .5mg for CIWA 2-6 Q4h, 1mg for CIWA 7-11 Q4h, and 2mg CIWA 12-16 Q4h PRN - Patient advised to refrain from fentanyl and methamphetamine use #Grade 3 esophageal varices by history, status post banding November 2024 #Decompensated liver cirrhosis #Hepatitis C antibody positive, #Thrombocytopenia #Hypoglycemia Patient with steatohepatitis vs primary hepatocellular disease based on previous abdominal ultrasound. Significant hepatosplenomegaly on physical exam, CT pelvis positive for massive splenomegaly CT chest abdomen pelvis (01/2025) showed cirrhosis, liver irregular contour with prominent hepatosplenomegaly, thickened gallbladder with suspected tiny gallstones, significant abdominal/pelvic lymphadenopathy, hepatic colopathy Thrombocytopenia and hypoglycemia likely 2/2 hepatic insufficiency. ammonia <10 Plan: -IVP Protonix 40mg Qday -in the light of normo-ammonemia, discontinued lactulose. #Normocytic Anemia Hgb stable around 9.0 Health Maintenance: Disposition: Telemetry Diet: NPO, in preparation for possible surgery PPx DVT: heparin 5000mg bid PPx GI: Protonix IV 40mg Qday Code Status: DNR, DNI This case was discussed with my attending physician, Dr. Longoria, and senior resident, Dr Mccollum. Nyla Chan DO PGY I Attending Provider Attestation/Addendum I, Delphine oLngoria DO, attest that I was physically present for the reyes portions of the service and evaluated the patient with the resident and I reviewed and discussed the case with the resident and agree with the resident's findings and plans of care as documented above Patient seen and evaluated this AM. Wound nurse at bedside. Patient has thickened verrucous skin on b/l LE. Site of lesion that was removed by surgeon is healing well. Patient has pain with passive lifting of his leg. He states that he is wheelchair bound and dose not walk due to his hips. Patient had been reportedly somnolent for the past few days that had prompted a neurology evaluation. Patient is alert and oriented x 3 today. EEG had been done and is pending MRI. Patient has very poor hygiene and scattered tattoos. Wound had grown serratia marcesans and proteus mirabilis, sensitive to zosyn. Will narrow abx to augmentin. No need for vancomycin at this time. He will need to continue with wound care at SNF. Anticipate DC within next 24h once cleared by neurology.
--- NOTE | 2025-06-02 19:34 | PD.RESPRO ---
Documentation for date of: 06/02/25 Subjective Subjective Interval history: Mr. Caruso is a 50-year-old male admitted for acute encephalopathy due to alcohol use disorder and bilateral lower extremity cellulitis. Patient recently fell from his wheelchair 4 days ago, is homeless, and since has had severe right leg and right hip pain. He is a poor historian, very lethargic and at baseline AO x 2. CT of the right lower extremity showed diffuse cellulitis involving the subcutaneous fat surrounding the femur and tibia, negative for osteomyelitis. Primary team to continue management. 06/02: Today patient appeared very emotional, declined getting the MRI as he feels very anxious on laying flat on the bed. He endorsed wanting to get rid of his lower extremities as it caused him problems since his teenage years. Patient also has history of cirrhosis and esophageal varices due to hepatitis C, is poorly compliant with treatment due to being homeless. Patient appears to be at baseline at this time, acute encephalopathy resolved. Possible intermittent worsening due to fentanyl and methamphetamine withdrawals as well. Continue to monitor on CIWA protocol. Will cancel MRI at this time and proceed with only EEG in house. Exam Vital Signs Temp Pulse Resp BP Pulse Ox O2 Del Method O2 Flow Rate 97.8 F 90 16 130/75 97 Nasal Cannula 3 06/02/25 16:00 06/02/25 16:00 06/02/25 16:00 06/02/25 16:00 06/02/25 16:00 06/02/25 16:00 06/02/25 16:00 Narrative Exam Constitutional Alert, oriented x2 (baseline) and discomfort on laying flat in bed HEENT Vision grossly intact, PERRL. Patent nares. Trachea midline. Respiratory Chest normal on inspection and clear to auscultation bilaterally. Cardiovascular S1 and S2 audible, RRR. No murmurs or carotid bruit. No gross JVD. Abdominal Soft and BS + ; non tender to palpation in all quadrants. Genitourinary No bladder tenderness, no flank pain. Normal to palpation. Musculoskeletal Extremities tone within normal limits. No LE edema. Neurological CN II - XII grossly intact. Extremity motor 5/5 and sensation grossly intact. Skin Severe B/L cellulitis R>L; Pedal pulses 2+ bilaterally Psychiatric Patient has a good affect, is cooperative. Objective Labs 06/03/25 05:13 06/02/25 05:06 Labs: Laboratory Results - last 24 hr 06/01/25 06/02/25 06/02/25 21:37 05:06 09:13 WBC 3.0 L RBC 2.91 L Hgb 8.0 L Hct 24.8 L MCV 85 MCH 27.5 MCHC 32.3 RDW Std Deviation 45.3 H Plt Count 99 L D Neut % (Auto) 41 Lymph % (Auto) 31 Vance % (Auto) 7 Eos % (Auto) 19 H Baso % (Auto) 2 Neut # (Auto) 1.2 L Lymph # (Auto) 0.9 L Vance # (Auto) 0.2 Eos # (Auto) 0.6 H Baso # (Auto) 0.1 Immature Gran # (Auto) 0.02 H Absolute Nucleated RBC 0.00 Immature Gran % 1 H Nucleated RBC % 0 Sodium 142 Potassium 3.5 Chloride 108 H Carbon Dioxide 27.8 Anion Gap 6 L BUN 10 Creatinine 0.8 Estim Creat Clear Calc 126.8 eGFR > 60 BUN/Creatinine Ratio 13 Glucose 96 Calculated Osmolality 282 Calcium 7.4 L Corrected Calcium 8.8 Phosphorus 2.8 Magnesium 1.8 Total Bilirubin 0.4 AST 22 ALT 8 L Alkaline Phosphatase 57 Ammonia < 10 L Total Protein 7.8 Albumin 2.2 L Globulin 5.6 H Albumin/Globulin Ratio 0.4 L Vancomycin Trough 19.4 H Coccidioides IgM Ab Negative Quality Measures Quality Measures none Assessment & Plan Assessment Current Active Medications: Generic Name Dose Route Start Last Admin Trade Name Freq PRN Reason Stop Dose Admin Acetaminophen 325 mg 05/29/25 15:25 Acetaminophen 325 Mg Tablet PO 06/28/25 15:24 Q6H PRN Fever >101.5 or pain 1-3 Hydrocodone Bitart/Acetaminophen 1 tab 05/30/25 17:03 06/02/25 12:31 Hydrocodone/Apap 10/325 Tab PO 06/04/25 17:02 1 tab Q6HR PRN Administration PAIN SCALE 4-6 (Moderate Albuterol/Ipratropium 3 ml 05/29/25 15:25 Albuterol/Ipratropium (Duoneb) Rt Rosamaria 3 Ml Nebu INH 06/28/25 15:24 Q2HR PRN SHORTNESS OF BREATH OR WHEEZE Folic Acid 1 mg 05/31/25 10:00 06/02/25 08:06 Folic Acid 1 Mg Tablet PO 06/30/25 09:59 1 mg QDAY ELIGIO Administration Heparin Sodium (Porcine) 5,000 unit 05/29/25 15:30 06/02/25 15:15 Heparin Sod Inj 5000 Unit/Ml Vial SC 06/12/25 15:29 5,000 unit Q12H ELIGIO Administration Piperacillin Sod/Tazobactam 100 mls @ 200 mls/hr 05/29/25 22:00 06/02/25 13:34 Sod 4.5 gm/ Sodium Chloride IV 06/05/25 21:59 200 mls/hr Q8HR ELIGIO Administration Protocol Vancomycin/Sodium Chloride 750 mg in 150 mls @ 120 mls/hr 06/02/25 10:00 06/02/25 11:40 Vancomycin/Ns 750 Mg Ivpb IV 06/09/25 09:59 120 mls/hr Q12H ELIGIO Administration Protocol Lorazepam 0.5 mg 05/31/25 12:54 Lorazepam 0.5 Mg Tablet PO 06/05/25 12:53 Q4HR PRN CIWA Score 2-6 Lorazepam 1 mg 05/31/25 12:54 05/31/25 13:00 Lorazepam 0.5 Mg Tablet PO 06/05/25 12:53 1 mg Q4HR PRN Administration CIWA SCORE 7-11 Lorazepam 2 mg 05/31/25 12:54 06/01/25 15:39 Lorazepam 0.5 Mg Tablet PO 06/05/25 12:53 2 mg Q4HR PRN Administration CIWA SCORE 12-15 Morphine Sulfate 2 mg 05/31/25 09:49 06/02/25 16:22 Morphine Sulf Inj 4 Mg/Ml Vial IVP 06/04/25 16:59 2 mg Q6H PRN Administration PAIN SCALE 7-10 (Severe Ondansetron HCl 4 mg 05/29/25 15:25 05/31/25 09:03 Ondansetron Inj 2 Mg/Ml Inj 2 Ml IVP 06/28/25 15:24 4 mg Q6H PRN Administration NAUSEA OR VOMITING Protocol Pantoprazole Sodium 40 mg 05/30/25 09:00 06/02/25 08:06 Pantoprazole 40 Mg Tablet PO 06/29/25 08:59 40 mg QDAY ELIGIO Administration Pharmacy Consult 1 each 05/30/25 09:00 06/02/25 12:43 Vancomycin Pharmacy To Dose 1 Each Each IV 06/29/25 08:59 Not Given QDAY ELIGIO Sennosides 1 tab 05/29/25 15:25 Senna Tablet PO 06/28/25 15:24 QDAY PRN constipation Protocol Sodium Hypochlorite 473 ml 05/31/25 16:30 06/02/25 08:06 Sod Hypochlorite 1/4 Str 473 Ml Btl IRRIG 06/30/25 16:29 1 applicatio BID ELIGIO Administration Thiamine HCl 100 mg 05/31/25 10:00 06/02/25 08:06 Thiamine 100 Mg Tablet PO 06/30/25 09:59 100 mg QDAY ELIGIO Administration Plan Mr Ardon is a 50-year-old male admitted for acute encephalopathy due to alcohol use disorder and bilateral lower extremity cellulitis. Acute encephalopathy Polysubstance use disorder Most likely secondary to metabolic encephalopathy Recommendations: - MRI canceled as patient is very anxious - Recommend in-house EEG before discharge - Agreed with current management including CIWA protocol. - Continue to monitor his liver enzymes and mental status closely. Continue with the lactulose Other medical problems to be managed as per primary team recommendations Thank you for the consult. Neurology will continue to follow the case with you Plan of care discussed with attending Neurologist Aris Luther M.D. 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 Attending Provider Attestation/Addendum I have seen and examined the patient at the bedside and agreed with resident's findings, assessment and plan of care. His fluctuation in mental status is most likely related to mood changes/alcohol related encephalopathy/drug withdrawal with a history of polysubstance abuse. No focal neurological deficit noted on exam. Will cancel the MRI at this point as he cannot stay still for the procedure despite morphine for pain control. Follow-up with the EEG. Continue to monitor him closely.
[2025-06-03] VITALS (8 sets, daily range): BP systolic 106–138; BP diastolic 66–84; PULSE 66–92; RESP 14–19; TEMP 35.9–36.4; O2SAT 93–99; BMI 30.9
[2025-06-03] MEDS: MORPHINE SULF INJ 4 MG/ML VIAL 2 MG IVP (03:54)
[2025-06-03] MEDS: PIPER/TAZO INJ 4.5 GM in SODIUM CHLORIDE 0.9% (POP) 100 ML IV ×3 (05:05→21:24)
[2025-06-03 06:20] LABS: Basophils # (Auto) 0.1 Thou/mm3 (0.0-0.2); Basophils % (Auto) 2 % (0-2.5); Eosinophils # (Auto) 0.9 Thou/mm3 (0.0-0.5); Eosinophils % (Auto) 23 % (0-10); Hematocrit 27.8 % (41.0-53.0); Hemoglobin 8.6 g/dL (13.5-16.0); Immature Granulocytes Auto 0.01 Thou/mm3 (0.00-0.00); Lymphocytes # (Auto) 1.1 Thou/mm3 (1.0-4.8); Lymphocytes % (Auto) 30 % (10-50); Mean Corpuscular HGB Conc 30.9 g/dl (31.0-37.0); Mean Corpuscular Hemoglobin 27.5 pg (25.0-35.0); Mean Corpuscular Volume 89 fL (80-100); Monocytes # (Auto) 0.3 Thou/mm3 (0.0-0.8); Monocytes % (Auto) 8 % (0-12); Neutrophils # (Auto) 1.4 Thou/mm3 (1.8-7.7); Neutrophils % (Auto) 37 % (37-80); Nucleated Red Blood Cell # 0.00 Thou/mm3 (0.00-0.00); Nucleated Red Blood Cell % 0 /100 WBC (0); Platelet Count 93 Thou/mm3 (140-440); RDW Standard Deviation 48.5 fL (35.1-43.9); Red Blood Count 3.13 Miln/mm3 (4.50-5.90); White Blood Count 3.8 Thou/mm3 (3.8-10.6)
[2025-06-03 07:06] LABS: Alanine Aminotransferase < 7 U/L (10-49); Albumin, Serum 2.3 gm/dL (3.5-5.0); Albumin/Globulin Ratio 0.4 (1.2-2.2); Alkaline Phosphatase 55 U/L (46-116); Anion Gap 6 (7-16); Aspartate Amino Transferase 21 U/L (0-34); BUN/Creatinine Ratio 11 Ratio (12-20); Bilirubin,Total 0.3 mg/dL (0.3-1.2); Blood Urea Nitrogen 11 mg/dL (9-23); Calcium 7.3 mg/dL (8.3-10.6); Calcium (Corrected) 8.7 mg/dL (8.5-10.1); Carbon Dioxide 27.5 mMol/L (20.0-31.0); Chloride 108 mMol/L (98-107); Creatinine (Component) 1.0 mg/dL (0.6-1.3); Estimated Creatinine Clearance 101.4 mL/min (>60); Globulin 5.9 gm/dL (2.3-3.5); Glucose 108 mg/dL (74-106); Osmolality,Calculated 281 (275-295); Potassium 3.7 mMol/L (3.4-5.1); Sodium 141 mMol/L (136-145); Total Protein 8.2 gm/dL (5.7-8.2); eGFR > 60 See Note
[2025-06-03] MEDS: FOLIC ACID 1 MG TABLET PO (09:54)
[2025-06-03] MEDS: PANTOPRAZOLE 40 MG TABLET PO (09:55)
[2025-06-03] MEDS: THIAMINE 100 MG TABLET PO (09:55)
[2025-06-03] MEDS: VANCOMYCIN/NS 750 MG IVPB 750 MG/150 ML BAG 120 MG IV (09:55)
[2025-06-03] MEDS: SOD HYPOCHLORITE 1/4 STR 473 ML BTL IRRIG (09:59)
--- NOTE | 2025-06-03 10:00 | PC.SS ---
Addendum entered by OSMANI Morales 06/03/25 14:49: BRAULIOW informed Team B doctors during rounding that patient is still pending authorization per [facility] Dionne. Original Note: Dionne from [facility] informed SS that patient is still pending authorization from insurance to be able to d/c to SNF.
[2025-06-03] MEDS: FUROSEMIDE INJ 10 MG/ML 4ML VIAL 40 MG IVP (11:46)
[2025-06-03 14:06] LABS: Cocci Serology, IgG Negative (Negative)
--- NOTE | 2025-06-03 14:19 | ESPR_ITS ---
<Statement entered by Oscar Sosa MD - 06/04/25 07:48> Patient was seen and examined at bedside. I agree on the assessment and plan on this note as documented by resident Dr Nyla Chan DO PGY1. 50-year-old male with past medical history as below admitted for right leg cellulitis and soft tissue mass, patient is status post wash this infestation and biopsy by general surgery, responded remarkably to IV antibiotics. Vancomycin was discontinued will continue Zosyn. Blood cultures have been negative., Patient does not have any signs of withdrawal mentation has improved remarkably MRI was deferred as patient refused it EEG has been unremarkable patient is stable for discharge however is pending insurance authorization. Biopsy resulted as papillomatous skin change. Case discussed with attending Dr. Delphine Torres MD PGY-2 Documentation for date of: 06/03/25 Subjective Subjective Interval history: Patient was seen and examined at bedside. No acute events took place overnight. A&O x 3, somnolence improved and patient able to carry through with conversation. Admits to pain in RLE, exacerbated with movement. Patient states that he is wheelchair bound. Will discharge to SNF pending authorization. He will need to continue with wound care at SNF. Exam Vital Signs Temp Pulse Resp BP Pulse Ox O2 Del Method O2 Flow Rate 97.1 F 66 19 135/84 H 96 Room Air 2 06/03/25 12:00 06/03/25 12:00 06/03/25 12:00 06/03/25 12:00 06/03/25 12:00 06/03/25 12:00 06/03/25 00:00 Narrative Exam General: Tired, somnolent, irritable, engages in conversation?limited answers. Patient has very poor hygiene and scattered tattoos. HEENT: Normocephalic, atraumatic, mucous membranes moist. Heart: Regular rate and rhythm, no murmurs. Lungs: Low pitched wheezing in bilateral lower lobes Abdomen: Soft, obese, minimal generalized tenderness, positive bowel sounds. ?No guarding or rebound tenderness. Neurologic: Somnolent, no gross neurological deficit, and patient able to move all 4 extremities. Extremities: Bilateral lower extremity venous stasis dermatitis vs lymphadenopathy with significant skin thickening, redness and tenderness noted on right leg, right leg more swollen than left. Right lower leg with an area that is indurated and erythematous with a soft polypoid appearing mass vs hemangioma measuring 2.5cm x 1cm; 1+ edema. Strength +3/5 with dorsi/plantar- flexion b/l. Pain with passive lifting of his leg. Diminished DT pulses +1/3. No sensation along below knee. Skin: Site of lesion that was removed by surgeon is healing well. Thickened verrucous skin noted on lower extremities, multiple tattoos. Objective Labs 06/03/25 05:13 06/03/25 05:13 Labs: Laboratory Results - last 24 hr 06/02/25 06/03/25 09:13 05:13 WBC 3.8 RBC 3.13 L Hgb 8.6 L Hct 27.8 L MCV 89 MCH 27.5 MCHC 30.9 L RDW Std Deviation 48.5 H Plt Count 93 L Neut % (Auto) 37 Lymph % (Auto) 30 [place] % (Auto) 8 Eos % (Auto) 23 H Baso % (Auto) 2 Neut # (Auto) 1.4 L Lymph # (Auto) 1.1 Nicholas # (Auto) 0.3 Eos # (Auto) 0.9 H Baso # (Auto) 0.1 Immature Gran # (Auto) 0.01 H Absolute Nucleated RBC 0.00 Immature Gran % 0 Nucleated RBC % 0 Sodium 141 Potassium 3.7 Chloride 108 H Carbon Dioxide 27.5 Anion Gap 6 L BUN 11 Creatinine 1.0 Estim Creat Clear Calc 101.4 eGFR > 60 BUN/Creatinine Ratio 11 L Glucose 108 H Calculated Osmolality 281 Calcium 7.3 L Corrected Calcium 8.7 Total Bilirubin 0.3 AST 21 ALT < 7 L Alkaline Phosphatase 55 Total Protein 8.2 Albumin 2.3 L Globulin 5.9 H Albumin/Globulin Ratio 0.4 L Coccidioides IgG Ab Negative Quality Measures Quality Measures none Assessment & Plan Assessment Current Active Medications: Generic Name Dose Route Start Last Admin Trade Name Freq PRN Reason Stop Dose Admin Acetaminophen 325 mg 05/29/25 15:25 Acetaminophen 325 Mg Tablet PO 06/28/25 15:24 Q6H PRN Fever >101.5 or pain 1-3 Hydrocodone Bitart/Acetaminophen 1 tab 06/03/25 12:31 Hydrocodone/Apap 5/325 Tablet PO 06/08/25 12:30 Q8HR PRN PAIN SCALE 4-10(Mod-Sev Albuterol/Ipratropium 3 ml 05/29/25 15:25 Albuterol/Ipratropium (Duoneb) Rt Rosamaria 3 Ml Nebu INH 06/28/25 15:24 Q2HR PRN SHORTNESS OF BREATH OR WHEEZE Folic Acid 1 mg 05/31/25 10:00 06/03/25 09:54 Folic Acid 1 Mg Tablet PO 06/30/25 09:59 1 mg QDAY ELIGIO Administration Heparin Sodium (Porcine) 5,000 unit 05/29/25 15:30 06/03/25 03:40 Heparin Sod Inj 5000 Unit/Ml Vial SC 06/12/25 15:29 Not Given Q12H ELIGIO Piperacillin Sod/Tazobactam 100 mls @ 200 mls/hr 05/29/25 22:00 06/03/25 05:05 Sod 4.5 gm/ Sodium Chloride IV 06/05/25 21:59 200 mls/hr Q8HR ELIGIO Administration Protocol Vancomycin/Sodium Chloride 750 mg in 150 mls @ 120 mls/hr 06/02/25 10:00 06/03/25 09:55 Vancomycin/Ns 750 Mg Ivpb IV 06/09/25 09:59 120 mls/hr Q12H ELIGIO Administration Protocol Ondansetron HCl 4 mg 05/29/25 15:25 05/31/25 09:03 Ondansetron Inj 2 Mg/Ml Inj 2 Ml IVP 06/28/25 15:24 4 mg Q6H PRN Administration NAUSEA OR VOMITING Protocol Pharmacy Consult 1 each 05/30/25 09:00 06/03/25 10:00 Vancomycin Pharmacy To Dose 1 Each Each IV 06/29/25 08:59 1 each QDAY ELIGIO Administration Sennosides 1 tab 05/29/25 15:25 Senna Tablet PO 06/28/25 15:24 QDAY PRN constipation Protocol Sodium Hypochlorite 473 ml 05/31/25 16:30 06/03/25 09:59 Sod Hypochlorite 1/4 Str 473 Ml Btl IRRIG 06/30/25 16:29 1 applicatio BID ELIGIO Administration Thiamine HCl 100 mg 05/31/25 10:00 06/03/25 09:55 Thiamine 100 Mg Tablet PO 06/30/25 09:59 100 mg QDAY ELIGIO Administration Plan Mr. Caruso is a 50-year-old male with past medical history of fentanyl and methamphetamine use disorder, homelessness, decompensated liver cirrhosis with history of esophageal varices grade 3 secondary to hepatitis C, splenomegaly and chronic venous stasis bilateral lower extremity who presented to [facility] emergency department on May 29, 2025 with worsening Rt leg erythema, pain, and swelling of the RLE. Pt admitted for in-hospital mgmt of cellulitis. Started broad spectrum antibiotic coverage with Zosyn and vancomycin, in the light of extensive, severe cellulitis, and history of IV drug use, confirmed on UDS. Blood cultures ordered and were negative after 48h. Meanwhile, surgery consulted, who proposed that nonsurgical managment would be sufficient. The wound was washed with saline, hydrogen peroxide, betadine, and Dakins, and scores of maggots were removed. Portion of the necrotic skin at the lateral aspect removed and sent to pathology. 06/01: In the face of lethargy not improving, neurology was consulted. EEG and MRI ordered. Labs showed normo-ammonemia, and lactulose was discontinued. Patient declined MRI for anxiety with confinement in the machine. EEG unremarkable. Patient can be discharged to SNF pending authorization, and will need wheelchair for mobility and regular wound care. #Cellulitis #Soft tissue mass #s/p wash, disinfestation, and biopsy Patient presented with worsening Rt leg swelling, desquamation, and excoriations. Present erythema, edema, and tenderness, and warmth. CT RLE showed diffuse severe cellulitis in the subcutaneous fatty tissues surrounding the femur, tibia and fibula. Negative for osteomyelitis. Also visualized soft tissue mass lateral lower leg at the skin surface measuring 3.7 x1.6 x3.0cm. ?Preliminary B ctx negative after 24h ?Dr Gonzalez said nonsurgical mgmt would be sufficient. ?After wash with saline, and hydrogen peroxide, betadine, and Dakins, scores of maggots were removed. Portion of the necrotic skin at the lateral aspect removed and sent to pathology. Dressings applied. ?B ctx were negative after 48h Plan: -Zosyn 4.5g Q8h and vancomycin (05/29 - ) -Lasix IV 40mg x1 -will discharge on Augmentin -referral to wound care -Surgery, Dr Gonzalez consulted, appreciate recs -strict ins and outs #Acute encephalopathy #Alcohol withdrawal, patient on CIWA protocol #Opiate dependence #Methamphetamine dependence #Lethargy Patient was lethargic at presentation, A&O x2, unable to answer questions appropriately. On PE, pinpoint pupils. Patient reported fentanyl use just before presentations and UDS was positive for both fentanyl and amphetamine. He also admits to chronic heavy drinking. COWS score 4, patient not in opiate withdrawal. CT head negative for acute hemorrhage, mass effect, or midline shift. Dr Carbajal posits that AMS is likely 2/2 metabolic encephalopathy. ? patient refused MRI for anxiety with confinement in the machine. Plan: - Neurology, Dr Carbajal, consulted, appreciate recs - Follow up on EEG. - CIWA protocol in place (neurology in agreement) - Folic acid 1mg and thiamine 100mg Qday - Ativan PO .5mg for CIWA 2-6 Q4h, 1mg for CIWA 7-11 Q4h, and 2mg CIWA 12-16 Q4h PRN - Patient advised to refrain from fentanyl and methamphetamine use #Grade 3 esophageal varices by history, status post banding November 2024 #Decompensated liver cirrhosis #Hepatitis C antibody positive, #Thrombocytopenia #Hypoglycemia Patient with steatohepatitis vs primary hepatocellular disease based on previous abdominal ultrasound. Significant hepatosplenomegaly on physical exam, CT pelvis positive for massive splenomegaly CT chest abdomen pelvis (01/2025) showed cirrhosis, liver irregular contour with prominent hepatosplenomegaly, thickened gallbladder with suspected tiny gallstones, significant abdominal/pelvic lymphadenopathy, hepatic colopathy Thrombocytopenia and hypoglycemia likely 2/2 hepatic insufficiency. ammonia <10 Plan: -IVP Protonix 40mg Qday -in the light of normo-ammonemia, discontinued lactulose. #Normocytic Anemia Hgb stable around 9.0 Health Maintenance: Disposition: Telemetry Diet: NPO, in preparation for possible surgery PPx DVT: heparin 5000mg bid PPx GI: Protonix IV 40mg Qday Code Status: DNR, DNI This case was discussed with my attending physician, Dr. Longoria, and senior resident, Dr Mccollum. Nyla Chan DO PGY I Attending Provider Attestation/Addendum Delphine Anguiano DO, attest that I was physically present for the reyes portions of the service and evaluated the patient with the resident and I reviewed and discussed the case with the resident and agree with the resident's findings and plans of care as documented above Patient seen and evaluated this AM. He states that he is doing well. No acute events overnight.He continues to have mild edema in his b/e LE, likely due to cirrhosis. Patient states he used to take water pills due to cirrhosis, but failed to follow up once his prescription ran out. He denies any shortness of breath otherwise. Pending SNF placement. Will downgrade to med/surg as patient remains stable and pending discharge.
[2025-06-03] MEDS: HEPARIN SOD INJ 5000 UNIT/ML VIAL SC (14:56)
[2025-06-03] MEDS: HYDROcodone/APAP 5/325 TABLET 1 TAB PO (15:10)
--- NOTE | 2025-06-03 18:29 | PC.NURSE ---
Spoke with Janice charge nurse. Patient has to come up to the floor at this time he has no IV access. Patient is not allowing anyone to insert IV. If patients changes his mind Jorje Claire charge nurse will come up tonight and insert an ultra sound guided IV. Patient is a hard stick.
--- NOTE | 2025-06-03 18:45 | PC.NURSE ---
Patient arrived on the floor
--- NOTE | 2025-06-03 23:52 | PD.VPROG1 ---
Telemedicine visit statement This visit was conducted with the use of interactive audio and video telecommunications system that permits real time communication between the patient and the provider. Patient's verbal consent for virtual visit was obtained on 06/03/25 at 2352. Documentation for date of: 06/03/25 Subjective Subjective Interval history: Patient is in telemetry. His mental status is back to baseline and no fluctuation noted today. He had visitation from his 2 friends and he enjoyed their company. continues to have swelling in the right lower extremity from cellulitis, getting wound care with periodic dressing. Virtual exam Vital Signs Temp Pulse Resp BP Pulse Ox O2 Del Method O2 Flow Rate 97.6 F 80 18 120/72 94 L Room Air 2 06/03/25 20:00 06/03/25 20:00 06/03/25 20:00 06/03/25 20:00 06/03/25 20:00 06/03/25 16:00 06/03/25 00:00 Objective Labs 06/03/25 05:13 06/03/25 05:13 Labs: Laboratory Results - last 24 hr 06/02/25 06/03/25 09:13 05:13 WBC 3.8 RBC 3.13 L Hgb 8.6 L Hct 27.8 L MCV 89 MCH 27.5 MCHC 30.9 L RDW Std Deviation 48.5 H Plt Count 93 L Neut % (Auto) 37 Lymph % (Auto) 30 [place] % (Auto) 8 Eos % (Auto) 23 H Baso % (Auto) 2 Neut # (Auto) 1.4 L Lymph # (Auto) 1.1 [place] # (Auto) 0.3 Eos # (Auto) 0.9 H Baso # (Auto) 0.1 Immature Gran # (Auto) 0.01 H Absolute Nucleated RBC 0.00 Immature Gran % 0 Nucleated RBC % 0 Sodium 141 Potassium 3.7 Chloride 108 H Carbon Dioxide 27.5 Anion Gap 6 L BUN 11 Creatinine 1.0 Estim Creat Clear Calc 101.4 eGFR > 60 BUN/Creatinine Ratio 11 L Glucose 108 H Calculated Osmolality 281 Calcium 7.3 L Corrected Calcium 8.7 Total Bilirubin 0.3 AST 21 ALT < 7 L Alkaline Phosphatase 55 Total Protein 8.2 Albumin 2.3 L Globulin 5.9 H Albumin/Globulin Ratio 0.4 L Coccidioides IgG Ab Negative Assessment & Plan Problem List (1) Altered mental status: Status: Resolved Assessment and plan: Most likely secondary to metabolic encephalopathy, improved significantly and is back to baseline Follow-up with EEG and canceled MRI brain (2) Cellulitis of lower extremity: Status: Acute Assessment and plan: Continue with antibiotics wound care (3) Cirrhosis of liver: Status: Chronic Assessment and plan: Secondary to chronic alcohol abuse with hepatitis C Noted to have polysubstance abuse Continue to monitor his liver enzymes and mental status closely Continue with the lactulose
[2025-06-04] VITALS: BP 128/80; PULSE 80; RESP 19; TEMP 36; O2SAT 97
[2025-06-04 04:00] VITALS: BP 148/82; PULSE 72; RESP 19; TEMP 36.6; O2SAT 93
[2025-06-04] MEDS: PIPER/TAZO INJ 4.5 GM in SODIUM CHLORIDE 0.9% (POP) 100 ML IV ×3 (05:11→21:40)
[2025-06-04] MEDS: HEPARIN SOD INJ 5000 UNIT/ML VIAL SC ×2 (05:12→15:24)
[2025-06-04 06:00] VITALS: BMI 31.5
[2025-06-04 07:39] VITALS: BP 118/67; PULSE 80; RESP 18; TEMP 36.3; O2SAT 97
--- NOTE | 2025-06-04 08:17 | PC.NURSE ---
Patient refusing labs for the second time today.
[2025-06-04] MEDS: FOLIC ACID 1 MG TABLET PO (08:21)
[2025-06-04] MEDS: THIAMINE 100 MG TABLET PO (08:21)
[2025-06-04] MEDS: ONDANSETRON INJ 2 MG/ML INJ 2 ML 4 MG IVP ×2 (11:18→18:18)
[2025-06-04] MEDS: HYDROcodone/APAP 5/325 TABLET 1 TAB PO (11:23)
--- NOTE | 2025-06-04 11:24 | PC.NURSE ---
Patient keeps refusing labs also refused wound care. Pt is in pain and is nauseas. Patient is asking me for morphine. I explained to him I can give him a norco for pain and zofran for his nausea.
--- NOTE | 2025-06-04 13:11 | PD.RESPRO ---
Documentation for date of: 06/04/25 Subjective Subjective Interval history: Patient was seen and examined at bedside. No acute events took place overnight. A&O x 3, mentation is stable. Admits to pain in RLE, exacerbated with movement, well-managed on [place] Will discharge to SNF pending authorization. He will need to continue with wound care at SNF. Exam Vital Signs Temp Pulse Resp BP Pulse Ox O2 Del Method O2 Flow Rate 97.3 F 80 18 118/67 97 Room Air 2 06/04/25 07:39 06/04/25 07:39 06/04/25 07:39 06/04/25 07:39 06/04/25 07:39 06/04/25 07:39 06/03/25 00:00 Narrative Exam General: Tired, somnolent, irritable, engages in conversation?limited answers. Patient has very poor hygiene and scattered tattoos. HEENT: Normocephalic, atraumatic, mucous membranes moist. Heart: Regular rate and rhythm, no murmurs. Lungs: Low pitched wheezing in bilateral lower lobes Abdomen: Soft, obese, minimal generalized tenderness, positive bowel sounds. ?No guarding or rebound tenderness. Neurologic: Somnolent, no gross neurological deficit, and patient able to move all 4 extremities. Extremities: Bilateral lower extremity venous stasis dermatitis vs lymphadenopathy with significant skin thickening, redness and tenderness noted on right leg, right leg more swollen than left. Right lower leg with an area that is indurated and erythematous with a soft polypoid appearing mass vs hemangioma measuring 2.5cm x 1cm; 1+ edema. Strength +3/5 with dorsi/plantar-flexion b/l. Pain with passive lifting of his leg. Diminished DT pulses +1/3. No sensation along below knee. Skin: Site of lesion that was removed by surgeon is healing well. Thickened verrucous skin noted on lower extremities, multiple tattoos. Objective Labs 06/03/25 05:13 06/03/25 05:13 Labs: Laboratory Results - last 24 hr 06/02/25 09:13 Coccidioides IgG Ab Negative Quality Measures Quality Measures none Assessment & Plan Assessment Current Active Medications: Generic Name Dose Route Start Last Admin Trade Name Freq PRN Reason Stop Dose Admin Acetaminophen 325 mg 05/29/25 15:25 Acetaminophen 325 Mg Tablet PO 06/28/25 15:24 Q6H PRN Fever >101.5 or pain 1-3 Hydrocodone Bitart/Acetaminophen 1 tab 06/03/25 12:31 06/04/25 11:23 Hydrocodone/Apap 5/325 Tablet PO 06/08/25 12:30 1 tab Q8HR PRN Administration PAIN SCALE 4-10(Mod-Sev Albuterol/Ipratropium 3 ml 05/29/25 15:25 Albuterol/Ipratropium (Duoneb) Rt Rosamaria 3 Ml Nebu INH 06/28/25 15:24 Q2HR PRN SHORTNESS OF BREATH OR WHEEZE Folic Acid 1 mg 05/31/25 10:00 06/04/25 08:21 Folic Acid 1 Mg Tablet PO 06/30/25 09:59 1 mg QDAY ELIGIO Administration Heparin Sodium (Porcine) 5,000 unit 05/29/25 15:30 06/04/25 05:12 Heparin Sod Inj 5000 Unit/Ml Vial SC 06/12/25 15:29 5,000 unit Q12H ELIGIO Administration Piperacillin Sod/Tazobactam 100 mls @ 200 mls/hr 05/29/25 22:00 06/04/25 05:11 Sod 4.5 gm/ Sodium Chloride IV 06/05/25 21:59 200 mls/hr Q8HR ELIGIO Administration Protocol Ondansetron HCl 4 mg 05/29/25 15:25 06/04/25 11:18 Ondansetron Inj 2 Mg/Ml Inj 2 Ml IVP 06/28/25 15:24 4 mg Q6H PRN Administration NAUSEA OR VOMITING Protocol Sennosides 1 tab 05/29/25 15:25 Senna Tablet PO 06/28/25 15:24 QDAY PRN constipation Protocol Sodium Hypochlorite 473 ml 05/31/25 16:30 06/04/25 08:22 Sod Hypochlorite 1/4 Str 473 Ml Btl IRRIG 06/30/25 16:29 Not Given BID ELIGIO Thiamine HCl 100 mg 05/31/25 10:00 06/04/25 08:21 Thiamine 100 Mg Tablet PO 06/30/25 09:59 100 mg QDAY ELIGIO Administration Plan Mr. Caruso is a 50-year-old male with past medical history as below admitted for right leg cellulitis and soft tissue mass, patient is status post wash this infestation and biopsy by general surgery, responded remarkably to IV antibiotics. #Cellulitis, resolving #Soft tissue mass status post biopsy #s/p wash, disinfestation, and biopsy Patient presented with worsening Rt leg swelling, desquamation, and excoriations. Present erythema, edema, and tenderness, and warmth. CT RLE showed diffuse severe cellulitis in the subcutaneous fatty tissues surrounding the femur, tibia and fibula. Negative for osteomyelitis. Also visualized soft tissue mass lateral lower leg at the skin surface measuring 3.7 x1.6 x3.0cm. ?Preliminary B ctx negative after 24h ?Dr Gonzalez said nonsurgical mgmt would be sufficient. ?After wash with saline, and hydrogen peroxide, betadine, and Dakins, scores of maggots were removed. Portion of the necrotic skin at the lateral aspect removed and sent to pathology. Dressings applied. ?B ctx were negative after 48h Plan: -Zosyn 4.5g Q8h (05/29 - ), vancomycin discontinued (05/29 - 06/03) -Lasix PO 40mg qday -Will discharge on Augmentin -referral to wound care -Surgery, Dr Gonzalez consulted, appreciate recs -strict ins and outs #Acute encephalopathy, resolved #Alcohol withdrawal, resolved #Opiate dependence #Methamphetamine dependence Patient was lethargic at presentation, A&O x2, unable to answer questions appropriately. On PE, pinpoint pupils. Patient reported fentanyl use just before presentations and UDS was positive for both fentanyl and amphetamine. He also admits to chronic heavy drinking. COWS score 4, patient not in opiate withdrawal. CT head negative for acute hemorrhage, mass effect, or midline shift. Dr Carbajal posits that AMS is likely 2/2 metabolic encephalopathy. ? patient refused MRI for anxiety with confinement in the machine, EEG normal Plan: - Neurology, Dr Carbajal, consulted, appreciate recs - CIWA protocol in place (neurology in agreement) - Folic acid 1mg and thiamine 100mg Qday - Ativan PO .5mg for CIWA 2-6 Q4h, 1mg for CIWA 7-11 Q4h, and 2mg CIWA 12-16 Q4h PRN - Patient advised to refrain from fentanyl and methamphetamine use #Decompensated liver cirrhosis #Hepatitis C antibody positive, #Thrombocytopenia #Grade 3 esophageal varices by history, status post banding November 2024 Patient with steatohepatitis vs primary hepatocellular disease based on previous abdominal ultrasound. Significant hepatosplenomegaly on physical exam, CT pelvis positive for massive splenomegaly CT chest abdomen pelvis (01/2025) showed cirrhosis, liver irregular contour with prominent hepatosplenomegaly, thickened gallbladder with suspected tiny gallstones, significant abdominal/pelvic lymphadenopathy, hepatic colopathy Thrombocytopenia and hypoglycemia likely 2/2 hepatic insufficiency. ammonia <10 Plan: -IVP Protonix 40mg Qday -in the light of normo-ammonemia, discontinued lactulose. #Normocytic Anemia Hgb stable around 9.0 Health Maintenance: Disposition: Telemetry Diet: PUD/GERD PPx DVT: heparin 5000mg bid PPx GI: Protonix IV 40mg Qday Code Status: DNR, DNI Case discussed with Attending Physician Dr. Delphine Torres MD Internal Medicine PGY-2 Disclaimer: This note was dictated by speech recognition. Minor errors in industrial accountant may be present due to voice recognition software. Attending Provider Attestation/Addendum Dlephine Anguiano DO, attest that I was physically present for the reyes portions of the service and evaluated the patient with the resident and I reviewed and discussed the case with the resident and agree with the resident's findings and plans of care as documented above Patient seen and evaluated this afternoon. Patient stated he had some nausea, but has since resolved. He denies any pain at this time. No tenderness to palpation of the abdomen. He is currently pending SNF placement. B/L LE edema appears improved. Will continue with current management and anticipate DC within next 24h.
--- NOTE | 2025-06-04 14:18 | PC.NURSE ---
Patient allowed me to do dressing change.
[2025-06-04 16:00] VITALS: BP 128/102; BP 132/100; PULSE 74; RESP 18; TEMP 36.3; O2SAT 97
--- NOTE | 2025-06-04 16:45 | PC.NURSE ---
Lab called patient is refusing labs once again.
[2025-06-04 20:00] VITALS: BP 103/63; PULSE 73; RESP 18; TEMP 36.3; O2SAT 97
[2025-06-04] MEDS: MORPHINE SULF INJ 4 MG/ML VIAL 1 MG IVP (20:10)
--- NOTE | 2025-06-04 23:51 | PD.VPROG1 ---
Telemedicine visit statement This visit was conducted with the use of phone was obtained on 06/04/25 at 2351. Documentation for date of: 06/04/25 Subjective Subjective Interval history: Patient is in telemetry. His mental status is back to baseline and no fluctuation noted today. He continues to have swelling in the right lower extremity from cellulitis, getting wound care with periodic dressing. Virtual exam Vital Signs Temp Pulse Resp BP Pulse Ox O2 Del Method O2 Flow Rate 97.3 F 73 18 103/63 97 Room Air 2 06/04/25 20:00 06/04/25 20:00 06/04/25 20:00 06/04/25 20:00 06/04/25 20:00 06/04/25 20:00 06/03/25 00:00 Objective Labs 06/03/25 05:13 06/03/25 05:13 Assessment & Plan Problem List (1) Altered mental status: Status: Resolved Assessment and plan: Most likely secondary to metabolic encephalopathy, improved significantly and is back to baseline Follow-up with EEG and canceled MRI brain (2) Cellulitis of lower extremity: Status: Acute Assessment and plan: Continue with antibiotics wound care (3) Cirrhosis of liver: Status: Chronic Assessment and plan: Secondary to chronic alcohol abuse with hepatitis C Noted to have polysubstance abuse Continue to monitor his liver enzymes and mental status closely Continue with the lactulose
[2025-06-05] VITALS: BP 101/57; PULSE 70; RESP 20; TEMP 36.1; O2SAT 95
--- NOTE | 2025-06-05 02:07 | PC.NURSE ---
accessed pt's chart to assist main RN.
[2025-06-05] MEDS: MORPHINE SULF INJ 4 MG/ML VIAL 2 MG IVP ×2 (02:12→05:44)
--- NOTE | 2025-06-05 02:12 | PC.NURSE ---
morphine given at 0212 am.
[2025-06-05] MEDS: HEPARIN SOD INJ 5000 UNIT/ML VIAL SC (03:43)
[2025-06-05 04:00] VITALS: BP 101/57; PULSE 66; RESP 20; TEMP 36.1; O2SAT 92
[2025-06-05] MEDS: ONDANSETRON INJ 2 MG/ML INJ 2 ML 4 MG IVP (05:40)
[2025-06-05] MEDS: PIPER/TAZO INJ 4.5 GM in SODIUM CHLORIDE 0.9% (POP) 100 ML IV (05:48)
[2025-06-05 06:00] VITALS: BMI 29.6
[2025-06-05 07:26] VITALS: PULSE 71; RESP 20; RESP 95; O2SAT 95
[2025-06-05 07:51] VITALS: BP 129/92; PULSE 72; RESP 17; TEMP 36.2; O2SAT 95
[2025-06-05] MEDS: LORazepam 2 MG/ML VIAL IVP (08:37)
[2025-06-05 09:19] VITALS: PULSE 81
--- NOTE | 2025-06-05 09:24 | PC.SS ---
Follow up note: SS spoke to Dionne at [facility] who explained insurance authorization is pending. SS was informed by [facility] pt is requesting to leave AMA and is requesting a wheelchair.
[2025-06-05 12:00] VITALS: BP 120/75; PULSE 83; PULSE 90; RESP 20; TEMP 36.3; O2SAT 98
--- NOTE | 2025-06-05 12:51 | PC.SS ---
Addendum entered by Faiza Torres 06/05/25 12:59: SS called [employer] for wheelchairs: [employer], only able to leave voicemail with SS contact information [facility] does not have wheelchairs available [facility] has 2 wheelchairs, address is [address] Original Note: SS received call from Denise from [facility] who explained pt is not eligible for wheelchair due to receiving wheelchair in Nov, 2024. SS met with pt and provided him with wheelchair (was purchased by hospital), shorts, shirt, underwear, and shoes. SS provided pt with [employer] and pt refused stating he has plenty of resources. Pt has sweatshirt in his belonging bags and pt requested shorts instead of pants.
--- NOTE | 2025-06-05 14:39 | PD.RESPRO ---
Documentation for date of: 06/05/25 Subjective Subjective Interval history: Patient seen and examined at bedside. Received a call from nurse earlier this morning that patient wants to leave AMA, seen at bedside alert and oriented x 4 explained the risks and benefits of leaving AGAINST MEDICAL ADVICE, patient requested treatment for his withdrawal, reported that he really wants to use fentanyl. Eventually patient decided to stay, was given IV Ativan x 1 and was started on gabapentin. During working with physical therapy after standing patient had significant bleeding from right leg wound, wound was assessed, bleeding controlled, wound nurse at bedside. Heparin subcutaneous was held, labs were obtained. Later in the day patient decided to leave AGAINST MEDICAL ADVICE, see event note for details Exam Vital Signs Temp Pulse Resp BP Pulse Ox O2 Del Method O2 Flow Rate 97.3 F 83 20 120/75 98 Room Air 2 06/05/25 12:00 06/05/25 12:00 06/05/25 12:00 06/05/25 12:00 06/05/25 12:00 06/05/25 12:00 06/03/25 00:00 Narrative Exam General: Tired, somnolent, irritable, engages in conversation?limited answers. Patient has very poor hygiene and scattered tattoos. HEENT: Normocephalic, atraumatic, mucous membranes moist. Heart: Regular rate and rhythm, no murmurs. Lungs: Low pitched wheezing in bilateral lower lobes Abdomen: Soft, obese, minimal generalized tenderness, positive bowel sounds. ?No guarding or rebound tenderness. Neurologic: Somnolent, no gross neurological deficit, and patient able to move all 4 extremities. Extremities: Bilateral lower extremity venous stasis dermatitis vs lymphadenopathy with significant skin thickening, redness and tenderness noted on right leg, right leg swelling improved, redness improved, wrapped in bandage. Strength +3/5 with dorsi/plantar-flexion b/l. Pain with passive lifting of his leg. Diminished DT pulses +1/3. No sensation along below knee. Skin: Site of lesion that was removed by surgeon is healing well. Thickened verrucous skin noted on lower extremities, multiple tattoos. Objective Labs 06/03/25 05:13 06/03/25 05:13 Quality Measures Quality Measures none Assessment & Plan Assessment Current Active Medications: Generic Name Dose Route Start Last Admin Trade Name Freq PRN Reason Stop Dose Admin Acetaminophen 325 mg 05/29/25 15:25 Acetaminophen 325 Mg Tablet PO 06/28/25 15:24 Q6H PRN Fever >101.5 or pain 1-3 Hydrocodone Bitart/Acetaminophen 1 tab 06/03/25 12:31 06/04/25 11:23 Hydrocodone/Apap 5/325 Tablet PO 06/08/25 12:30 1 tab Q8HR PRN Administration PAIN SCALE 4-10(Mod-Sev Albuterol/Ipratropium 3 ml 05/29/25 15:25 Albuterol/Ipratropium (Duoneb) Rt Rosamaria 3 Ml Nebu INH 06/28/25 15:24 Q2HR PRN SHORTNESS OF BREATH OR WHEEZE Folic Acid 1 mg 05/31/25 10:00 06/04/25 08:21 Folic Acid 1 Mg Tablet PO 06/30/25 09:59 1 mg QDAY ELIGIO Administration Heparin Sodium (Porcine) 5,000 unit 05/29/25 15:30 06/04/25 05:12 Heparin Sod Inj 5000 Unit/Ml Vial SC 06/12/25 15:29 5,000 unit Q12H ELIGIO Administration Piperacillin Sod/Tazobactam 100 mls @ 200 mls/hr 05/29/25 22:00 06/04/25 05:11 Sod 4.5 gm/ Sodium Chloride IV 06/05/25 21:59 200 mls/hr Q8HR ELIGIO Administration Protocol Ondansetron HCl 4 mg 05/29/25 15:25 06/04/25 11:18 Ondansetron Inj 2 Mg/Ml Inj 2 Ml IVP 06/28/25 15:24 4 mg Q6H PRN Administration NAUSEA OR VOMITING Protocol Sennosides 1 tab 05/29/25 15:25 Senna Tablet PO 06/28/25 15:24 QDAY PRN constipation Protocol Sodium Hypochlorite 473 ml 05/31/25 16:30 06/04/25 08:22 Sod Hypochlorite 1/4 Str 473 Ml Btl IRRIG 06/30/25 16:29 Not Given BID ELIGIO Thiamine HCl 100 mg 05/31/25 10:00 06/04/25 08:21 Thiamine 100 Mg Tablet PO 06/30/25 09:59 100 mg QDAY ELIGIO Administration Plan Mr. Caruso is a 50-year-old male with past medical history as below admitted for right leg cellulitis and soft tissue mass, patient is status post wash this infestation and biopsy by general surgery, responded remarkably to IV antibiotics. #Cellulitis, resolving #Soft tissue mass status post biopsy #s/p wash, disinfestation, and biopsy Patient presented with worsening Rt leg swelling, desquamation, and excoriations. Present erythema, edema, and tenderness, and warmth. CT RLE showed diffuse severe cellulitis in the subcutaneous fatty tissues surrounding the femur, tibia and fibula. Negative for osteomyelitis. Also visualized soft tissue mass lateral lower leg at the skin surface measuring 3.7 x1.6 x3.0cm. ?Preliminary B ctx negative after 24h ?Dr Gonzalez said nonsurgical mgmt would be sufficient. ?After wash with saline, and hydrogen peroxide, betadine, and Dakins, scores of maggots were removed. Portion of the necrotic skin at the lateral aspect removed and sent to pathology. Dressings applied. ?B ctx were negative after 48h Plan: -Zosyn 4.5g Q8h (05/29 - ), vancomycin discontinued (05/29 - 06/03) -Lasix PO 40mg qday -Will discharge on Augmentin -referral to wound care -Surgery, Dr Gonzalez consulted, appreciate recs -strict ins and outs #Acute encephalopathy, resolved #Alcohol withdrawal, resolved #Opiate dependence #Methamphetamine dependence Patient was lethargic at presentation, A&O x2, unable to answer questions appropriately. On PE, pinpoint pupils. Patient reported fentanyl use just before presentations and UDS was positive for both fentanyl and amphetamine. He also admits to chronic heavy drinking. COWS score 4, patient not in opiate withdrawal. CT head negative for acute hemorrhage, mass effect, or midline shift. Dr Carbajal posits that AMS is likely 2/2 metabolic encephalopathy. ? patient refused MRI for anxiety with confinement in the machine, EEG normal Plan: - Neurology, Dr Carbajal, consulted, appreciate recs - CIWA protocol resumed - Folic acid 1mg and thiamine 100mg Qday - Ativan PO .5mg for CIWA 2-6 Q4h, 1mg for CIWA 7-11 Q4h, and 2mg CIWA 12-16 Q4h PRN - Patient advised to refrain from fentanyl and methamphetamine use #Decompensated liver cirrhosis #Hepatitis C antibody positive, #Thrombocytopenia #Grade 3 esophageal varices by history, status post banding November 2024 Patient with steatohepatitis vs primary hepatocellular disease based on previous abdominal ultrasound. Significant hepatosplenomegaly on physical exam, CT pelvis positive for massive splenomegaly CT chest abdomen pelvis (01/2025) showed cirrhosis, liver irregular contour with prominent hepatosplenomegaly, thickened gallbladder with suspected tiny gallstones, significant abdominal/pelvic lymphadenopathy, hepatic colopathy Thrombocytopenia and hypoglycemia likely 2/2 hepatic insufficiency. ammonia <10 Plan: -IVP Protonix 40mg Qday -in the light of normo-ammonemia, discontinued lactulose. #Normocytic Anemia Hgb stable around 9.0 Health Maintenance: Disposition: Telemetry Diet: PUD/GERD PPx DVT: heparin 5000mg bid-held PPx GI: Protonix IV 40mg Qday Code Status: DNR, DNI Case discussed with Attending Physician Dr. Elliot Sosa MD Internal Medicine PGY-2 Disclaimer: This note was dictated by speech recognition. Minor errors in electronic equipment set up operator may be present due to voice recognition software. Attending Provider Attestation/Addendum I have seen and examined the patient. I was physically present for the reyes portions of the services provided including history, physical exam, diagnosis, treatment plans and orders. I agree with assessment and plan of care as documented by residents. Even though this this note was carefully revised there may still be minor errors in electronic equipment set up operator due to voice recognition software. Elliot Bermudez MD
--- NOTE | 2025-06-05 15:21 | EVENTNT_ITS ---
Documentation for date of: 06/05/25 Event Note Event Note: Called by patient's nurse this afternoon stating that patient wishes to leave AGAINST MEDICAL ADVICE. Went to patient's bedside, explained in detail regarding his current condition and management plans. Explained that he recen tly had a bleeding from his wound and it is recommended to monitor his hemoglobin and further bleeding episode. Also explained that patient will need wound care and continuation of antibiotics. Also explained that he is having withdrawal symptoms from substance abuse, which will be difficult to manage outpatient and may lead to severe complications. He is informed that if left untreated, he might have bleeding episode leading to severe anemia, hypovolemic shock, worsening of leg wound, development into gangrene needing amputation and even to . Patient verbalized understanding but still wanted to leave AMA. He signed AMA paperwork and left the hospital.
== END 2025-06-05 12:41 | disposition left against medical advice (07) | DRG 383 ==
LOC: SERX 14:23 → SERHOLD 15:48 → S2NX 22:04 → S3SX 06-03 18:50
PROVIDERS: Emergency Medicine; Admitting Provider Student in an Organized Health Care Education/Training Program; Emergency Provider Emergency Medicine; Visit Provider Student in an Organized Health Care Education/Training Program
DX: L03.115 Cellulitis of right lower limb (principal); B19.20 Unspecified viral hepatitis C without hepatic coma; I87.8 Other specified disorders of veins; K74.60 Unspecified cirrhosis of liver; W05.0XXA Fall from non-moving wheelchair, initial encounter; N40.0 Benign prostatic hyperplasia without lower urinary tract symptoms; M32.9 Systemic lupus erythematosus, unspecified; F17.200 Nicotine dependence, unspecified, uncomplicated; K21.9 Gastro-esophageal reflux disease without esophagitis; Z59.00 Homelessness unspecified; G93.40 Encephalopathy, unspecified; F11.23 Opioid dependence with withdrawal; F15.20 Other stimulant dependence, uncomplicated; K70.9 Alcoholic liver disease, unspecified; R16.2 Hepatomegaly with splenomegaly, not elsewhere classified; I96 Gangrene, not elsewhere classified; F10.139 Alcohol abuse with withdrawal, unspecified; Z53.29 Procedure and treatment not carried out because of patient's decision for other reasons; Z91.199 Patient's noncompliance with other medical treatment and regimen due to unspecified reason; Z99.3 Dependence on wheelchair; Z66 Do not resuscitate; L03.116 Cellulitis of left lower limb; D69.6 Thrombocytopenia, unspecified; Z88.1 Allergy status to other antibiotic agents
CPT/HCPCS: 36415; 51702; 70450; 72192; 73701; 80053; 80061; 80202; 80307; 81001; 82140; 82607; 82746; 83605; 83690; 83735; 83880; 84100; 84145; 84484; 85025; 85610; 85652; 85730; 86331; 86635; 86703; 86780; 86850; 86900; 86901; 87040; 87086; 93005; 95816; 96361; 96365; 96366; 96375; 96376; 97162; 99283; A4314; A4649; J1171; J1644; J1885; J1938; J2060; J2270; J2405; J2543; J3373; J3490; J7030; Q9967; A9270